=== PATIENT | female | born 1945 | race Caucasian/White ===

== ENCOUNTER → 2018-03-27 08:29 | Outpatient (CLI) | payer MEDICARE, SELFPAY ==
--- NOTE | 2018-03-27 08:36 | MR_ITS ---
MR lumbar spine wo con, MR 3-d myelogram/MRCP HISTORY: PT states Low Back Pain , Bilateral Leg Pain, Numbness, and Tingling. ITS.REASON: LOW BACK PAIN, LUMBAR DISC DISEASE, SPINAL STENOSIS OF LUMBAR ORDERING PHYSICIAN: Phoenix Coulter MD PATIENT AGE: 72 years Comparison: MRI 09/08/10 TECHNIQUE: Standard multiplanar multiecho sequences are performed without contrast. 3-D MIP and myelographic images are also rendered and reviewed FINDINGS: There is normal alignment. The spinal cord ends at the L1-L2 level. T11-T12: Unremarkable. T12-L1: Mild degenerative disc disease with mild bulging disc slightly eccentric towards the left L1-L2: Degenerative disc disease with concentric bulging disc along with facet and ligamentum flavum hypertrophy with severe right foraminal narrowing and moderate to severe left foraminal narrowing. The bulging disc is eccentric toward the right with right lateral and foraminal disc osteophyte complex. L2-L3: Degenerative disc disease with bulging disc along with facet and ligamentum flavum hypertrophy with resultant moderate right and moderate to severe left foraminal narrowing along with bilateral lateral recess narrowing. Previously there was a herniated extruded disc at this level. This is no longer apparent. L3-L4: Degenerative disc disease with bulging disc along with facet and ligamentum flavum hypertrophy with mild bilateral foraminal narrowing and bilateral lateral recess narrowing. There is borderline narrowing of the canal at this level. L4-L5: Degenerative disc disease with narrowed disc space and type II endplate changes with minimal bulging disc. There is transverse narrowing of the canal is 11 mm and bilateral foraminal narrowing. L5-S1: Fusion of L5-S1 interspace some mild posterior ridging as before with mild bilateral foraminal narrowing. IMPRESSION: 1. Abnormal MRI of the lumbar spine with multilevel lumbar spondylosis with degenerative disc disease along with facet and ligamentum hypertrophy and bulging disc with varying levels of bilateral recess and foraminal narrowing along with borderline canal stenosis. Please see above for detailed description at each level. 2. No extruded herniated disc.
== END ==
PROVIDERS: Family Provider Family Medicine; Visit Provider Family Medicine
DX: M54.5 Low back pain (principal); M51.9 Unspecified thoracic, thoracolumbar and lumbosacral intervertebral disc disorder; M48.061 Spinal stenosis, lumbar region without neurogenic claudication
CPT/HCPCS: 72148; 76376

== ENCOUNTER → 2018-07-19 09:00 | Outpatient (CLI) | payer MEDICARE, SELFPAY ==
[2018-07-19 09:27] LABS: Basophils # 0.1 K/mm3 (0-0.2); Basophils % 0.9 % (0.1-2.0); Eosinophils # 0.3 K/mm3 (0.0-0.4); Eosinophils % 5.3 % (0.1-12.0); Lymphocytes # 1.4 K/mm3 (0.7-4.5); Lymphocytes % 22.1 % (10-50); Mean Corpuscular HGB Conc 28.1 g/dL (31.8-35.4); Mean Corpuscular Hemoglobin 18.1 pg (27.0-31.2); Mean Corpuscular Volume 64.3 fl (81-99); Mean Platelet Volume 6.9 fl (7.4-10.4); Monocytes # 0.5 K/mm3 (0.1-1.0); Monocytes % 7.9 % (1.7-9.3); Neutrophils # 3.9 K/mm3 (1.8-7.8); Neutrophils % 63.8 % (37.0-80.0); Platelet Count 390 K/mm3 (142-424); Red Blood Count 3.78 M/mm3 (4.20-5.40); Red Cell Distribution Width 17.2 % (11.5-17.5); White Blood Count 6.1 K/mm3 (4.8-10.8)
[2018-07-19 09:43] LABS: Hematocrit 24.6 % (37.0-47.0)
[2018-07-19 09:45] LABS: Hemoglobin 6.8 g/dL (12.2-16.2)
[2018-07-19 13:37] LABS: Alanine Aminotransferase 31 U/L (12-78); Albumin Level 3.3 gm/dL (3.4-5.0); Albumin/Globulin Ratio 0.9 (1.1-1.8); Alkaline Phosphatase 121 U/L (46-116); Anion Gap 15.6 mEq/L (5-15); Aspartate Amino Transferase 16 U/L (15-37); Bilirubin,Total 0.3 mg/dL (0.2-1.0); Blood Urea Nitrogen 14 mg/dL (7-18); Calcium 8.4 mg/dL (8.5-10.1); Carbon Dioxide 25 mmol/L (21.0-32.0); Chloride 103 mmol/L (98-107); Chol/HDL Ratio 2.3 (1-3.5); Cholesterol 134 mg/dL (140-200); Creatinine,Serum 0.77 mg/dL (0.55-1.02); Estimated Glomerular Filt Rate 73 ml/min (>60); GFR (African American) 89 ML/MIN (>60); Globulin 3.6 gm/dl (1.3-3.2); Glucose 104 mg/dL (74-106); HDL Cholesterol 58 mg/dL (29-89); LDL Cholesterol 62 mg/dL (0-130); Potassium 3.6 mmoL/L (3.5-5.1); Sodium 140 mmol/L (136-145); Total Protein,Serum 6.9 gm/dL (6.4-8.2); Triglycerides 71 mg/dL (30-200); VLDL Cholesterol 14 mg/dL (0-40)
== END ==
PROVIDERS: Visit Provider Family Medicine
DX: I10 Essential (primary) hypertension (principal); E78.00 Pure hypercholesterolemia, unspecified
CPT/HCPCS: 36415; 80053; 80061; 85025

== ENCOUNTER → 2018-07-24 12:26 | Outpatient (CLI) | payer MEDICARE, SELFPAY ==
[2018-07-24 12:54] LABS: Basophils # 0.1 K/mm3 (0-0.2); Eosinophils # 0.3 K/mm3 (0.0-0.4); Hematocrit 24.7 % (37.0-47.0); Lymphocytes # 1.4 K/mm3 (0.7-4.5); Lymphocytes % 26.5 % (10-50); Mean Corpuscular HGB Conc 27.4 g/dL (31.8-35.4); Mean Corpuscular Hemoglobin 17.5 pg (27.0-31.2); Mean Corpuscular Volume 63.7 fl (81-99); Mean Platelet Volume 7.5 fl (7.4-10.4); Monocytes # 0.6 K/mm3 (0.1-1.0); Monocytes % 10.9 % (1.7-9.3); Neutrophils # 2.9 K/mm3 (1.8-7.8); Neutrophils % 56.6 % (37.0-80.0); Platelet Count 414 K/mm3 (142-424); Red Blood Count 3.87 M/mm3 (4.20-5.40); Red Cell Distribution Width 17.3 % (11.5-17.5); White Blood Count 5.1 K/mm3 (4.8-10.8)
[2018-07-24 13:01] LABS: Hemoglobin 6.8 g/dL (12.2-16.2)
[2018-07-24 14:35] LABS: Alanine Aminotransferase 30 U/L (12-78); Albumin Level 3.4 gm/dL (3.4-5.0); Albumin/Globulin Ratio 0.9 (1.1-1.8); Alkaline Phosphatase 127 U/L (46-116); Anion Gap 13.8 mEq/L (5-15); Aspartate Amino Transferase 12 U/L (15-37); Bilirubin,Total 0.4 mg/dL (0.2-1.0); Blood Urea Nitrogen 10 mg/dL (7-18); Calcium 9.4 mg/dL (8.5-10.1); Carbon Dioxide 28 mmol/L (21.0-32.0); Chloride 104 mmol/L (98-107); Creatinine,Serum 0.67 mg/dL (0.55-1.02); Estimated Glomerular Filt Rate 86 ml/min (>60); Ferritin 7 ng/mL (8-388); GFR (African American) 104 ML/MIN (>60); Glucose 112 mg/dL (74-106); Potassium 3.8 mmoL/L (3.5-5.1); Sodium 142 mmol/L (136-145); Total Protein,Serum 7.4 gm/dL (6.4-8.2)
[2018-07-25 08:28] LABS: Iron 11 ug/dL (27-139); UIBC 466 ug/dL (118-369)
[2018-07-25 14:18] LABS: Iron Saturation 2 % (15-55); Vitamin B12 839 pg/mL (232-1245)
== END ==
PROVIDERS: Visit Provider Nurse Practitioner Acute Care
DX: D64.9 Anemia, unspecified (principal)
CPT/HCPCS: 36415; 80053; 82607; 82728; 83540; 83550; 85025

== ENCOUNTER → 2018-07-25 12:43 | Outpatient (CLI) | payer MEDICARE, SELFPAY ==
[2018-07-26 09:06] LABS: Hematocrit 26.3 % (37.0-47.0); Hemoglobin 6.8 g/dL (12.2-16.2)
== END ==
PROVIDERS: Visit Provider Family Medicine
DX: D64.9 Anemia, unspecified (principal)
CPT/HCPCS: 36415; 85014; 85018; 86850

== ENCOUNTER 2018-07-26 09:14 | Outpatient (CLI) | payer MEDICARE, SELFPAY ==
[2018-07-26] VITALS (20 sets, daily range): BP systolic 134–185; BP diastolic 68–97; PULSE 62–72; RESP 16–18; TEMP 36.5–36.8; O2SAT 97–99; BMI 29.2
[2018-07-26 16:16] LABS: Hematocrit 33.8 % (37.0-47.0)
== END 2018-07-26 16:20 | disposition home or self-care (01) ==
LOC: INF 09:14
PROVIDERS: Visit Provider Family Medicine
DX: D64.9 Anemia, unspecified (principal)
CPT/HCPCS: 36415; 36430; 85014; 85018; P9016

== ENCOUNTER → 2018-08-15 12:14 | Outpatient (CLI) | payer MEDICARE, SELFPAY ==
[2018-08-15 13:23] LABS: Basophils # 0.1 K/mm3 (0-0.2); Basophils % 1.1 % (0.1-2.0); Eosinophils # 0.3 K/mm3 (0.0-0.4); Hematocrit 37.7 % (37.0-47.0); Hemoglobin 10.7 g/dL (12.2-16.2); Lymphocytes # 2.2 K/mm3 (0.7-4.5); Lymphocytes % 31.9 % (10-50); Mean Corpuscular HGB Conc 28.4 g/dL (31.8-35.4); Mean Corpuscular Hemoglobin 20.5 pg (27.0-31.2); Mean Corpuscular Volume 72.1 fl (81-99); Mean Platelet Volume 6.9 fl (7.4-10.4); Monocytes # 0.6 K/mm3 (0.1-1.0); Monocytes % 9.4 % (1.7-9.3); Neutrophils # 3.6 K/mm3 (1.8-7.8); Neutrophils % 52.6 % (37.0-80.0); Platelet Count 359 K/mm3 (142-424); Red Blood Count 5.23 M/mm3 (4.20-5.40); Red Cell Distribution Width 25.5 % (11.5-17.5); White Blood Count 6.8 K/mm3 (4.8-10.8)
== END ==
PROVIDERS: Visit Provider Family Medicine
DX: D50.9 Iron deficiency anemia, unspecified (principal)
CPT/HCPCS: 36415; 85025

== ENCOUNTER → 2018-09-24 07:00 | Outpatient (CLI) | payer MEDICARE, SELFPAY | PROVIDERS: Visit Provider Internal Medicine Gastroenterology | DX: D50.0 Iron deficiency anemia secondary to blood loss (chronic) (principal) | CPT/HCPCS: 82272; G0328 ==

== ENCOUNTER → 2018-09-24 08:09 | Outpatient (CLI) | payer MEDICARE, SELFPAY ==
[2018-09-24 08:58] LABS: Hematocrit 44.1 % (37.0-47.0)
[2018-09-25 08:28] LABS: Iron 68 ug/dL (27-139); UIBC 267 ug/dL (118-369)
[2018-09-25 09:57] LABS: Iron Saturation 20 % (15-55)
[2018-09-25 13:15] LABS: Hemoglobin (Hgb) Solubility Negative (Negative)
[2018-09-26 10:21] LABS: Occult Blood,Stool Negative (Negative)
== END ==
PROVIDERS: Visit Provider Internal Medicine Gastroenterology
DX: D64.9 Anemia, unspecified (principal)
CPT/HCPCS: 36415; 82272; 83021; 83540; 83550; 85014; 85660; G0328

== ENCOUNTER → 2018-09-25 07:00 | Outpatient (CLI) | payer MEDICARE, SELFPAY ==
[2018-09-26 10:21] LABS: Occult Blood,Stool Negative (Negative)
== END ==
PROVIDERS: Visit Provider Internal Medicine Gastroenterology
DX: D50.0 Iron deficiency anemia secondary to blood loss (chronic) (principal)
CPT/HCPCS: 82272; G0328

== ENCOUNTER → 2018-09-26 09:54 | Outpatient (CLI) | payer MEDICARE, SELFPAY ==
[2018-09-26 10:21] LABS: Occult Blood,Stool Negative (Negative)
== END ==
PROVIDERS: Visit Provider Internal Medicine Gastroenterology
DX: D50.0 Iron deficiency anemia secondary to blood loss (chronic) (principal)
CPT/HCPCS: 82272; G0328

== ENCOUNTER → 2020-04-20 09:11 | Outpatient (CLI) | payer MEDICARE, SELFPAY ==
--- NOTE | 2020-04-20 09:16 | XR_ITS ---
PROCEDURE: XR DEXA AXIAL SKELETON CLINICAL HISTORY: POST MENOPAUSAL COMPARISON: CR,DX BONE3 BONE DENSITOMETRY(HIP:LT SPINE from 03/27/2017 FINDINGS: The right hip BMD is 0.708 with a T-score of -1.3. The left hip BMD is 0.703 with a T-score of -1.3. The lumbar spine BMD is 1.293 with a T-score of 2.2. IMPRESSION: This patient is considered osteopenic according to the World Health Organization criteria. Bone density is between 10 and 25 percent below young normal. Fracture risk is moderate. Treatment is advised. Based on these results a follow-up exam is recommended in 2 year. Dictated by: Luis Real MD 04/20/2020 20:25 Luis Real MD in [place] 04/21/2020 07:44
== END ==
PROVIDERS: PCP Family Medicine; Visit Provider Family Medicine
DX: M85.89 Other specified disorders of bone density and structure, multiple sites (principal)
CPT/HCPCS: 77080

== ENCOUNTER → 2020-06-13 08:27 | Outpatient (CLI) | payer MEDICARE, SELFPAY ==
[2020-06-13 09:02] LABS: Basophils # 0.1 K/mm3 (0-0.2); Basophils % 1.3 % (0.1-2.0); Eosinophils # 0.3 K/mm3 (0.0-0.4); Hematocrit 44.3 % (37.0-47.0); Hemoglobin 14.7 g/dL (12.2-16.2); Lymphocytes # 1.4 K/mm3 (0.7-4.5); Lymphocytes % 26.1 % (10-50); Mean Corpuscular HGB Conc 33.2 g/dL (31.8-35.4); Mean Corpuscular Hemoglobin 27.6 pg (27.0-31.2); Mean Corpuscular Volume 83.1 fl (81-99); Mean Platelet Volume 8.3 fl (7.4-10.4); Monocytes # 0.6 K/mm3 (0.1-1.0); Monocytes % 10.4 % (1.7-9.3); Neutrophils # 3.1 K/mm3 (1.8-7.8); Neutrophils % 57.3 % (37.0-80.0); Platelet Count 227 K/mm3 (142-424); Red Blood Count 5.33 M/mm3 (4.20-5.40); Red Cell Distribution Width 14.8 % (11.5-17.5); White Blood Count 5.5 K/mm3 (4.8-10.8)
[2020-06-13 09:47] LABS: Chloride 103 mmol/L (98-107); Potassium 3.9 mmoL/L (3.5-5.1); Sodium 140 mmol/L (136-145)
[2020-06-13 09:49] LABS: Blood Urea Nitrogen 15 mg/dl (7-17); Estimated Glomerular Filt Rate 70 ml/min (>60); GFR (African American) 84 ML/MIN (>60)
[2020-06-13 09:50] LABS: Alanine Aminotransferase 25 U/L (12-78); Albumin Level 4.1 g/dl (3.5-5.0); Albumin/Globulin Ratio 1.3 (1.1-1.8); Alkaline Phosphatase 120 U/L (38-126); Anion Gap 9.9 mEq/L (5-15); Aspartate Amino Transferase 28 U/L (14-36); Bilirubin,Total 0.4 mg/dl (0.2-1.3); Calcium 9.8 mg/dl (8.4-10.2); Carbon Dioxide 31 mmol/L (22.0-30.0); Globulin 3.1 g/dL (1.3-3.2); Glucose 99 mg/dl (74-100); Total Protein,Serum 7.2 g/dl (6.3-8.2)
[2020-06-13 10:07] LABS: T4 (Thyroxine) 9.1 ug/dl (5.53-11.0)
[2020-06-13 10:20] LABS: Thyroid Stimulating Hormone 1.77 uIU/mL (0.465-4.68)
== END ==
PROVIDERS: Visit Provider Family Medicine
DX: I10 Essential (primary) hypertension (principal); Z79.899 Other long term (current) drug therapy
CPT/HCPCS: 36415; 80053; 84436; 84443; 85025

== ENCOUNTER 2020-08-05 13:30 | Emergency (ER) | payer MEDICARE, SELFPAY ==
[2020-08-05 13:35] VITALS: BP 131/82; PULSE 76; RESP 19; TEMP 37.1; O2SAT 96; BMI 29.2
--- NOTE | 2020-08-05 13:50 | HMH.EDUTC ---
[facility] [place] Clinical Impression: Sinusitis Qualifiers: Sinusitis location: unspecified location Chronicity: unspecified Qualified Code(s): J32.9 - Chronic sinusitis, unspecified Disposition: Home, Self-Care Condition on Discharge: Good Instructions: Sinusitis, Sinus Headache, Doxycycline, DI for COVID-19 (Suspected or Confirmed ), Coronavirus Disease 2019 Additional Instructions: *Monitor Temp, Over the counter Motrin or Tylenol as directed/as needed Tylenol every 4 hours and Motrin every 6 hours (as long as your family doctor has told you that you can take it) for fever or pain. and straight to ER if unable to lower temp less than 101.0 after medication given *Warm salt water gargles may help to soothe the throat *Throat Lozenges *Warm fluids like tea with honey may help to soothe the throat *Sleep elevated *Humidifier/Vaporizer Follow up IMMEDIATELY for new or worsening symptoms or no Noticeable improvement over the next 48-72 hours. 911 for difficulty breathing or swallowing You were tested for today for COVID19 your test result should be back in the next 24-48 hours, you may call to the [facility] to see if your test results are back in the next 48 hours [phone] [facility] hours are 9am-9pm You was given a handout with instructions for Self Quarantine and Self isolation for while you wait on test results and what to do if they are positive If you are positive the Health Dept will be contacting you also Prescriptions: Doxycycline Hyclate [Doxycycline 100mg Capsule] 100 mg PO BID 7 Days #14 cap Prescription Printed Referrals: Uriel Mcbride MD [Primary Care Provider] - As needed Time of Disposition: 13:55 Medical Decision Making - Maximilian Inquiry Pt receiving controlled substance: No Maximilian was queried for this patient: No Vital Signs: 08/05/20 13:35 08/05/20 14:02 Temperature 98.7 F 98.7 F Temperature Source Oral Pulse Rate 76 Pulse Rate [Right Brachial] 76 Respiratory Rate 19 19 Blood Pressure 131/82 Blood Pressure [Right Arm] 131/82 Blood Pressure Mean [Right Arm] 98 Blood Pressure Source [Right Arm] Automatic Cuff Blood Pressure Position [Right Arm] Sitting 02 Sat by Pulse Oximetry 96 Oxygen Delivery Method Room Air Orders (Tests/Meds): ORDERS Category Date Time Status Covid-19 Nasal PCR Sendout P&C Stat Lab 08/05/20 13:55 Received [facility] [place]PI - General Stated complaint: poss sinus infection Time Seen by Provider: 08/05/20 13:50 Mode of Arrival: Ambulatory Source of Information: Patient Limitations: No Limitations Description of Symptoms (Recalled from Triage Doc. by RN): PATIENT C/O HEADACHE AND SINUS PAIN/PRESSURE X 2 DAYS HEENT Symptoms (Recalled from RN notes): No Resp Symptoms (Recalled from RN notes): No Skin Symptoms (Recalled from RN notes): No MS Symptoms (Recalled from RN notes): No Functional Status (Recalled from RN notes): WNL - History of Present Illness Provider Complaint: Patient state that she has had several sinus infections in the past and feels like she may have a sinus infection again State that she has been having sinus pain and pressure for over a week that has continued to get worse over the last couple of days States that she also wanted to get tested for COVID to be safe - Related Data Home Medications Medication Instructions Recorded Confirmed Aspirin [Aspirin 325mg Tab] 325 mg PO DAILY 07/26/18 07/26/18 Atorvastatin Calcium [Atorvastatin 20 mg PO DAILY 07/26/18 07/26/18 20mg Tab] Chlorthalidone 25 mg PO DAILY 07/26/18 07/26/18 Gabapentin [Gabapentin 300mg Cap] 300 mg PO DAILY 07/26/18 07/26/18 Potassium Chloride [Klor-con 20 20 meq PO DAILY 07/26/18 07/26/18 mEq tablet] Verapamil HCl [Verapamil ER] 240 mg PO DAILY 07/26/18 07/26/18 Previous Rx's Medication Instructions Recorded Doxycycline Hyclate [Doxycycline 100 mg PO BID 7 Days #14 cap 08/05/20 100mg Capsule] Allergies Allergy/AdvReac Type Se
[2020-08-05 14:02] VITALS: BP 131/82; PULSE 76; RESP 19; TEMP 37.1; O2SAT 96
[2020-08-06 10:20] LABS: Covid-19 Nasal PCR Sendout P&C Positive
--- NOTE | 2020-08-06 10:23 | PC.NURSE ---
PATIENT NOTIFIED OF POSITIVE COVID TEST
== END 2020-08-05 14:03 | disposition home or self-care (01) ==
PROVIDERS: Emergency Provider Nurse Practitioner; PCP Family Medicine
DX: U07.1 COVID-19 (principal); J32.9 Chronic sinusitis, unspecified; I10 Essential (primary) hypertension; E78.5 Hyperlipidemia, unspecified; Z88.8 Allergy status to other drugs, medicaments and biological substances; Z79.899 Other long term (current) drug therapy
CPT/HCPCS: G0463; 99201; U0004

== ENCOUNTER → 2021-02-20 07:15 | Outpatient (CLI) | payer MEDICARE, SELFPAY ==
[2021-02-20 09:03] LABS: Alanine Aminotransferase 24 U/L (12-78); Albumin Level 4.2 g/dl (3.5-5.0); Albumin/Globulin Ratio 1.4 (1.1-1.8); Alkaline Phosphatase 110 U/L (38-126); Anion Gap 12.3 mEq/L (5-15); Aspartate Amino Transferase 26 U/L (14-36); Bilirubin,Total 0.7 mg/dl (0.2-1.3); Blood Urea Nitrogen 18 mg/dl (7-17); Calcium 9.8 mg/dl (8.4-10.2); Carbon Dioxide 32 mmol/L (22.0-30.0); Chloride 106 mmol/L (98-107); Chol/HDL Ratio 2.7 (1-3.5); Cholesterol 155 mg/dl (140-200); Estimated Glomerular Filt Rate 70 ml/min (>60); GFR (African American) 84 ML/MIN (>60); Globulin 2.9 g/dL (1.3-3.2); Glucose 98 mg/dl (74-100); HDL Cholesterol 58 mg/dl (40-60); Potassium 5.3 mmoL/L (3.5-5.1); Sodium 145 mmol/L (136-145); Total Protein,Serum 7.1 g/dl (6.3-8.2); Triglycerides 87 mg/dl (30-150); VLDL Cholesterol 17 mg/dL (0-40)
[2021-02-20 09:14] LABS: Direct LDL Cholesterol 69.76 mg/dL (100-129)
== END ==
PROVIDERS: Visit Provider Family Medicine
DX: I10 Essential (primary) hypertension (principal); E78.5 Hyperlipidemia, unspecified
CPT/HCPCS: 36415; 80053; 80061

== ENCOUNTER → 2021-03-09 09:36 | Outpatient (POV) | payer MEDICARE, SELFPAY | PROVIDERS: Visit Provider Dermatology | DX: Z00.00 Encounter for general adult medical examination without abnormal findings (principal) ==

== ENCOUNTER → 2022-08-04 07:12 | Outpatient (CLI) | payer MEDICARE, SELFPAY ==
[2022-08-04 07:55] LABS: Chloride 106 mmol/L (98-107); Potassium 4.7 mmoL/L (3.5-5.1); Sodium 141 mmol/L (136-145)
[2022-08-04 07:58] LABS: Alanine Aminotransferase 34 U/L (12-78); Albumin/Globulin Ratio 1.4 (1.1-1.8); Alkaline Phosphatase 128 U/L (38-126); Anion Gap 9.7 mEq/L (5-15); Aspartate Amino Transferase 32 U/L (14-36); Bilirubin,Total 0.5 mg/dl (0.2-1.3); Blood Urea Nitrogen 15 mg/dl (7-17); Calcium 9.3 mg/dl (8.4-10.2); Carbon Dioxide 30 mmol/L (22.0-30.0); Cholesterol 158 mg/dl (140-200); Estimated Glomerular Filt Rate 69 ml/min (>60); GFR (African American) 84 ML/MIN (>60); Globulin 2.9 g/dL (1.3-3.2); Glucose 100 mg/dl (74-100); Iron 79 ug/dL (37-170); Total Protein,Serum 6.9 g/dl (6.3-8.2); Triglycerides 79 mg/dl (30-150); VLDL Cholesterol 16 mg/dL (0-40)
[2022-08-04 07:59] LABS: Chol/HDL Ratio 2.4 (1-3.5); HDL Cholesterol 65 mg/dl (40-60)
[2022-08-04 08:10] LABS: Direct LDL Cholesterol 63.29 mg/dL (100-129)
[2022-08-04 08:29] LABS: Thyroid Stimulating Hormone 3.67 uIU/mL (0.465-4.68)
[2022-08-04 10:31] LABS: Basophils # 0.1 K/mm3 (0-0.2); Eosinophils # 0.3 K/mm3 (0.0-0.4); Eosinophils % 4.2 % (0.1-12.0); Hematocrit 45.3 % (37.0-47.0); Hemoglobin 14.6 g/dL (12.2-16.2); Lymphocytes # 1.7 K/mm3 (0.7-4.5); Lymphocytes % 25.3 % (10-50); Mean Corpuscular HGB Conc 32.2 g/dL (31.8-35.4); Mean Corpuscular Hemoglobin 29.3 pg (27.0-31.2); Mean Corpuscular Volume 90.9 fl (81-99); Mean Platelet Volume 9.7 fl (7.4-10.4); Monocytes # 0.7 K/mm3 (0.1-1.0); Monocytes % 9.7 % (1.7-9.3); Neutrophils % 59.8 % (37.0-80.0); Platelet Count 227 K/mm3 (142-424); Red Blood Count 4.98 M/mm3 (4.20-5.40); Red Cell Distribution Width 13.8 % (11.5-17.5); White Blood Count 6.7 K/mm3 (4.8-10.8)
== END ==
PROVIDERS: PCP Family Medicine; Visit Provider Physician Assistant
DX: I10 Essential (primary) hypertension (principal); D50.9 Iron deficiency anemia, unspecified; E78.5 Hyperlipidemia, unspecified
CPT/HCPCS: 36415; 80053; 80061; 83540; 84443; 85025

== ENCOUNTER 2023-12-02 07:42 | Outpatient (CLI) | payer MEDICARE, SELFPAY ==
[2023-12-02 08:48] LABS: Basophils # 0.1 K/mm3 (0-0.2); Basophils % 1.2 % (0.1-2.0); Eosinophils # 0.3 K/mm3 (0.0-0.4); Eosinophils % 4.1 % (0.1-12.0); Hematocrit 46.4 % (37.0-47.0); Lymphocytes # 1.4 K/mm3 (0.7-4.5); Lymphocytes % 21.5 % (10-50); Mean Corpuscular HGB Conc 32.4 g/dL (31.8-35.4); Mean Corpuscular Hemoglobin 29.1 pg (27.0-31.2); Mean Corpuscular Volume 89.8 fl (81-99); Mean Platelet Volume 9.2 fl (7.4-10.4); Monocytes # 0.5 K/mm3 (0.1-1.0); Monocytes % 8.6 % (1.7-9.3); Neutrophils % 64.5 % (37.0-80.0); Platelet Count 222 K/mm3 (142-424); Red Blood Count 5.17 M/mm3 (4.20-5.40); Red Cell Distribution Width 14.6 % (11.5-17.5); White Blood Count 6.3 K/mm3 (4.8-10.8)
[2023-12-02 09:46] LABS: Alanine Aminotransferase 25 U/L (12-78); Albumin Level 4.1 g/dl (3.5-5.0); Albumin/Globulin Ratio 1.3 (1.1-1.8); Alkaline Phosphatase 144 U/L (38-126); Anion Gap 11.2 mEq/L (5-15); Aspartate Amino Transferase 29 U/L (14-36); Bilirubin,Total 0.8 mg/dl (0.2-1.3); Blood Urea Nitrogen 20 mg/dl (7-17); Calcium 10.1 mg/dl (8.4-10.2); Carbon Dioxide 29 mmol/L (22.0-30.0); Chloride 108 mmol/L (98-107); Cholesterol 173 mg/dl (140-200); Estimated Glomerular Filt Rate 81 ml/min (>60); GFR (African American) 97 ML/MIN (>60); Globulin 3.1 g/dL (1.3-3.2); Glucose 105 mg/dl (74-100); HDL Cholesterol 88 mg/dl (40-60); Potassium 5.2 mmoL/L (3.5-5.1); Sodium 143 mmol/L (136-145); Total Protein,Serum 7.2 g/dl (6.3-8.2); Triglycerides 71 mg/dl (30-150); VLDL Cholesterol 14 mg/dL (0-40)
[2023-12-02 09:57] LABS: Direct LDL Cholesterol 76.17 mg/dL (100-129)
[2023-12-02 10:03] LABS: Free T4 (Free Thyroxine) 1.03 ng/dl (0.78-2.19)
[2023-12-02 10:04] LABS: 25-OH Vitamin D, Total 56.9 ng/mL (30-100)
[2023-12-02 10:16] LABS: Thyroid Stimulating Hormone 1.64 uIU/mL (0.465-4.68)
[2023-12-02 10:26] LABS: Iron 127 ug/dL (37-170)
[2023-12-03 08:48] LABS: Thyroid Peroxidase Antibodies 10 IU/mL (0-34)
== END 2023-12-02 23:59 | disposition home or self-care (01) ==
LOC: RAD 07:43
PROVIDERS: PCP Family Medicine; Visit Provider Physician Assistant
DX: E78.00 Pure hypercholesterolemia, unspecified (principal); D50.9 Iron deficiency anemia, unspecified; I10 Essential (primary) hypertension; L65.9 Nonscarring hair loss, unspecified; E55.9 Vitamin D deficiency, unspecified
CPT/HCPCS: 36415; 80053; 80061; 82306; 83540; 84439; 84443; 85025; 86376

== ENCOUNTER 2023-12-11 09:51 | Outpatient (CLI) | payer MEDICARE, SELFPAY ==
--- NOTE | 2023-12-11 09:54 | US_ITS ---
FINAL REPORT CLINICAL HISTORY: THYROMEGALY COMPARISON: None FINDINGS: THYROID ULTRASOUND: The right lobe of the thyroid gland measures 4.9 x 1.8 x 2.1 cm in size, slightly enlarged. The left lobe of the thyroid gland measures 4.6 x 1.2 x 2 cm in size, also mildly enlarged. There is a diffuse heterogeneous echotexture of the thyroid gland with a nodular contour, several of those nodules have been chosen for comment. There is a right upper lobe nodule, 9 x 6 x 7 mm in size, solid, hyperechoic, a TI-RADS category 3 nodule. There is another right sided nodule, 13 x 7 x 9 mm in size, solid, isoechoic, also a TI-RADS category 3 nodule. There is a left thyroid mass, 16 x 12 x 10 mm in size, solid, isoechoic, a TI-RADS category 3 nodule. The largest nodule is also on the left, 20 x 16 x 14 mm in size, cystic and solid, isoechoic with a peripheral hypoechoic rim, a TI-RADS category 2 nodule. IMPRESSION: Diffusely inhomogeneous thyroid gland with multiple nodules as described above, TI-RADS category 2 and 3 nodules. Would consider 12-month follow-up ultrasound for further evaluation. Reviewed, Interpreted and Dictated by Theron Lowe III, MD Transcribed by Bernice Jones Authenticated and . [facility]
== END 2023-12-11 23:59 | disposition home or self-care (01) ==
LOC: RAD 09:52
PROVIDERS: PCP Physician Assistant; Visit Provider Physician Assistant
DX: E01.0 Iodine-deficiency related diffuse (endemic) goiter (principal)
CPT/HCPCS: 76536

== ENCOUNTER 2023-12-26 08:32 | Outpatient (CLI) | payer MEDICARE, SELFPAY ==
[2023-12-26 10:23] LABS: Blood Urea Nitrogen 15 mg/dl (7-17); Calcium 9.9 mg/dl (8.4-10.2); Carbon Dioxide 30 mmol/L (22.0-30.0); Chloride 106 mmol/L (98-107); Estimated Glomerular Filt Rate 96 ml/min (>60); GFR (African American) 116 ML/MIN (>60); Glucose 102 mg/dl (74-100); Sodium 147 mmol/L (136-145)
[2023-12-26 10:49] LABS: Anion Gap 15.8 mEq/L (5-15); Potassium 4.8 mmoL/L (3.5-5.1)
[2023-12-26 11:30] LABS: Hemoglobin A1C 5.6 % (4.0-6.0)
== END 2023-12-26 23:59 | disposition home or self-care (01) ==
LOC: LAB 08:34
PROVIDERS: PCP Family Medicine; Visit Provider Physician Assistant
DX: R73.01 Impaired fasting glucose (principal); I10 Essential (primary) hypertension
CPT/HCPCS: 36415; 80048; 83036

== ENCOUNTER 2024-02-06 08:45 | Outpatient (CLI) | payer MEDICARE, SELFPAY ==
--- NOTE | 2024-02-06 08:51 | XR_ITS ---
FINAL REPORT TECHNIQUE: Bone mineral density was calculated of the lumbar spine and hip. CLINICAL HISTORY: OSTEOPOROSIS COMPARISON: None FINDINGS: Using L1-4, the bone mineral density of the spine is 1.264 g/cm2, corresponding to T-score of 2.0. Using the left hip, the bone mineral density of the femoral neck is 0.716 g/cm2, corresponding to a T-score of -1.2. Using the right hip, the bone mineral density of the femoral neck is 0.799 g/cm?, corresponding to a T-score of -1.2. NOTE: T-score: Standard deviation compared with peak bone mass of young adult mean. *Following the recommendations of the International Society of Bone densitometry, classification of hip BMD is based on the lower of two T-scores; total hip or femoral neck. IMPRESSION: Diminished bone mineral density of the bilateral hips consistent with osteopenia. Normal bone mineral density of the lumbar spine, although this may be falsely elevated secondary to bony sclerosis. Reviewed, Interpreted and Dictated by Theron Lowe III, MD Transcribed by Bernice Jones Authenticated and . [facility]
== END 2024-02-06 23:59 | disposition home or self-care (01) ==
LOC: RAD 08:45
PROVIDERS: PCP Physician Assistant; Visit Provider Physician Assistant
DX: Z13.820 Encounter for screening for osteoporosis (principal); M85.88 Other specified disorders of bone density and structure, other site
CPT/HCPCS: 77080

== ENCOUNTER 2024-07-19 06:56 | Outpatient (CLI) | payer MEDICARE, SELFPAY ==
[2024-07-19 07:46] LABS: Chloride 108 mmol/L (98-107)
[2024-07-19 07:47] LABS: Potassium 5.1 mmoL/L (3.5-5.1); Sodium 142 mmol/L (136-145)
[2024-07-19 07:49] LABS: Alanine Aminotransferase 28 U/L (12-78); Anion Gap 7.1 mEq/L (5-15); Aspartate Amino Transferase 30 U/L (14-36); Blood Urea Nitrogen 17 mg/dl (7-17); Carbon Dioxide 32 mmol/L (22.0-30.0); Estimated Glomerular Filt Rate 69 ml/min (>60); GFR (African American) 84 ML/MIN (>60)
[2024-07-19 07:50] LABS: Albumin/Globulin Ratio 1.5 (1.1-1.8); Alkaline Phosphatase 132 U/L (38-126); Bilirubin,Total 0.7 mg/dl (0.2-1.3); Calcium 9.3 mg/dl (8.4-10.2); Chol/HDL Ratio 2.3 (1-3.5); Cholesterol 150 mg/dl (140-200); Globulin 2.7 g/dL (1.3-3.2); Glucose 102 mg/dl (74-100); HDL Cholesterol 66 mg/dl (40-60); Total Protein,Serum 6.7 g/dl (6.3-8.2); Triglycerides 84 mg/dl (30-150); VLDL Cholesterol 17 mg/dL (0-40)
[2024-07-19 07:54] LABS: Creatinine,Urine Random 89 mg/dL (Not Estab.)
[2024-07-19 07:55] LABS: Hemoglobin A1C 5.6 % (4.0-6.0); Microalbumin/Creatinine Ratio 17.6
[2024-07-19 08:01] LABS: Direct LDL Cholesterol 62.79 mg/dL (100-129)
[2024-07-19 09:42] LABS: 25-OH Vitamin D, Total 49.2 ng/mL (30-100)
== END 2024-07-19 23:59 | disposition home or self-care (01) ==
LOC: LAB 06:59
PROVIDERS: PCP Family Medicine; Visit Provider Family Medicine
DX: R73.01 Impaired fasting glucose (principal); E78.00 Pure hypercholesterolemia, unspecified; E55.9 Vitamin D deficiency, unspecified; I10 Essential (primary) hypertension
CPT/HCPCS: 36415; 80053; 80061; 82043; 82306; 82570; 83036

== ENCOUNTER 2025-01-30 06:52 | Outpatient (CLI) | payer MEDICARE, SELFPAY ==
--- OUTSIDE RECORDS SUMMARY | 2024-07-22 07:45 | XMS_ITS ---
[facility] Address [address] [facility] [address] [place] [id number] Care Team Providers Care Irrigator Name Role Phone Phoenix Coulter Primary Care Provider [phone] Allergies No Known Allergies REASON FOR VISIT [...] Nasally Twice a day 12/29/2023 Active Nystatin 768422 UNIT/GM 1 application Ex ternally Three times [...] [address] [place] [id number] 07/22/2024 Phoenix Coulter Essential hypertensi on I10 [...] Up: 6 Months, Reason: Progress Notes * MEKHI IGNACIODOB:1945 (79 yo F)Acc No.[id number]:07/22/2024 Progress Notes Patient: MEKHI HESS Provider: Les Coulter M.D. :1945 A ge:78 Y S ex:Female Date:07/22/2024 Address:[facility] [address], [place], [id number] Subjective: * Chief Complaints: * 1 . Checkup. * HPI: C ardiology: 78 year old female presents with c/o Blood Pressure Elevated?Pt here to f/u on hypertension, states she is doing well and does not have any concerns. c/o Hyperlipidemia P t is not fasting today. Pt had fasting labs drawn on 09/18 at [facility], see labs. * ROS: D ERMATOLOGY: no R isidoro. n o H stephanie. G ASTROENTEROLOGY: no N ausea. n o V omiting. U ROLOGY: no D ifficulty urinating. n o B lood in urine. * Medical History: Nate Lynn [phone] - Neurologist - occlusion of right carotid artery, Dr. Tico Drake - Retina specialist - Macular Degeneration, Dr. Iggy Fenton - Urologist - Kidney Stones, Dr. Reggie Pardo - Spinal Stinosis with Arthritic Disc, Dr. Ad Hinson - Colonoscopy, Ovarian Screening - [facility] [place], [facility] - OB yearly mammogram, Hyperlipidemia, [...] Father - Enlarged Heart; Paternal Uncle - [place]; Mother - Ovarian, Colon cancer. * Social History: C URRENT TOBACCO USE S moking Status: P atient does NOT smoke, F ormer Smoker:?No. * Medications: T aking Nystatin 034809 UNIT/GM Cream 1 application Externally Three times [...] * Vitals: W t:164.2, Temp:97.8, BP:130/80, HR:54, Nurse:aron, Ht: 60.50, BMI:31.54. * Examination: C ardiology: [...] * Images: Billing Information: * Visit Code: 52788 Office Visit, Est Pt., Level 4. * Procedure Codes: G2211 Complex e/m visit add on. * Electronic signature of Radhika Coulter MD on 01/30/2025 at 06:56 AM EDT Sign off status: Pending * Provider: Les Coulter M.D. Date: 09/22/2023 Generated for Hipolito chavarria/Johan/Presley on: 0 01/30/2025 06:56 AM EDT History and Physical Notes * HPI (History of Present Illness) Category Sub-Category Detail Notes Category Not es Cardiology Blood Pressure Elevated Pt here to f/u on hypertension, states she is doing well and does not have any concerns Hyperlipidemia Pt is not fasting to day. Pt had fasting labs drawn on 07/18 at [facility], see labs Examination Category Sub-Category Detail Notes Category Not es Cardiology General Appearance: pleasant, NAD Lab re rudi reviewed with patient, see report
--- OUTSIDE RECORDS SUMMARY | 2025-01-29 10:52 | XMS_ITS ---
[facility] Organization [facility] Address [address] [facility] [address] [facility] [address] [place] [id number] Care Team Providers Care Spice [employer] Name Role Phone Phoenix Coulter Primary Care Provider REASON FOR VISIT Message Encounters Encounter Location Date Provider Diagnosis [facility] [address] [facility] [address] [facility] [address] [place] [phone] 01/29/2025 Phoenix Coulter Essential hypertensi on I10 ; Vitamin D deficiency E55.9 ; Hyperkalemia E87.5 ; Hyperglycemia R73.9 and Alkaline phosphatase elevation R74.8 Assessments Encounter Date Diagnosis (ICD Code) Assessment Notes Treatment Notes Treatment Clinical Notes Section Notes 01/29/2025 Essential hypertension (ICD-10 - I10) 01/29/2025 Vitamin D deficiency (ICD-10 - E55.9) 01/29/2025 Hyperkalemia (ICD-10 - E87.5) 01/29/2025 Hyperglycemia (ICD-10 - R73.9) 01/29/2025 Alkaline phosphatase elevation (ICD-10 - R74.8) Plan Of Treatment Pending Test Test Name Order Date H-VITAMIN D 01/29/2025 H-CMP 01/29/2025 H-Glycohemoglobin A1C 01/29/2025 Progress Notes * MEKHI IGNACIODOB:1945 (79 yo F)Acc No.[id number]:01/29/2025 Patient: Maribel JACINTO NINA :1945 A ge:79 Y S ex:Female Address:[address], [place], [address] Subjective: * Chief Complaints: * M essage * Medical History: * Surgical History: * Hospitalization/Major Diagno stic Procedure: * Medications: Objective: * Vitals: * Physical Examination: Assessment: * Assessment: 1. E ssential hypertension - I10 (Primary) 2 . V itamin D deficiency - E55.9 3 . H yperkalemia - E87.5 4 . H yperglycemia - R73.9 ? 5 . A lkaline phosphatase elevation - R74.8 Plan: * Treatment: 2. V itamin D deficiency L AB: H-VITAMIN D 3. H yperkalemia L AB: H-CMP 4. H yperglycemia L AB: H-CMP L AB: H-Glycohemoglobin A1C 5. A lkaline phosphatase elevation L AB: H-CMP * Procedure Codes: * true * Date: Generated for Hipolito chavarria/Johan/Danielaitting on: 0 01/30/2025 06:56 AM EDT
--- OUTSIDE RECORDS SUMMARY | 2025-01-30 06:56 | XMS_ITS | Encounter Summary ---
Author Organization [facility] Address [address] [place] [id number] Care Team Providers Care Grain Oilseed Or Pasture Grower Name Role Phone Unavailable Primary Care Provider Unavailabl e Encounter Details Date Type Department Care Team (Late st Contact Info) Description 10/25/2018 Transcribed Document [facility] [place] [facility] [place] [address] ProviderKristi MD [facility] [place] [address] Social History Tobacco Use Types Packs/Day Years Used Date Smoking Tobacco: Never Assessed Comments Unknown Sex and Gender Information Value Date Recorded Sex Assigned at Female 02/01/2022 6:48 PM CDT Legal Sex Female 6:48 PM CDT Gender Identity Female 02/01/2022 6:48 PM CDT Sexual Orientation Not on file documented as of this encounter Miscellaneous Notes * Cerner Conversion Note - Kristi ProviderMD - 10/25/2018 12:06 PM CDT [address] [place] [address] Patient Copy Patient Information: Name: MEKHI IGNACIO Current Date: 10/25/2018 12:06:36 : 1945 Patient Address: [address] [place] [address] Patient Attending Physician: JARRET LONG MD-URO Primary Care Provider: MADHURI ROSE MD Primary Care Provider Discharge Diagnosis: Weight on Admission: 152 lb, 13 oz Comment: Follow-up Instructions: With: Address: When: JARRTE LONG [address] [place] [address], [address] [place] [id number] Business (1) 1:00 PM Comments: Monday for symptom check/stent pull. Discharge Instructions: Immunizations Documented During Stay: No Immunizations Found Heart Failure Discharge Instructions (if any): Stroke Related Discharge Instructions (if any): Warfarin Related Discharge Instructions (if any): Final Medication List: Other Medications aspirin 325 Milligram(s) Oral Every Day. atorvastatin (atorvastatin 20 mg oral tablet) 1 Tablet(s) Oral Every Day. calcium-vitamin D (Calcium 600+D) 2 tabs Oral Every Day. chlorthalidone (chlorthalidone 25 mg oral tablet) 0.5 Tablet(s) Oral Every Day. ferrous sulfate (ferrous sulfate 324 mg (65 mg elemental iron) oral delayed release tablet) miSOPROStol 200 Milligram(s) Oral Two Times A Day. multivitamin (Multi Vitamin+) omeprazole 20 Milligram(s) Oral Two Times A Day. potassium chloride (Klor-Con M20) 20 Milliequivalent(s) Oral Every Day. verapamil 120 Milligram(s) Oral Two Times A Day. Patient Allergies: Antihistamine; sulfa drugs; niacin Medication Instructions: Take your medications faithfully. Do NOT skip medication. Do NOT stop taking medications without the direction of a physician. Carry a list of your medications with you at all times, and take this medication list with you to your first follow up visit. Report any side effects. Avoid herbal remedies unless discussed with your physician. As part of your treatment plan, your physician may have prescribed a limited course of a controlled substance. This medication may be given to help people with moderate or severe pain or for other medical conditions, but there are risks involved with treatment. Common side effects may include nausea, constipation, drowsiness, sweating, itching, dry mouth, and rash. More serious side effects may include cognitive and motor impairment, like problems with thinking, concentrating, alertness, and movement (e.g. slowed reflexes), and driving and operating heavy machinery can be dangerous. It is important for you to talk to your physician if you have these side effects or questions. These controlled substances can produce physical dependence and be habit-forming if taken for an extended period of time, which means that the body has gotten used to them and may experience withdrawal symptoms if they are abruptly stopped. Withdrawal symptoms can include runny nose, sweating, goose bumps, diarrhea, abdominal cramping, rapid heartbeat, difficulty sleeping, and nervousness. CIGARETTE SMOKING: The facts are clear, cigarette smoking will shorten your life. Smoking can cause many illnesses along the way. As a healthcare provider, we recommend that you stop smoking. Assistance with quitting is available by contacting 3-725-PDUL-NOW. This is a free resource providing counseling, support, and referral. Or you may contact your personal physician. 4 WAYS TO GET AHEAD OF SEPSIS SEPSIS is a MEDICAL EMERGENCY. Time matters! Infections put you and your family at risk for a life-threatening condition called sepsis. Sepsis is the body???s extreme response to an infection. It is life-threatening, and without timely treatment, sepsis can rapidly lead to tissue damage, organ failure, and . Sepsis happens when an infection you already have???in your skin, lungs, urinary tract or somewhere else???triggers a chain reaction throughout your body. 1 PREVENT INFECTIONS Take good care of chronic conditions. Talk to your doctor about getting the recommended vaccines. 2 PRACTICE GOOD HYGIENE Wash your hands frequently. Keep cuts or open sores clean and covered until they are healed. 3 KNOW THE SYMPTOMS Confusion or disorientation Shortness of breath High heart rate Fever, shivering, or feeling very cold Extreme pain or discomfort Clammy or sweaty skin 4 ACT FAST Get medical care IMMEDIATELY if you suspect sepsis or if you have an infection that???s not getting better or is getting worse. To learn more about sepsis and how to prevent infections, visit www.cdc.gov/sepsis. STROKE is an EMERGENCY Every Minute Counts ACT F.A.S.T! FACE ?? Facial droop ?? Uneven smile ARM ?? Arm numbness ?? Arm weakness SPEECH ?? Slurred speech ?? Difficulty speaking or understanding TIME ?? Call 911 and get to the hospital immediately Have the ambulance go to the nearest stroke center. STROKE Risk Factors High blood pressure High cholesterol Heart Disease Diabetes Smoking Heavy alcohol use Physical inactivity and obesity Atrial Fibrillation (irregular heartbeat) Family history of stroke Reminder: Be sure to sign up for the [employer] patient portal, which gives you 27/02 access to your medical information ??? including these discharge instructions ??? using your computer, smartphone, or tablet. Just go to BTR to get started. Questions? Call . [facility] would like to thank you for allowing us to assist you with your healthcare needs. IERIS MARY CLAYTON, (or community health program representative) have received the above patient education materials/instructions and have verbalized understanding: Patient Signature _ Date/Time Patient Vision Care Associate Signature (if needed) Date/Time Clinician/Hospital Vision Care Associate Signature (if needed) Date/Time Electronically signed by Mariela, [facility] Conversion Core Man Nisreenner at 11/22/2022 9:57 AM CDT documented in this encounter Plan of Treatment Not on file documented as of this encounter Visit Diagnoses Not on filedocumented in this encounter
--- OUTSIDE RECORDS SUMMARY | 2025-01-30 06:56 | XMS_ITS | Encounter Summary ---
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 Name Role Phone Unavailable Primary Care Provider Unavailabl e Encounter Details Date Type Department Care Team (Late st Contact Info) Description 10/25/2018 Transcribed Document [facility] [place] [facility] [place] [address] ProviderKristi MD [address] [place] [address] Social History Tobacco Use Types Packs/Day Years Used Date Smoking Tobacco: Never Assessed Comments Unknown Sex and Gender Information Value Date Recorded Sex Assigned at Female 02/01/2022 6:48 PM CDT Legal Sex Female 6:48 PM CDT Gender Identity Female 02/01/2022 6:48 PM CDT Sexual Orientation Not on file documented as of this encounter Miscellaneous Notes * Cerner Conversion Note - Historical ProviderMD - 10/25/2018 12:12 PM CDT Discharge Instructions Entered On: 10/25/2018 12:15 EDT Performed On: 10/25/2018 12:12 EDT by Shirley Espinoza RN DC Instructions HWD Diet After Discharge : Resume usual diet as tolerated, Drink at least 8-10 glasses a day Activity After Discharge : Rest and relax today, No strenuous activities Driving After Discharge : Other: do not drive for 24 hours and ifg taking pain medication Showering/Bathing : May shower, No showering Wound/Incision Care After Discharge : Keep operative site/wound site clean and dry Wound/Incision Care At Discharge Comment cision Care At Discharge Comment : call office for temperature 101 or greater, increased bleeding in urine, passing large blood clots, unable to urinate, if the pain is not relieved walk 3-5 times per day strain urine at all times, save the stone fragments Special Instructions : Follow DR. Garg verbal instructions follow Urinary stent instructions sheet Shirley Espinoza RN - 10/25/2018 12:12 EDT Electronically signed by Stephanie Sierra Conversion Visitor Services Technician Cerner at 11/22/2022 9:59 AM CDT documented in this encounter Plan of Treatment Not on file documented as of this encounter Visit Diagnoses Not on filedocumented in this encounter
--- OUTSIDE RECORDS SUMMARY | 2025-01-30 06:56 | XMS_ITS | Clinical Summary ---
Author Organization [facility] Address [address] [place] [address] Care Team Providers Care Improvement Intern Name Role Phone Anatoliy Lock MD Unavailable Uriel Mcbride MD Primary Care Provider [phone] Allergies Active Allergy Reactions Criticality Noted Date Comments Antihistamines, Chlorpheniramine-Typ e Unknown - Patient states they do not know rxn details Low 05/12/2017 Antihistamines, Diphenhydramine-Type Other - please document in the comment field Medium 02/24/2020 PER PATIENT WHELPS, HYPER, CAN'T SLEEP PER PATIENT WHELPS, HYPER, CAN'T SLEEP Niacin Itching Medium 10/04/2010 Sulfa Drugs Other - please document in the comment field,Unknown - Patient states they do not know rxn details Low 05/12/2017 ABDOMINAL CRAMPS ABDOMINAL CRAMPS Medications aspirin 325 MG EC tablet Take one tablet daily by mouth 7 Active atorvastatin (Lipitor) 20 MG tablet Take 20 mg by mouth 1 (one) time each day. 1 Active Calcium Carb-Cholecalc iferol 600-800 MG-UNIT tablet Take 1 tablet by mouth 1 (one) time each day. Active calcium carbonate-tanna min D 600-400 MG-UNIT tablet Calcium 600 + D(3) 600 mg-10 mcg (400 unit) tablet Daily Active chlorthalidone (Hygroton) 25 MG tablet chlorthalidone 25 mg tablet Active cyanocobalamin (Vitamin B-12) 1000 MCG tablet Take 1,000 mcg by mouth 1 (one) time each day. Active dorzolamide-ti molol (Cosopt) 22.3-6.8 MG/ML ophthalmic solution dorzolamide 22.3 mg-timolol 6.8 mg/mL eye drops Active Dorzolamide HCl-Timolol Mal PF 22.3-6.8 MG/ML solution Administer 1 drop into affected eye(s) twice a day. Active potassium chloride CR (Klor-Con M20) 20 MEQ ER tablet 1 Active ranibizumab (Lucentis) 0.5 MG/0.05ML injection Lucentis 0.5 mg/0.05 mL intravitreal solution for injection Once monthly Active verapamil SR (Calan-SR) 240 MG ER tablet TAKE 1 TABLET BY MOUTH ONCE DAILY IN THE MORNING 2 Active omeprazole (PriLOSEC) [address] capsule TAKE 1 CAPSULE BY MOUTH TWICE DAILY BEFORE MEAL(S) 1 Active Active Problems Problem Noted Date Diagnosed Date Leukocytosis 02/28/2020 Primary localized osteoarthritis of right knee 0 02/27/2020 Status post total right knee replacement 020 Aneurysm 05/26/2017 Carotid stenosis 05/12/2017 Hyperlipidemia 05/12/2017 Exudative age-related macular degeneration 07/16 Family History Medical History Relation Name Comments Cardiomegaly Father Conversions - Other Mother malignan t neoplasm of ovary Relation Name Status Comments Father Mother Social History Tobacco Use Types Packs/Day Years Used Date Smoking Tobacco: Never Smokeless Tobacco: Never Alcohol Use Standard Drinks/Week Comments No 0 (1 standard drink = 0.6 oz pur e alcohol) Comments Unknown Sex and Gender Information Value Date Recorded Sex Assigned at Not on file Legal Sex Female 6:30 PM EDT Gender Identity Not on file Sexual Orientation Not on file Last Filed Vital Signs Vital Sign Reading Time Taken Comments Blood Pressure 138/80 12/10/2021 1:56 PM EDT Pulse 64 12/10/2021 1:56 PM EDT Temperature - - Respiratory Rate 16 12/07/2018 12:15 PM EDT Oxygen Saturation 97% 12/10/2021 1:56 PM EDT Inhaled Oxygen Concentration - - Weight 70.3 kg (155 lb) 12/10/2021 1:56 PM EDT Height 152.4 cm (5') 12/10/2021 1:56 PM EDT Body Mass Index 30.27 12/10/2021 1:56 PM EDT Plan of Treatment Upcoming Encounters Date Type Department Care Team (Late st Contact Info) Description 04/01/2025 9:30 AM EDT Ovarian Cancer Screening [facility] [address] [place] [address] Health Maintenance Due Date Last Done Comments [facility]-Bone Density Scan 1945 [facility]-Depression Screening 1945 [facility]-Medicare Annual Wellness (AWV) 1945 [facility]-/Child/Adol SDOH Screenings 1945 [facility]- SDOH Screenings 1961 [facility]-Adult SDOH Screenings 1961 [facility]-Zoster Vaccines (1 of 2) 1993 [facility]-RSV Vaccine: 60+ Years or (1 - 1-dose 75+ series) 2018 [facility]-Pneumococcal Vaccine: 50+ Years (2 of 2 - PPSV23) 03/22/2019 03/22/2018 [id number] Vaccine ( - season) 2024 11/24/2021, 04/14/2021, 09/30/2020, Additional history exists [facility]-Influenza Vaccine (Season Ended) 2025 05/12/2021 [facility]-DTaP,Tdap,and Td Vaccines (2 - Td or Tdap) 12/16/2027 12/15/2017, 10/21/1996 HPV Vaccines Aged Out No longer eligi ble based on patient's age to complete this topic [facility]-HIB Vaccines Aged Out No longer e ligible based on patient's age to complete this topic [facility]-Hepatitis A Vaccines Aged Out No longer eligible based on patient's age to complete this topic [facility]-IPV Vaccines Aged Out No longer e ligible based on patient's age to complete this topic [facility]-Rotavirus Vaccines Aged Out No lo nger eligible based on patient's age to complete this topic Insurance MEDICARE [facility] Care Teams Improvement Intern Relationship Specialty Start Date End Date Uriel Mcbride MD [address] [place] [address] PCP - General 03/31/22 Anatoliy Lock MD [address] [facility] [address] [place] [address] Surgeon Neurosurgery 12/10/21
--- OUTSIDE RECORDS SUMMARY | 2025-01-30 06:56 | XMS_ITS | Encounter Summary ---
Author Organization [facility] In iatives Address [address] [place] [address] Care Team Providers Care Key Filer Name Role Phone Unavailable Primary Care Provider Unavailabl e Encounter Details Date Type Department Care Team (Late st Contact Info) Description 10/25/2018 Transcribed Document [facility] [place] Family Medicine [facility] [place] [address] ProviderKristi MD [address] [place] [address] Social History Tobacco Use Types [...] Conversion Note - Historical ProviderMD - 10/25/2018 8:39 AM CDT Patient: MEKHI IGNACIO Age: 73 years Sex: Female : 1945 Associated Diagnoses: None Author: ANEL MARINELLI APRN Chief Complaint R ureteral stone Review of Systems ROS reviewed as documented in chart no change since last seen by surgeon Health Status Allergies: Allergic Reactions (Selected) Severity Not Documented Antihistamine- Increased blood pressure (not hypertension). Niacin- C/o: a rash and c/o: a rash. Sulfa drugs- C/o - low back pain and c/o - low back pain., Allergies (1) Active Reaction Antihistamine Increased blood pressure (not hypertension) Current medications: (Selected) Inpatient Medications Ordered Lactated Ringers Injection intravenous solution 1,000 mL: 20 mL/Hr, IntraVENous lidocaine 1% preservative-free injectable solution: 0.5 mL, IntraDermal, 1-Time Documented Medications Documented Calcium 600+D: 2 tabs, Oral, Daily, 0 Refill(s) Klor-Con M20: 20 mEq, Oral, Daily, 0 Refill(s) Multi Vitamin+: 0 Refill(s) aspirin: 325 mg, Oral, Daily, 0 Refill(s) atorvastatin 20 mg oral tablet: 1 Tab, Oral, Daily, 0 Refill(s) chlorthalidone 25 mg oral tablet: 0.5 Tab, Oral, Daily, 0 Refill(s) ferrous sulfate 324 mg (65 mg elemental iron) oral delayed release tablet: 0 Refill(s) miSOPROStol: 200 mg, Oral, BID, 0 Refill(s) omeprazole: 20 mg, Oral, BID, 0 Refill(s) verapamil: 120 mg, Oral, BID, 0 Refill(s), Home Medications (10) Active aspirin 325 mg, Oral, Daily atorvastatin 20 mg oral tablet 20 mg = 1 Tab, Oral, Daily Calcium 600+D 2 tabs, Oral, Daily chlorthalidone 25 mg oral tablet 12.5 mg = 0.5 Tab, Oral, Daily ferrous sulfate 324 mg (65 mg elemental iron) oral delayed release tablet Klor-Con M20 20 mEq, Oral, Daily miSOPROStol 200 mg, Oral, BID Multi Vitamin+ omeprazole 20 mg, Oral, BID verapamil 120 mg, Oral, BID , Medications (2) Active Scheduled: (1) lidocaine 1% *PF* inj 2 mL 0.5 mL, IntraDermal, 1-Time Continuous: (1) lactated ringers 1,000 mL 1,000 mL, IntraVENous, 20 mL/Hr PRN: (0) Problem list: All Problems Kidney stones / SNOMED CT 281130764 / Confirmed HTN (hypertension) / SNOMED CT 1700933628 / Confirmed Hiatal hernia / SNOMED CT 118053068 / Confirmed GERD (gastroesophageal reflux disease) / SNOMED CT 493109902 / Confirmed Macular degeneration / SNOMED CT 9055425444 / Confirmed Carotid artery stenosis / SNOMED CT 861962743 / Confirmed, Active Problems (6) Carotid artery stenosis GERD (gastroesophageal reflux disease) Hiatal hernia HTN (hypertension) Kidney stones Macular degeneration Histories Past Medical History: No active or resolved past medical history items have been selected or recorded. Family History: No family history items have been selected or recorded. Procedure history: Lithotripsy (879558927). Appendectomy (753367510). Social History Social & Psychosocial Habits Alcohol 10/24/2018 Alcohol Use Frequency Rarely Substance Abuse 10/24/2018 Recreational Drug Use History No Recreational Drug Use Last 12 Months No Tobacco 10/24/2018 Smoking Status Never (less than 100 in l . Physical Examination VS/Measurements Vital Signs/Vital Measures 10/25/2018 8:00 EDT Temperature Source Temporal artery scanning Temperature Mode Fahrenheit Temperature, Fahrenheit 97 Deg F Clinical Temperature, C 36.1 Deg C Heart Rate Monitored 95 bpm Respiratory Rate 20 Breaths/Min Systolic Blood Pressure 134 mmHg Diastolic Blood Pressure 78 mmHg Oxygen Saturation 96 % Oxygen Therapy Mode Room air , Vitals Signs (last 24 hrs) Last Charted Minimum Maximum Temp 97 (OCT 25 08:00) 97 (OCT 25 08:00) 97 (OCT 25 08:00) Mon HR 95 (OCT 25 08:00) 95 (OCT 25 08:00) 95 (OCT 25 08:00) Resp Rate 20 (OCT 25 08:00) 20 (OCT 25 08:00) 20 (OCT 25 08:00) SBP 134 (OCT 25 08:00) 134 (OCT 25 08:00) 134 (OCT 25 08:00) DBP 78 (OCT 25 08:00) 78 (OCT 25 08:00) 78 (OCT 25 08:00) SpO2 96 (OCT 25 08:00) 96 (OCT 25 08:00) 96 (OCT 25 08:00) General: Alert and oriented, No acute distress. Eye: Pupils are equal, round and reactive to light, Extraocular movements are intact, glasses. HENT: Normocephalic, Normal hearing. Neck: Supple, Non-tender. Respiratory: Lungs are clear to auscultation, Respirations are non-labored. Cardiovascular: Normal rate, Regular rhythm, No murmur, No gallop, No edema. Gastrointestinal: Soft, Non-tender. Genitourinary: No costovertebral angle tenderness. Lymphatics: No lymphadenopathy neck, axilla, groin. Musculoskeletal: Normal range of motion, Normal strength. Integumentary: Warm, Dry, [place]. Neurologic: Alert, Oriented. Psychiatric: Cooperative, Appropriate mood & affect. Review / Management Results review: No qualifying data available. Impression and Plan Condition: Stable. Electronically signed by Stephanie Sierra Conversion Underwriting Service Representative Cerner at 11/22/2022 10:01 AM CDT documented in this encounter Plan of Treatment Not on file documented as of this encounter Visit Diagnoses Not on filedocumented in this encounter
--- OUTSIDE RECORDS SUMMARY | 2025-01-30 06:56 | XMS_ITS | Encounter Summary ---
Author Organization [facility] In iatives Address [address] [place] [address] Care Team Providers Care Outboard Motor Assembler Name Role Phone Unavailable Primary Care Provider Unavailabl e Encounter Details Date Type Department Care Team (Late st Contact Info) Description 10/25/2018 Transcribed Document [facility] [place] [facility] [place] [address] ProviderKristi [place] [address] Social History Tobacco Use Types [...] Conversion Note - Historical ProviderMD - 10/25/2018 12:00 PM CDT DATE OF PROCEDURE:10/25/2018 PREOPERATIVE DIAGNOSIS(ES): Right ureteral stone. POSTOPERATIVE DIAGNOSIS(ES): Right ureteral stone. PROCEDURE: 1. Cystourethroscopy. 2. Right ureteroscopy with laser lithotripsy and basket stone extraction. 3. Right ureteral stent placement. SURGEON: Guy Garg MD RESIDENT: Lai Arroyo MD, PGY4 ANESTHESIA: General. COMPLICATIONS: None. SPECIMENS: Right ureteral stone for analysis. DRAINS: 4.8-Montenegrin x 24 cm double-J ureteral stent on the right side with strings. INDICATION FOR PROCEDURE: Ms. Ignacio is a 73-year-old lady, who presented to our office, with right-sided flank pain and had imaging consistent with distal ureteral stone. She comes today for endoscopic management of that. Risks, benefits, and alternatives were discussed with her prior to procedure. OPERATIVE FINDINGS: 1. Large radiopaque phlebolith in the right hemipelvis along with a smaller calcification approximately 6 mm in size and found to be a distal ureteral stone that was fragmented and basketed in three pieces. These three pieces were sent for stone analysis. 2. Adequate proximal and distal curl of ureteral stent with strings remaining. The strings were tucked in the vagina at the conclusion of the case. DESCRIPTION OF PROCEDURE: After being correctly identified in the preop holding area, the patient's informed consent was verified. She was taken to the operating room and she was placed in supine position. Bilateral SCDs were applied. General anesthesia was induced. The patient was then moved to dorsal lithotomy position where genitals and perineum were prepped and draped in the usual sterile fashion. A time-out was performed to confirm the correct patient, procedure, site of procedure as well as administration of preoperative Levaquin. A well-lubricated 22-Montenegrin rigid cystoscope with a 30-degree lens was inserted atraumatically per urethra into the bladder. Mott-cystoscopy was performed that demonstrated no tumor, stones, or foreign bodies in the urinary bladder with ureteral orifices patent in the orthotopic position. A Sensor wire was used to cannulate the right ureteral orifice and advanced under live fluoroscopic guidance at the level of the right renal pelvis. There were two calcifications visualized fluoroscopically, the first of which was a large rounded calcification not within the ureter consistent with phlebolith and approximately 7 mm stone in the distal right ureter, which we believed it was in the distal right ureter that was alongside the path of the Sensor wire. The patient's bladder was emptied and a semi-rigid ureteroscope was then advanced per urethra and into the right ureter without any difficulty to the level of the stone. A 200 micron laser fiber was then used to fragment the stone into three pieces, which were removed with a 1.9-Montenegrin nitinol Zero Tip basket. These three fragments were sent off for a stone analysis. The remainder of the ureter was cleared to the level of the ureteropelvic junction. The semi-rigid ureteroscope was removed and over the Sensor wire, a 4.8-Montenegrin x 24 cm double-J ureteral stent with strings still remaining was placed in standard retrograde fashion. Adequate proximal and distal curl were visualized fluoroscopically and the patient's bladder was emptied for the final time with the cystoscope. The strings were tucked in the patient's vagina. Dr. Garg was present for the entirety of the procedure. DISPOSITION: Ms. Ignacio will be discharged home when she meets PACU criteria. I have provided her with prescriptions for ciprofloxacin for 5 days as well as [place]ine #12 and Flomax for 7 days. She will come back to our office on Monday and discuss stent removal should she elect not to do that at home. Dictated By: Lai Arroyo MD (R) For Nisha Cullen M.D. Dict: 10/25/2018 12:00:26 Trans: 10/25/2018 14:49:38 CC1: Guy Garg M.D. I HAVE SEEN AND EVALUATED THIS PATIENT AND AGREE WITH FINDINGS AND PLANS DOCUMENTED BY THE RESIDENT IN THE ABOVE NOTE. documented in this encounter Plan of Treatment Not on file documented as of this encounter Visit Diagnoses Not on filedocumented in this encounter
--- OUTSIDE RECORDS SUMMARY | 2025-01-30 06:56 | XMS_ITS | Encounter Summary ---
Author Organization [facility] In iatives Address [address] [place] [address] Care Team Providers Care Shear Tender Name Role Phone Unavailable Primary Care Provider Unavailabl e Encounter Details Date Type Department Care Team (Late st Contact Info) Description 10/25/2018 Transcribed Document [facility] [place] Family Medicine [facility] [place] [address] ProviderKristi MD [facility] [place] [address] Social History Tobacco Use Types [...] Conversion Note - Historical ProviderMD - 10/25/2018 11:00 AM CDT [facility] Main OR Preop Summary Primary Physician: JARRET LONG MD-URO Finalized Date/Time: 10/25/18 10:23:10 Pt. Name: MEKHI IGNACIO /Sex: 1945 Female Med Rec #: [id number] Physician: JARRET LONG MD-URO Financial #: [id number] Pt. Type: O Room/Bed: Admit/Disch: 10/25/18 07:16:00 - Institution: [facility] PreOp Case Times Entry 1 In Preop 10/25/18 07:23:00 Ready for Holding n/a Room Patient Ready for 10/25/18 08:43:00 Surgery Patient Out of Preop 10/25/18 10:23:00 Patient Out of n/a Holding Room Last Modified By: AAKASH Eller RN 10/25/18 10:23:07 [facility] PreOp Case Times Audit 10/25/18 10:23:07 Embedded Systems Engineer: CRISTINA Modifier: WILSONDL <+> 1 Patient Out of Preop 10/25/18 08:45:11 Embedded Systems Engineer: CRISTINA Modifier: WILSONDL <+> 1 Patient Ready for Surgery Finalized By: AAKASH Eller, RN Document Signatures Signed By: AAKASH Eller RN 10/25/18 10:23 Electronically signed by Mariela [facility] Conversion Senior Interaction Designer Cerner at 11/22/2022 9:53 AM CDT documented in this encounter Plan of Treatment Not on file documented as of this encounter Visit Diagnoses Not on filedocumented in this encounter
--- OUTSIDE RECORDS SUMMARY | 2025-01-30 06:56 | XMS_ITS | Encounter Summary ---
Author Organization [facility] In iatives Address [address] [place] [address] Care Team Providers Care Senior Solutions Consultant Name Role Phone Unavailable Primary Care Provider Unavailabl e Encounter Details Date Type Department Care Team (Late st Contact Info) Description 10/25/2018 Transcribed Document [facility] [place] [place] [facility] [address] ProviderKristi MD [address] [place] [address] Social History Tobacco Use Types [...] Conversion Note - Kristi ProviderMD - 10/25/2018 10:38 AM CDT [facility] Main OR PACU Summary Primary Physician: JARRET LONG MD-URO Finalized Date/Time: 10/25/18 11:59:19 Pt. Name: MEKHI IGNACIO /Sex: 1945 Female Med Rec #: [id number] Physician: JARRET LONG MD-URO Financial #: [id number] Pt. Type: O Room/Bed: Admit/Disch: 10/25/18 07:16:00 - Institution: [facility] Main OR PACU I Case Times Entry 1 In PACU I 10/25/18 11:04:00 Ready for PACU 10/25/18 11:30:00 Discharge Discharge from PACU 10/25/18 11:55:00 I Last Modified By: MEKHI VILLANUEVA RN 10/25/18 11:58:09 [facility] Main OR PACU I Case Times Audit 10/25/18 11:58:09 Supplier Development Manager: GILLMA Modifier: GILLMA <+> 1 Discharge from PACU I 10/25/18 11:34:22 Supplier Development Manager: GILLMA Modifier: GILLMA <+> 1 Ready for PACU Discharge [facility] Main OR PACU Acuity Entry 1 Start Time 10/25/18 11:30:00 Stop Time 10/25/18 11:55:00 Acuity Level [facility] PACU Acuity I Last Modified By: MEKHI VILLANUEVA RN 10/25/18 11:59:17 Finalized By: MEKHI VILLANUEVA, RN Document Signatures Signed By: MEKHI VILLANUEVA RN 10/25/18 11:59 Electronically signed by Mariela [facility] Conversion Die Casting Machine Maintainer Cerner at 11/22/2022 9:54 AM CDT documented in this encounter Plan of Treatment Not on file documented as of this encounter Visit Diagnoses Not on filedocumented in this encounter
--- OUTSIDE RECORDS SUMMARY | 2025-01-30 06:56 | XMS_ITS | Patient Health Record ---
Author [facility] Address [address] [place] [id number] Care Team Providers Care Core Man Name Role Phone [place] Coulter Primary Care Provider Charu Vogt Unavailable [phone] Allergies No Known Allergies Results Component Value Reference Range Notes H-VITAMIN D Reviewed date:07/19/2024 11:02:34 AM Interpretation:49.2 Performing Lab: Notes/Report: TVITD 49.2 30-100 ng/mL Deficient <20 ng/mL Insufficient 20-30 ng/mL Sufficient 30-100 ng/mL Potential Toxicity >100 ng/mL H-Lipid Panel Reviewed date:07/19/2024 11:02:34 AM Interpretation:dldl 63, hdl 66 Performing Lab: Notes/Report: Patient Fasting? Y TRIG 84 30-150 mg/dl CHOL 150 140-200 mg/dl DLDL 62.79 100-129 mg/dL VLDL 17 0-40 mg/dL HDL 66 40-60 mg/dl CHLHDL 2.3 1-3.5 H-CMP Reviewed date:07/19/2024 11:02:34 AM Interpretation:cl 108, co2- 32, gluc 102, a;l phos 132 Performing Lab: Notes/Report: NA 142 136-145 mmol/L K 5.1 3.5-5.1 mmoL/L CL 108 98-107 mmol/L CO2 32 22.0-30.0 mmol/L GAP 7.1 5-15 mEq/L BUN 17 7-17 mg/dl CREATT 0.80 0.52-1.04 mg/dl GFRAA 84 >60 ML/MIN EGFR 69 >60 ml/min GLU 102 74-100 mg/dl CA 9.3 8.4-10.2 mg/dl BILIT 0.7 0.2-1.3 mg/dl AST 30 14-36 U/L ALT 28 12-78 U/L TP 6.7 6.3-8.2 g/dl ALB 4.0 3.5-5.0 g/dl GLOB 2.7 1.3-3.2 g/dL AGRATIO 1.5 1.1-1.8 ALP 132 38-126 U/L H-Glycohemoglobin A1C Reviewed date:07/19/2024 11:02:34 AM Interpretation:5.6 Performing Lab: Notes/Report: HGBA1C 5.6 4.0-6.0 % < 6% Non-Diabetic Level < 7% Controlled Diabetic Level > 8% Poorly Controlled Diabetic Level H-Microalbumine/Creatinine Reviewed date:07/19/2024 11:02:34 AM Interpretation:Normal Performing Lab: Notes/Report: UCREAT 89 Not Estab. mg/dL Random urine reference range not established. 24 hour urine samples recommended. MICROALB 15.700 0-16.7 mg/L MALBCREAT 17.6 Units: mg/g creat Normal: 0 - 29 Moderately Increased: 30 - 300 Severely Increased: >300 Reason For Referral No Information Medications Medication SIG (Take, Route, Frequency, Duration) Notes Start Date End Date Status Calcium-Vitamin D-Minerals 600-800 MG-UNIT 1-2 tab(s) orally once daily Active Nystatin 859993 UNIT/GM 1 application Externally Three times a day 12/01/2023 Active Losartan Potassium 25 MG 1 tablet Orally Once a day; Duration: 90 days Active Multiple Vitamin - 1 cap(s) orally once a day Active Verapamil HCl ER 240 MG 1 tablet Orally Once a day; Duration: 30 days due for check up Active Aspirin 325 MG 1 tab(s) orally once a day Active B-12 2500 MCG 1 tab(s) sublinguall y once a day; Duration: 30 day(s) Active Atorvastatin Calcium 20 MG take 1/2 (one-half) tablet Orally once daily; Duration: 30 days Active Potassium Chloride Libra ER 20 MEQ 1 tablet with food Orally Once a day; Duration: 90 days Active Azelastine-Fluticasone 137-50 MCG/ACT 1 spray in each nostril Nasally Twice a day 12/29/2023 Active Immunizations Vaccine Route Administration Date Status Comme nts xFluzone High Dose-private (65yr&older) Unknown 06/08/2019 Administered Tetanus Tdap-Adacel (over 7yrs) IM Intramuscular 12/15/2017 Administered Shingrix IM Intramuscular 05/11/2018 Administered Shingrix IM Intramuscular 10/20/2018 Administered Prevnar (PCV13) IM Intramuscular 03/22/2018 Administered Hepatitis A (adult) Unknown 08/08/2019 Administered Hepatitis A (adult) Unknown 02/06/2020 Administered Fluzone Quad (6months&older) Unknown 05/13/2020 Administered Fluzone High Dose (65yr and older) Unknown 06/13/2017 Administered Fluzone High Dose (65yr and older) IM Intramuscular 05/10/2018 Administered Fluzone High Dose (65yr and older) Unknown 05/12/2021 Administered DT, 7 YEARS OR OLDER Unknown 10/21/1996 Administered COVID 19 Moderna Unknown 09/02/2020 Administered COVID 19 Moderna Unknown 09/30/2020 Administered COVID 19 Moderna Unknown 04/14/2021 Administered COVID 19 Moderna Unknown 11/24/2021 Administered Problems Problem Type SNOMED Code ICD Code Onset Dates Problem Status W/U Status Risk Notes Problem Low back pain (990591186) Low back pain (M54.5) Active confirmed Problem Vitamin D deficiency (39517434) Vitamin D deficiency (E55.9) Active confirmed Problem Essential hypertension (44992151) Essential hypertension (I10) Active confirmed Problem Osteopenia (701992797) Osteopenia (M85.80) Active confirmed Problem Disorder of lumbar disc (416101508) Lumbar disc disease (M51.9) Active confirmed Problem Chronic pain (63342036) Other chronic pain (G89.29) Active confirmed Problem Kidney stone (21343380) Kidney stones (N20.0) Active confirmed Problem Iron deficiency anemia (06495718) Iron deficiency anemia, unspecified iron deficiency anemia type (D50.9) Active confirmed Problem Stenosis of right carotid artery (076270903866949) Stenosis of right carotid artery (I65.21) Active confirmed Problem Dyslipidemia (240896863) Dyslipidemia (E78.5) Active confirmed Problem Impaired fasting glycaemia (838235464) IFG (impaired fasting glucose) (R73.01) Active confirmed Problem Pure hypercholesterolemia (884131096) Pure hypercholesterolemia (E78.00) Active confirmed Problem Thyromegaly (3352410) Thyromegaly (E01.0) Active confirmed Problem Seasonal allergic rhinitis (718265571) Acute seasonal allergic rhinitis (J30.2) Active confirmed Problem Microcytic hypochromic anemia (87174846) Microcytic hypochromic anemia (D50.9) Active confirmed Problem Menopausal state (243677147) Menopausal state (N95.1) Active confirmed Problem Primary hypertension (94477126) Primary hypertension (I10) Active confirmed Problem Psoriasis of nail (532564482) 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) Active confirmed Vital Signs Heart Rate 54 /min 07/22/2024 Blood pressure diastolic 80 mm Hg 07/22/2024 Height 60.50 in 07/22/2024 Blood pressure systolic 130 mm Hg 07/22/2024 Weight 164.2 lbs 07/22/2024 BMI 31.54 kg/m2 07/22/2024 Encounters Encounter Location Date Provider Diagnosis [facility] [address] [place], [place] [id number] 07/22/2024 [place] Essential hypertensi on I10 ; Pure hypercholesterolemia E78.00 and Vitamin D deficiency E55.9 [facility] [address] [place], [place] [id number] 02/14/2024 Charu Vogt [facility] [address] [place], [place] [id number] 07/18/2024 [place] Essential hypertensi on I10 ; Pure hypercholesterolemia E78.00 ; Vitamin D deficiency E55.9 and IFG (impaired fasting glucose) R73.01 [facility] [address] [place], [place] [id number] 07/19/2024 [place] [facility] [address] [place], [place] [phone] 01/29/2025 [place] Essential hypertensi on I10 ; Vitamin D deficiency E55.9 ; Hyperkalemia E87.5 ; Hyperglycemia R73.9 and Alkaline phosphatase elevation R74.8 Assessments Encounter Date Diagnosis (ICD Code) Assessment Notes Treatment Notes Treatment Clinical Notes Section Notes 07/18/2024 Essential hypertensi on (ICD-10 - I10) 07/22/2024 Essential hypertensi on (ICD-10 - I10) 07/22/2024 Pure hypercholesterolemia (ICD-10 - E78.00) 07/18/2024 Pure hypercholesterolemia (ICD-10 - E78.00) 01/29/2025 Vitamin D deficiency (ICD-10 - E55.9) 01/29/2025 Essential hypertensi on (ICD-10 - I10) 07/22/2024 Vitamin D deficiency (ICD-10 - E55.9) 01/29/2025 Hyperkalemia (ICD-10 - E87.5) 07/18/2024 Vitamin D deficiency (ICD-10 - E55.9) 07/18/2024 IFG (impaired fastin g glucose) (ICD-10 - R73.01) 01/29/2025 Hyperglycemia (ICD-1 0 - R73.9) 01/29/2025 Alkaline phosphatase elevation (ICD-10 - R74.8) Plan Of Treatment Pending Test Test Name Order Date H-VITAMIN D 01/29/2025 H-CMP 01/29/2025 H-Glycohemoglobin A1C 01/29/2025 Insurance Providers Payer Name Payer Address Payer Phone Subscriber Number Group Number Insured Name Patient Relationship to Insured Coverage Start Date Coverage End Date [employer] [address] [address] [place] [address] [id number] MEKHI IGNACIO Self - patient is the insured [facility] [employer] [address] [id number] MEKHI IGNACIO Self - patient is the insured Medications Administered Medication Instructions Date of Administration Dosage Notes Dexamethasone 07/06/2017 1 mL Medical (General) History Medical History History ICD Code Dr. Anatoliy Lynn [phone] - Neurologist - occlusion of right carotid artery Dr. Tico Drake - Retina specialist - M acular Degeneration Dr. Iggy Fenton - Urologist - Kidney Ston es Dr. Reggie Pardo - Spinal Stinosis with Ar thritic Disc Dr. Ad Hinson - Colonoscopy Ovarian Screening - [facility] - OB yearly ma mmogram hyperlipidemia hypertension Vitamin D deficiency chronic back pain, s/p pain management e valuation Lumbar Disc Disease Lumbar Spinal Stenosis 99% occlusion of right carotid artery iron deficiency anemia Surgical History Surgery Date(Month/Year) Appendectomy 2006 Lithotripsy 2012 Colonoscopy 01/2015 Ovarian Screening Yearly 03/15/2017 Cortisone Injection in Back 06/06/2018 RT Total Knee Replacement - Dr. Rice 02/05 C-Scope and Upper GI 12/27/2023 Hospitalization History Reason Date(Month/Year)
--- OUTSIDE RECORDS SUMMARY | 2025-01-30 06:56 | XMS_ITS | Encounter Summary ---
Author Organization [facility] In iatives Address [address] [place] [address] Care Team Providers Care Grinder [employer] L[employer] Name Role Phone Unavailable Primary Care Provider Unavailabl e Encounter Details Date Type Department Care Team (Late st Contact Info) Description 10/25/2018 Transcribed Document [facility] [address] [place] [address] ProviderKristi MD [address] [place] [address] Social History Tobacco Use Types [...] Conversion Note - Kristi ProviderMD - 10/25/2018 12:15 PM CDT Patient Education Materials Follows: General Anesthesia, Adult, Care After These instructions provide you with information about caring for yourself after your procedure. Your health care provider may also give you more specific instructions. Your treatment has been planned according to current medical practices, but problems sometimes occur. Call your health care provider if you have any problems or questions after your procedure. What can I expect after the procedure? After the procedure, it is common to have: ??? Vomiting. ??? A sore throat. ??? Mental slowness. It is common to feel: ??? Nauseous. ??? Cold or shivery. ??? Sleepy. ??? Tired. ??? Sore or achy, even in parts of your body where you did not have surgery. Follow these instructions at home: For at least 24 hours after the procedure:??? Do not: ? Participate in activities where you could fall or become injured. ? Drive. ? Use heavy machinery. ? Drink alcohol. ? Take sleeping pills or medicines that cause drowsiness. ? Make important decisions or sign legal documents. ? Take care of children on your own. ??? Rest. Eating and drinking ??? If you vomit, drink water, juice, or soup when you can drink without vomiting. ??? Drink enough fluid to keep your urine clear or pale yellow. ??? Make sure you have little or no nausea before eating solid foods. ??? Follow the diet recommended by your health care provider. General instructions ??? Have a responsible adult stay with you until you are awake and alert. ??? Return to your normal activities as told by your health care provider. Ask your health care provider what activities are safe for you. ??? Take pxpi-ulj-zsiamvq and prescription medicines only as told by your health care provider. ??? If you smoke, do not smoke without supervision. ??? Keep all follow-up visits as told by your health care provider. This is important. Contact a health care provider if: ??? You continue to have nausea or vomiting at home, and medicines are not helpful. ??? You cannot drink fluids or start eating again. ??? You cannot urinate after 8?12 hours. ??? You develop a skin rash. ??? You have fever. ??? You have increasing redness at the site of your procedure. Get help right away if: ??? You have difficulty breathing. ??? You have chest pain. ??? You have unexpected bleeding. ??? You feel that you are having a life-threatening or urgent problem. This information is not intended to replace advice given to you by your health care provider. Make sure you discuss any questions you have with your health care provider. Document Released: 10/30/2001 Document Revised: 12/26/2016 Document Reviewed: 07/07/2016 [employer] Interactive Patient Education ? 2017 [employer] Urology Ureteroscopy, Care After This sheet gives you information about how to care for yourself after your procedure. Your health care provider may also give you more specific instructions. If you have problems or questions, contact your health care provider. What can I expect after the procedure? After the procedure, it is common to have: ??? A burning sensation when you urinate. ??? Blood in your urine. ??? Mild discomfort in the bladder area or kidney area when urinating. ??? Needing to urinate more often or urgently. Follow these instructions at home: Medicines ??? Take ivxz-bqx-lcltfyx and prescription medicines only as told by your health care provider. ??? If you were prescribed an antibiotic medicine, take it as told by your health care provider. Do not stop taking the antibiotic even if you start to feel better. General instructions ??? Do?notdrive for 24 hours if you were given a medicine to help you relax (sedative) during your procedure. ??? To relieve burning, try taking a warm bath or holding a warm washcloth over your groin. ??? Drink enough fluid to keep your urine clear or pale yellow. ? Drink two 8-ounce glasses of water every hour for the first 2 hours after you get home. ? Continue to drink water often at home. ??? You can eat what you usually do. ??? Keep all follow-up visits as told by your health care provider. This is important. ? If you had a tube placed to keep urine flowing (ureteral stent), ask your health care provider when you need to return to have it removed. Contact a health care provider if: ??? You have chills or a fever. ??? You have burning pain for longer than 24 hours after the procedure. ??? You have blood in your urine for longer than 24 hours after the procedure. Get help right away if: ??? You have large amounts of blood in your urine. ??? You have blood clots in your urine. ??? You have very bad pain. ??? You have chest pain or trouble breathing. ??? You are unable to urinate and you have the feeling of a full bladder. This information is not intended to replace advice given to you by your health care provider. Make sure you discuss any questions you have with your health care provider. Document Released: 07/29/2014 Document Revised: 05/09/2017 Document Reviewed: 05/05/2017 [employer] Interactive Patient Education ? 2017 [employer] documented in this encounter Plan of Treatment Not on file documented as of this encounter Visit Diagnoses Not on filedocumented in this encounter
--- OUTSIDE RECORDS SUMMARY | 2025-01-30 06:57 | XMS_ITS | Data Portability ---
Author Organization [facility]Y Kwan [place] [facility] Address [address] [facility] [address] [place] [address] Assessment Encounter Date Assessment Date Assessment LastModified by Organization Details LastModified Time 05/28/2018 05/28/2018 72-year-old female presenting for evaluation of lumbar back pain. Patient reports a several month history of episodic hip and anterior thigh weakness upon standing and walking. She also reports continuous axial back pain worse with bending and twisting maneuvers. Patient was previously seen and managed by this clinic under Dr. Ahuja and has undergone several lumbar epidural steroid injections in the past with good improvement in symptoms. She has been seen and evaluated by neurosurgery, Dr. Pardo and referred for interventional options. Lumbar MRIs show degenerative disc disease and facet arthropathy with resultant bilateral foraminal stenosis and lateral recess narrowing from L2-3 through L5-S1. On exam, motor strength is preserved throughout the bilateral upper and lower extremities. Based on her clinical presentation and review of her MRI, pain is likely multifactorial related to both facet arthropathy as well as foraminal stenosis. As her principle pain complaint today is her perceived leg weakness, we discussed lumbar epidural steroid injection to help improve pain complaints. Risks and benefits of the procedure were explained to the patient she wishes to proceed. We will plan to schedule the patient for L2-L3 lumbar epidural steroid injection at the next available appointment. Patient will follow-up in one month for further evaluation. Not available 05/28/2018 10:20:52 07/05/2018 07/05/2018 72-year-old female presenting for follow-up with regards to hip pain. Had her last appointment, patient underwent L2-3 lumbar epidural steroid injection. She returns today noting significant improvement in her overall pain. She continues to note resolution of symptoms. She rates her pain today at a 0/10. She is overall happy with her improvement. Patient will plan to follow up as needed for any additional treatment measures. [email or web address] Not available 07/05/2018 10:01:27 Plan of Treatment Reminders Order Date Submit Date Provider Last Modified By Organization Details Last Modified Time Details Appointments None recorded. Lab urinalysis, dipstick, auto 2018 019 [facility], [address], [address], [place], [address], 9 13:37:18 urinalysis, dipstick, auto 2018 019 [facility], [address], [address], [place], [address], 9 15:30:07 Referral None recorded. Procedures None recorded. Surgeries cystoscopy, with ureteroscop y, with lithotripsy (SURG) 2018 019 JORG[facility]O Not available 9 13:25:44 Imaging None recorded. Medication Orders None recorded. Patient TargetsNo targets recorded. Patient Instructions Encounter Date Encounter Id Patient Instructions Last Modified By Organization Details Last Modified Time 05/28/2018 [id number] lumbar spinal stenosis: care instructions citlali Not available 05/28/2018 12:41:12 WRAP-UP Thank you for visiting [facility] today. At today's visit the following were addressed: - SCHEDULE L2-L3 LESI Thank you for visiting the [facility]. -Because of the high volume of calls we receive and the high demand for our clinical services, please allow for 24 hours for us to respond to patient calls. We are generally unable to discuss patient care advice over the telephone. If you are experiencing a medication side effect or complication, you can call and let us know, but we will typically not make a medication substitution or post exchange manager the telephone. -Acute exacerbations of pain and flare ups are quite common in chronic pain states and need to be dealt with as part of the rn long term care management plan. Please make an appointment with us if you wish to discuss a matter in any detail. Should you still need to call, please do so at . For additional information and services provided by our clinic you may visit our Pain Management Clinic website at: [email or web address] Thank you for choosing [facility]. It was a pleasure to see you in clinic today. Please contact us with any questions or concerns at . Not available 05/28/2018 10:16:26 07/05/2018 [id number] WRAP-UP Thank you for visiting [facility] today. At today's visit the following were addressed: - PRN Thank you for visiting the [facility]. -Because of the high volume of calls we receive and the high demand for our clinical services, please allow for 24 hours for us to respond to patient calls. We are generally unable to discuss patient care advice over the telephone. If you are experiencing a medication side effect or complication, you can call and let us know, but we will typically not make a medication substitution or post exchange manager the telephone. -Acute exacerbations of pain and flare ups are quite common in chronic pain states and need to be dealt with as part of the halfway management plan. Please make an appointment with us if you wish to discuss a matter in any detail. Should you still need to call, please do so at . For additional information and services provided by our clinic you may visit our Pain Management Clinic website at: [email or web address] Thank you for choosing [facility]. It was a pleasure to see you in clinic today. Please contact us with any questions or concerns at . Not available 07/05/2018 08:45:21 10/24/2018 [id number] kidney stone: ca re instructions adley Not available 10/24/2018 15:30:07 learning about diet for kidney stone prevention fhadley Not available 10/24/2018 15:30:07 10/30/2018 [id number] healthy together fhadley Not availabl e 10/30/2018 13:37:18 kidney stone: ca re instructions [email or web address] Not available 10/30/2018 13:37:18 Reason for Referral None Reported. Results Created Date Observation Date Name Description Value Unit Range Abnormal Flag Note LastModifiedBy Organization Detail LastModifiedTime 10/31/19 19 10/30/2018 urina lysis , dipst ick, auto Unknown Analyte Yellow Not Available [facility] [address], [place], [address], 10/30/2018 13:29:59 10/31/19 19 10/30/2018 urina lysis , dipst ick, auto Unknown Analyte Clear Not Available [facility] [address] [place] [address] [address], [place], [address], 10/30/2018 13:29:59 10/31/19 19 10/30/2018 urina lysis , dipst ick, auto Unknown Analyte 1.015 Not Available [facility] [address] [place] [address] [address], [place], [address], 10/30/2018 13:29:59 10/31/19 19 10/30/2018 urina lysis , dipst ick, auto Unknown Analyte 1.003 - 1.035 Not Available [facility] [address], [place], [address], 10/30/2018 13:29:59 10/31/19 19 10/30/2018 urina lysis , dipst ick, auto Unknown Analyte 5.0 Not Available [facility] [address] [place] [address] [address], [place], [address], 10/30/2018 13:29:59 10/31/19 19 10/30/2018 urina lysis , dipst ick, auto Unknown Analyte 5.0 - 8.0 Not Available [facility] [address], [place], [address], 10/30/2018 13:29:59 10/31/19 19 10/30/2018 urina lysis , dipst ick, auto Unknown Analyte Negati ve Not Available [facility] [address] [facility] [address], [place], [address], 10/30/2018 13:29:59 10/31/19 19 10/30/2018 urina lysis , dipst ick, auto Unknown Analyte Negati ve Not Available [facility] [address], [place], [address], 10/30/2018 13:29:59 10/31/19 19 10/30/2018 urina lysis , dipst ick, auto Unknown Analyte Negati ve Not Available [facility] [address] [facility] [address], [place], [address], 10/30/2018 13:29:59 10/31/19 19 10/30/2018 urina lysis , dipst ick, auto Unknown Analyte Negati ve Not Available [facility] [address] [facility] [address], [place], [address], 10/30/2018 13:29:59 10/31/19 19 10/30/2018 urina lysis , dipst ick, auto Unknown Analyte Negtiv e Not Available [facility] [address], [place], [address], 10/30/2018 13:29:59 10/31/19 19 10/30/2018 urina lysis , dipst ick, auto Unknown Analyte Negati ve - Trace Not Available [facility] [address], [place], [address], 10/30/2018 13:29:59 10/31/19 19 10/30/2018 urina lysis , dipst ick, auto Unknown Analyte Normal Not Available [facility] [address], [place], [address], 10/30/2018 13:29:59 10/31/19 19 10/30/2018 urina lysis , dipst ick, auto Unknown Analyte Normal Not Available [facility] [address], [place], [address], 10/30/2018 13:29:59 10/31/19 19 10/30/2018 urina lysis , dipst ick, auto Unknown Analyte Negati ve Not Available [facility] [address], [place], [address], 10/30/2018 13:29:59 10/31/19 19 10/30/2018 urina lysis , dipst ick, auto Unknown Analyte Negati ve Not Available [facility] [address], [place], [address], 10/30/2018 13:29:59 10/31/19 19 10/30/2018 urina lysis , dipst ick, auto Unknown Analyte Normal Not Available [facility] [address], [place], [address], 10/30/2018 13:29:59 10/31/19 19 10/30/2018 urina lysis , dipst ick, auto Unknown Analyte Normal - 1mg/dl Not Available [facility] [address] [facility] [address], [place], [address], 10/30/2018 13:29:59 10/31/19 19 10/30/2018 urina lysis , dipst ick, auto Unknown Analyte Negati ve Not Available [facility] [address] [facility] [address], [place], [address], 10/30/2018 13:29:59 10/31/19 19 10/30/2018 urina lysis , dipst ick, auto Unknown Analyte Negati ve Not Available [facility] [address] [facility] [address], [place], [address], 10/30/2018 13:29:59 10/31/19 19 10/30/2018 urina lysis , dipst ick, auto Unknown Analyte 50 Julio/ul Not Available [facility] [address] [facility] [address], [place], [address], 10/30/2018 13:29:59 10/31/19 19 10/30/2018 urina lysis , dipst ick, auto Unknown Analyte Negati ve Not Available [facility] [address] [facility] [address], [place], [address], 10/30/2018 13:29:59 10/31/19 19 10/30/2018 urina lysis , dipst ick, auto Unknown Analyte Clean Catch Not Available [facility] [address] [facility] [address], [place], [address], 10/30/2018 13:29:59 10/31/19 19 10/30/2018 urina lysis , dipst ick, auto Unknown Analyte Automa jesus Not Available [facility] [address] [facility] [address], [place], [address], 10/30/2018 13:29:59 10/25/19 19 10/24/2018 urina lysis , dipst ick, auto Unknown Analyte Straw Not Available [facility] [address] [place] [address] [address], [place], [address], 10/24/2018 10:24:56 10/25/1910/24/2018 urina lysis , dipst ick, auto Unknown Analyte Cloudy Not Available [facility] [address] [place] [address] [address], [place], [address], 10/24/2018 10:24:56 10/25/19 19 10/24/2018 urina lysis , dipst ick, auto Unknown Analyte 1.010 Not Available [facility] [address] [place] [address] [address], [address], 10/24/2018 10:24:56 10/25/19 19 10/24/2018 urina lysis , dipst ick, auto Unknown Analyte 1.003 - 1.035 Not Available [facility] [address] [place] [address] [address], [place], [address], 10/24/2018 10:24:56 10/25/19 19 10/24/2018 urina lysis , dipst ick, auto Unknown Analyte 8.0 Not Available [facility] [address] [place] [address] [address], [place], [address], 10/24/2018 10:24:56 10/25/19 19 10/24/2018 urina lysis , dipst ick, auto Unknown Analyte 5.0 - 8.0 Not Available [facility] [address] [facility] [address], [place], [address], 10/24/2018 10:24:56 10/25/19 19 10/24/2018 urina lysis , dipst ick, auto Unknown Analyte Negati ve Not Available [facility] [address] [facility] [address], [place], [address], 10/24/2018 10:24:56 10/25/1910/24/2018 urina lysis , dipst ick, auto Unknown Analyte Negati ve Not Available [facility] [address] [facility] [address], [place], [address], 10/24/2018 10:24:56 10/25/19 19 10/24/2018 urina lysis , dipst ick, auto Unknown Analyte Negati ve Not Available [facility] [address] [facility] [address], [place], [address], 10/24/2018 10:24:56 10/25/19 19 10/24/2018 urina lysis , dipst ick, auto Unknown Analyte Negati ve Not Available [facility] [address] [facility] [address], [place], [address], 10/24/2018 10:24:56 10/25/1910/24/2018 urina lysis , dipst ick, auto Unknown Analyte Negtiv e Not Available [facility] [address] [facility] [address], [place], [address], 10/24/2018 10:24:56 10/25/19 10/24/2018 urina lysis , dipst ick, auto Unknown Analyte Negati ve - Trace Not Available [facility] [address], [place], [address], 10/24/2018 10:24:56 10/25/19 19 10/24/2018 urina lysis , dipst ick, auto Unknown Analyte Normal Not Available [facility] [address], [place], [address], 10/24/2018 10:24:56 10/25/1910/24/2018 urina lysis , dipst ick, auto Unknown Analyte Normal Not Available [facility] [address], [place], [address], 10/24/2018 10:24:56 10/25/19 19 10/24/2018 urina lysis , dipst ick, auto Unknown Analyte Negati ve Not Available [facility] [address], [place], [address], 10/24/2018 10:24:56 10/25/19 19 10/24/2018 urina lysis , dipst ick, auto Unknown Analyte Negati ve Not Available [facility] [address], [place], [address], 10/24/2018 10:24:56 10/25/1910/24/2018 urina lysis , dipst ick, auto Unknown Analyte Normal Not Available [facility] [address], [place], [address], 10/24/2018 10:24:56 10/25/1910/2410/24/2018 urina lysis , dipst ick, auto Unknown Analyte Normal - 1mg/dl Not Available [facility] [address], [place], [address], 10/24/2018 10:24:56 10/25/19 19 10/24/2018 urina lysis , dipst ick, auto Unknown Analyte Negati ve Not Available [facility] [address] [facility] [address], [place], [address], 10/24/2018 10:24:56 10/25/19 19 10/24/2018 urina lysis , dipst ick, auto Unknown Analyte Negati ve Not Available [facility] [address] [facility] [address], [place], [address], 10/24/2018 10:24:56 10/25/19 19 10/24/2018 urina lysis , dipst ick, auto Unknown Analyte 250 Julio/ul Not Available [facility] [address] [facility] [address], [place], [address], 10/24/2018 10:24:56 10/25/19 19 10/24/2018 urina lysis , dipst ick, auto Unknown Analyte Negati ve Not Available [facility] [address] [facility] [address], [place], [address], 10/24/2018 10:24:56 10/25/19 19 10/24/2018 urina lysis , dipst ick, auto Unknown Analyte Clean Catch Not Available [facility] [address] [facility] [address], [place], [address], 10/24/2018 10:24:56 10/25/19 19 10/24/2018 urina lysis , dipst ick, auto Unknown Analyte Automa jesus Not Available [facility] [address], [place], [address], 10/24/2018 10:24:56 10/25/19 19 10/24/2018 XR, abdom en, 1 view No observ ation record ed. [facility] [address], [place], [address], 10/24/2018 15:54:16 11/07/19 19 10/11/2018 CT, abdom en + pelvi s, w/ contr ast No observ ation record ed. [facility] [address] [place], [address], 11/06/2018 11:08:18 Result Notes None recorded. Problems No Known Problems Procedures Surgical History Date Name Laterality Status Provider Name and Address Organization Details Recorded Time 10/26/19 19 CYSTOSCOPY, WITH URETEROSCOPY, WITH LITHOTRIPSY (SURG) completed Jenny Varela [facility] 11/02/2018 11:11:28 06/06/20 18 Injection, Interlaminar Epidural Steroid completed STACY GARCIA MD [address] [place] [address], [address], [facility] 06/06/2018 09:37:07 Appendectomy completed Berta Akins [facility] 05/10/2018 14:36:33 Imaging Results None recorded. Procedure Notes None recorded. Medical Equipment None Reported. Allergies Allergen ID Allergen Name Allergen Category Reaction Reaction Severity Criticality Documentation Date Start Date Code Code System Note Provider Name and Address Organization Details Recorded Time 983827 niacin medicatio n Not available Not available Not available 07/01/20162010 7393 RxNorm Comme nt: suppl ement cause d hives ;Crea jesus By: Tolu RecinosCrea jesus Date: 2010 10:30 :08 AM; Not Available [facility] 6 04:45:05 225969 Substance with sulfonami de structure and antibacte rial mechanism of action (substanc e) medicatio n Not available Not available Not available 07/01/20162010 34918 8003 SNOMED Comme nt: Creat ed By: Tolu lee Date: 2010 10:30 :26 AM; Not Available [facility] 6 10:25:53 Medications Name Sig Start Date Stop Date Status Note LastModified by Organization Details LastModified Time atorvastat in 20 mg tablet active Not Available Not Available Not Available hydrocodon e 5 mg-acetami nophen 325 mg tablet active Not Available Not Available No t Available clopidogre l 75 mg tablet active Not Available Not Available Not Available chlorthali done 25 mg tablet Daily active Not Available Not Available Not Available ciprofloxa arley 500 mg tablet active Not Available Not Available Not Available amoxicilli n 875 mg tablet active Not Available Not Available Not Available tamsulosin 0.4 mg capsule active Not Available Not Available Not Available Tylenol 500 mg tablet One to two times a day active Frequency: qd-bid;Med ication Descriptio n: acetaminop hen; Dosage:2; Route:oral ; refills:0 Not Available Not Available Not Available cephalexin 500 mg capsule active Not Available Not Available Not Available verapamil ER (PM) 200 mg capsule 24[address] pellet CT,ext.rel ease Daily active Frequency: daily;Medi cation Descriptio n: verapamil; Dosage:1/2 ; Route:oral ; refills:0 Not Available Not Available Not Available misoprosto l 200 mcg tablet active Not Available Not Available Not Available gabapentin 300 mg capsule Take 1 capsule 3 times a day by oral route as directed . active Not Available Not Available No t Available omeprazole 20 mg capsule,de layed release active Not Available Not Available Not Available verapamil ER (SR) 240 mg tablet,ext ended release active Not Available Not Available Not Available dorzolamid e 22.3 mg-timolol 6.8 mg/mL eye drops active Not Available Not Available No t Available Lipitor 10 mg tablet Daily active Frequency: daily;Medi cation Descriptio n: atorvastat in; Dosage:1/2 ; Route:oral ; refills:0 Not Available Not Available Not Available Ibuprofen- Pmr 200 mg tablet As needed active Frequency: prn;Medica tion Descriptio n: ibuprofen; Dosage:2; Route:oral ; refills:0 Not Available Not Available Not Available Klor-Con M20 mEq tablet,ext ended release active Not Available Not Available Not Available Lucentis 0.5 mg/0.05 mL intravitre al solution for injection Once monthly active Instructio ns: shots both eyes monthly;Fr equency: 1x /month;Med ication Descriptio n: ranibizuma b ophthalmic ; Route:intr aocular; refills:0 Not Available Not Available Not Available Calcium 600 + D(3) 600 mg-10 mcg (400 unit) tablet Daily active Frequency: daily;Medi cation Descriptio n: calcium-vi tamin D; Dosage:2; Route:oral ; refills:0 Not Available Not Available Not Available Suprep Bowel Prep Kit 17.5 gram-3.13 gram-1.6 gram oral solution active Not Available Not Available Not Available Centrum 9 mg iron/15 mL oral liquid Daily active Frequency: daily;Medi cation Descriptio n: multivitam in with minerals; Dosage:1; Route:oral ; refills:0 Not Available Not Available Not Available Shingrix (PF) 50 mcg/0.5 mL intramuscu lar suspension , kit active Not Available Not Available Not Available Vitals Date Recorded Body height Body mass index (BMI) Body weight Heart rate Systolic blood pressure Diastolic blood pressure Provider Name and Address Organization Details Last Updated DateTime 9 152.4 cm 29.3 kg/m2 87340.8 6 g 60 /min 176 mm[Hg] 99 mm[Hg] Katheryn Kareem [facility] 9 10:34:33 Date Recorded Body height Body mass index (BMI) Body weight Heart rate Systolic blood pressure Diastolic blood pressure Provider Name and Address Organization Details Last Updated DateTime 9 152.4 cm 28.9 kg/m2 08649.6 7 g 57 /min 136 mm[Hg] 81 mm[Hg] Rayna Barkley [facility] 9 13:29:36 Date Recorded Body height Body mass index (BMI) Body weight Systolic blood pressure Diastolic blood pressure Provider Name and Address Organization Details Last Updated DateTime 05/28/2018 152.4 cm 30.7 kg/m2 16112 g 150 mm[Hg] 75 mm[Hg] Charity Lovett [facility] 8 09:55:28 Date Recorded Body height Body mass index (BMI) Body weight Systolic blood pressure Diastolic blood pressure Provider Name and Address Organization Details Last Updated DateTime 07/05/2018 152.4 cm 30.7 kg/m2 34298 g 122 mm[Hg] 83 mm[Hg] Santiago Palafox [facility] 8 08:23:57 Social History Question Answer Notes LastModified by Organizat [employer] Details LastModified Time Tobacco Smoking Status Never [facility] 05/10/2018 14:36:25 How Much Tobacco Do You Chew? None [email or web address] Information not available 10/30/2018 Education 12 Information no t available 05/28/2018 Marital Status Informatio n not available 05/28/2018 What Was The Date Of Your Most Recent Tobacco Screening? 10/30/2018 [id number] Information not available 09/24/2019 Sex: Unknown Functional Status Question Answer Note LastModified by Organizat [employer] Details LastModified Time What is your level of alcohol consumption? Occasional Information not available 10/24/2018 What is your occupation? retired Information not available 10/24/2018 Mental Status None recorded. Family History Relationship Description Onset Age of this Age Resolved Age Notes LastModified by Organization Details LastModified Time Unspecified Relation Malignant neoplastic disease [email or web address] Not available 05/10 14:36:08 Unspecified Relation Myocardial infarction [email or web address] Not available 11/2017 14:36:20 Medical History Condition Response Allergies/Hayfever Y Hypertension Y High Cholesterol Y Gynecological HistoryNo gynecological history recorded. 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 [place] [address] 06/06/2018 09:28:25 06/07/2018 15:31:45 Lumbar radiculopathy 728316009 M54.16 [id number] STACY GARCIA MD PAIN MEDICINE CLOSED [address] [place] [address] 07/05/2018 07:59:12 07/05/2018 08:46:40 Lumbar radiculopathy 599386725 M54.16 [id number] JARRET LONG MD [facility] [address] [place] [id number] 10/24/2018 10:02:52 10/24/2018 11:46:10 Kidney stone 32894380 N20.0 [id number] JARRET LONG MD [facility] [address] [place] [id number] 10/30/2018 12:27:19 10/30/2018 13:33:45 Ureteric stone 19284136 N20.1 Health Concerns Section Related Observation LastModified by Organization Detai ls LastModified Time None Recorded Concern Status LastModified by Organization Details LastModified Time None Recorded Advance Directives Directive None Recorded Payers Insurance Date Sequence Insurance Name Policy Number Policy Cifuentes Covered Member ID Cifuentes Member ID Guarantor Name 07/01/2020 1 [facility]IC[facility] (MEDICARE) Lisseth Ignacio [id number] Lisseth Ignacio 07/01/2020 1 [place] Lisseth Ignacio [id number] Lisseth Ignacio 07/01/2020 2 [employer] (MEDICARE SUPPLEMENT) Lisseth Ignacio [id number] Lisseth Ignacio 07/01/2020 3 [place] Lisseth Ignacio [id number] Lisseth Ignacio Notes Date Note Type Note Provider Name and Address Organization Details Recorded Time 05/28/2018 text/html Pain Management InitialReported bypatient.Quality:ach ing; dull Timing:chronic Alleviating Factors:lying down; rest Aggravating Factors:standing; walking Associated Symptoms:no numbness; no tingling Prior Imaging:MRI Previous Injections:none Previous PT:helped a little 72-year-old female presenting for evaluation of lumbar back pain. Patient reports a two month history of episodic weakness in the bilateral hips and anterior thighs. She denies any history of falls. Patient had previously been seen and managed by this clinic, Dr Ahuja, and has undergone LESI in the past with good improvement in symptoms. Patient has been seen and evaluated by neurosurgery, Dr. Pardo, and referred for interventional management. Lumbar MRIs show degenerative disc disease and facet arthropathy with resultant bilateral foraminal stenosis and lateral recess narrowing from L2-3 through L5-S1. STACY GARCIA MD [address] [place] [address], [phone], [facility] 05/28/2018 12:41:16 07/05/2018 text/html 72-year-old fema claudio presenting with regards to hip pain. At her last appointment, patient underwent L2-3 lumbar epidural steroid injection. Patient reports significant improvement in hip and leg pain following the injection. She continues to report good improvement in pain. STACY GARCIA MD [address] [place] [address], [phone], [facility] 07/05/2018 10:01:42 10/24/2018 text/html 73-year-old fema claudio who is having kidney stone problems. She has had a history of stones previously. Recently she's been having some right flank pain with radiation the right side of the abdomen. Pain is intermittent in nature but at times severe. There is no gross hematuria or dysuria. There is no nausea vomiting or fever. CT scan shows bilateral stones with the largest pain 3 mm. She has a 7 x 4 mm stone in the distal right ureter. KUB shows a stone in the same position JARRET LONG MD [address] [place], [address], [facility] 10/24/2018 15:29:53 10/30/2018 text/html she is back foll owing ureteroscopic stone extraction. She removed her stent over the weekend. She is voiding clear urine without any pain is no back or abdominal discomfort. She will concentrate on hydration for stone prevention JARRET LONG MD [address] [place], [address], [facility] 10/30/2018 13:37:33 OBGyn Episode No OBEpisode recorded.
--- OUTSIDE RECORDS SUMMARY | 2025-01-30 06:57 | XMS_ITS | Encounter Summary ---
Author Organization [facility] In iatives Address [address] [place] [address] Care Team Providers Care Production Manager Name Role Phone Unavailable Primary Care Provider Unavailabl e Encounter Details Date Type Department Care Team (Late st Contact Info) Description 10/25/2018 Transcribed Document [facility] Family Medicine [facility] [place] [address] ProviderKristi MD [facility] [place] [place] [address] Social History Tobacco Use Types [...] Kristi ProviderMD - 10/25/2018 10:38 AM CDT [facility] Main OR PostOp Summary Primary Physician: JARRET LONG MD-URO Finalized Date/Time: 10/25/18 12:42:34 Pt. Name: MEKHI IGNACIO /Sex: 1945 Female Med Rec #: [id number] Physician: JARRET LONG MD-URO Financial #: [id number] Pt. Type: O Room/Bed: Admit/Disch: 10/25/18 07:16:00 - Institution: [facility] Main OR PostOp Case Times Entry 1 In PACU II 10/25/18 12:00:00 Ready for PACU II 10/25/18 12:38:00 Discharge Discharge from PACU 10/25/18 12:38:00 II Last Modified By: Shirley Espinoza RN 10/25/18 12:42:33 Finalized By: Shirley Espinoza, RN Document Signatures Signed By: Shirley Espinoza RN 10/25/18 12:42 Electronically signed by [facility] Conversion Federal Aid Coordinator Cerner at 11/22/2022 9:46 AM CDT documented in this encounter Plan of Treatment Not on file documented as of this encounter Visit Diagnoses Not on filedocumented in this encounter
--- OUTSIDE RECORDS SUMMARY | 2025-01-30 06:57 | XMS_ITS | Encounter Summary ---
Author Organization [facility] Init iatives Address [address] [place] [address] Care Team Providers Care Bag Valver Name Role Phone Unavailable Primary Care Provider Unavailabl e Encounter Details Date Type Department Care Team (Late st Contact Info) Description 10/24/2018 Transcribed Document [facility] [place] [facility] [place] [address] ProviderKristi MD [address] [place] [address] Social History Tobacco Use Types [...] Cerner Conversion Note - Historical ProviderMD - 10/24/2018 4:24 PM CDT PAT Adult Entered On: 10/24/2018 16:27 EDT Performed On: 10/24/2018 16:24 EDT by NAHOMI RUSSO RN Height and Weight, Clinical Dosing Height Source : Measured Height Entry Format : Trimble Height, Feet : 5 ft(Converted to: 152 cm, 60 Inch) Height, Inches : 0 Inch(Converted to: 0 ft 0 Inch, 0.00 cm) Clinical Height : 152.4 cm Weight Source : Standing scale Weight Entry Format : Trimble Clinical Dosing Weight : 69.45 kg Weight, Pounds : 152.8 lb Body Surface Area (BSA) : 1.67 m2 Body Mass Index : 29.9 kg/m2 (HI) [place] Body Weight : 45 kg AAKASH Eller RN - 10/25/2018 8:39 EDT Health Histories Implant/Device Type, Graduate Teaching Assistant and Model : N/A AAKASH Eller RN - 10/25/2018 8:39 EDT Smoking Status : Never (less than 100 in lifetime; none in last 30 days) Smokeless Tobacco Status : Never NAHOMI RUSSO RN - 10/24/2018 16:24 EDT Social History (As Of: 10/25/2018 08:40:53 EDT) Tobacco: Never (less than 100 in lifetime) Smoking Status. (Last Updated: 10/24/2018 16:25:40 EDT by NAHOMI RUSSO RN) Alcohol: Alcohol Use Frequency Rarely. (Last Updated: 10/24/2018 16:25:51 EDT by NAHOMI RUSSO RN) Substance Abuse: Drug Use Hx: No. Use in Last 12 Months: No. (Last Updated: 10/24/2018 16:25:44 EDT by NAHOMI RUSSO RN) Infectious Disease History Infectious Disease History : None Fever/Chills Last 48 Hours : No AAKASH Eller RN - 10/25/2018 8:39 EDT Travel To Regions with Travel Advisories : No Travel Outside [place] Within Last 30 Days : No Contact With Traveler to Advisory Region : No Tuberculosis Symptoms : None NAHOMI RUSSO RN - 10/24/2018 16:24 EDT Anesthesia/Transfusion History Family History of Anesthesia Reaction : Prior transfusion without reaction Transfusion History : Prior anesthesia without reaction Family History of Anesthesia Reaction : None NAHOMI RUSSO RN - 10/24/2018 16:24 EDT Advance Directive Advance Directive Type : Living will Patient has Advance Directive *Q : Yes, Advance Directive on file AAKASH Eller RN - 10/25/2018 8:39 EDT Psychosocial History Currently in Unsafe Situation : No Tried to Harm Yourself in the Past? : No Thoughts of Harming/Killing Yourself : No NAHOMI RUSSO RN - 10/24/2018 16:24 EDT General Info Preferred Name : Lisseth Arrived From : Home Mode of Arrival on Unit : Ambulatory Legal Guardian : Spouse Primary Language : [place] Communication Barrier : None AAKASH Eller RN - 10/25/2018 8:39 EDT Support Person/Pt Rep Name : Tico/ Support Person/Pt Rep Contact Information : [phone] Want Family/Rep/Phys Notified of Admit : No Emergency Contact #1 : ` Emergency Contact #1 Phone Number : ` Emergency Contact #1 Relationship : ` Emergency Contact #2 : ` Emergency Contact #2 Phone Number : ` Emergency Contact #2 Relationship : ` NAHOMI RUSSO RN - 10/24/2018 16:24 EDT Edgar Scale Edgar Sensory Perception : No impairment Edgar Moisture : Rarely moist Edgar Activity : Walks occasionally Edgar Mobility : Slightly limited Edgar Nutrition : Adequate Edgar Friction and Shear : No apparent problem Edgar Score : 20 NAHOMI RUSSO RN - 10/24/2018 16:24 EDT Sleep Apnea Risk Assmt BMI Greater Than 35 kg/m2 : No Neck Circumference Greater Than 40 cm : No STOP-BANG Sleep Apnea Risk Level Score : 2 AAKASH Eller RN - 10/25/2018 8:39 EDT Hx of Obstructive Sleep Apnea Diagnosis : No Snore Loudly : No Tired, Fatigued, or Sleepy During Day : No Observed Stopping Breathing During Sleep : No Have/Are Being Treated for Hypertension : Yes Age over 50 Years Old : Yes Gender Male : No NAHOMI RUSSO RN - 10/24/2018 16:24 EDT documented in this encounter Plan of Treatment Not on file documented as of this encounter Visit Diagnoses Not on filedocumented in this encounter
--- OUTSIDE RECORDS SUMMARY | 2025-01-30 06:57 | XMS_ITS | Encounter Summary ---
Author Organization [facility] In iatives Address [address] [place] [id number] Care Team Providers Care Customer Retention Representative Name Role Phone Unavailable Primary Care Provider Unavailabl e Encounter Details Date Type Department Care Team (Late st Contact Info) Description 10/25/2018 Transcribed Document [facility] [place] Medicine [place] [address] ProviderKristi MD [place] [address] Social History Tobacco Use Types [...] Kristi ProviderMD - 10/25/2018 12:15 PM CDT [address] [place] [address] Patient Copy Patient Information: Name: MEKHI IGNACIO Current Date: 10/25/2018 12:15:29 : 1945 Patient Address: [address] [place] [address] Patient Attending Physician: JARRET LONG MD-URO Primary Care Provider: MADHURI ROSE MD Primary Care Provider Discharge Diagnosis: Weight on Admission: 152 lb, 13 oz Comment: Follow-up Instructions: With: Address: When: JARRET LONG [address] [place] [address], [address] [place] [id number] [facility] (1) 1:00 PM Comments: Monday for symptom check/stent pull. Discharge Instructions: Diet after Discharge: Resume usual diet as tolerated, Drink at least 8-10 glasses a day Activity after Discharge: Rest and relax today, No strenuous activities Driving after Discharge: Other: do not drive for 24 hours and ifg taking pain medication Showering/Bathing:May shower, No showering Wound/Incision Care after Discharge: Keep operative site/wound site clean and dry Wound/Incision Care after Discharge Comment: call office for temperature 101 or greater, increased bleeding in urine, passing large blood clots, unable to urinate, if the pain is not relieved walk 3-5 times per day strain urine at all times, save the stone fragments Immunizations Documented During Stay: No Immunizations Found Special Instructions: Follow DR. Long verbal instructions follow Urinary stent instructions sheet Heart Failure Discharge Instructions (if any): Stroke [...] cramping, rapid heartbeat, difficulty sleeping, and nervousness. Patient education materials: Ureteroscopy, Care After This sheet gives you [...] these instructions at home: Medicines ??? Take fpns-rft-ysyxmhh and prescription medicines only as told by [...] 07/29/2014 Document Revised: 05/09/2017 Document Reviewed: 05/05/2017 [employer] Interactive Patient Education ? 2017 [employer] General Anesthesia, Adult, Care After These instructions [...] activities are safe for you. ??? Take ieae-afh-axylxku and prescription medicines only as told by [...] 10/30/2001 Document Revised: 12/26/2016 Document Reviewed: 07/07/2016 [employer] Interactive Patient Education ? 2017 [employer]. Medication Leaflets: ciprofloxacin (oral) (SIP grant FLOX a sin) Cipro, Cipro XR, Proquin XR What is the most important information I should know about ciprofloxacin? Ciprofloxacin can cause serious side effects, including tendon problems, nerve damage, serious mood or behavior changes, or low blood sugar. Stop using this medicine and call your doctor at once if you have symptoms such as: headache, hunger, irritability, numbness, tingling, burning pain, confusion, agitation, paranoia, problems with memory or concentration, thoughts of suicide, or sudden pain or movement problems in any of your joints. In rare cases, ciprofloxacin may cause damage to your aorta, which could lead to dangerous bleeding or . Get emergency medical help if you have severe and constant pain in your chest, stomach, or back. What is ciprofloxacin? Ciprofloxacin is a fluoroquinolone (iirf-s-TQHZ-o-lone) antibiotic that fights bacteria in the body. Ciprofloxacin is used to treat different types of bacterial infections. Ciprofloxacin is also used to treat people who have been exposed to anthrax or certain types of plague. Fluoroquinolone antibiotics can cause serious or disabling side effects that may not be reversible. Ciprofloxacin should be used only for infections that cannot be treated with a safer antibiotic. Ciprofloxacin may also be used for purposes not listed in this medication guide. What should I discuss with my healthcare provider before taking ciprofloxacin? You should not use ciprofloxacin if you are allergic to it, or if: ? you also take tizanidine; or ?? you are allergic to other fluoroquinolones (gemifloxacin, levofloxacin, moxifloxacin, norfloxacin, ofloxacin, and others). Ciprofloxacin may cause swelling or tearing of a tendon (the fiber that connects bones to muscles in the body), especially in the Achilles' tendon of the heel. This can happen during treatment or up to several months after you stop taking ciprofloxacin. Tendon problems may be more likely in certain people (children and older adults, or people who use steroid medicine or have had an organ transplant). Tell your doctor if you have ever had: ? tendon problems, bone problems, arthritis, or other joint problems (especially in children); ?? blood circulation problems, aneurysm, narrowing or hardening of the arteries; ?? heart problems, high blood pressure; ?? a genetic disease such as Marfan syndrome or Ehler's-Danlos syndrome; ?? diabetes; ?? a muscle or nerve disorder, such as myasthenia gravis; ?? kidney disease; ?? seizures or epilepsy; ?? a head injury or brain tumor; ?? long QT syndrome (in you or a family member); or ?? low levels of potassium in your blood (hypokalemia). Do not give this medicine to a child without medical advice. It is not known whether this medicine will harm an unborn baby. Tell your doctor if you are . You should not breast-feed while using this medicine. How should I take ciprofloxacin? Follow all directions on your prescription label and read all medication guides or instruction sheets. Use the medicine exactly as directed. You may take ciprofloxacin with or without food, at the same time each day. Shake the oral suspension (liquid) for 15 seconds before you measure a dose. Use the dosing syringe provided, or use a medicine dose-measuring device (not a kitchen spoon). Do not give ciprofloxacin oral suspension through a feeding tube. Swallow the extended-release tablet whole and do not crush, chew, or break it. Use this medicine for the full prescribed length of time, even if your symptoms quickly improve. Skipping doses can increase your risk of infection that is resistant to medication. Ciprofloxacin will not treat a viral infection such as the flu or a common cold. Do not share ciprofloxacin with another person. Store at room temperature away from moisture and heat. Do not allow the liquid medicine to freeze. Throw away any unused liquid after 14 days. What happens if I miss a dose? Take the medicine as soon as you can, but skip the missed dose if it is almost time for your next dose. Do not take two doses at one time. What happens if I overdose? Seek emergency medical attention or call the Poison Help line at . What should I avoid while taking ciprofloxacin? Do not take ciprofloxacin with dairy products such as milk or yogurt, or with calcium- fortified juice. You may eat or drink these products with your meals, but do not use them alone when taking ciprofloxacin. They could make the medication less effective. Using caffeine while taking ciprofloxacin can increase the effects of the caffeine. Antibiotic medicines can cause diarrhea, which may be a sign of a new infection. If you have diarrhea that is watery or bloody, call your doctor before using anti-diarrhea medicine. Ciprofloxacin could make you sunburn more easily. Avoid sunlight or tanning beds. Wear protective clothing and use sunscreen (SPF 30 or higher) when you are outdoors. Tell your doctor if you have severe burning, redness, itching, rash, or swelling after being in the sun. Avoid driving or hazardous activity until you know how this medicine will affect you. Your reactions could be impaired. What are the possible side effects of ciprofloxacin? Get emergency medical help if you have signs of an allergic reaction (hives, difficult breathing, swelling in your face or throat) or a severe skin reaction (fever, sore throat, burning in your eyes, skin pain, red or purple skin rash that spreads and causes blistering and peeling). Ciprofloxacin can cause serious side effects, including tendon problems, side effects on your nerves (which may cause permanent nerve damage), serious mood or behavior changes (after just one dose), or low blood sugar (which can lead to coma). Stop taking this medicine and call your doctor at once if you have: ? low blood sugar--headache, hunger, sweating, irritability, dizziness, nausea, fast heart rate, or feeling anxious or shaky; ?? nerve symptoms in your hands, arms, legs, or feet--numbness, weakness, tingling, burning pain; ?? serious mood or behavior changes--nervousness, confusion, agitation, paranoia, hallucinations, memory problems, trouble concentrating, thoughts of suicide; or ?? signs of tendon rupture--sudden pain, swelling, bruising, tenderness, stiffness, movement problems, or a snapping or popping sound in any of your joints (rest the joint until you receive medical care or instructions). In rare cases, ciprofloxacin may cause damage to your aorta, the main blood artery of the body. This could lead to dangerous bleeding or . Get emergency medical help if you have severe and constant pain in your chest, stomach, or back. Also, stop using ciprofloxacin and call your doctor at once if you have: ? severe stomach pain, diarrhea that is watery or bloody; ?? fast or pounding heartbeats, fluttering in your chest, shortness of breath, and sudden dizziness (like you might pass out); ?? the first sign of any skin rash, no matter how mild; ?? muscle weakness, breathing problems; ?? little or no urination; ?? jaundice (yellowing of the skin or eyes); or ?? increased pressure inside the skull--severe headaches, ringing in your ears, dizziness, nausea, vision problems, pain behind your eyes. Common side effects may include: ? nausea, vomiting, diarrhea, stomach pain; ?? vaginal itching or discharge; ?? headache; or ?? abnormal liver function tests. This is not a complete list of side effects and others may occur. Call your doctor for medical advice about side effects. You may report side effects to FDA at 8-376-FRF-0094. What other drugs will affect ciprofloxacin? Some medicines can make ciprofloxacin much less effective when taken at the same time. If you take any of the following medicines, take your ciprofloxacin dose 2 hours before or 6 hours after you take the other medicine. ? the ulcer medicine sucralfate, or antacids that contain calcium, magnesium, or aluminum (such as Maalox, Milk of Magnesia, Mylanta, Pepcid Complete, Rolaids, Tums, and others); ?? didanosine (Videx) powder or chewable tablets; ?? lanthanum carbonate or sevelamer; or ?? vitamin or mineral supplements that contain calcium, iron, magnesium, or zinc. Tell your doctor about all your other medicines, especially: ? cyclosporine, methotrexate, metoclopramide, phenytoin, probenecid, ropinirole, sildenafil, or theophylline; ?? a blood thinner (warfarin, Coumadin, Jantoven); ?? a diuretic or 'water pill'; ?? heart rhythm medication; ?? insulin or oral diabetes medicine (check your blood sugar regularly); ?? medicine to treat depression or mental illness; ?? steroid medicine (such as prednisone); or ?? NSAIDs (nonsteroidal anti-inflammatory drugs)--ibuprofen (Advil, Motrin), naproxen (Aleve), celecoxib, diclofenac, indomethacin, meloxicam, and others. This list is not complete. Other drugs may affect ciprofloxacin, including prescription and bfxg-lud-msqtrfm medicines, vitamins, and herbal products. Not all possible drug interactions are listed here. Where can I get more information? Your pharmacist can provide more information about ciprofloxacin. Remember, keep this and all other medicines out of the reach of children, never share your medicines with others, and use this medication only for the indication prescribed. Every effort has been made to ensure that the information provided by [employer] is accurate, up-to-date, and complete, but no guarantee is made to that effect. Drug information contained herein may be time sensitive. [employer] information has been compiled for use by healthcare practitioners and consumers in the [place] and therefore [employer] does not warrant that uses outside of the [place] are appropriate, unless specifically indicated otherwise. [employer]'s drug information does not endorse drugs, diagnose patients or recommend therapy. [employer]s drug information is an informational resource designed to assist licensed healthcare practitioners in caring for their patients and/or to serve consumers viewing this service as a supplement to, and not a substitute for, the expertise, skill, knowledge and judgment of healthcare practitioners. The absence of a warning for a given drug or drug combination in no way should be construed to indicate that the drug or drug combination is safe, effective or appropriate for any given patient. [facility] does not assume any responsibility for any aspect of healthcare administered with the aid of information [facility] provides. The information contained herein is not intended to cover all possible uses, directions, precautions, warnings, drug interactions, allergic reactions, or adverse effects. If you have questions about the drugs you are taking, check with your doctor, nurse or pharmacist. Copyright 2279-[address]4 [email or web address]. Version: 22.. Revision Date: 08/13/2018. tamsulosin (alston kenyatta LIYAH sin) Flomax What is the most important information I should know about tamsulosin? Follow all directions on your medicine label and package. Tell each of your healthcare providers about all your medical conditions, allergies, and all medicines you use. What is tamsulosin? Tamsulosin is an alpha-bettie that is used to improve urination in men with benign prostatic hyperplasia (enlarged prostate). Tamsulosin is not approved for use in women or children. Tamsulosin may also be used for purposes not listed in this medication guide. What should I discuss with my healthcare provider before taking tamsulosin? You should not use tamsulosin if you are allergic to it. Tell your doctor if you have ever had: ? liver or kidney disease; ?? prostate cancer; ?? low blood pressure; or ?? an allergy to sulfa drugs. Tamsulosin can affect your pupils. If you have cataract surgery, tell your surgeon ahead of time that you use this medicine. Tamsulosin is not for use in women, and the effects of this medicine during or in women are unknown. How should I take tamsulosin? Your doctor may test your prostate specific antigen (PSA) to check for prostate cancer before you take tamsulosin. Follow all directions on your prescription label and read all medication guides or instruction sheets. Your doctor may occasionally change your dose. Use the medicine exactly as directed. Tamsulosin is usually taken once a day, approximately 30 minutes after the same meal each day. Swallow the capsule whole and do not crush, chew, break, or open it. Your blood pressure will need to be checked often. Some things can cause your blood pressure to get too low. This includes vomiting, diarrhea, or heavy sweating. Call your doctor if you are sick with vomiting or diarrhea. Store at room temperature away from moisture and heat. If you stop taking tamsulosin for any reason, call your doctor before you start taking it again. You may need a dose adjustment. What happens if I miss a dose? Take the medicine as soon as you can, but skip the missed dose if it is almost time for your next dose. Do not take two doses at one time. If you miss your doses for several days in a row, talk with your doctor before restarting the medication. What happens if I overdose? Seek emergency medical attention or call the Poison Help line at . What should I avoid while taking tamsulosin? Avoid driving or hazardous activity until you know how this medicine will affect you. Your reactions could be impaired. Avoid getting up too fast from a sitting or lying position, or you may feel dizzy. What are the possible side effects of tamsulosin? Get emergency medical help if you have signs of an allergic reaction (hives, difficult breathing, swelling in your face or throat) or a severe skin reaction (fever, sore throat, burning eyes, skin pain, red or purple skin rash with blistering and peeling). Stop using tamsulosin and call your doctor at once if you have: ? a light-headed feeling, like you might pass out; or ?? penis erection that is painful or lasts 4 hours or longer. Tamsulosin lowers blood pressure and may cause dizziness or fainting, especially when you first start taking it. You may feel very dizzy when you first wake up. Avoid getting up too fast from a sitting or lying position, or you may feel dizzy. Common side effects may include: ? abnormal ejaculation, decreased amount of semen; ?? dizziness, drowsiness, weakness; ?? runny nose, cough; ?? back pain, chest pain; ?? nausea, diarrhea; ?? tooth problems; ?? blurred vision; ?? sleep problems (insomnia); or ?? decreased interest in sex. This is not a complete list of side effects and others may occur. Tell your doctor about any unusual or bothersome side effect. You may report side effects to FDA at 9-004-LNF-4808. What other drugs will affect tamsulosin? Tell your doctor about all your current medicines. Many drugs can increase your risk of very low blood pressure while taking tamsulosin, especially: ? medicines similar to tamsulosin (alfuzosin, doxazosin, prazosin, silodosin, or terazosin); ?? heart or blood pressure medication; or ?? sildenafil (Viagra) and other erectile dysfunction medicines. This list is not complete and many other drugs may affect tamsulosin. This includes prescription and ppcq-hwj-evfbyev medicines, vitamins, and herbal products. Not all possible drug interactions are listed here. Where can I get more information? Your pharmacist can provide more information about tamsulosin. Remember, keep this and all other medicines out of the reach of children, never share your medicines with others, and use this medication only for the indication prescribed. Every effort has been made to ensure that the information provided by [employer] is accurate, up-to-date, and complete, but no guarantee is made to that effect. Drug information contained herein may be time sensitive. [employer] information has been compiled for use by healthcare practitioners and consumers in the [place] and therefore [employer] does not warrant that uses outside of the [place] are appropriate, unless specifically indicated otherwise. [employer]s drug information does not endorse drugs, diagnose patients or recommend therapy. [employer]s drug information is an informational resource designed to assist licensed healthcare practitioners in caring for their patients and/or to serve consumers viewing this service as a supplement to, and not a substitute for, the expertise, skill, knowledge and judgment of healthcare practitioners. The absence of a warning for a given drug or drug combination in no way should be construed to indicate that the drug or drug combination is safe, effective or appropriate for any given patient. [employer] does not assume any responsibility for any aspect of healthcare administered with the aid of information [employer] provides. The information contained herein is not intended to cover all possible uses, directions, precautions, warnings, drug interactions, allergic reactions, or adverse effects. If you have questions about the drugs you are taking, check with your doctor, nurse or pharmacist. Copyright 6371-6762 [employer] Version: 9.01. Revision Date: 07/02/2018. acetaminophen and hydrocodone (a SEET a MIN oh fen and pradeep droe KOE done) Hycet, Lorcet, [place], Verdrocet, Vicodin, Xodol, Zamicet What is the most important information I should know about acetaminophen and hydrocodone? MISUSE OF OPIOID MEDICINE CAN CAUSE ADDICTION, OVERDOSE, OR . Keep the medication in a place where others cannot get to it. An overdose of acetaminophen can damage your liver or cause . Call your doctor at once if you have pain in your upper stomach, loss of appetite, dark urine, or jaundice (yellowing of your skin or eyes). Taking opioid medicine during may cause life-threatening withdrawal symptoms in the . Fatal side effects can occur if you use opioid medicine with alcohol, or with other drugs that cause drowsiness or slow your breathing. Stop taking this medicine and call your doctor right away if you have skin redness or a rash that spreads and causes blistering and peeling. What is acetaminophen and hydrocodone? Hydrocodone is an opioid pain medication, sometimes called a narcotic. Acetaminophen is a less potent pain reliever that increases the effects of hydrocodone. Acetaminophen and hydrocodone is a combination medicine used to relieve moderate to severe pain. Acetaminophen and hydrocodone may also be used for purposes not listed in this medication guide. What should I discuss with my healthcare provider before taking acetaminophen and hydrocodone? You should not use this medicine if you are allergic to acetaminophen or hydrocodone, or if you have: ? severe asthma or breathing problems; or ?? a blockage in your stomach or intestines. Tell your doctor if you have ever had: ? liver disease; ?? a drug or alcohol addiction; ?? kidney disease; ?? a head injury or seizures; ?? urination problems; or ?? problems with your thyroid, pancreas, or gallbladder. If you use opioid medicine while you are , your baby could become dependent on the drug. This can cause life-threatening withdrawal symptoms in the baby after it is born. Babies born dependent on opioids may need medical treatment for several weeks. Do not breast-feed. This medicine can pass into breast milk and cause drowsiness, breathing problems, or in a nursing baby. How should I take acetaminophen and hydrocodone? Follow all directions on your prescription label. Never take this medicine in larger amounts, or for longer than prescribed. An overdose can damage your liver or cause . Tell your doctor if the medicine seems to stop working as well in relieving your pain. Always check your bottle to make sure you have received the correct pills (same brand and type) of medicine prescribed by your doctor. Never share this medicine with another person, especially someone with a history of drug abuse or addiction. MISUSE CAN CAUSE ADDICTION, OVERDOSE, OR . Keep the medicine in a place where others cannot get to it. Selling or giving away acetaminophen and hydrocodone is against the law. Measure liquid medicine carefully. Use the dosing syringe provided, or use a medicine dose-measuring device (not a kitchen spoon). If you need surgery or medical tests, tell the doctor ahead of time that you are using this medicine. You should not stop using this medicine suddenly. Follow your doctor's instructions about tapering your dose. Store at room temperature away from moisture and heat. Keep track of your medicine. You should be aware if anyone is using it improperly or without a prescription. Do not keep leftover opioid medication. Just one dose can cause in someone using this medicine accidentally or improperly. Ask your pharmacist where to locate a drug take-back disposal program. If there is no take-back program, flush the unused medicine down the toilet. What happens if I miss a dose? Since this medicine is used for pain, you are not likely to miss a dose. Skip any missed dose if it is almost time for your next dose. Do not use two doses at one time. What happens if I overdose? Seek emergency medical attention or call the Poison Help line at . An overdose of acetaminophen and hydrocodone can be fatal. The first signs of an acetaminophen overdose include loss of appetite, nausea, vomiting, stomach pain, sweating, and confusion or weakness. Later symptoms may include pain in your upper stomach, dark urine, and yellowing of your skin or the whites of your eyes. Overdose can also cause severe muscle weakness, pinpoint pupils, very slow breathing, extreme drowsiness, or coma. What should I avoid while taking acetaminophen and hydrocodone? Avoid driving or operating machinery until you know how this medicine will affect you. Dizziness or drowsiness can cause falls, accidents, or severe injuries. Do not drink alcohol. Dangerous side effects or could occur. Ask a doctor or pharmacist before using any other medicine that may contain acetaminophen (sometimes abbreviated as APAP). Taking certain medications together can lead to a fatal overdose. What are the possible side effects of acetaminophen and hydrocodone? Get emergency medical help if you have signs of an allergic reaction: hives; difficulty breathing; swelling of your face, lips, tongue, or throat. Opioid medicine can slow or stop your breathing, and may occur. A person caring for you should seek emergency medical attention if you have slow breathing with long pauses, blue colored lips, or if you are hard to wake up. In rare cases, acetaminophen may cause a severe skin reaction that can be fatal. This could occur even if you have taken acetaminophen in the past and had no reaction. Stop taking this medicine and call your doctor right away if you have skin redness or a rash that spreads and causes blistering and peeling. Call your doctor at once if you have: ? noisy breathing, sighing, shallow breathing; ?? a light-headed feeling, like you might pass out; ?? liver problems--nausea, upper stomach pain, tiredness, loss of appetite, dark urine, afsaneh-colored stools, jaundice (yellowing of the skin or eyes); or ?? low cortisol levels-- nausea, vomiting, loss of appetite, dizziness, worsening tiredness or weakness. Seek medical attention right away if you have symptoms of serotonin syndrome, such as: agitation, hallucinations, fever, sweating, shivering, fast heart rate, muscle stiffness, twitching, loss of coordination, nausea, vomiting, or diarrhea. Serious side effects may be more likely in older adults and those who are overweight, malnourished, or debilitated. Long-term use of opioid medication may affect fertility (ability to have children) in men or women. It is not known whether opioid effects on fertility are permanent. Common side effects include: ? dizziness, drowsiness, feeling tired; ?? nausea, vomiting, stomach pain; ?? constipation; or ?? headache. This is not a complete list of side effects and others may occur. Call your doctor for medical advice about side effects. You may report side effects to FDA at 7-105-ZGS-6237. What other drugs will affect acetaminophen and hydrocodone? You may have breathing problems or withdrawal symptoms if you start or stop taking certain other medicines. Tell your doctor if you also use an antibiotic, antifungal medication, heart or blood pressure medication, seizure medication, or medicine to treat HIV or hepatitis C. Opioid medication can interact with many other drugs and cause dangerous side effects or . Be sure your doctor knows if you also use: ? cold or allergy medicines, bronchodilator asthma/COPD medication, or a diuretic ('water pill'); ?? medicines for motion sickness, irritable bowel syndrome, or overactive bladder; ?? other narcotic medications--opioid pain medicine or prescription cough medicine; ?? a sedative like Valium--diazepam, alprazolam, lorazepam, Xanax, Klonopin, Versed, and others; ?? drugs that make you sleepy or slow your breathing--a sleeping pill, muscle relaxer, medicine to treat mood disorders or mental illness; ?? drugs that affect serotonin levels in your body--a stimulant, or medicine for depression, Parkinson's disease, migraine headaches, serious infections, or nausea and vomiting. This list is not complete. Other drugs may affect acetaminophen and hydrocodone, including prescription and wild-kqn-qipbuns medicines, vitamins, and herbal products. Not all possible interactions are listed here. Where can I get more information? Your doctor or pharmacist can provide more information about acetaminophen and hydrocodone. Remember, keep this and all other medicines out of the reach of children, never share your medicines with others, and use this medication only for the indication prescribed. Every effort has been made to ensure that the information provided by [employer] is accurate, up-to-date, and complete, but no guarantee is made to that effect. Drug information contained herein may be time sensitive. [employer] information has been compiled for use by healthcare practitioners and consumers in the [place] and therefore [employer] does not warrant that uses outside of the [place] are appropriate, unless specifically indicated otherwise. [employer]s drug information does not endorse drugs, diagnose patients or recommend therapy. [employer] drug information is an informational resource designed to assist licensed healthcare practitioners in caring for their patients and/or to serve consumers viewing this service as a supplement to, and not a substitute for, the expertise, skill, knowledge and judgment of healthcare practitioners. The absence of a warning for a given drug or drug combination in no way should be construed to indicate that the drug or drug combination is safe, effective or appropriate for any given patient. [facility] does not assume any responsibility for any aspect of healthcare administered with the aid of information [facility] provides. The information contained herein is not intended to cover all possible uses, directions, precautions, warnings, drug interactions, allergic reactions, or adverse effects. If you have questions about the drugs you are taking, check with your doctor, nurse or pharmacist. Copyright 8755-[address] [facility], [facility]. Version: 15.02. Revision Date: 06/11/2018. CIGARETTE SMOKING: The facts are clear, cigarette smoking will shorten your life. Smoking can cause many illnesses along the way. As a healthcare provider, we recommend that you stop smoking. Assistance with quitting is available by contacting 5-365-REFHScanbuyNOW. This is a free resource providing counseling, [...] Be sure to sign up for the [employer] patient portal, which gives you 27/02 access to your medical information ??? including these discharge instructions ??? using your computer, smartphone, or tablet. Just go to [email or web address] to get started. Questions? Call . [facility] would like to thank you for allowing us to assist you with your healthcare needs. ERIS Dash MARY CLAYTON, (or sales representative meats) have received the above patient education materials/instructions and have verbalized understanding: Patient Signature _ Date/Time Patient Prepress Manager Signature (if needed) Date/Time Clinician/Hospital Prepress Manager Signature (if needed) Date/Time documented in this encounter Plan of Treatment Not on file documented as of this encounter Visit Diagnoses Not on filedocumented in this encounter
--- OUTSIDE RECORDS SUMMARY | 2025-01-30 06:57 | XMS_ITS | Referral Summary ---
Author Organization [facility] Address [address] [place] [address] Care Team Providers Care Gang Punch Operator Name Role Phone Unavailable Primary Care Provider Unavailabl e Social History Tobacco Use Types Packs/Day Years Used Date Smoking Tobacco: Never Assessed Comments Unknown Sex and Gender Information Value Date Recorded Sex Assigned at Female 02/01/2022 6:48 PM CDT Legal Sex Female 6:48 PM CDT Gender Identity Female 02/01/2022 6:48 PM CDT Sexual Orientation Not on file Plan of Treatment Not on file Insurance [facility]IC[facility] PART A [facility]
--- OUTSIDE RECORDS SUMMARY | 2025-01-30 06:57 | XMS_ITS | Encounter Summary ---
Author Organization [facility] Address [address] [place] [id number] Care Team Providers Care Clinical Nutritionist Name Role Phone Unavailable Primary Care Provider Unavailabl e Encounter Details Date Type Department Care Team (Late st Contact Info) Description 10/25/2018 Transcribed Document [facility] Family Medicine [facility] [place] [address] ProviderKristi MD [facility] [place] [address] Social History Tobacco Use Types [...] Kristi ProviderMD - 10/25/2018 10:38 AM CDT [facility] Main OR IntraOp Summary Primary Physician: JARRET LONG MD-URO Finalized Date/Time: 10/26/18 11:16:16 Pt. Name: MEKHI IGNACIO /Sex: 1945 Female Med Rec #: [id number] Physician: JARRET LONG MD-URO Financial #: [id number] Pt. Type: O Room/Bed: Admit/Disch: 10/25/18 07:16:00 - 10/25/18 12:38:00 Institution: [facility] IntraOp Case Attendance Entry 1 Entry 2 Entry 3 Case Attendee JARRET LONG MD-URO TOYA MONTOYA CRNA GHANSAH, NANA DADZIE, MD Role Performed Surgeon/Proceduralist, [employer]/Nurse Irrigation Flume Layer Anesthesiologist of First Record Time In 10/25/18 10:26:00 10/25/18 10:26:00 10/25/18 10:26:00 Time Out 10/25/18 11:03:00 10/25/18 11:03:00 10/25/18 11:03:00 Procedure Ureteral Stone Ureteral Stone Ureteral Stone Manipulation Manipulation Manipulation Laser(Right), Ureteral Laser(Right), Ureteral Laser(Right), Ureteral Stent Insertion(Right) Stent Insertion(Right) Stent Insertion(Right) Other Attendee Superficial Wound Closed By: Last Modified By: Cris Hardy KYOne Grimes, Jennifer, KYOne Grimes, Jennifer, KYOne Pref Card Builder Pref Card Builder Pref Card Builder 10/25/18 11:03:17 10/25/18 11:03:17 10/25/18 11:03:17 Entry 4 Entry 5 Entry 6 Case Attendee Cris Hardy KYOne TODD, JUDY SHANES, ROBERT, RN Pref Card Builder Role Performed Drug Abuse Counselor, First Scrub, First Drug Abuse Counselor, Second Time In 10/25/18 10:26:00 10/25/18 10:26:00 10/25/18 10:26:00 Time Out 10/25/18 11:03:00 10/25/18 11:03:00 10/25/18 11:03:00 Procedure Ureteral Stone Ureteral Stone Ureteral Stone Manipulation Manipulation Manipulation Laser(Right), Ureteral Laser(Right), Ureteral Laser(Right), Ureteral Stent Insertion(Right) Stent Insertion(Right) Stent Insertion(Right) Other Attendee Superficial Wound Closed By: Last Modified By: Cris Hardy KYOne Grimes, Jennifer, KYOne Grimes, Jennifer, KYOne Pref Card Builder Pref Card Builder Pref Card Builder 10/25/18 11:03:17 10/25/18 11:03:17 10/25/18 11:03:17 Entry 7 Case Attendee FESTUS GARAY MD Role Performed Resident Time In 10/25/18 10:26:00 Time Out 10/25/18 11:03:00 Procedure Ureteral Stone Manipulation Laser(Right), Ureteral Stent Insertion(Right) Other Attendee Superficial Wound Closed By: Last Modified By: Cris Hardy KYOne Pref Card Builder 10/25/18 11:03:17 [facility] IntraOp Case Attendance Audit 10/25/18 11:03:17 Wax Engraver: [email or web address] Modifier: GRIMESJE 1 <+> Time Out 1 <*> Procedure Ureteral Stone Manipulation Laser(Right), Ureteral Stent Insertion(Right) 2 <+> Time Out 2 <*> Procedure Ureteral Stone Manipulation Laser(Right), Ureteral Stent Insertion(Right) 3 <+> Time Out 3 <*> Procedure Ureteral Stone Manipulation Laser(Right), Ureteral Stent Insertion(Right) 4 <+> Time Out 4 <*> Procedure Ureteral Stone Manipulation Laser(Right), Ureteral Stent Insertion(Right) 5 <+> Time Out 5 <*> Procedure Ureteral Stone Manipulation Laser(Right), Ureteral Stent Insertion(Right) 6 <+> Time Out 6 <*> Procedure Ureteral Stone Manipulation Laser(Right), Ureteral Stent Insertion(Right) 7 <+> Time Out 7 <*> Procedure Ureteral Stone Manipulation Laser(Right), Ureteral Stent Insertion(Right) 10/25/18 10:57:45 Wax Engraver: [email or web address] Modifier: GRIMESJE 1 <*> Procedure Ureteral Stone Manipulation Laser(Right) 2 <*> Procedure Ureteral Stone Manipulation Laser(Right) 3 <*> Procedure Ureteral Stone Manipulation Laser(Right) 4 <*> Procedure Ureteral Stone Manipulation Laser(Right) 5 <*> Procedure Ureteral Stone Manipulation Laser(Right) 6 <*> Procedure Ureteral Stone Manipulation Laser(Right) 7 <*> Procedure Ureteral Stone Manipulation Laser(Right) 10/25/18 10:41:56 Wax Engraver: [email or web address] Modifier: GRIMESJE 1 <*> Procedure Ureteral Stone Manipulation Laser(Right) 2 <+> Time In 2 <*> Procedure Ureteral Stone Manipulation Laser(Right) 3 <+> Time In 3 <*> Procedure Ureteral Stone Manipulation Laser(Right) 4 <+> Time In 4 <*> Procedure Ureteral Stone Manipulation Laser(Right) 5 <+> Time In 5 <*> Procedure Ureteral Stone Manipulation Laser(Right) 6 <+> Time In 6 <*> Procedure Ureteral Stone Manipulation Laser(Right) 7 <+> Time In 7 <*> Procedure Ureteral Stone Manipulation Laser(Right) [facility] IntraOp Case Times Entry 1 Patient In Room Time 10/25/18 10:26:00 Out Room Time 10/25/18 11:03:00 Anesthesia Start Time 10/25/18 10:26:00 Stop Time 10/25/18 11:03:00 Surgery / Procedure Times Start Time 10/25/18 10:38:00 Stop Time 10/25/18 10:56:00 Last Modified By: Cris Hardy KYOne Pref Card Builder 10/25/18 11:03:14 [facility] IntraOp Case Times Audit 10/25/18 11:03:14 Wax Engraver: [email or web address] Modifier: GRIMESJE <+> 1 Out Room Time <+> 1 Stop Time 10/25/18 10:57:09 Wax Engraver: [email or web address] Modifier: GRIMESJE <+> 1 Stop Time 10/25/18 10:38:42 Wax Engraver: GRIMESJE Modifier: GRIMESJE <+> 1 Start Time [facility] IntraOp Communication Entry 1 Entry 2 Communication To Family/Significant other Family/Significant other Comment START CLOSING Communication By Cris Hardy KYOne Grimes, Jennifer, KYOne Pref Card Builder Pref Card Builder Date and Time 10/25/18 10:38:00 10/25/18 10:57:00 Last Modified By: Cris Hardy KYOne Grimes, Jennifer, KYOne Pref Card Builder Pref Card Builder 10/25/18 10:38:38 10/25/18 10:57:16 [facility] IntraOp Communication Audit 10/25/18 10:57:16 Wax Engraver: [email or web address] Modifier: GRIMESJE <+> 2 Communication By <+> 2 Date and Time 10/25/18 10:38:38 Wax Engraver: [email or web address] Modifier: GRIMESJE <+> 1 Communication By <+> 1 Date and Time [facility] IntraOp Cultures and Spec Summary Entry 1 Cultrures and Specimens Specimen Ordered: Yes Specimens Types Pathology Specimen(s) Labeled Pathology and Sent to Last Modified By: Cris Hardy KYOne Pref Card Builder 10/25/18 10:54:13 [facility] IntraOp Departure from OR Entry 1 Integumentary Assessment Integumentary WDL Assessment WDL Transfer/Handoff Transfer to PACU Phase I Handoff Method Phone call Post-op Transport Stretcher/Gurney Via Patient Transport TOYA MONTOYA CRNA, Accompanied by FESTUS GARAY MD Last Modified By: Cris Hardy KYOne Pref Card Builder 10/25/18 10:36:10 [facility] IntraOp Departure from OR Audit 10/25/18 10:36:10 Wax Engraver: GUCCI Modifier: GUCCI <+> 1 Patient Transport Accompanied by [facility] IntraOp Fire Risk Assessment Entry 1 Fire Info Surgical Site or 0- No Incision Above the Xyphoid Open O2 Source 0- No (Mask or Cannula) Available Ignition 1- Yes (ESU, Laser, Light Source) Fire Risk 1 Assessment Score Fire Score Fire Risk Yes Assessment Complete Fire Risk Cris Hardy KYOne Assessment Verified Pref Card Builder By Fire Risk 10/25/18 10:35:00 Assessment Verified Date/Time Fire Risk Standard Fire Yes Safety Precautions Followed Last Modified By: Cris Hardy KYOne Pref Card Builder 10/25/18 10:35:59 [facility] IntraOp General Case Collar Starcher 1 Case Information OR Cysto 01 [facility] Case Level 1 Room Verified Yes Wound Class II - Clean-Contaminated Specialty SN Urology Anesthesia Type Regional ASA Class 2 Diagnosis Preop Diagnosis KIDNEY STONES Postop Same As Preop Yes Postop Diagnosis KIDNEY STONES Last Modified By: Cris Hardy KYOne Pref Card Builder 10/25/18 10:38:25 [facility] IntraOp Implant Log Entry 1 Type Implant (Synthetic) Implant Log Implant Type Other Implant STENT URET BRAID + Identification [id number] Description Implant Quantity 1 Implant Site RT URETER Implant [id number] Identification Lot Number Implant [place] Identification Sci:Urology/Gynecology Turning Sander Tender Name: Implant [id number] Identification Catalog Number Implant Has an Yes Expiration Date Implant Expiration 08/21/21 Date Tissue Implant Last Modified By: Cris Hardy KYOne Pref Card Builder 10/25/18 10:54:54 [facility] IntraOp Intraoperative Assessment Entry 1 Handoff Method Online nursing summary Valid History / Yes Physical in Chart Preoperative Yes Checklist Reviewed/Evaluated Allergies Reviewed Yes Patient is Latex No Sensitive Isolation Not applicable Precautions Noted Level of WDL Consciousness (WDL = Alert, Oriented to Person, Place, and Time) Skin Assessment Yes Verified Present Upon IVs Arrival to OR Last Modified By: Cris Hardy KYOne Pref Card Builder 10/25/18 10:38:30 [facility] IntraOp Intraoperative Equipment Entry 1 Type Monitoring Equipment Intraop Monitoring Electrocardiogram Three lead placement (ECG) Electrode Placement Blood Pressure Non-Invasive BP Device Source Blood Pressure Arm, right upper Location Pulse Oximeter Hand, left Probe Site Antiembolic Devices Antiembolic Devices Sequential compression device, knee high Antiembolic Device Bilateral Location Antiembolic Device 40 mmHg Setting Scopes Photo/Video Documentation Photo No Video No Intraop Equipment Sequential compression Comment devices on and in operation prior to induction. Last Modified By: Cris Hardy KYOne Rubikloud Card Builder 10/25/18 10:38:55 [facility] IntraOp Patient Positioning Entry 1 Procedure Ureteral Stone Manipulation Laser(Right), Ureteral Stent Insertion(Right) Body Position Lithotomy Left Arm Position Resting at side Right Arm Position Resting at side Left Leg Position Secured in Leg Cifuentes Right Leg Position Secured in Leg Cifuentes Feet Uncrossed Yes Pressure Points Yes Checked Positioning Devices Head Rest, Table, Cysto, Pad, Elbow, Pad, Elbow, Stirrups/Leg Cifuentes, Cysto Positioned By JARRET LONG MD-URO, Cris Hardy KYOne Pref Card Buildhaile, TOYA MONTOYA CRNA Position Verified Positioning Yes Verified by Anesthesia Positioning Yes Verified by Surgeon Last Modified By: Cris Hardy KYOne Pref Card Builder 10/25/18 10:57:47 [facility] IntraOp Patient Positioning Audit 10/25/18 10:57:47 Wax Engraver: GUCCI Modifier: GUCCI 1 <*> Procedure Ureteral Stone Manipulation Laser(Right) [facility] IntraOp Sign In Entry 1 Patient, Site, Yes Procedure Identified Surgical Consent Yes Confirmed Relevant Surgical Yes Documents Available Surgical Site Yes Marked by person performing procedure Anesthesia Machine Yes Check Completed Medication Checks Yes Completed Allergies Yes Airway Difficult Yes Airway/Aspiration Risk Difficult Yes Airway/Aspiration Intervention Equipment Available Blood Loss Risk Yes Blood Loss Yes Intervention Equipment Prepared and Ready Blood Identifiers Not applicable Verified Per Policy Hypothermia Risk Yes Warming Measures Yes Taken Last Modified By: Cris Hardy KYOne Pref Card Builder 10/25/18 10:39:06 [facility] IntraOp Sign Out Entry 1 RN Confirmation Surgical Yes Procedure(s) Identified Instrument, Sponge N/A and Sharps Counts Correct/Documented Equipment Problems N/A Documented Specimen Labeled N/A Correctly Urinary Catheter N/A Documented in IView Donaldson Patient Yes Recovery Concerns Reviewed with Anesthesia Provider, Surgeon and RN Donaldson Patient Yes Management Concerns Reviewed with Anesthesia Provider, Surgeon and RN Safety Checklist Yes Elements Complete? RN Sign Out Cris Hardy KYOne Signature Pref Card Builder RN Sign Out 10/25/18 11:03:00 Signature Date/Time Plan of Care Outcome - Fire Risk OUTCOME STATEMENT: Goal met Patient is free from injury related to surgical fire Plan of Care Outcome - Pt Positioning OUTCOME STATEMENT: Goal met Absence of signs and symptoms of positioning injury. Plan of Care Outcome - Skin Prep OUTCOME STATEMENT: Goal met Intraoperative care is consistent with measures to prevent infection Plan of Care Outcome - Xray/Images OUTCOME STATEMENT: Goal met Absence of observable signs or symptoms of radiation injury Plan of Care Outcome - Counts OUTCOME STATEMENT: Goal met Absence of signs and symptoms of injury related to extraneous objects Last Modified By: Cris Hardy KYOne Pref Card Builder 10/25/18 11:03:24 [facility] IntraOp Sign Out Audit 10/25/18 11:03:24 Wax Engraver: GUCCI Modifier: GUCCI <+> 1 RN Sign Out Signature Date/Time [facility] IntraOp Skin Prep Entry 1 Procedure Ureteral Stone Manipulation Laser(Right), Ureteral Stent Insertion(Right) Prescribed Yes Pre-Surgical Prep Completed Prep Area Genitalia Intraop Prep Integumentary WDL Assessment WDL Prep Agents Betadine solution Prep by Cris Hardy KYOne Pref Card Buildhaile Hair Removal Methods No hair removal performed Last Modified By: Cris Hardy KYOne Pref Card Builder 10/25/18 10:57:47 [facility] IntraOp Skin Prep Audit 10/25/18 10:57:47 Wax Engraver: GUCCI Modifier: GUCCI 1 <*> Procedure Ureteral Stone Manipulation Laser(Right) [facility] IntraOp Surgical Procedures Entry 1 Entry 2 Procedure Ureteral Stone Ureteral Stent Insertion Manipulation Laser Modifiers Right Right Additional RT URETEROSCOPIC STONE RT URETEROSCOPIC STONE Procedure EXTRACTION WITH LASER, EXTRACTION WITH LASER Description RT URETER STENT INSERTION Primary Procedure Yes No Primary Surgeon JARRET LONG MD-URO JARRET LONG MD-URO Start 10/25/18 10:38:00 10/25/18 10:38:00 Stop 10/25/18 10:56:00 10/25/18 10:56:00 Physician States Cecum Reached Anesthesia Type General General Specialty SN Urology SN Urology Wound Class II - Clean-Contaminated II - Clean-Contaminated Last Modified By: Cris Hardy KYOne Grimes, Jennifer, KYOne Pref Card Builder Pref Card Builder 10/25/18 10:57:42 10/25/18 10:57:42 [facility] IntraOp Surgical Procedures Audit 10/25/18 10:57:42 Wax Engraver: GUCCI Modifier: GUCCI 1 <*> Procedure Ureteral Stone Manipulation Laser 1 <+> Stop 1 <*> Additional Procedure Description RT URETEROSCOPIC STONE EXTRACTION WITH LASER <+> 2 Procedure <+> 2 Primary Procedure <+> 2 Modifiers <+> 2 Primary Surgeon <+> 2 Specialty <+> 2 Start <+> 2 Stop <+> 2 Wound Class <+> 2 Anesthesia Type <+> 2 Additional Procedure Description 10/25/18 10:46:08 Wax Engraver: GUCCI Modifier: GUCCI 1 <*> Procedure Ureteral Stone Manipulation Laser [facility] IntraOp Temp Regulation Devices Entry 1 Temp Regulation Temperature Warm blankets, Room Regulation Device temperature Temperature Upper body Regulation Site Last Modified By: Cris Hardy KYOne Pref Card Builder 10/25/18 10:39:52 [facility] IntraOP Time Out Entry 1 Procedure to be Ureteral Stone Performed Manipulation Laser(Right), Ureteral Stent Insertion(Right) Time Out Time Out Pause Time 10/25/18 10:36:00 All activity Yes suspended (unless life threatening emergency) Team Verbally Correct patient Confirms Information identity, Correct side and site are marked, Consent form is present and accurate, Agreement on the procedure to be done, Correct patient position, Relevant images/results properly labeled/appropriately displayed, Confirm antibiotics have been administered, Confirm the skin prep has dried, Confirm prosthesis/implant/devic e is present, Performed in location of procedure after prepped/draped Antibiotic Yes Prophylaxis Administered Or In Progress Within the Last 60 Minutes Beta Nat N/A Administered Venous Yes Thromboembolism Prophylaxis Required Anticipated Critical Events Surgeon None expected Anesthesia Provider Patient specific concerns Nursing Assures Sterility of instruments Essential Imaging Yes Labeled and Displayed Last Modified By: Cris Hardy KYOne Pref Card Builder 10/25/18 10:57:47 [facility] IntraOP Time Out Audit 10/25/18 10:57:47 Wax Engraver: GUCCI Modifier: GUCCI [place]zon <*> Procedure to be Performed Ureteral Stone Manipulation Laser(Right) Case Comments <None> Finalized By: YANELY CRAFT Document Signatures Signed By: Cris Hardy KYOne Pref Card Builder 10/25/18 11:03 YANELY CRAFT 10/26/18 11:16 Unfinalized History Date/Time Username Reason for Unfinalizing Freetext Reason for Unfinalizing 10/26/18 11:15 [email or web address] Correct Billing Electronically signed by Stephanie Sierra Conversion Aviation Electrical Technician Cerner at 11/22/2022 9:42 AM CDT documented in this encounter Plan of Treatment Not on file documented as of this encounter Visit Diagnoses Not on filedocumented in this encounter
--- OUTSIDE RECORDS SUMMARY | 2025-01-30 06:57 | XMS_ITS | Clinical Summary ---
Author Organization [facility] Address [address] [place] [address] Care Team Providers Care River Tester Name Role Phone Unavailable Primary Care Provider [...] on file Insurance MEDICARE PART A B [facility] SUPP [facility] MIRIAM BRADYA
--- OUTSIDE RECORDS SUMMARY | 2025-01-30 06:57 | XMS_ITS | Data Portability ---
Author Organization [place] - [facility], [facility] [employer] [facility], [facility] Address [address] [place] [address] Care Team Providers Care Rn Otolaryngology Name Role Phone GABRIELLAMAY BUSTOS Referring Provider Assessment No assessment recorded. Plan of Treatment Reminders Order Date Submit Date Provider Last Modified By Organization Details Last Modified Time Details Appointments None recorded. Lab rapid influenza virus A + B and SARS CoV + SARS CoV 2 Ag panel, [place], upper respiratory specimen 2024 025 [place] In-Office Order, Internal Use Only DO Not Attach Compendium DO Not Attach Compendium, Do Not Delete/merge, [id number] 5 09:08:34 Referral None recorded. Procedures None recorded. Surgeries None recorded. Imaging None recorded. Medication Orders fluticasone propionate 50 mcg/actuati on nasal spray,suspe nsion [address] [facility] [place], [address], 5 09:04:19 cefdinir 300 mg capsule [address] [facility] [place], [address], 5 09:04:18 Medrol (Fly) 4 mg tablets in a dose pack [address] [facility] [place], [address], 09:04:19 Patient TargetsNo targets recorded. Patient Instructions Encounter Date Encounter Id Patient Instructions Last Modified By Organization Details Last Modified Time 09/28/2024 [id number] Acute Sinusitis: Care Instructions msoll Not available 09/28/2024 09:04:12 Patient is encouraged to follow-up with PCP for all primary care, and chronic disease management. Patient is also encouraged to contact primary care for initial directive for acute illness management, and utilize the walk-in clinic, when the PCP is not available. Not available 09/28/2024 08:52:37 Patient understands instructions and will seek medical attention if symptoms worsen as directed. Not available 09/28/2024 08:52:45 Reason for Referral None Reported. Results Created Date Observation Date Name Description Value Unit Range Abnormal Flag Note LastModifiedBy Organization Detail LastModifiedTime 09/28/1909/28/2024 rapid influ pavithra virus A + B and SARS CoV + SARS CoV 2 Ag panel , IA, upper respi rator y speci men INFLUENZA TYPE A NEGATI VE Not Available In-Office Order Internal Use Only DO Not Attach Compendium DO Not Attach Compendium, Do Not Delete/merge, 09/28/2024 08:39:48 09/28/1909/28/2024 rapid influ pavithra virus A + B and SARS CoV + SARS CoV 2 Ag panel , IA, upper respi rator y speci men INFLUENZA TYPE B NEGATI VE Not Available In-Office Order Internal Use Only DO Not Attach Compendium DO Not Attach Compendium, Do Not Delete/merge, 09/28/2024 08:39:48 09/28/1909/28/2024 rapid influ pavithra virus A + B and SARS CoV + SARS CoV 2 Ag panel , IA, upper respi rator y speci men Rapid SARS COV, ANTIGEN NEGATI VE Not Available In-Office Order Internal Use Only DO Not Attach Compendium DO Not Attach Compendium, Do Not Delete/merge, 09/28/2024 08:39:48 09/28/1909/28/2024 rapid influ pavithra virus A + B and SARS CoV + SARS CoV 2 Ag panel , [place], upper respi rator y speci men INTERNAL CONTROL VALID Not Available In-Off ice Order Internal Use Only DO Not Attach Compendium DO Not Attach Compendium, Do Not Delete/merge, [id number] 09/28/2024 08:39:48 Result Notes None recorded. Problems Name Problem SNOMED Code Status Onset Date Resolution Date Notes Provider Name and Address Organization Details Recorded Time Cough 66837423 Active 025 Dyana CYBERHAWK [facility], [employer]ING ST[employer] [address], [place], [address] , [facility] 5 08:52:52 Acute sinusitis 86042445 Active 025 Dyana CYBERHAWK [employer], [employer] STORE[employer] [address], [place], [address] , [facility] 5 09:03:32 Problem Notes None recorded. Medical Equipment None Reported. Allergies Allergen ID Allergen Name Allergen Category Reaction Reaction Severity Criticality Documentation Date Start Date Code Code System Note Provider Name and Address Organization Details Recorded Time 9624229 antazolin e medicatio n Not available Not available Not available 09/28/2024 865 RxNorm HTN per PT Pipe Guerrero [facility] 5 08:30:07 7093699 niacin medicatio n Not available Not available Not available 09/28/2024 7393 RxNorm Welt s Pipe Guerrero [facility] 5 08:30:24 Medications Name Sig Start Date Stop Date Status Note LastModified by Organization Details LastModified Time Medrol (Fly) 4 mg tablets in a dose pack Take 1 dose pk by oral route. 2024 active Not Available Not Available Not Avai lable verapamil ER (SR) 240 mg tablet,exte nded release Take 0.5 tablets twice a day by oral route. active Not Available Not Available No t Available cefdinir 300 mg capsule Take 1 capsule every 12 hours by oral route for 10 days. 2024 active Not Available Not Available Not Avai lable Lipitor 10 mg tablet Take 0.5 tablets every day by oral route. active Not Available Not Available No t Available fluticasone propionate 50 mcg/actuati on nasal spray,suspe nsion [place] 1 spray every day by intranasal route. 2024 active Not Available Not Available Not Eric Duncan-Mike half a tab active does not recall dose Not Available Not Available Not Available Vitals Date Recorded Body weight Heart rate Oxygen saturation Oxygen saturation in Arterial blood by Pulse oximetry Body mass index (BMI) Body height Body temperature Systolic blood pressure Diastolic blood pressure Systolic blood pressure Diastolic blood pressure Provider Name and Address Organization Details Last Updated DateTime 5 28468.6 5 g 68 /min 98 % 98 % 31.4 kg/m2 152.4 cm 99.4 [degF] 170 mm[Hg] 94 mm[Hg] 168 mm[Hg] 92 mm[Hg] Pipe Guerrero [place] - [employer] Physician [facility], [facility] 08:39:42 Social History Question Answer Notes LastModified by Organizat ion Details LastModified Time What Is Your Relationship Status? [email or web address] Information not available 09/28/2024 Sex: Female Functional Status None recorded. Mental Status None recorded. Family History Nothing Reported. Medical History No medical history recorded. Gynecological HistoryNo gynecological history recorded. Obstetrics History GPAL:G 0 P 0 0 0 0 Past Encounters Encounter ID Performer Location Encounter Start Date Encounter Closed Date Diagnosis/Indication Diagnosis SNOMED-CT Code Diagnosis ICD10 Code Diagnosis Note [id number] Dyana Mccray, [employer]FA[employer]ING STORE[employer]ERSON [facility] [address] [place] [address] 09/28/2024 08:04:57 09/28/2024 18:39:34 Cough 59139146 R05.9 Covid negFlu neg Acute sinusitis 42096857 J01.90 acute, progressin g, initial visitNewly undiagnose d problem with uncertain prognosis- requires further diagnostic workupFlu and covid testing neg- expected course of illnessInc rease fluidsCont OTC medsRest - see patient instructio ns - reviewed medication s and side effects in detail - Follow up with pcp in 3 days, To ED if worse or new symptoms Health Concerns Section Related Observation LastModified by Organization Detai ls LastModified Time None Recorded Concern Status LastModified by Organization Details LastModified Time None Recorded Advance Directives Directive None Recorded Payers Insurance Date Sequence Insurance Name Policy Number Policy Cifuentes Covered Member ID Cifuentes Member ID Guarantor Name 12/09/2024 1 MIRIAM A - MEDICARE-[address] JAIL BOARD (MEDICARE) Lisseth Ignacio [id number] Lisseth Ignacio 12/09/2024 2 [employer] (MEDICARE SUPPLEMENT) Lisseth Ignacio [id number] Lisseth Ignacio Notes Date Note Type Note Provider Name and Address Organization Details Recorded Time 09/28/2024 text/html Patient presents for new onset congestion, ear pressure, post nasal drip, cough, and sinus pressure. Symptoms began several days ago, and are unchanged since that time. Patient denies other significant complaints. Patient denies other symptoms. Patient reports no severe or chronic illnesses Patient is not a smoker. Patient has not tried any treatments. States that she had cold symptoms for a week and then sinus pain started Dyana , [address], [place], [address], [facility], [facility] 09/28/2024 09:24:12 OBGyn Episode No OBEpisode recorded.
--- OUTSIDE RECORDS SUMMARY | 2025-01-30 06:57 | XMS_ITS | Encounter Summary ---
Author Organization [facility] Address [address] [place] [address] Care Team Providers Care Increment Manager Name Role Phone Unavailable Primary Care Provider Unavailabl e Encounter Details Date Type Department Care Team (Late st Contact Info) Description 10/25/2018 Transcribed Document [facility] Family Medicine [facility] [place] [address] [place]Kristi [place] [address] Social History Tobacco Use Types [...] Historical ProviderMD - 10/25/2018 12:12 PM CDT Nursing Discharge Summary Entered On: 10/25/2018 12:12 EDT Performed On: 10/25/2018 12:12 EDT by Shirley Espinoza RN Discharge Documentation Patient Disposition, General : Discharge Discharge To : Home with ambulatory/outpatient follow-up Mode Of Departure, General Discharge : Private vehicle, Wheelchair Accompanied By, Discharge : Care provider IV Discontinued : Yes Medications Given to Patient : Yes Personal Belongings With Patient : Yes Prescriptions Given to Patient : Yes Discharge Instructions Reviewed With, Opportunity For Questions Given : Patient, Care provider Teaching Method : Printed materials, Teach back method Teaching Evaluation : Returns demonstration, Verbalizes understanding Shirley Espinoza RN - 10/25/2018 12:12 EDT Electronically signed by Mariela [facility] [employer] Ladies Suit Operator Cerner at 11/22/2022 9:43 AM CDT documented in this encounter Plan of Treatment Not on file documented as of this encounter Visit Diagnoses Not on filedocumented in this encounter
[2025-01-30 08:33] LABS: Hemoglobin A1C 6.7 % (4.0-6.0)
[2025-01-30 08:59] LABS: Albumin Level 4.1 g/dl (3.5-5.0); Chloride 100 mmol/L (98-107); Sodium 141 mmol/L (136-145)
[2025-01-30 09:01] LABS: Blood Urea Nitrogen 13 mg/dl (7-17); Estimated Glomerular Filt Rate 96 ml/min (>60); GFR (African American) 116 ML/MIN (>60)
[2025-01-30 09:02] LABS: Alanine Aminotransferase 21 U/L (12-78); Albumin/Globulin Ratio 1.5 (1.1-1.8); Alkaline Phosphatase 136 U/L (38-126); Aspartate Amino Transferase 22 U/L (14-36); Bilirubin,Total 0.5 mg/dl (0.2-1.3); Calcium 9.6 mg/dl (8.4-10.2); Carbon Dioxide 31 mmol/L (22.0-30.0); Globulin 2.7 g/dL (1.3-3.2); Glucose 96 mg/dl (74-100); Total Protein,Serum 6.8 g/dl (6.3-8.2)
[2025-01-30 09:04] LABS: 25-OH Vitamin D, Total 63.1 ng/mL (30-100)
== END 2025-01-30 23:59 | disposition home or self-care (01) ==
LOC: LAB 06:54
PROVIDERS: PCP Family Medicine; Visit Provider Family Medicine
DX: E78.5 Hyperlipidemia, unspecified (principal); I10 Essential (primary) hypertension; E55.9 Vitamin D deficiency, unspecified; R73.9 Hyperglycemia, unspecified; R74.8 Abnormal levels of other serum enzymes
CPT/HCPCS: 36415; 80053; 82306; 83036

== ENCOUNTER 2025-03-16 08:09 | Observation (INO) | payer MEDICARE, SELFPAY ==
--- OUTSIDE RECORDS SUMMARY | 2025-01-29 10:52 | XMS_ITS ---
Author Organization [facility] Address [address] [place] [id number] Care Team Providers Care Program Coordinator For Residence Life Name Role Phone CreolaLauren stanleyian Primary Care Provider Results Component Value Reference Range Notes H-VITAMIN D Reviewed date:01/30/2025 05:31:02 PM Interpretation:Normal Performing Lab: Notes/Report: TVITD 63.1 30-100 ng/mL Deficient <20 ng/mL Insufficient 20-30 ng/mL Sufficient 30-100 ng/mL Potential Toxicity >100 ng/mL H-CMP Reviewed date:01/30/2025 05:31:02 PM Interpretation:Co2- 31, alk phos 136 Performing Lab: Notes/Report: NA 141 136-145 mmol/L K 5.0 3.5-5.1 mmoL/L CL 100 98-107 mmol/L CO2 31 22.0-30.0 mmol/L GAP 15.0 5-15 mEq/L BUN 13 7-17 mg/dl CREATT 0.60 0.52-1.04 mg/dl GFRAA 116 >60 ML/MIN EGFR 96 >60 ml/min GLU 96 74-100 mg/dl CA 9.6 8.4-10.2 mg/dl BILIT 0.5 0.2-1.3 mg/dl AST 22 14-36 U/L ALT 21 12-78 U/L TP 6.8 6.3-8.2 g/dl ALB 4.1 3.5-5.0 g/dl GLOB 2.7 1.3-3.2 g/dL AGRATIO 1.5 1.1-1.8 ALP 136 38-126 U/L H-Glycohemoglobin A1C Reviewed date:01/30/2025 05:31:02 PM Interpretation:6.7 Performing Lab: Notes/Report: HGBA1C 6.7 4.0-6.0 % < 6% Non-Diabetic Level < 7% Controlled Diabetic Level > 8% Poorly Controlled Diabetic Level REASON FOR VISIT Message Encounters Encounter Location Date Provider Diagnosis [facility] [address] [place] [address] [place] [id number] 01/29/2025 [place] [facility] Essential hypertensi on I10 ; Vitamin D [...] elevation (ICD-10 - R74.8) Plan Of Treatment No Information Progress Notes * MEKHI IGNACIO BENTONDOB:1945 (79 yo F)Acc No.[id number]:01/29/2025 Patient: MEKHI HESS :1945 A ge:79 Y S ex:Female Address:[address] [place] [address] , [facility] [id number] Subjective: * Chief Complaints: * M essage [...] phosphatase elevation - R74.8 Plan: * Treatment: Value Reference Range N A 141 136-145 - mmol/L * K 5.0 3.5-5.1 - mmoL/L * C L 100 98-107 - mmol/L * C O2 31 H 22.0-30.0 - mmol/L * G AP 15.0 5-15 - mEq/L * B UN 13 7-17 - mg/dl * C REATT 0.60 0.52-1.04 - mg/dl * G FRAA 116 >60 - ML/MIN * E GFR 96 >60 - ml/min * G NERY 96 74-100 - mg/dl * C A 9.6 8.4-10.2 - mg/dl * B ILIT 0.5 0.2-1.3 - mg/dl * A ST 22 14-36 - U/L * A LT 21 12-78 - U/L * T P 6.8 6.3-8.2 - g/dl * A LB 4.1 3.5-5.0 - g/dl * G LOB 2.7 1.3-3.2 - g/dL * A GRATIO 1.5 1.1-1.8 - * A LP 136 H 38-126 - U/L * Jerilyn Claros 01/30/2025 05:3 0:54 PM EDT > See phone encounterThis lab was reviewed by Jerilyn Claros on 01/30/2025 at 17:31 PM EDT 2.?Vitamin D deficiency?LAB: H-VITAMIN D* Value Reference Range T VITD 63.1 30-100 - ng/mL * Jerilyn Claros 01/30/2025 05:3 0:54 PM EDT > See phone encounterThis lab was reviewed by Jerilyn Claros on 01/30/2025 at 17:31 PM EDT 3.?Hyperkalemia?LAB: H-CMP* Value Reference Range N A 141 136-145 - mmol/L * K 5.0 3.5-5.1 - mmoL/L * C L 100 98-107 - mmol/L * C O2 31 H 22.0-30.0 - mmol/L * G AP 15.0 5-15 - mEq/L * B UN 13 7-17 - mg/dl * C REATT 0.60 0.52-1.04 - mg/dl * G FRAA 116 >60 - ML/MIN * E GFR 96 >60 - ml/min * G NERY 96 74-100 - mg/dl * C A 9.6 8.4-10.2 - mg/dl * B ILIT 0.5 0.2-1.3 - mg/dl * A ST 22 14-36 - U/L * A LT 21 12-78 - U/L * T P 6.8 6.3-8.2 - g/dl * A LB 4.1 3.5-5.0 - g/dl * G LOB 2.7 1.3-3.2 - g/dL * A GRATIO 1.5 1.1-1.8 - * A LP 136 H 38-126 - U/L * Jerilyn Claros 01/30/2025 05:3 0:54 PM EDT > See phone encounterThis lab was reviewed by Jerilyn Claros on 01/30/2025 at 17:31 PM EDT 4.?Hyperglycemia?LAB: H-CMP* Value Reference Range N A 141 136-145 - mmol/L * K 5.0 3.5-5.1 - mmoL/L * C L 100 98-107 - mmol/L * C O2 31 H 22.0-30.0 - mmol/L * G AP 15.0 5-15 - mEq/L * B UN 13 7-17 - mg/dl * C REATT 0.60 0.52-1.04 - mg/dl * G FRAA 116 >60 - ML/MIN * E GFR 96 >60 - ml/min * G NERY 96 74-100 - mg/dl * C A 9.6 8.4-10.2 - mg/dl * B ILIT 0.5 0.2-1.3 - mg/dl * A ST 22 14-36 - U/L * A LT 21 12-78 - U/L * T P 6.8 6.3-8.2 - g/dl * A LB 4.1 3.5-5.0 - g/dl * G LOB 2.7 1.3-3.2 - g/dL * A GRATIO 1.5 1.1-1.8 - * A LP 136 H 38-126 - U/L * Jerilyn Claros 01/30/2025 05:3 0:54 PM EDT > See phone encounterThis lab was reviewed by Jerilyn Claros on 01/30/2025 at 17:31 PM EDT ?LAB: H-Glycohemoglobin A1C* Value Reference Range H GBA1C 6.7 H 4.0-6.0 - % * Jerilyn Claros 01/30/2025 05:3 0:54 PM EDT > See phone encounterThis lab was reviewed by Jerilyn Claros on 01/30/2025 at 17:31 PM EDT 5.?Alkaline phosphatase elevation?LAB: H-CMP* Value Reference Range N A 141 136-145 - mmol/L * K 5.0 3.5-5.1 - mmoL/L * C L 100 98-107 - mmol/L * C O2 31 H 22.0-30.0 - mmol/L * G AP 15.0 5-15 - mEq/L * B UN 13 7-17 - mg/dl * C REATT 0.60 0.52-1.04 - mg/dl * G FRAA 116 >60 - ML/MIN * E GFR 96 >60 - ml/min * G NERY 96 74-100 - mg/dl * C A 9.6 8.4-10.2 - mg/dl * B ILIT 0.5 0.2-1.3 - mg/dl * A ST 22 14-36 - U/L * A LT 21 12-78 - U/L * T P 6.8 6.3-8.2 - g/dl * A LB 4.1 3.5-5.0 - g/dl * G LOB 2.7 1.3-3.2 - g/dL * A GRATIO 1.5 1.1-1.8 - * A LP 136 H 38-126 - U/L * Jerilyn Claros 01/30/2025 05:3 0:54 PM EDT > See phone encounterThis lab was reviewed by Jerilyn Claros on 01/30/2025 at 17:31 PM EDT * Procedure Codes: * true * Date: Generated for Laurencei ng/Facarmineg/eTransmitting on: 0 03/16/2025 08:22 AM EDT
--- OUTSIDE RECORDS SUMMARY | 2025-02-03 13:15 | XMS_ITS ---
[facility] Address [address] [facility] [address] [place] [id number] Care Team Providers Care Forestry Technical Officer Name Role Phone Phoenix Coulter Primary Care [...] Status W/U Status Risk Notes Problem Type 2 diabetes mellitus without complication, without long-term current use of insulin (E11.9) Active confirmed Problem Body mass index 30+ - obesity (938160686) BMI 30.0-30.9,adul t (Z68.30) Active confirmed Vital Signs Weight 159 lbs 02/03/2025 Blood pressure systolic 160 mm Hg 02/04/20 25 Blood pressure diastolic 100 mm Hg 025 Heart Rate 68 /min 02/03/2025 Height 60.50 in 02/03/2025 BMI 30.54 kg/m2 02/03/2025 Encounters Encounter Location Date Provider Diagnosis [facility] [address] [facility] [address] [place] [id number] 02/03/2025 Phoenix Coulter Type 2 diabetes kyra [...] Details Follow Up: via phone to bijan tatum progress,6 Months, Reason: Progress Notes * MEKHI IGNACIODOB:1945 (79 yo F)Acc No.[id number]:02/03/2025 Progress Notes Patient: MEKHI HESS Provider: Les Coulter M.D. :1945 A ge:79 Y S ex:Female Date:02/03/2025 Address:[facility] [address], [place], [phone] Subjective: * Chief Complaints: * 1 . [...] in urine. * Medical History: Nate Lynn [phone] - Neurologist - occlusion of right carotid artery, Dr. Tico Drake - Retina specialist - Macular Degeneration, Dr. Iggy Fenton - Urologist - Kidney Stones, Dr. Reggie Pardo - Spinal Stinosis with Arthritic Disc, Dr. Ad Hinson - Colonoscopy, Ovarian Screening - [facility] [place], [facility] - OB yearly [...] Father - Enlarged Heart; Paternal Uncle - [place]; Mother - Ovarian, Colon cancer. * Social [...] tablet Orally once daily , Discontinued Nystatin 251533 UNIT/GM Cream 1 application Externally Three times [...] ure hypercholesterolemia - E78.00 6 . B [place] 30.0-30.9,adult - Z68.30 Plan: * Treatment: 2. [...] * Images: Billing Information: * Visit Code: 86732 Office Visit, Est Pt., Level 4. * Procedure Codes: G2211 Complex e/[place] on. 1036F TOBACCO NON-USER. G8950 PREHTN/HTN BP DOC INDCD F/U DOC. G8753 MOST RECENT SYSTOLIC BP >= 140MM HG. G8755 MOST RECENT DIASTOLIC BP >= 90MM HG. * Electronic signature of Radhika Coulter MD on 03/16/2025 at 08:22 AM EDT Sign off status: Pending * Provider: Les Coulter M.D. Date: 0 02/03/2025 Generated for Hipolito chavarria/Johan/Danielaitting on: 0 03/16/2025 08:22 AM EDT History and Physical Notes * [...]
--- OUTSIDE RECORDS SUMMARY | 2025-03-03 10:15 | XMS_ITS ---
[facility] Address [address] [facility] [address] [place] [id number] Care Team Providers Care Health Aid Name Role Phone Phoenix Coulter Primary Care Provider Theresa Amezcua Unavailable [phone] Allergies No Known Allergies REASON FOR VISIT [...] Provider Diagnosis [place] [address] [facility] [address] [place] [phone] 03/03/2025 Theresa Amezcua Essential hypertensi on I10 [...] Notes Essential hypertension pt has med at [facility] ; discussed low salt diet; she will continue with home BP monitoring Next Appt Details Follow Up: prn, Reason: Progress Notes * MEKHI INGACIODOB:1945 (79 yo F)Acc No.[id number]:03/03/2025 Progress Notes Patient: MEKHI HESS Provider: SHADY Osuna :1945 A ge:79 Y S ex:Female Date:03/03/2025 Address:[facility] [address] [place], [id number] Pcp:Phoenix Coulter Subjective: * Chief Complaints: * [...] in urine. * Medical History: Nate Medranozer [phone] - Neurologist - occlusion of right carotid artery, Dr. Tico Drake - Retina specialist - Macular Degeneration, Dr. Iggy Fenton - Urologist - Kidney Stones, Dr. Reggie Pardo - Spinal Stinosis with Arthritic Disc, Dr. Ad Hinson - Colonoscopy, Ovarian Screening - [facility] [place], [facility] - OB yearly mammogram, Hyperlipidemia, [...] Father - Enlarged Heart; Paternal Uncle - [place]; Mother - Ovarian, Colon cancer. * Social [...] * Images: Billing Information: * Visit Code: 56948 Office Visit, Est Pt., Level 3. * Procedure Codes: G2211 Complex e/m visit add on. 1036F TOBACCO NON-USER. 3044F HG A1C LEVEL LT 7.0%. * Electronic signature of Magdalene Amezcua APRN on 03/16/2025 at 08:21 AM EDT Sign off status: Pending * Provider: SHADY Osuna Date: 0 03/03/2025 Generated for Hipolito chavarria/Johan/Presley on: 0 03/16/2025 08:21 AM EDT History and Physical Notes * [...]
--- OUTSIDE RECORDS SUMMARY | 2025-03-06 09:28 | XMS_ITS | Encounter Summary ---
Author Organization [facility] Address [address] [place] [address] Care Team Providers Care Central Office Operator Supervisor Name Role Phone Uriel Mcbride MD Primary Care Provider Reason for Referral * Diagnostic Imaging (Routine) - Closed Specialty Diagnoses / Procedures Referred By Alisa mcdonnell Referred To Contact Radiology Diagnoses Visit for screening mammogram Procedures Mammo Screening Digital Tomosynthesis Bilateral With CAD Phoenix Coulter MD [address] [place] [address] [address] [place] [address] Phone: tel: fax: Referral ID Status Reason Start Date Expiration Date Visits Re quested Visits Authorized [id number] Closed 09/20/2024 09/20/2025 1 1 Reason for Visit * Diagnostic Imaging (Routine) - Closed Specialty Diagnoses / Procedures Referred By Alisa mcdonnell Referred To Contact Radiology Diagnoses Visit for screening mammogram Procedures Mammo Screening Digital Tomosynthesis Bilateral With CAD Phoenix Coulter MD [address] [place] [address] [address] [place] [address] Phone: tel: fax: Referral ID Status Reason Start Date Expiration Date Visits Re quested Visits Authorized [id number] Closed 09/20/2024 09/20/2025 1 1 Encounter Details Date Type Department Care Team (Latest Contact Info) Description 03/06/2025 9:28 AM EDT - 03/06/2025 11:59 PM EDT Hospital [facility] [address] [place] [address] Phoenix Coulter MD [address] [place] [address] Visit for screening mammogram Discharge Disposition: Home or Self Care Social History Tobacco Use Types Packs/Day Years Used Date Smoking Tobacco: Never Smokeless Tobacco: Never Alcohol Use Standard Drinks/Week Comments Never 0 (1 standard drink = 0.6 oz pur e alcohol) AUDIT-C Answer Date Recorded Q1: How often do you have a drink containing alc ohol? Never 02/24/2020 Average Number of Drinks Not on file 020 Frequency of Binge Drinking Not on file 02/05 Comments No Sex and Gender Information Value Date Recorded Sex Assigned at Not on file Legal Sex Female 12:38 PM EDT Gender Identity Not on file Sexual Orientation Not on file documented as of this encounter Medications at Time of Discharge aspirin 325 MG tablet Take 1 tablet by mouth Daily. For 1 month 30 tablet 02/28/2020 11:44 AM EDT 02/28/2020 atorvastatin (LIPITOR) 20 MG tablet Take 20 mg by mouth Every Night. calcium carb-cholecalcif anabell (Calcium+D3) 600-800 MG-UNIT tablet Take 1 tablet by mouth Daily. docusate sodium (COLACE) 100 MG capsule Take 1 capsule by mouth 2 (Two) Times a Day As Needed for Constipation. 60 capsule 02/28/2020 11:44 AM EDT 02/28/2020 Dorzolamide HCl-Timolol Mal PF 2-0.5 % solution Apply 1 drop to eye(s) as directed by provider 2 (Two) Times a Day. INSTILL 1 DROP INTO RIGHT/EYE TWICE DAILY Multiple Vitamin (ONE-DAILY MULTI-VITAMIN PO) Take 1 tablet by mouth Daily. potassium chloride ER (K-TAB) 20 MEQ tablet controlled-relea se ER tablet Take 20 mEq by mouth Daily. Ropivacine HCl-NaCl (NAROPIN)Indicat ions:Acute Pain 20 mg/hr by Peripheral Nerve route Continuous. Indications: Acute Pain 02/28/2020 verapamil ER (VERELAN) 240 MG 24 hr capsule Take 240 mg by mouth Daily. vitamin B-12 (CYANOCOBALAMIN) 1000 MCG tablet Take 1,000 mcg by mouth Daily. documented as of this encounter Plan of Treatment Not on file documented as of this encounter Procedures Procedure Name Priority Date/Time Associated Diagnosis Comments MAMMO SCREENING DIGITAL TOMOSYNTHESIS BILATERAL W CAD Routine 03/06/2025 10:15 AM EDT Visit for screening mammogram documented in this encounter Results * Mammo Screening Digital Tomosynthesis Bilateral With CAD (03/06/2025 10:15 AM EDT) Anatomical Region Laterality Modality Breast N/A Mammography 03/09/2025 3:26 PM EDT Impressions 03/09/2025 3:26 PM EDT Negative bilateral mammogram. RECOMMENDATION: Continue annual screening mammography. BI-RADS CATEGORY 1, NEGATIVE. CAD was utilized. The standard false-negative rate of mammography is between 10% and 25%. Complex patterns or increased breast density will markedly elevate the false-negative rate of mammography. A letter, in lay terminology, with the results of this exam will be mailed to the patient. 03/09/2025 3:[address] Jaimee Mcnamara MD on Narrative 03/09/2025 3:26 PM EDT DIGITAL SCREENING MAMMOGRAM WITH TOMOSYNTHESIS HISTORY: Screening Mammography. Low dose full field digital breast tomosynthesis imaging was performed with 2D and 3D acquisitions consisting of bilateral CC and MLO views. Examination is compared to prior examination dating back to 02/09/2016. Examination is read in conjunction with computer aided detection. FINDINGS: There are scattered areas of fibroglandular density. No suspicious masses, microcalcifications or areas of architectural distortion are present. us Phoenix Coulter MD IMG MAMMOGRAPHY ORDERABLES F inal Result documented in this encounter Visit Diagnoses Diagnosis Visit for screening mammogram documented in this encounter Care Teams Central Office Operator Supervisor Relationship Specialty Start Date End Date Uriel Mcbride MD [address] [place] [address] PCP - General Family Medicine 7/17/19 documented as of this encounter
[2025-03-16] VITALS (11 sets, daily range): BP systolic 143–223; BP diastolic 92–128; PULSE 60–80; RESP 10–24; TEMP 36.4–36.7; O2SAT 94–98; BMI 29.7
--- NOTE | 2025-03-16 08:18 | ECG_ITS ---
APPROVED REPORT Exam: Resting ECG HR:69 bpm ECG Measurements Heart Rate 69 AXES [place] 162 P 72 QRSd 100 QRS -67 QT 400 T 69 QTc 419 Conclusion SINUS RHYTHM LOW QRS VOLTAGE IN PRECORDIAL LEADS [QRS DEFLECTION < 1.0 mV IN CHEST LEADS] INCOMPLETE RIGHT BUNDLE BRANCH BLOCK [90+ ms QRS DURATION, TERMINAL R IN V1/V2, 40+ ms S IN I/aVL/V4/V5/V6] LEFT ANTERIOR FASCICULAR BLOCK [QRS AXIS <= -45, QR IN I, RS IN II] POSSIBLE ANTERIOR MYOCARDIAL INFARCTION , PROBABLY OLD [30 ms Q WAVE IN V3/V4, OR R < 0.2 mV IN V4] ABNORMAL ECG UNCONFIRMED REPORT Normal sinus rhythm. Isolated nonspecific T wave inversions in V2. No ST elevation or depression Electronically signed by : LISA MURO, 03/17/2025 07:06:36
--- OUTSIDE RECORDS SUMMARY | 2025-03-16 08:20 | XMS_ITS | Clinical Summary ---
Author Organization [facility] Address [address] [place] [address] Care Team Providers Care Equipment Tester Name Role Phone Anatoliy Lock MD Unavailable [phone] Uriel Mcbride MD Primary Care Provider [phone] Allergies Active Allergy Reactions Criticality Noted Date [...] Hyperlipidemia 05/12/2017 Exudative age-related macular degeneration 07/16 Encounters Date Type Department Care Team Description 03/03/2025 Orders Only [facility] [address] [place] [address] Kim Craft PA Aneurysm (CMS/HCC) (Primary Dx) 03/03/2025 Telephone [facility] [address] [place] [address] Anatoliy Lock MD [facility] - Patient Message (Call back ) from Last 3 Months Family History Medical History Relation Name Comments [...] Care Team (Late st Contact Info) Description 03/24/2025 12:15 PM EDT Appointment [facility] [address] [place] [address] 03/24/2025 1:30 PM EDT Office Visit [facility] [address] [place] [address] Kim Craft PA [address] [place] [address] 04/01/2025 9:30 AM EDT Ovarian Cancer Screening [facility] [address] [place] [phone] Health Maintenance Due Date Last Done Comments [facility]-Bone Density Scan 1945 [facility]-Depression Screening 1945 [facility]-Medicare Annual Wellness (AWV) 1945 [facility]-/Child/Adol SDOH Screenings 1945 [facility]- SDOH Screenings 1961 [facility]-Adult SDOH Screenings 1961 [facility]-Zoster Vaccines (1 of 2) 1993 [facility]-RSV Vaccine: 60+ Years or (1 - 1-dose 75+ series) 2018 [facility]-Pneumococcal Vaccine: 50+ Years (2 of 2 - PPSV23) 03/22/2019 03/22/2018 [id number] Vaccine ( season) 2024 11/24/2021, 04/14/2021, 09/30/2020, Additional history exists [facility]-Influenza Vaccine (#1) 04/07/202507/24, 05/12/2021, 06/08/2019, Additional history exists [facility]-DTaP,Tdap,and Td Vaccines (2 - Td or [...] patient's age to complete this topic Insurance [place] [address] MEDICARE [facility] Care Teams Equipment Tester Relationship Specialty Start Date End Date Uriel Mcbride MD [address] [place] [address] PCP - General 03/31/22 Anatoliy Lock MD [address] [place] [address] Surgeon Neurosurgery 12/10/21
--- OUTSIDE RECORDS SUMMARY | 2025-03-16 08:20 | XMS_ITS ---
Author Organization Unknown Problems Date Problem Result OnSetDate Icd10 SnomedCode Severity 02/03/2025 00:00:00 Type 2 diabetes mellitus without complication, without long-term current use of insulin E11.9 [id number]
--- OUTSIDE RECORDS SUMMARY | 2025-03-16 08:21 | XMS_ITS | Patient Health Record ---
[facility] Address [address] [place] [id number] Care Team Providers Care Elementary Science Teacher Name Role Phone Phoenix Coulter Primary Care Provider [phone] AmezcuaVincenzo brarine Unavailable [phone] Allergies No Known Allergies Results Component Value [...] Level > 8% Poorly Controlled Diabetic Level H-VITAMIN D Reviewed date:07/19/2024 11:02:34 AM Interpretation:49.2 Performing Lab: Notes/Report: TVITD 49.2 30-100 ng/mL Deficient <20 ng/mL Insufficient 20-30 ng/mL Sufficient 30-100 ng/mL Potential Toxicity >100 ng/mL H-Microalbumine/Creatinine Reviewed date:07/19/2024 11:02:34 AM Interpretation:Normal Performing Lab: Notes/Report: UCREAT 89 Not Estab. mg/dL Random urine reference range not established. 24 hour urine samples recommended. MICROALB 15.700 0-16.7 mg/L MALBCREAT 17.6 Units: mg/g creat Normal: 0 - 29 Moderately Increased: 30 - 300 Severely Increased: >300 H-Lipid Panel Reviewed date:07/19/2024 11:02:34 AM Interpretation:dldl [...] Level > 8% Poorly Controlled Diabetic Level Reason For Referral No Information Medications Medication SIG (Take, Route, Frequency, Duration) Notes Start Date End Date Status Verapamil HCl ER 240 MG 1 tablet Orally Once a day; Duration: 90 days Active B-12 2500 MCG 1 tab(s) sublinguall y once a day; Duration: 30 day(s) Activ e Aspirin 325 MG 1 tab(s) orally once a day Active Omeprazole 20 MG 1 capsule Orally twi ce a day; Duration: 90 days Active Losartan Potassium 50 MG 1 tablet Orally Once a day Active Azelastine-Fluticasone 137-50 MCG/ACT 1 spray in each nostril Nasally Twice a day 12/29/2023 Active Multiple Vitamin - 1 cap(s) orally once a day Active Atorvastatin Calcium 20 MG take 1/2 (one -half) tablet Orally once daily; Duration: 30 days Active Calcium-Vitamin D-Minerals 600-800 MG-UNIT 1-2 tab(s) orally once daily Active Immunizations Vaccine Route Administration Date Status [...] Status Risk Notes Problem Low back pain (742281879) Low back pain (M54.5) Active confirmed Problem Vitamin D deficiency (92565939) Vitamin D deficiency (E55.9) Active confirmed Problem Essential hypertension (32744915) Essential hypertension (I10) Active confirmed Problem Osteopenia (360408357) Osteopenia (M85.80) Active confirmed Problem Disorder of lumbar disc (428031394) Lumbar disc disease (M51.9) Active confirmed Problem Body mass index 30+ - obesity (396150057) BMI 30.0-30.9,adult (Z68.30) Active confirmed Problem Chronic pain (84440925) Other chronic pain (G89.29) Active confirmed Problem Kidney stone (09065502) Kidney stones (N20.0) Active confirmed Problem Iron deficiency anemia (15848531) Iron deficiency anemia, unspecified iron deficiency anemia type (D50.9) Active confirmed Problem Stenosis of right carotid artery (164468072053411) Stenosis of right carotid artery (I65.21) Active confirmed Problem Dyslipidemia (749951738) Dyslipidemia (E78.5) Active confirmed Problem Type II diabetes mellitus without complication (680416879) Type 2 diabetes mellitus without complication, without long-term current use of insulin (E11.9) Active confirmed Problem Impaired fasting glycaemia (394677903) IFG (impaired fasting glucose) (R73.01) Active confirmed Problem Pure hypercholesterolemia (662014221) Pure hypercholesterolemia (E78.00) Active confirmed Problem Thyromegaly (1840901) Thyromegaly (E01.0) Active confirmed Problem Seasonal allergic rhinitis (574392509) Acute seasonal allergic rhinitis (J30.2) Active confirmed Problem Microcytic hypochromic anemia (03500620) Microcytic hypochromic anemia (D50.9) Active confirmed Problem Menopausal state (850893232) Menopausal state (N95.1) Active confirmed Problem Primary hypertension (78420870) Primary hypertension (I10) Active confirmed Problem Psoriasis of nail (247496772) 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 [address] [id number] 07/22/2024 Phoenix Shelby Essential hypertensi on I10 ; Pure hypercholesterolemia E78.00 and Vitamin D deficiency E55.9 [facility] 121 [facility] [address] [id number] 02/03/2025 Phoenix Shelby Type 2 diabetes kyra itus without complication, without long-term current use of insulin E11.9 ; Hiatal hernia K44.9 ; Hypokalemia E87.6 ; Essential hypertension I10 ; Pure hypercholesterolemia E78.00 and BMI 30.0-30.9,adult Z68.30 [facility] 36 [address], [place] [id number] 03/03/2025 Theresaale Amezcua Essential hypertension I10 [facility] 1210 [facility] [address] [place], [place] [id number] 07/18/2024 Phoenix Shelby Essential hypertensi on I10 ; Pure hypercholesterolemia E78.00 ; Vitamin D deficiency E55.9 and IFG (impaired fasting glucose) R73.01 [facility] 1210 [facility] [address] [place], [place] [id number] 07/19/[address] [facility] [facility] [address] [place], [place] [id number] 01/29/2025 Phoenix Shelby Essential hypertensi on I10 ; Vitamin D deficiency E55.9 ; Hyperkalemia E87.5 ; Hyperglycemia R73.9 and Alkaline phosphatase elevation R74.8 [facility] [address] [place], [place] [id number] 01/30/2025 Phoenix Shelby [facility] [address] [place], [place] [id number] 02/24/2025 Phoenix Shelby Essential hypertensi on I10 [facility] [address] [place], [place] [id number] 03/11/2025 Phoenix Shelby Assessments Encounter Date Diagnosis (ICD Code) Assessment Notes Treatment Notes Treatment Clinical Notes Section Notes 07/18/2024 Essential hypertensi on (ICD-10 - I10) 07/22/2024 Essential hypertensi on (ICD-10 - I10) 07/22/2024 Pure hypercholesterolemia (ICD-10 - E78.00) 07/18/2024 Pure hypercholesterolemia (ICD-10 - E78.00) 01/29/2025 Vitamin D deficiency (ICD-10 - E55.9) 01/29/2025 Essential hypertensi on (ICD-10 - I10) 02/03/2025 Hiatal hernia (ICD-1 0 - K44.9) 02/03/2025 Type 2 diabetes kyra itus without complication, without long-term current use of insulin (ICD-10 - E11.9) diet & exercise reviewed with patient 02/24/2025 Essential hypertensi on (ICD-10 - I10) 03/03/2025 Essential hypertensi on (ICD-10 - I10) pt has med at home ; discussed low salt diet; she will continue with home BP monitoring 02/03/2025 Hypokalemia (ICD-10 - E87.6) 07/22/2024 Vitamin D deficiency (ICD-10 - E55.9) 01/29/2025 Hyperkalemia (ICD-10 - E87.5) 07/18/2024 Vitamin D deficiency (ICD-10 - E55.9) 07/18/2024 IFG (impaired fastin g glucose) (ICD-10 - R73.01) 01/29/2025 Hyperglycemia (ICD-1 0 - R73.9) 02/03/2025 Essential hypertensi on (ICD-10 - I10) Blood pressure journal 02/03/2025 Pure hypercholesterolemia (ICD-10 - E78.00) 01/29/2025 Alkaline phosphatase elevation (ICD-10 - R74.8) 02/03/2025 BMI 30.0-30.9,adult (ICD-10 - Z68.30) Plan Of Treatment No Information Insurance Providers Payer Name Payer Address Payer Phone Subscriber Number Group Number Insured Name Patient Relationship to Insured Coverage Start Date Coverage End Date [employer] [address] [address] [place] [address] [id number] MEKHI IGNACIO Self - patient is the insured [facility] OPTIONS [address] [place] [id number] MEKHI IGNACIO Self - patient is the [...] Ad [facility] - Colonoscopy Ovarian Screening - [facility] - OB yearly ma mmogram hyperlipidemia hypertension Vitamin D deficiency chronic back pain, s/p pain management e valuation Lumbar Disc Disease Lumbar Spinal Stenosis 99% occlusion of right carotid artery iron deficiency anemia Surgical History Surgery Date(Month/Year) Appendectomy 2007 Lithotripsy 2012 Colonoscopy 01/2015 Ovarian Screening Yearly 03/15/2017 Cortisone Injection in Back 06/06/2018 RT Total Knee Replacement - Dr. Rice 02/05 C-Scope and Upper GI 12/27/2023 Hospitalization History Reason Date(Month/Year)
--- OUTSIDE RECORDS SUMMARY | 2025-03-16 08:22 | XMS_ITS | Encounter Summary ---
Author Organization [facility] Address [address] [place] [address] Care Team Providers Care Ultrasonic Solderer Name Role Phone Uriel Mcbride MD Primary Care Provider Encounter Details Date Type Department Care Team (Latest Contact Info) Description 03/06/2025 Travel Social History Tobacco Use Types Packs/Day Years [...] on file documented as of this encounter Plan of Treatment Not on file documented as of this encounter Visit Diagnoses Not on filedocumented in this encounter Care Teams Ultrasonic Solderer Relationship Specialty Start Date End Date Uriel Mcbride MD [address] [place] [facility] [address] [place] [address] PCP - General Family Medicine 02/20/19 documented as of this encounter
--- OUTSIDE RECORDS SUMMARY | 2025-03-16 08:22 | XMS_ITS | Encounter Summary ---
Author Organization [facility] Address [address] [place] [address] Care Team Providers Care Clean Out Driller Name Role Phone Anatoliy Lock MD Unavailable [phone] Uriel Mcbride MD Primary Care Provider [phone] Reason for Referral * Imaging (Routine) - Authorized Specialty Diagnoses / Procedures Referred By Contac t Referred To Contact Radiology Diagnoses Aneurysm (CMS/HCC) Procedures MR Angio Head wo IV Contrast Kim Craft PA [id number] [place] [address] Phone: tel: fax: Referral ID Status Reason Start Date Expiration Date V isits Requested Visits Authorized [id number] Authorized 03/03/2025 09/02/2026 1 1 Encounter Details Date Type Department Care Team (Late st Contact Info) Description 03/03/2025 Orders Only [place] [facility] [address] [place] [address] [facility] [address] [facility] [address] [place] [address] Aneurysm (CMS/HCC) (Primary Dx) Social History Tobacco Use Types Packs/Day Years [...] as of this encounter Miscellaneous Notes * Progress Notes - Kim Craft PA - 03/03/2025 2:11 PM EDT Pt with uncontrolled BP, systolics 200s today, seeing PCP, but would like sooner than planned 5 year fu to check aneurysm and ensure no growth, denies headaches. documented in this encounter Plan of Treatment Upcoming Encounters Date Type Department Care Team (Late st Contact Info) Description 03/24/2025 12:15 PM EDT Appointment [facility] [address] [place] [phone] 03/24/2025 1:30 PM EDT Office Visit [place] [facility] [address] [place] [address] Kim Craft PA [address] [facility] [address] [place] [address] 04/01/2025 9:30 AM EDT Ovarian Cancer Screening [facility] Gynecology [address] [place] [phone] Scheduled Orders Name Type Priority Associated Diagnoses Orde r Schedule MR Angio Head wo IV Contrast Imaging Routine Aneurysm (CMS/HCC) Expected: 03/03/2025 (Approximate), Expires: 09/03/2026 documented as of this encounter Visit Diagnoses Diagnosis Aneurysm (CMS/HCC)- Primary Other aneurysm of unspecified site documented in this encounter Care Teams Clean Out Driller Relationship Specialty Start Date End Date Uriel Mcbride MD [address] [place] [address] PCP - General 03/31/22 Anatoliy Lock MD [address] [place] [address] Surgeon Neurosurgery 12/10/21 documented as of this encounter
--- OUTSIDE RECORDS SUMMARY | 2025-03-16 08:22 | XMS_ITS | Encounter Summary ---
Author Organization [facility] Address [address] [place] [address] Care Team Providers Care Scrub Technician Name Role Phone Anatoliy Lock MD Unavailable [phone] Uriel Mcbride MD Primary Care Provider [phone] Reason for Visit * Reason Onset Date Comments HCN - Patient Message 03/03/2025 Call back Encounter Details Date Type Department Care Team (Late st Contact Info) Description 03/03/2025 Telephone [place] [facility] [address] [place] [address] Anatoliy Lock MD [address] [place] [address] HCN - Patient Message (Call back ) Social History Tobacco Use Types Packs/Day Years [...] as of this encounter Miscellaneous Notes * Telephone Encounter - Kim Craft PA - 03/03/2025 2:15 PM EDT Spoke to her, BP up would like sooner fu for aneurysm. Can we get her in to see Ashvin with a new MRA head please? Order is in! Husbands number is [phone] * Telephone Encounter - Geno Roman - 03/03/2025 1:40 PM EDT Patient Phone Message Reason for Call: Patient is requesting a call back to discuss blood pressure being up. Best contact number and optimal time of day to reach caller: [phone] anytime Note: Please do not reply to this message. Follow-up communication and further actions as a result of this message need to be communicated with the patient directly, if the patient is not active onMyChart. If the patient is active on MyChart, they will receive notification of the communication/outcome via [employer]. documented in this encounter Plan of Treatment Upcoming Encounters Date Type Department Care Team (Late st Contact Info) Description 03/24/2025 12:15 PM EDT Appointment [facility] Radiology [address] [place] [address] 03/24/2025 1:30 PM EDT Office Visit [facility] [address] [place] [address] Kim Craft PA [address] [place] [address] 04/01/2025 9:30 AM EDT Ovarian Cancer Screening [facility] [address] [place] [address] documented as of this encounter Visit Diagnoses Not on filedocumented in this encounter Care Teams Scrub Technician Relationship Specialty Start Date End Date Uriel Mcbride MD [address] [place] [address] PCP - General 03/31/22 Anatoliy Lock MD [address] [place] [address] Surgeon Neurosurgery 12/10/21 documented as of this encounter
--- OUTSIDE RECORDS SUMMARY | 2025-03-16 08:23 | XMS_ITS | Clinical Summary ---
Author Organization [facility] Address [address] [place] [id number] Care Team Providers Care Special Effects Artist Name Role Phone Uriel Mcbride MD Primary Care Provider Allergies Active Allergy Reactions Criticality Noted Date Comments Antihistamines, Diphenhydramine-Type Other (See Comments) Medium 02/24/2020 PER PATIENT WHELPS, HYPER, CAN'T SLEEP Niacin Itching Low 02/24/2020 Sulfa Antibiotics Other (See Comments) Low 02/24/20 20 ABDOMINAL CRAMPS Medications calcium carb-cholecalci ferol (Calcium+D3) 600-800 MG-UNIT tablet Take 1 tablet by mouth Daily. Active Multiple Vitamin (ONE-DAILY MULTI-VITAMIN PO) Take 1 tablet by mouth Daily. Active vitamin B-12 (CYANOCOBALAMIN ) 1000 MCG tablet Take 1,000 mcg by mouth Daily. Active Dorzolamide HCl-Timolol Mal PF 2-0.5 % solution Apply 1 drop to eye(s) as directed by provider 2 (Two) Times a Day. INSTILL 1 DROP INTO RIGHT/EYE TWICE DAILY Active atorvastatin (LIPITOR) 20 MG tablet Take 20 mg by mouth Every Night. Active potassium chloride ER (K-TAB) 20 MEQ tablet controlled-rele ase ER tablet Take 20 mEq by mouth Daily. Active verapamil ER (VERELAN) 240 MG 24 hr capsule Take 240 mg by mouth Daily. Active aspirin 325 MG tablet Take 1 tablet by mouth Daily. For 1 month 30 tablet 02/28/2020 11:44 AM EDT 0 Active docusate sodium (COLACE) 100 MG capsule Take 1 capsule by mouth 2 (Two) Times a Day As Needed for Constipation. 60 capsule 02/28/2020 11:44 AM EDT 0 Active Ropivacine HCl-NaCl (NAROPIN)Indica tions:Acute Pain 20 mg/hr by Peripheral Nerve route Continuous. Indications: Acute Pain 0 Active Active Problems Problem Noted Date Diagnosed Date Acute postoperative pain 02/28/2020 Leukocytosis, mild, likely reactive 02/28/2020 Primary localized osteoarthritis of right knee 0 02/27/2020 Status post total right knee replacement 020 Hyperlipidemia 02/27/2020 Hypertension 02/27/2020 Encounters Date Type Department Care Team Description 03/06/2025 9:28 AM EDT - 03/06/2025 11:59 PM EDT Hospital Encounter [facility] [address] [place] [address] Phoenix Coulter MD Visit for screening mammogram Discharge Disposition: Home or Self Care 03/06/2025 Travel from Last 3 Months Family History Medical History Relation Name Comments Breast cancer Maternal Aunt Ovarian cancer Mother approximate Relation Name Status Comments Maternal Aunt Mother Social History Tobacco Use Types Packs/Day [...] Sign Reading Time Taken Comments Blood Pressure 159/81 02/28/2020 9:53 AM EDT Pulse 75 02/28/2020 9:53 AM EDT Temperature 36.5 C (97.7 F) 02/28/2020 7:17 AM EDT Respiratory Rate 16 02/28/2020 9:53 AM EDT Oxygen Saturation 98% 02/28/2020 7:17 AM EDT Inhaled Oxygen Concentration - - Weight 72.1 kg (159 lb) 02/27/2020 10:16 AM EDT Height 152.4 cm (5') 02/27/2020 10:16 AM EDT Body Mass Index 31.05 02/27/2020 10:16 AM EDT Plan of Treatment Health Maintenance Due Date Last Done Comments DXA SCAN 1945 LIPID PANEL 1945 ZOSTER VACCINE (1 of 2) 1993 RSV Vaccine - Adults (1 - 1- dose 75+ series) 2018 Pneumococcal Vaccine 50+ (2 of 2 - PPSV23) 03/22/2019 03/22/2018 ANNUAL WELLNESS VISIT 02/20/2020 COVID-19 Vaccine (5 - 2023-2 5 season) 2024 11/24/2021, 04/14/2021, 09/30/2020, Additional history exists INFLUENZA VACCINE 05/07/2025 05/12/2021, , 05/10/2018, Additional history exists TDAP/TD VACCINES (3 - Td or Tdap) 12/16/2027 018, 10/21/1996 Medical Devices Implanted Type Area Health And Safety Technician Device Identifier Shelf Expiration Date Model / Serial / Lot Cmt Bone [place] R Hi/Visc 1x40 - [id number] Implanted:Qty : 2 on 02/27/2020 by Kan Rice MD at [facility] Implant Right: Knee [employer] 10/04/2022 [id number] / / [id number] Sut Contrl Tiss Stratafix Spiral Pgpcl 2/0fs [id number] - [id number] Implanted:Qty : 1 on 02/27/2020 by Kan Rice MD at [facility] Implant Right: Knee [employer] DIV OF Igor AND Igor [id number] / / Sut Contrl Tiss Stratafix Symm Pds Plus Jonny Ct-1 45cm - [id number] Implanted:Qty : 1 on 02/27/2020 by Kan Rice MD at [facility] Implant Right: Knee [employer] DIV OF J AND J [id number] / / Base Tib/Kn Gen2 Nonpor Ti Sz2 Rt - [id number] Implanted:Qty : 1 on 02/27/2020 by Kan Rice MD at [facility] Implant Right: Knee [employer] 10/11/2029 [id number] / / [id number] Fem Legion Oxin Ps Nrw Sz4n Rt - [id number] Implanted:Qty : 1 on 02/27/2020 by Kan Rice MD at [facility] Implant Right: Knee [employer]W 12/06/2029 [id number] / / [id number] Pat Resrf Gen2 7.5x29mm - [id number] Implanted:Qty : 1 on 02/27/2020 by Kan Rice MD at [facility] Implant Right: Knee [employer] 10/20/2029 [id number] / / [id number] Insrt Art Legion Ps Hf Xlpe Sz1to2 9mm - [id number] Implanted:Qty : 1 on 02/27/2020 by Kan Rice MD at [facility] Implant Right: Knee [employer]W 09/15/2029 [id number] / / [id number] Totl Kn Renaldo Mazariegos Nephew - [id number] Implanted:Qty : 1 on 02/27/2020 by Kan Rice MD at [facility] Implant Right: Knee [employer]W CAPKNEETOTAL SN2 / / Implant Description:CATARACT LENS -B ILATERAL Procedures Procedure Name Priority Date/Time Associated Diagnosis Comments MAMMO SCREENING DIGITAL TOMOSYNTHESIS BILATERAL W CAD Routine 03/06/2025 10:15 AM EDT Visit for screening mammogram from Last 3 Months Results * Mammo Screening Digital Tomosynthesis Bilateral [...] the patient. 03/09/2025 3:[address] Jamiee Mcnamara MD on Narrative 03/09/2025 3:26 PM [...] MD IMG MAMMOGRAPHY ORDERABLES F inal Result from Last [address] [place] [address] [place] [employer] [facility] HE[facility] CARE OPTIONS Advance Directives Documents on File Type Date Recorded Patient Patient Registrar Expl anation LIVING WILL - SCAN 02/24/2020 12:20 PM ARELIS ING WILL, ANAEX, 12/15/2005 * CPR (Attempt to Resuscitate) (Latest Code Status on File) Date Activated Date Inactivated Comments 02/27/2020 1:20 PM 02/28/2020 3:02 PM Question Answer Comments Code Status (Patient has no pulse and is not breathing): CPR (Attempt to Resuscitate) Medical Interventions (Patie nt has pulse or is breathing): Full Level Of Support Discussed With: Patient Care Teams Special Effects Artist Relationship Specialty Start Date End Date Uriel Mcbride MD [facility] [address] [facility] [address] [place] [address] PCP - General Family Medicine 02/20/19
--- NOTE | 2025-03-16 08:45 | CT_ITS ---
PROCEDURE INFORMATION: Exam: CTA Chest With Contrast Exam date and time: 03/16/2025 9:17 AM Age: 79 years old Clinical indication: Pain; Other: HTN; Other: Back/right arm; Additional info: HTN, back pain, right arm pain TECHNIQUE: Imaging protocol: Computed tomographic angiography of the chest with contrast. Exam focused on the arteries. 3D rendering (Not supervised by radiologist): MIP and/or 3D reconstructed images were created by the technologist. Radiation optimization: All CT scans at this facility use at least one of these dose optimization techniques: automated exposure control; mA and/or kV adjustment per patient size (includes targeted exams where dose is matched to clinical indication); or iterative reconstruction. Contrast material: ISOVUE; Contrast volume: 80 ml; Contrast route: INTRAVENOUS (IV); COMPARISON: US THYROID 12/11/2023 10:05 AM FINDINGS: Pulmonary arteries: No evidence of pulmonary embolus to the segmental level. Aorta: Unruptured aneurysm of the ascending aorta 4 cm.. No dissection of the aorta. Thyroid: 16 mm nodule left lobe of the thyroid. Recommend thyroid ultrasound. Lungs: Mild consolidation in the left lower lobe may represent atelectasis or pneumonia. Pleural spaces: Unremarkable. No pneumothorax. No pleural effusion. Heart: Unremarkable. No cardiomegaly. No pericardial effusion. Coronary arteries: Coronary artery calcifications may indicate coronary artery disease. Lymph nodes: Unremarkable. No enlarged lymph nodes. Diaphragm: Large hiatal hernia. 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 Bones/joints: Unremarkable. No acute fracture. Soft tissues: Unremarkable. IMPRESSION: 1. No evidence of pulmonary embolus to the segmental level. 2. Unruptured aneurysm of the ascending aorta 4 cm.. 3. No dissection of the aorta. 4. 16 mm nodule left lobe of the thyroid. Recommend thyroid ultrasound. 5. Large hiatal hernia. 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 6. Mild consolidation in the left lower lobe may represent atelectasis or pneumonia. COMMENTS: Consistent with the [employer] [employer]'s Incidental Findings Committee white paper (J Am Avery Radiol 2015): In patients aged 35 years and older with an incidental thyroid nodule equal to or greater than 1.[address], MRI or extrathyroidal US, further evaluation with dedicated thyroid US is recommended for patients with normal life expectancy and without comorbidities. For smaller nodules without suspicious features, no further evaluation or follow up is recommended.
[2025-03-16 08:52] LABS: Hematocrit 45.5 % (37.0-47.0); Hemoglobin 15.4 g/dL (12.2-16.2); Immature Granulocytes % 0.2 %; Mean Corpuscular HGB Conc 33.8 g/dL (31.8-35.4); Mean Corpuscular Hemoglobin 29.2 pg (27.0-31.2); Mean Corpuscular Volume 86.3 fl (81-99); Nucleated Red Blood Cells % 0 %; Platelet Count 235 K/mm3 (142-424); Red Blood Count 5.27 M/mm3 (4.20-5.40); Red Cell Distribution Width-SD 41.4 fL; White Blood Count 6.6 K/mm3 (4.8-10.8)
[2025-03-16 08:55] LABS: Albumin Level 4.6 g/dl (3.5-5.0); Chloride 104 mmol/L (98-107); Potassium 3.8 mmoL/L (3.5-5.1); Sodium 140 mmol/L (136-145)
--- NOTE | 2025-03-16 08:56 | ED_ITS ---
Discharge Plan Disposition Patient Disposition: Admitted Clinical Impressions Clinical Impression: Aneurysm of ascending aorta, Left thyroid nodule, Left lower lobe pneumonia, Hypertension Discharge ED Provider: Joe Alanis General Adult HPI General Chief complaint: Back Pain/Injury Stated complaint: rt arm pain ,back pain Time Seen by Provider: 03/16/25 08:32 Mode of Arrival: Ambulatory Source of Information: Patient Description of Symptoms (Recalled from ER Triage Doc. by RN): pt is here for right shoulder/upper back pain that runs down into hand, pt has been having high bp for the last two weeks and cant get it under control History of Present Illness HPI narrative: Lisseth Ignacio is an 79 female with a history of hypertension on losartan, GERD, hiatal hernia who presents to the emergency department for complaints of intermittent emanating from her mid back down her right arm to the end of her right pinky. Patient states that for some time now, she has had pain in this distribution that occurs often while she is knitting. She states that usually the pain resolves over a short period of time, however last night, it did not resolve and she had difficulty getting comfortable and sleeping. She does note that over the last month to month and a half, she has had elevated blood pressures with documented blood pressures in the 180s and 190s systolic at home. She is followed by Dr. Coulter's office and was told that she may need to be put on a beta-bettie. She is hypertensive on arrival. She denies any chest pain or shortness of breath. She spoke with family member who is a nurse and advised her to come to the emergency department due to concern for possible heart attack. She denies any personal history of heart attacks but states that her father at a young age of an enlarged heart. She denies any swelling, abdominal pain, nausea, vomiting. Related Data Home Medications ?Medication ?Instructions ?Recorded ?Confirmed aspirin 325 mg tablet 325 mg PO DAILY prevention 1 09/26/17 12/16/24 atorvastatin 20 mg tablet 20 mg PO DAILY Cholesterol 1 09/26/17 12/16/24 chlorthalidone 25 mg tablet 25 mg PO DAILY Fluid 07/2612/16/24 gabapentin 300 mg capsule 300 mg PO DAILY Pain 8 12/16/24 potassium chloride 20 mEq 20 meq PO DAILY Supplement 1 09/26/17 12/16/24 tablet,extended release(part/cryst) verapamil 240 mg 24 hr 240 mg PO DAILY blood pressu re 07/26/18 12/16/24 capsule,extended release vitamins A,C,D-inoc-hurdnm 4,296 1 cap PO BID 12/16/24 12/16/24 mcg-226 mg-90 mg capsule (PreserVision AREDS) Previous Rx's ?Medication ?Instructions ?Recorded doxycycline hyclate 100 mg capsule 100 mg PO BID 7 day s #14 caps 08/05/20 amoxicillin 500 mg capsule 1,000 mg (2 x 500 mg) PO TI D 7 03/16/25 days #42 caps Allergies Allergy/AdvReac Type Severity Reaction Status Date / Time Antihistamines - Alkylamine Allergy Intermediate Unknown Verified 03/16/25 08:55 allergy reaction niacin Allergy Unknown Unknown Verified 03/16/25 08:55 allergy reaction sulconazole Allergy Unknown Unknown Verified 03/16/25 08:55 allergy reaction PFSH PFS Disclaimer: The information contained in this section may have been updated after the patient was seen, as this information can be updated by other users. Medical History Vitamin D deficiency Thyroid disease Lumbar spinal stenosis Lumbar disc disease Kidney stones Internal hemorrhoids High blood pressure Hiatal hernia Gastric ulcer with hemorrhage GERD with esophagitis Colon polyps [place] esophagus Back pain Anemia Surgical History History of appendectomy History of lithotripsy History of esophagogastroduodenoscopy (EGD) History of colonoscopy Family History Mother Breast cancer Colon cancer Social History Smoking Status: Never smoker alcohol intake: never current occupational status: other Travel in the last 8 weeks?: None Have you lived/traveled outside [place] in past 30 days?: No Contact w/someone who lives/traveled outside US past 30 days?: No Exposure to someone with infectious disease in past 14 days?: No Do you have a fever (greater than 100.4 F or 38 C)?: No Have you tested positive for COVID-19?: No Exposed to someone with COVID-19 in past 14 days?: No Do you have a sore throat?: No Do you have a cough?: No Do you have any weakness?: No Do you have any diarrhea?: No Are you experiencing any unusual bleeding?: No Do you have any muscle aches/pain?: No Do you have any abdominal pain?: No Are you experiencing loss of taste or smell?: No Other Medical History Have you received the Pneumonia Vaccine: Yes ROS Obtained: Yes Systems reviewed as appropriate & no additional complaints except as documented Physical Exam General General appearance: alert and in no apparent distress Head Head exam: atraumatic Eye Eye exam: Present normal appearance ENT ENT exam: Present normal external ear exam Neck Neck exam: Present full ROM Chest Chest inspection: Present symmetric chest wall rise Respiratory Respiratory exam: Present normal lung sounds bilaterally; Absent respiratory distress, wheezes or stridor Cardiovascular Cardiovascular exam: Present regular rate, normal rhythm and other (2+ radial pulses bilaterally. 2+ ulnar pulses bilaterally.) Abdominal Exam Abdominal exam: Present soft; Absent tenderness or guarding Extremities Exam Extremities exam: Present normal inspection Back Exam Back exam: Present normal inspection Neurological Exam Neurological exam: Present alert and oriented X3 Psychiatric Psychiatric exam: Present normal affect Skin Skin exam: Present warm and dry Medical Decision Making Medical Records Screening: Per USPSTF and CDC recommendations, given the prevalence of disease in our region, it is our hospital?s policy to screen for HIV and viral Hepatitis for all patients aged 18 and over and those with ongoing risk factors. Maximilian Inquiry Pt receiving controlled substance: No Vital Signs: 03/16/25 08:28 03/16/25 09:00 03/16/25 09:30 Temperature 98.1 F Temperature Source Oral Pulse Rate 62 61 Pulse Rate [Left Radial] 78 Respiratory Rate 20 13 10 L Blood Pressure 194/101 H 202/95 H Blood Pressure [Right Arm] 221/128 H Blood Pressure Mean [Right Arm] 159 02 Sat by Pulse Oximetry 97 96 95 Oxygen Delivery Method Room Air Room Air Room Air 03/16/25 10:00 03/16/25 10:30 03/16/25 11:00 Temperature Temperature Source Pulse Rate 66 60 67 Pulse Rate [Left Radial] Respiratory Rate 14 14 15 Blood Pressure 183/96 H 200/97 H 218/105 H Blood Pressure [Right Arm] Blood Pressure Mean [Right Arm] 02 Sat by Pulse Oximetry 96 94 L 97 Oxygen Delivery Method Room Air Lab Data Lab Results 03/16/25 08:21: WBC 6.6, RBC 5.27, Hgb 15.4, Hct 45.5, MCV 86.3, MCH 29.2, MCHC 33.8, RDW 13.2, Plt Count 235, MPV 11.5 H, Neut % (Auto) 56.6, Lymph % (Auto) 25.4, [place] % (Auto) 10.3 H, Eos % (Auto) 6.4, Baso % (Auto) 1.1, Neut # (Auto) 3.8, Lymph # (Auto) 1.7, [place] # (Auto) 0.7, Eos # (Auto) 0.4, Baso # (Auto) 0.1, PT 11.6, INR 1.05, APTT 26.6, Sodium 140, Potassium 3.8, Chloride 104, Carbon Dioxide 26, Anion Gap 13.8, BUN 15, Creatinine 0.60, Estimated Creat Clear 48, Estimated GFR 96, Est GFR ( Amer) 116, Glucose 114 H, Calcium 9.9, Magnesium 2.0, Total Bilirubin 0.9, AST 26, ALT 26, Alkaline Phosphatase 156 H, Troponin I < 0.01, NT-Pro-B Natriuret Pep 123, Total Protein 8.0, Albumin 4.6, G lobulin 3.4 H, Albumin/Globulin Ratio 1.4, TSH 1.83, Free T4 1.49 03/16/25 08:58: VBG pH 7.40, VBG pCO2 43.5, VBG pO2 40.1 H, VBG HCO3 26.3, VBG Total CO2 27.7 H, VBG O2 Saturation 75.3 H, VBG Base Excess 1.5, VBG Lactic Acid 1.4 03/16/25 09:35: Urine Color Yellow, Urine Appearance Clear, Urine pH 7.0, Ur Specific [place] 1.010, Urine Protein Negative, Urine Glucose (UA) Negative, Urine Ketones Negative, Urine Blood Negative, Urine Nitrate Negative, Urine Bilirubin Negative, Urine Urobilinogen 0.2, Ur Leukocyte Esterase Negative, Urine RBC None, Urine WBC Occasional, Ur Squamous Epith Cells Occasional, Amorphous Sediment Trace, Urine Bacteria Trace 03/16/25 11:00: Troponin I < 0.01 03/16/25 08:21 03/16/25 08:21 Orders (Tests/Meds): ED MEDICATIONS Generic Name Dose Route Start Last Admin Trade Name Tadeo PRN Reason Stop Dose Admin Acetaminophen 1,000 mg 03/16/25 11:40 Acetaminophen 500mg Tab PO 03/16/25 11:41 ONCE ONE Amoxicillin 1,000 mg 03/16/25 11:36 Amoxicillin 500mg Capsule PO 03/16/25 11:37 ONCE ONE Hydralazine HCl 25 mg 03/16/25 17:00 Hydralazine Hcl 25mg Tablet PO 04/15/25 16:59 TID EUFEMIA Ibuprofen 600 mg 03/16/25 11:40 Ibuprofen 600 Mg Tablet PO 03/16/25 11:41 ONCE ONE Ibuprofen 600 mg 03/16/25 11:40 Ibuprofen 600 Mg Tablet PO 03/16/25 11:41 ONCE ONE Irbesartan 37.5 mg 03/16/25 21:00 Irbesartan 75mg Tablet PO 04/15/25 20:59 BID EUFEMIA Irbesartan 37.5 mg 03/17/25 00:00 Irbesartan 75mg Tablet PO 04/16/25 00:00 Q12H [facility] Lidocaine 1 each 03/16/25 11:45 Lidocaine 5% Transdermal Patch TD 04/15/25 11:44 Q24H [facility] Methocarbamol 1,000 mg 03/16/25 11:41 Methocarbamol 500mg Tablet PO 03/16/25 11:42 BID ONE Discontinued Medications Generic Name Dose Route Start Last Admin Trade Name Tadeo PRN Reason Stop Dose Admin Hydralazine HCl 10 mg 03/16/25 10:47 03/16/25 10:53 Hydralazine 10mg Tablet PO 03/16/25 10:48 10 mg ONCE ONE Administration Iopamidol 80 ml 03/16/25 09:22 03/16/25 09:22 Iopamidol-370 (76%);100ml Bottle IV 03/16/25 09:23 80 ml ONCE ONE Administration Irbesartan 37.5 mg 03/16/25 09:00 Irbesartan 75mg Tablet PO 03/16/25 09:01 ONCE ONE Nitroglycerin 0.4 mg 03/16/25 08:47 03/16/25 08:58 Nitroglycerin 0.4mg Sl Tablet SL 03/16/25 08:48 0.4 mg ONCE ONE Administration Sodium Chloride 10 ml 03/16/25 09:22 03/16/25 09:22 Sodium Chloride 0.9% 10ml Syr (Rad Only) IV 03/16/25 09:23 10 ml ONCE ONE Administration Sodium Chloride 50 ml 03/16/25 09:22 03/16/25 09:22 0.9 % Sodium Chloride 50 Ml Vial IV 03/16/25 09:23 50 ml ONCE ONE Administration ORDERS Category Date Time Status CT angio chest - dissection Stat Cat Scan 03/16/25 08:45 Completed BNP [NT Pro Brain Natriuretic Pep.] Stat Lab 03/16/25 08:21 Completed CBC w/Auto Diff [Complete Blood Count Auto Diff] Stat Lab 03/16/25 08:21 Completed CMP [Comprehensive Metabolic Panel] Stat Lab 03/16/25 08:21 Completed Free T4 (Free Thyroxine) Stat Lab 03/16/25 08:21 Completed Magnesium Stat Lab 03/16/25 08:21 Completed PT INR [Prothrombin Time INR] Stat Lab 03/16/25 08:21 Completed PTT [Activated Partial Thrombo Time] Stat Lab 03/16/25 08:21 Completed TSH [Thyroid Stimulating Hormone] Stat Lab 03/16/25 08:21 Completed Troponin I Q3H Lab 03/16/25 12:00 Ordered Troponin I Q3H Lab 03/16/25 15:00 Ordered Troponin I Stat Lab 03/16/25 08:21 Completed UA [Urinalysis and Microscopic] Stat Lab 03/16/25 09:35 Completed VBG [Venous Blood Gas] Stat RT 03/16/25 08:58 Completed ECG Data Tracing #1: I reviewed this ECG and interpreted as documented below: Normal sinus rhythm. No ST elevations or depressions. QTc normal at 419. isolated nonspecific T wave inversions in V2. Medical Decision Narrative: Lisseth Ignacio is an 79 female with a history of hypertension on losartan, GERD, hiatal hernia, intracranial aneurysm that is not active , right carotid artery aneurysm, who presents to the emergency department for complaints of intermittent emanating from her mid back down her right arm to the end of her right pinky. Patient states that for some time now, she has had pain in this distribution that occurs often while she is knitting. She states that usually the pain resolves over a short period of time, however last night, it did not resolve and she had difficulty getting comfortable and sleeping. She does note that over the last month to month and a half, she has had elevated blood pressures with documented blood pressures in the 180s and 190s systolic at home. She is followed by Dr. Coulter's office and was told that she may need to be put on a beta-bettie. She is hypertensive on arrival. She denies any chest pain or shortness of breath. She spoke with family member who is a nurse and advised her to come to the emergency department due to concern for possible heart attack. She denies any personal history of heart attacks but states that her father at a young age of an enlarged heart. She denies any swelling, abdominal pain, nausea, vomiting. On arrival, patient was initially significantly hypertensive with blood pressure 221/128, however it has improved to 194/101 without intervention. Heart rate within normal limits, afebrile, oxygen saturation 97% SpO2. Physical exam, as stated above, revealed an overall well-appearing female in no distress. She is resting comfortably on stretcher. Abdomen is soft, nontender nondistended. Cardiopulmonary exam without murmurs, wheezing, rales or rhonchi. No tenderness in the midline thoracic or cervical spine. Full range of motion of the neck without pain. Sensation and strength intact to the right upper extremity. Pulses equal and intact throughout the upper extremities. Differential diagnosis includes, but is not limited to: Aortic dissection/aneurysm, cervical radiculopathy, ACS, muscle strain, hypertensive emergency, hyperthyroidism, among others. The most morbid conditions were considered and workup was based on these. Workup in the emergency department included: CTA of the chest dissection protocol, CBC, PT/INR, PTT, VBG with lactate, CMP, magnesium level, troponin, BNP, TSH/free T4, urinalysis Laboratory studies show no leukocytosis, no anemia, platelets within normal limits, coagulation studies normal, VBG unremarkable with normal lactate. No electrolyte derangement, no HELEN, magnesium normal at 2.0. Initial troponin less than 0.01. BNP normal at 123. Liver enzymes and bilirubin within normal limits. TSH and free T4 within normal limits. Urinalysis without blood or evidence of infection. Repeat troponin CTA of the chest showed a 4 cm ascending aortic aneurysm without evidence of dissection. No pulmonary embolism. She does have a 16 mm nodule the left lobe of the thyroid. She does have consolidation in the left lower lobe that could represent atelectasis versus pneumonia. I discussed patient's case with Dr. Elmore with [facility] who recommended close follow-up and for the patient to contact the office for follow-up. He did also recommend tight blood pressure control as she is at high risk of dissection with these elevated blood pressures. The number for the clinic is [phone] and clinic is located at [facility] [place]. Given her continued elevated blood pressures now at 216/120, I discussed patient's case with Dr. Segundo who recommended admission to observation status for better blood pressure control. He recommended 50 mg losartan x 1 followed by losartan 50 mg twice daily as well as 25 mg 3 times daily hydralazine. I spoke with pharmacy, the only dosage of losartan available is 75 mg. There is no 25 or 50 mg dosage. Given this, we will do a 37.5 mg losartan instead of the 50 mg. I discussed this with the patient and she was amenable to admission at this time for tighter blood pressure control. Will also give Tylenol, ibuprofen, Robaxin and a lidocaine patch for her back pain. Will also start patient on 1 g amoxicillin for possible pneumonia as reported on chest CT. Patient was subsequently admitted to the hospital service for further management. Critical Care Critical Care Time Critical Care Time: No
[2025-03-16 08:57] LABS: Blood Urea Nitrogen 15 mg/dl (7-17); Creatinine Clearance Estimated 48 mL/min (50-200); Creatinine,Serum 0.60 mg/dl (0.52-1.04); Estimated Glomerular Filt Rate 96 ml/min (>60); GFR (African American) 116 ML/MIN (>60)
[2025-03-16 08:58] LABS: Alanine Aminotransferase 26 U/L (12-78); Albumin/Globulin Ratio 1.4 (1.1-1.8); Alkaline Phosphatase 156 U/L (38-126); Anion Gap 13.8 mEq/L (5-15); Aspartate Amino Transferase 26 U/L (14-36); Bilirubin,Total 0.9 mg/dl (0.2-1.3); Calcium 9.9 mg/dl (8.4-10.2); Carbon Dioxide 26 mmol/L (22.0-30.0); Globulin 3.4 g/dL (1.3-3.2); Glucose 114 mg/dl (74-100); Magnesium 2.0 mg/dl (1.6-2.3); Total Protein,Serum 8.0 g/dl (6.3-8.2)
[2025-03-16] MEDS: NITROGLYCERIN 0.4MG SL TABLET 0.4 MG SL (08:58)
[2025-03-16 08:59] LABS: Activated Partial Thrombo Time 26.6 seconds (22.8-30.6); INR 1.05 (0.9-1.1); Prothrombin Time 11.6 seconds (10.1-12.5)
--- NOTE | 2025-03-16 08:59 | PC.NURSE ---
VBG drawn and given to RT at this time
[2025-03-16 09:03] LABS: Lactate Venous 1.4 mmol/L (0.4-2.0); VBG HCO3 26.3 mmol/L (23-30); VBG PCO2 43.5 mmol/L (35-51); VBG PH 7.40 mmol/L (7.31-7.41); VBG PO2 40.1 mmol/L (28-40)
[2025-03-16 09:08] LABS: NT Pro Brain Natriuretic Pep. 123 pg/mL (0-450)
--- NOTE | 2025-03-16 09:08 | PC.NURSE ---
pt going for CT scan at this time via wheelchair via [employer]
[2025-03-16 09:11] LABS: Troponin I < 0.01 ng/ml (0.00-0.034)
[2025-03-16 09:18] LABS: Free T4 (Free Thyroxine) 1.49 ng/dl (0.78-2.19)
--- NOTE | 2025-03-16 09:19 | PC.NURSE ---
pt back from CT at this time
[2025-03-16] MEDS: 0.9 % SODIUM CHLORIDE 50 ML VIAL IV (09:22)
[2025-03-16] MEDS: IOPAMIDOL-370 (76%);100ML BOTTLE 80 ML IV (09:22)
[2025-03-16] MEDS: SODIUM CHLORIDE 0.9% 10ML SYR (RAD ONLY) 10 ML IV (09:22)
[2025-03-16 09:29] LABS: Thyroid Stimulating Hormone 1.83 uIU/mL (0.465-4.68)
[2025-03-16 09:41] LABS: Microscopic, Urine URINE MICROSCOPIC (MICROSCOPIC)
[2025-03-16 09:42] LABS: Bilirubin,Urine Negative (Negative); Color,Urine YELLOW (Yellow); Glucose,Urine (UA) Negative (Negative); Ketones,Urine Negative (Negative); Leukocyte Esterase,Urine Negative (Negative); PH,Urine 7.0 (5.0-8.5); Protein,Urine Negative (Negative); Specific Gravity, Urine 1.010 (1.005-1.030); Urobilinogen,Urine 0.2 EU/dl (0.2)
[2025-03-16 09:48] LABS: Amorphous Sediment,Urine Trace /lpf; Bacteria,Urine Trace /lpf; Squamous Epithelial Cell,Urine Occasional #/hpf (0-5); WBC,Urine Occasional #/hpf (0-3)
--- NOTE | 2025-03-16 10:30 | PC.NURSE ---
called [facility] per DR Alanis for a pt consult with Cardio thoracic for a followup due to newly found thoracic aneurysm. [facility] advised they would call back.
--- NOTE | 2025-03-16 10:33 | PC.NURSE ---
DR Alanis is currently on phone with DR Morfin with
[2025-03-16] MEDS: HYDRALAZINE 10MG TABLET 10 MG PO (10:53)
--- NOTE | 2025-03-16 11:03 | PC.NURSE ---
Paged at this time
--- NOTE | 2025-03-16 11:06 | PC.NURSE ---
[facility] was called for a cardiothoracic consult. They will page the oncall and call back.
--- NOTE | 2025-03-16 11:20 | PC.NURSE ---
on phone with at this time
--- NOTE | 2025-03-16 11:21 | PC.NURSE ---
Dr Alanis was on phone with from [facility] at 11:13
--- NOTE | 2025-03-16 11:26 | PC.NURSE ---
notified house of admission dx of Hypertension admitted per . at bedside at this time.
[2025-03-16 11:36] LABS: Troponin I < 0.01 ng/ml (0.00-0.034)
[2025-03-16] MEDS: IRBESARTAN 75MG TABLET 37.5 MG PO ×2 (11:44→20:46)
--- NOTE | 2025-03-16 12:07 | HMH.PHAINT1 ---
Pharmacy Intervention Comments: MEDICATION RECONCILIATION COMPLETED ON PATIENT USING EXTERNAL FILL HISTORY FROM PHARMACY. -TIANA BONILLA, GABIRELD
[2025-03-16] MEDS: AMOXICILLIN 500MG CAPSULE 1000 MG PO (13:01)
[2025-03-16] MEDS: LIDOCAINE 5% TRANSDERMAL PATCH 1 EACH TD (13:01)
[2025-03-16] MEDS: IBUPROFEN 600 MG TABLET PO (13:02)
[2025-03-16] MEDS: ACETAMINOPHEN 500MG TAB 1000 MG PO (13:02)
[2025-03-16] MEDS: METHOCARBAMOL 500MG TABLET 1000 MG PO ×2 (13:04→20:45)
[2025-03-16 15:54] LABS: Troponin I < 0.01 ng/ml (0.00-0.034)
[2025-03-16] MEDS: HYDRALAZINE HCL 25MG TABLET 25 MG PO ×2 (17:53→20:45)
--- NOTE | 2025-03-16 18:17 | PC.NURSE ---
pt is A&Ox4. she is on room air. she is independent and ambulates on her own. her blood pressure was 223/99 upon arrival to the floor at noon. she has been given meds to help bring it down. BP rechecked at 1600 and was 143/103. pt has no other needs at this time. call light is within reach.
--- NOTE | 2025-03-16 19:26 | PC.NURSE ---
pt had questions on her nightly aspirin for tonight so i had mulberry paged. Dr brown called back and okayed us to give her the aspirin. fax was sent to pharmacy.
[2025-03-16] MEDS: ASPIRIN 325MG TABLET 325 MG PO (20:46)
[2025-03-17] VITALS (7 sets, daily range): BP systolic 129–184; BP diastolic 71–104; PULSE 52–96; RESP 16–18; TEMP 36.6–36.8; O2SAT 95–96; BMI 30.4
--- NOTE | 2025-03-17 05:23 | PC.NURSE ---
Pt was admitted for HTN. A&Ox4, Removed Lidocaine Patch at 1 am. b/p is stabilizing. PRANEETH BOOKER RN
--- NOTE | 2025-03-17 08:18 | EXP.HP ---
History of Present Illness *Admission Date: 03/16/25 *Reason for visit:: Neck pain and high blood pressure. *History of present illness: Ms. Ignacio is an 79-year-old female with a history of carotid artery disease, macular degeneration, kidney stones, spinal disc stenosis with arthritic disc, hyperlipidemia, hypertension, chronic back pain, lumbar disc disease, and iron deficiency anemia who presented to [facility] emergency room for evaluation after experiencing neck pain and ongoing hypertension. She describes the neck pain in the lower cervical area with some paresthesias in the right arm. She said it was very severe the night before last and she was unable to sleep. She has been using [id number] pain creams. She states that she does knit and cecilia a lot which she feels contributed to her neck pain. Also her blood pressure has been quite elevated.She was seen in the office of [facility] on 03/03/2025 and her losartan was increased at that time. She has a record of her blood pressures and they have fluctuated and consistently been elevated.. She denies having any chest pain, palpitations or shortness of breath. Emergency room documented blood pressures ranged from 221/128 to 183/96 to 118/105. Troponin I was normal x 3. . Chest x-ray showed a possible pneumonia. She was given p.o. amoxicillin, acetaminophen 1000 mg, hydroxyzine 25 mg, ibuprofen 600 mg, irbesartan 37.5 mg x 2 and a lidocaine patch was placed on her nape of her neck. She was also given methocarbamol 1000 mg p.o.. They also tried nitroglycerin sublingually. CTA of the chest showed a 4 Millameter ascending aortic aneurysm without evidence of dissection. Also noted was a 16 mm nodule in the left lobe of the thyroid And consolidation in the left lower lobe possibly representing atelectasis versus pneumonia. Also revealed was a large hiatal hernia. Physician at [facility] was consulted and said to schedule follow-up visit. She was subsequently admitted to the hospital for further evaluation and treatment. Also to note patient states she has a appointment 03/24 with neurology following an MRI of her head. This morning blood pressure is 184/104 and low during the night has been 143/103 and 150/92.'s been 223/99. Patient states she slept a couple hours between nursing checks. She continually denies any chest pain or shortness of breath. [facility] Disclaimer: The information contained in this section may have been updated after the patient was seen, as this information can be updated by other users. Medical History Vitamin D deficiency Thyroid disease Lumbar spinal stenosis Lumbar disc disease Kidney stones Internal hemorrhoids High blood pressure Hiatal hernia Gastric ulcer with hemorrhage GERD with esophagitis Colon polyps [place] esophagus Back pain Anemia Surgical History History of appendectomy History of lithotripsy History of esophagogastroduodenoscopy (EGD) History of colonoscopy Family History Mother Breast cancer Colon cancer Social History (Updated 03/16/25 @ 12:33 by Ashwini Carver RN) Smoking Status: Never smoker alcohol intake: never current occupational status: other Travel in the last 8 weeks?: None Have you lived/traveled outside [place] in past 30 days?: No Contact w/someone who lives/traveled outside US past 30 days?: No Exposure to someone with infectious disease in past 14 days?: No Do you have a fever (greater than 100.4 F or 38 C)?: No Have you tested positive for COVID-19?: No Exposed to someone with COVID-19 in past 14 days?: No Do you have a sore throat?: No Do you have a cough?: No Do you have any weakness?: No Are you experiencing any nausea/vomitting?: No Do you have any diarrhea?: No Are you experiencing any unusual bleeding?: No Do you have any muscle aches/pain?: No Do you have any abdominal pain?: No Are you experiencing loss of taste or smell?: No Other Medical History Have you received the Flu Vaccine for this season: No Have you received the Pneumonia Vaccine: Yes Review of Systems Constitutional Constitutional: Denies body ache(s), Denies frequent falls and Denies headache(s) Eyes Eyes: Denies change in vision ENT Ears, Nose, Mouth, and Throat: Denies dizziness, Denies otalgia, Denies headache(s), Reports neck pain, Denies sore throat and Denies vertigo *Cardiovascular Cardiovascular: Denies chest pain, Denies dyspnea and Denies irregular heart rhythm *Respiratory Respiratory: Reports cough (And frequent dry cough) and Denies dyspnea *Gastrointestinal Gastrointestinal: Denies abdominal pain, Denies change in stool character, Denies diarrhea, Denies dyspepsia, Denies nausea and Denies vomiting *Genitourinary Genitourinary: Denies difficulty voiding *Musculoskeletal Musculoskeletal: Denies abnormal gait, Reports arthralgias (neck) and Reports neck pain *Neurologic Neurologic: Denies abnormal gait, Denies confusion, Denies convulsions, Denies dizziness, Denies frequent falls, Denies headache(s) and Denies vertigo Psychiatric Psychiatric: Denies confusion Meds Home Medications and Allergies Home Medications ?Medication ?Instructions ?Recorded ?Confirmed ?Type aspirin 325 mg tablet 325 mg PO DAILY 07/26/18 03/16/25 History atorvastatin 20 mg tablet 10 mg PO DAILY 07/26/18 03/16/25 History verapamil 240 mg 24 hr 240 mg PO DAILY 07/26/18 03/16/25 History capsule,extended release vitamins A,C,L-ptzc-tvvnnc 4,296 1 cap PO BID 12/16/24 03/16/25 History mcg-226 mg-90 mg capsule (PreserVision AREDS) cholecalciferol (vitamin D3) 125 5,000 unit PO DAILY 03/16/25 03/16/25 History mcg (5,000 unit) tablet (Vitamin D3) losartan 25 mg tablet 25 mg PO DAILY 03/16/25 03/16/25 History omeprazole 20 mg capsule,delayed 20 mg PO BID 03/16/25 03/16/25 History release New Prescriptions to Start Prescriptions: Allergies Allergy/AdvReac Type Severity Reaction Status Date / Time Antihistamines - Alkylamine Allergy Intermediate Unknown Verified 03/16/25 08:55 allergy reaction niacin Allergy Unknown Unknown Verified 03/16/25 08:55 allergy reaction sulconazole Allergy Unknown Unknown Verified 03/16/25 08:55 allergy reaction Exam Data for Last 24 hours Vital signs and Labs for Last 24 Hours: Temp Pulse Resp BP Pulse Ox O2 Del Method O2 Flow Rate 98.1 F 71 18 184/104 H 96 Room Air 97 03/17/25 07:38 03/17/25 07:38 03/17/25 07:38 03/17/25 07:38 03/17/25 07:38 03/17/25 07:38 03/16/25 21:00 Laboratory Results - last 24 hr 03/16/25 08:21: WBC 6.6, RBC 5.27, Hgb 15.4, Hct 45.5, MCV 86.3, MCH 29.2, MCHC 33.8, RDW 13.2, Plt Count 235, MPV 11.5 H, Neut % (Auto) 56.6, Lymph % (Auto) 25.4, [place] % (Auto) 10.3 H, Eos % (Auto) 6.4, Baso % (Auto) 1.1, Neut # (Auto) 3.8, Lymph # (Auto) 1.7, [place] # (Auto) 0.7, Eos # (Auto) 0.4, Baso # (Auto) 0.1, PT 11.6, INR 1.05, APTT 26.6, Sodium 140, Potassium 3.8, Chloride 104, Carbon Dioxide 26, Anion Gap 13.8, BUN 15, Creatinine 0.60, Estimated Creat Clear 48, Estimated GFR 96, Est GFR ( Amer) 116, Glucose 114 H, Calcium 9.9, Magnesium 2.0, Total Bilirubin 0.9, AST 26, ALT 26, Alkaline Phosphatase 156 H, Troponin I < 0.01, NT-Pro-B Natriuret Pep 123, Total Protein 8.0, Albumin 4.6, Globulin 3.4 H, Albumin/Globulin Ratio 1.4, TSH 1.83, Free T4 1.49 03/16/25 08:58: VBG pH 7.40, VBG pCO2 43.5, VBG pO2 40.1 H, VBG HCO3 26.3, VBG Total CO2 27.7 H, VBG O2 Saturation 75.3 H, VBG Base Excess 1.5, VBG Lactic Acid 1.4 03/16/25 09:35: Urine Color Yellow, Urine Appearance Clear, Urine pH 7.0, Ur Specific [place] 1.010, Urine Protein Negative, Urine Glucose (UA) Negative, Urine Ketones Negative, Urine Blood Negative, Urine Nitrate Negative, Urine Bilirubin Negative, Urine Urobilinogen 0.2, Ur Leukocyte Esterase Negative, Urine RBC None, Urine WBC Occasional, Ur Squamous Epith Cells Occasional, Amorphous Sediment Trace, Urine Bacteria Trace 03/16/25 11:00: Troponin I < 0.01 03/16/25 15:00: Troponin I < 0.01 I & O for Last 24 hours: Intake & Output 03/14/25 03/15/25 03/16/25 03/17/25 11:59 11:59 11:59 11:59 Intake Total 1100 / 1100 Output Total 1000 / 1000 Balance 100 / 100 Weight 152 lb 155 lb Constitutional Constitutional: no acute distress and cooperative Comments: Sitting up in the bed visiting with family members, 2 daughters and her . *Routine HEENT Exam Head: Present normocephalic and atraumatic Eye: Present EOMI and PERRL; Absent conjunctival icterus, scleral injection or conjunctivae pink ENT: Present mucous membranes moist and oropharynx clear *Routine Neck Exam Neck: Present supple and full ROM; Absent carotid bruit, lymphadenopathy, thyromegaly or tenderness *Routine Respiratory Exam Respiratory: Present CTA bilaterally (Anteriorly and posteriorly) *Routine Cardiovascular Exam Cardiovascular: Present RRR *Routine Abdominal Exam Abdominal: Present soft and normoactive bowel sounds; Absent tenderness or distended *Routine Rectal Exam Rectal:: deferred *Routine Genitalia Exam Genitalia:: deferred *Routine Extremities Exam Extremities: Present full ROM and pulses intact; Absent edema or calf tenderness *Routine Neurological Exam Neurological: Present alert, oriented X3 and CN II-XII intact Assessment and Plan *Assessment and plan (1) Hypertension: Status: Acute Category: Medical Code(s): I10 - Essential (primary) hypertension (2) Left lower lobe pneumonia: Status: Acute Category: Medical Code(s): J18.9 - Pneumonia, unspecified organism (3) Left thyroid nodule: Status: Acute Category: Medical Code(s): E04.1 - Nontoxic single thyroid nodule (4) Aneurysm of ascending aorta: Status: Acute Category: Medical Code(s): I71.21 - Aneurysm of the ascending aorta, without rupture (5) Lumbar spinal stenosis: Status: Acute Category: Medical Code(s): M48.061 - Spinal stenosis, lumbar region without neurogenic claudication (6) Lumbar disc disease: Status: Acute Category: Medical Code(s): M51.9 - Unspecified thoracic, thoracolumbar and lumbosacral intervertebral disc disorder (7) Neck pain: Status: Acute Category: Medical Code(s): M54.2 - Cervicalgia Plan will restart Verapamil, and increase irbesartan to 300 mg daily, and continue hydralazine [address] Coulter entry - Saw patient, agree with above ntoe, had a long discussion with patient and her family about the treatment plan. BP control is paramount today.
[2025-03-17] MEDS: IRBESARTAN 75MG TABLET 37.5 MG PO (08:51)
[2025-03-17] MEDS: METHOCARBAMOL 500MG TABLET 1000 MG PO ×2 (08:51→20:47)
[2025-03-17] MEDS: HYDRALAZINE HCL 25MG TABLET 25 MG PO ×3 (08:51→20:44)
[2025-03-17] MEDS: IRBESARTAN 150MG TAB 225 MG PO (10:05)
[2025-03-17] MEDS: PANTOPRAZOLE 40MG TABLET 40 MG PO (10:05)
[2025-03-17] MEDS: METOPROLOL TARTRATE 50MG TABLET 50 MG PO ×2 (10:05→20:44)
[2025-03-17] MEDS: LIDOCAINE 5% TRANSDERMAL PATCH 1 EACH TD (11:56)
[2025-03-17] MEDS: SODIUM CHLORIDE 3% 15ML NEB 3 ML IH (13:01)
--- NOTE | 2025-03-17 15:07 | PC.NURSE ---
Pt's BP has improved after medication changes per MD. Pt has remained asymptomatic when BP was elevated. Has c/o some discomfort to her upper back. Lidocaine patch placed. Pt has had a bath. No other concerns at this time. Call light within reach.
[2025-03-17] MEDS: OMEPRAZOLE 20 MG 1 EACH PO (20:45)
[2025-03-17] MEDS: ASPIRIN 325 MG PO (20:45)
[2025-03-18] VITALS: BP 177/84; PULSE 65; RESP 16; TEMP 36.6; O2SAT 96
--- NOTE | 2025-03-18 00:20 | PC.NURSE ---
around 193 patient BP was 129/71, patient was ordered to take hydralazine 25 mg one time dose and scheduled hydralazine and metoprolol tartrate, at that time one time dose was not given due to contolled BP. at 0 BP was 177/84, MD Corbin ( composition floor setter for MD Coulter) was paged and made aware of BP and that the medication was held earlier in the shift, stated not to give medication and to just watch patient for now .
[2025-03-18 04:00] VITALS: BP 184/97; PULSE 66; RESP 16; TEMP 36.4; O2SAT 97; BMI 31.0
--- NOTE | 2025-03-18 06:00 | XR_ITS ---
PROCEDURE INFORMATION: Exam: XR Chest Exam date and time: 03/18/2025 6:14 AM Age: 79 years old Clinical indication: Abnormal findings; Abnormal radiologic exam of lung or chest; Additional info: Abnormal CT scan, possible cap TECHNIQUE: Imaging protocol: Radiologic exam of the chest. Views: 2 views. Total images: 2 COMPARISON: CT ANGIO CHEST 03/16/2025 9:17 AM FINDINGS: Lungs: Airspace opacity consistent with pneumonia present within the left lung base. Atelectatic changes right lung base. Pleural spaces: No pleural effusion. No pneumothorax. Heart/Mediastinum: Heart demonstrates mild diffuse enlargement. Vasculature: Tortuosity of the thoracic aorta. Mild atherosclerotic disease. Bones/joints: The thoracic spine demonstrates mild degenerative changes at multiple levels. IMPRESSION: 1. Mild cardiomegaly. 2. Airspace opacity consistent with pneumonia present within the left lung base. 3. Atelectatic changes right lung base.
[2025-03-18 06:26] LABS: Hematocrit 44.3 % (37.0-47.0); Hemoglobin 14.6 g/dL (12.2-16.2); Immature Granulocytes % 0.3 %; Mean Corpuscular HGB Conc 33.0 g/dL (31.8-35.4); Mean Corpuscular Hemoglobin 28.7 pg (27.0-31.2); Mean Corpuscular Volume 87.2 fl (81-99); Nucleated Red Blood Cells % 0 %; Platelet Count 248 K/mm3 (142-424); Red Blood Count 5.08 M/mm3 (4.20-5.40); Red Cell Distribution Width-SD 42.5 fL; White Blood Count 6.5 K/mm3 (4.8-10.8)
[2025-03-18 06:35] LABS: Chloride 102 mmol/L (98-107); Sodium 138 mmol/L (136-145)
[2025-03-18 06:36] LABS: Potassium 3.9 mmoL/L (3.5-5.1)
[2025-03-18 06:39] LABS: Anion Gap 10.9 mEq/L (5-15); Blood Urea Nitrogen 14 mg/dl (7-17); Calcium 9.2 mg/dl (8.4-10.2); Carbon Dioxide 29 mmol/L (22.0-30.0); Creatinine Clearance Estimated 50 mL/min (50-200); Creatinine,Serum 0.70 mg/dl (0.52-1.04); Estimated Glomerular Filt Rate 80 ml/min (>60); GFR (African American) 97 ML/MIN (>60); Glucose 110 mg/dl (74-100)
[2025-03-18 07:44] VITALS: BP 174/105; PULSE 64; RESP 18; TEMP 36.8; O2SAT 96
--- NOTE | 2025-03-18 07:52 | P.PN_ITS ---
Subjective *Date: 03/18/25 *Time: 09:07 Interval history: Patient reports a good day yesterday. Low blood pressure 129/71 but then increased and is 174/105 this a.m. Apparently p.m. dose was held according to nursing notes. She did have some neck discomfort and a lidocaine patch was sara lied with relief of the discomfort. She has had no further problems. This a.m. patient states she has had no chest pain and no shortness of breath. She is ambulated in the room without difficulty. She is voiding QS and bowels have moved. She is eating as usual. Laboratory data this morning shows normal electrolytes and kidney function. Patient did have a chest x-ray this morning with pending results. Exam Data for Last 24 hours Vital signs and Labs for Last 24 Hours: Temp Pulse Resp BP Pulse Ox O2 Del Method O2 Flow Rate 98.3 F 64 18 174/105 H 96 Room Air 97 03/18/25 07:44 03/18/25 07:44 03/18/25 07:44 03/18/25 07:44 03/18/25 07:44 03/18/25 07:44 03/16/25 21:00 Laboratory Results - last 24 hr 03/18/25 06:09: WBC 6.5, RBC 5.08, Hgb 14.6, Hct 44.3, MCV 87.2, MCH 28.7, MCHC 33.0, RDW 13.3, Plt Count 248, MPV 11.3 H, Neut % (Auto) 68.9, Lymph % (Auto) 16.0, [place] % (Auto) 10.0 H, Eos % (Auto) 4.0, Baso % (Auto) 0.8, Neut # (Auto) 4.5, Lymph # (Auto) 1.0, [place] # (Auto) 0.7, Eos # (Auto) 0.3, Baso # (Auto) 0.1, Sodium 138, Potassium 3.9, Chloride 102, Carbon Dioxide 29, Anion Gap 10.9, BUN 14, Creatinine 0.70, Estimated Creat Clear 50, Estimated GFR 80, Est GFR ( Amer) 97, Glucose 110 H, Calcium 9.2 I & O for Last 24 hours: Intake & Output 03/15/25 03/16/25 03/17/25 03/18/25 11:59 11:59 11:59 11:59 Intake Total 1380 / 1380 820 / 820 Output Total 2700 / 2700 2100 / 2100 Balance -1320 / -1320 -1280 / -1280 Weight 152 lb 155 lb 158 lb 3.2 oz Microbiology Reports for the Last 24 Hours: Microbiology 03/17/25 13:20 Sputum - Expectorated Sputum Gram Stain - Final 03/17/25 13:20 Sputum - Expectorated Sputum Sputum Culture - Preliminary Constitutional Constitutional: no acute distress Comments: Sitting on the side of the bed eating breakfast. *Routine Respiratory Exam Respiratory: Present CTA bilaterally (Anteriorly and posteriorly with good bilateral air movement) *Routine Cardiovascular Exam Cardiovascular: Present RRR (80/min) *Routine Abdominal Exam Abdominal: Present soft and normoactive bowel sounds; Absent tenderness *Routine Extremities Exam Extremities: Absent edema *Routine Neurological Exam Neurological: Present alert and oriented X3 Assessment and Plan *Assessment and plan (1) Hypertension: Status: Acute Category: Medical Code(s): I10 - Essential (primary) hypertension (2) Left lower lobe pneumonia: Status: Acute Category: Medical Code(s): J18.9 - Pneumonia, unspecified organism (3) Left thyroid nodule: Status: Acute Category: Medical Code(s): E04.1 - Nontoxic single thyroid nodule (4) Aneurysm of ascending aorta: Status: Acute Category: Medical Code(s): I71.21 - Aneurysm of the ascending aorta, without rupture (5) Lumbar spinal stenosis: Status: Acute Category: Medical Code(s): M48.061 - Spinal stenosis, lumbar region without neurogenic claudication (6) Lumbar disc disease: Status: Acute Category: Medical Code(s): M51.9 - Unspecified thoracic, thoracolumbar and lumbosacral intervertebral disc disorder (7) Neck pain: Status: Acute Category: Medical Code(s): M54.2 - Cervicalgia Plan Blood pressure medicines have been adjusted. Probably home today. Needs follow-up with cardiovascular surgeon and will keep neuro appointment. Dr. Coulter entry - Saw patient. OK to discharge home today, plan outpatient f/u with CT surgery at [facility] in [place]. Plan to resume home dose of Verapamil, other BP meds will be Avapro 300 daily, Toprol XL 100 mg daily and Hydralazine 50 mg every 8 hours. F/U in [facility] office in 1 week.
[2025-03-18 08:15] VITALS: O2SAT 96
[2025-03-18] MEDS: OMEPRAZOLE 20 MG 1 EACH PO (08:36)
[2025-03-18] MEDS: METHOCARBAMOL 500MG TABLET 1000 MG PO (08:37)
[2025-03-18] MEDS: HYDRALAZINE HCL 25MG TABLET 25 MG PO (08:37)
[2025-03-18] MEDS: METOPROLOL TARTRATE 50MG TABLET 50 MG PO (08:38)
[2025-03-18] MEDS: IRBESARTAN 300MG TABLET 300 MG PO (08:38)
--- NOTE | 2025-03-18 12:02 | P.DS_ITS ---
General Admission date:: 03/16/25 Discharge date: 03/18/25 HPI HPI HPI: Ms. Ignacio is an 79-year-old female with a history of carotid artery disease, macular degeneration, kidney stones, spinal disc stenosis with arthritic disc, hyperlipidemia, hypertension, chronic back pain, lumbar disc disease, and iron deficiency anemia who presented to [facility] emergency room for evaluation after experiencing neck pain and ongoing hypertension. She describes the neck pain in the lower cervical area with some paresthesias in the right arm. She said it was very severe the night before last and she was unable to sleep. She has been using [id number] pain creams. She states that she does knit and cecilia a lot which she feels contributed to her neck pain. Also her blood pressure has been quite elevated.She was seen in the office of [facility] on 03/03/2025 and her losartan was increased at that time. She has a record of her blood pressures and they have fluctuated and consisten tly been elevated.. She denies having any chest pain, palpitations or shortness of breath. Emergency room documented blood pressures ranged from 221/128 to 183/96 to 118/105. Troponin I was normal x 3. . Chest x-ray showed a possible pneumonia. She was given p.o. amoxicillin, acetaminophen 1000 mg, hydroxyzine 25 mg, ibuprofen 600 mg, irbesartan 37.5 mg x 2 and a lidocaine patch was placed on her nape of her neck. She was also given methocarbamol 1000 mg p.o.. They also tried nitroglycerin sublingually. CTA of the chest showed a 4 Millameter ascending aortic aneurysm without evidence of dissection. Also noted was a 16 mm nodule in the left lobe of the thyroid And consolidation in the left lower lobe possibly representing atelectasis versus pneumonia. Also revealed was a large hiatal hernia. Physician at [facility] was consulted and said to schedule follow-up visit. She was subsequently admitted to the hospital for further evaluation and treatment. Also to note patient states she has a appointment 03/24 with neurology following an MRI of her head. This morning blood pressure is 184/104 and low during the night has been 143/103 and 150/92.'s been 223/99. Patient states she slept a couple hours between nursing checks. She continually denies any chest pain or shortness of breath. Hospital Course Hospital Course Hospital Course: Pt did well after admission; BP meds were added as listed; BP low was 129/71; one BP med was held; 1200 AM BP 177/84 and then this AM 174/105. Patient was asymptomatic. Neck pain had resolved. Lidocaine patch really helped. She ambulated without problems and was eating/drinking without issues. She was discharged on Hydralazine 50 mg tid, Irbesartan 300mg qd, metoprolol succinate 100 qd, and verapamil 240mg qd. She will have a cardiovascular FU for the aortic aneurysm and also FU visit at [facility] in a week. repeat CXR done this AM with pending results at time of discharge. Exam Data for Last 24 hours Vital signs and Labs for Last 24 Hours: Temp Pulse Resp BP Pulse Ox O2 Del Method O2 Flow Rate 98.3 F 64 18 174/105 H 96 Room Air 97 03/18/25 07:44 03/18/25 07:44 03/18/25 07:44 03/18/25 07:44 03/18/25 08:15 03/18/25 09:05 03/16/25 21:00 Laboratory Results - last 24 hr 03/18/25 06:09: WBC 6.5, RBC 5.08, Hgb 14.6, Hct 44.3, MCV 87.2, MCH 28.7, MCHC 33.0, RDW 13.3, Plt Count 248, MPV 11.3 H, Neut % (Auto) 68.9, Lymph % (Auto) 16.0, [place] % (Auto) 10.0 H, Eos % (Auto) 4.0, Baso % (Auto) 0.8, Neut # (Auto) 4.5, Lymph # (Auto) 1.0, [place] # (Auto) 0.7, Eos # (Auto) 0.3, Baso # (Auto) 0.1, Sodium 138, Potassium 3.9, Chloride 102, Carbon Dioxide 29, Anion Gap 10.9, BUN 14, Creatinine 0.70, Estimated Creat Clear 50, Estimated GFR 80, Est GFR ( Amer) 97, Glucose 110 H, Calcium 9.2 I & O for Last 24 hours: Intake & Output 03/16/25 03/17/25 03/18/25 03/19/25 11:59 11:59 11:59 11:59 Intake Total 1380 / 1380 820 / 820 Output Total 2700 / 2700 2100 / 2100 Balance -1320 / -1320 -1280 / -1280 Weight 152 lb 155 lb 158 lb 3.2 oz Microbiology Reports for the Last 24 Hours: Microbiology 03/17/25 13:20 Sputum - Expectorated Sputum Gram Stain - Final 03/17/25 13:20 Sputum - Expectorated Sputum Sputum Culture - Preliminary Narrative: PE at [facility] 03/18/2025 Constitutional Constitutional: no acute distress Comments: Sitting on the side of the bed eating breakfast. *Routine Respiratory Exam Respiratory: Present CTA bilaterally (Anteriorly and posteriorly with good bilateral air movement) *Routine Cardiovascular Exam Cardiovascular: Present RRR (80/min) *Routine Abdominal Exam Abdominal: Present soft and normoactive bowel sounds; Absent tenderness *Routine Extremities Exam Extremities: Absent edema *Routine Neurological Exam Neurological: Present alert and oriented X3 Results Data Completed and Pending Completed studies during hospitalization [Text1]: chest CTA 03/16/2025 MPRESSION: 1. No evidence of pulmonary embolus to the segmental level. 2. Unruptured aneurysm of the ascending aorta 4 cm.. 3. No dissection of the aorta. 4. 16 mm nodule left lobe of the thyroid. Recommend thyroid ultrasound. 5. Large hiatal hernia. 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 6. Mild consolidation in the left lower lobe may represent atelectasis or pneumonia. Labs on day of discharge: Labs from last 24 hours 03/18/25 06:09 WBC 6.5 RBC 5.08 Hgb 14.6 Hct 44.3 MCV 87.2 MCH 28.7 MCHC 33.0 RDW 13.3 Plt Count 248 MPV 11.3 H Neut % (Auto) 68.9 Lymph % (Auto) 16.0 [place] % (Auto) 10.0 H Eos % (Auto) 4.0 Baso % (Auto) 0.8 Neut # (Auto) 4.5 Lymph # (Auto) 1.0 [place] # (Auto) 0.7 Eos # (Auto) 0.3 Baso # (Auto) 0.1 Sodium 138 Potassium 3.9 Chloride 102 Carbon Dioxide 29 Anion Gap 10.9 BUN 14 Creatinine 0.70 Estimated Creat Clear 50 Estimated GFR 80 Est GFR ( Amer) 97 Glucose 110 H Calcium 9.2 Preliminary micro results at discharge 03/17/25 13:20 Sputum Culture - Preliminary Sputum - Expectorated Sputum DS: Diagnosis Discharge Diagnosis (1) Hypertension: Status: Acute Code(s): I10 - Essential (primary) hypertension (2) Left lower lobe pneumonia: Status: Acute Code(s): J18.9 - Pneumonia, unspecified organism (3) Left thyroid nodule: Status: Acute Code(s): E04.1 - Nontoxic single thyroid nodule (4) Aneurysm of ascending aorta: Status: Acute Code(s): I71.21 - Aneurysm of the ascending aorta, without rupture (5) Lumbar spinal stenosis: Status: Acute Code(s): M48.061 - Spinal stenosis, lumbar region without neurogenic claudication (6) Lumbar disc disease: Status: Acute Code(s): M51.9 - Unspecified thoracic, thoracolumbar and lumbosacral intervertebral disc disorder (7) Neck pain: Status: Acute Code(s): M54.2 - Cervicalgia Meds Home Medications and Allergies Home Medications ?Medication ?Instructions ?Recorded ?Confirmed ?Type aspirin 325 mg tablet 325 mg PO DAILY 07/26/1805/31 History atorvastatin 20 mg tablet 10 mg PO DAILY 07/26/1803/07 History verapamil 240 mg 24 hr 240 mg PO DAILY 07/26/1805/31 History capsule,extended release vitamins A,C,L-lbco-delkoz 4,296 1 cap PO BID 12/16/24 03/16/25 History mcg-226 mg-90 mg capsule (PreserVision AREDS) cholecalciferol (vitamin D3) 125 5,000 unit PO DAILY 0 03/16/25 03/16/25 History mcg (5,000 unit) tablet (Vitamin D3) omeprazole 20 mg capsule,delayed 20 mg PO BID 03/16/25 03/16/25 History release hydralazine 50 mg tablet 50 mg PO TID #90 tabs Rx irbesartan 300 mg tablet 300 mg PO DAILY #30 tabs 07/31 Rx metoprolol succinate 100 mg 100 mg PO DAILY #30 tabs 0 03/18/25 Rx tablet,extended release 24 hr New Prescriptions to Start Prescriptions: hydralazine [place] irbesartan [place] metoprolol succinate [place] Allergies Allergy/AdvReac Type Severity Reaction Status Date / Time Antihistamines - Alkylamine Allergy Intermediate Unknown Verified 03/16/25 08:55 allergy reaction niacin Allergy Unknown Unknown Verified 03/16/25 08:55 allergy reaction sulconazole Allergy Unknown Unknown Verified 03/16/25 08:55 allergy reaction Discharge Plan Disposition Patient Disposition: Home, Self-Care Condition: Fair Follow up Plan Follow up with: [facility] [Other] - 04/15/25 9:00 am Phoenix Coulter MD [Primary Care Provider, Medical] - 03/25/25 10:00 am Prescriptions/Medication Reconciliation: New irbesartan 300 mg Tablet 300 mg PO DAILY Qty: 30 0RF metoprolol succinate 100 mg tablet extended release 24 hr 100 mg PO DAILY Qty: 30 0RF hydralazine 50 mg tablet 50 mg PO TID Qty: 90 0RF Continued PreserVision AREDS 4,296 mcg-226 mg-90 mg capsule 1 cap PO BID atorvastatin 20 MG tablet 10 mg PO DAILY aspirin 325 MG tablet 325 mg PO DAILY verapamil 240 MG capsule,ext rel. pellets 24 hr 240 mg PO DAILY omeprazole 20 mg capsule,delayed release(DR/EC) 20 mg PO BID Patient Comments: TAKE 1 CAPSULE BY MOUTH TWICE DAILY cholecalciferol (vitamin D3) [Vitamin D3] 125 mcg (5,000 unit) Tablet 5,000 unit PO DAILY Discontinued losartan 25 mg tablet 25 mg PO DAILY Patient Comments: TAKE 1 TABLET BY MOUTH ONCE DAILY Problem Reconciliation Problems Reviewed?: Yes Patient Discharge Instructions ACTIVITY: Continue current activity DIET: continue same diet Print Language: Welsh Providers Primary Care Provider: Phoenix Coulter Admit Provider: Phoenix Coulter Attending Provider: Phoenix Coulter
--- NOTE | 2025-03-19 10:17 | SW/DCPLANNER ---
Spoke with patient on the phone. Patient stated that she is doing very well. Patient stated that she is aware of her upcoming appointments. Patient stated that she was able to get her new medicine picked up from [facility]. Patient stated that she has no concerns or questions at this time. Josh Amraal
== END 2025-03-18 10:25 | disposition home or self-care (01) ==
LOC: ER 08:18 → 2ND 11:34
PROVIDERS: Admitting Provider Family Medicine; Emergency Provider Student in an Organized Health Care Education/Training Program; PCP Family Medicine; Visit Provider Family Medicine
DX: I10 Essential (primary) hypertension (principal); J18.9 Pneumonia, unspecified organism; E04.1 Nontoxic single thyroid nodule; I71.21 Aneurysm of the ascending aorta, without rupture; M48.061 Spinal stenosis, lumbar region without neurogenic claudication; E78.5 Hyperlipidemia, unspecified; K44.9 Diaphragmatic hernia without obstruction or gangrene; I45.10 Unspecified right bundle-branch block; I44.4 Left anterior fascicular block; M51.9 Unspecified thoracic, thoracolumbar and lumbosacral intervertebral disc disorder; M54.2 Cervicalgia; Z88.2 Allergy status to sulfonamides; Z88.8 Allergy status to other drugs, medicaments and biological substances; Z79.82 Long term (current) use of aspirin; Z79.899 Other long term (current) drug therapy; K21.9 Gastro-esophageal reflux disease without esophagitis
CPT/HCPCS: 36415; 71046; 71275; 80048; 80053; 81001; 82803; 83735; 83880; 84439; 84443; 84484; 85025; 85610; 85730; 87070; 87205; 89220; 93005; 99285; G0378; Q9967

== ENCOUNTER 2025-07-21 02:50 | Emergency (ER) | payer MEDICARE, SELFPAY ==
--- OUTSIDE RECORDS SUMMARY | 2024-07-22 06:45 | XMS_ITS ---
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 Radial Name Role Phone Phoenix Coulter Primary Care Provider [phone] Allergies No Known Allergies REASON FOR VISIT checkup Medications Medication SIG (Take, Route, Frequency, Duration) Notes Start Date End Date Status Calcium-Vitamin D-Minerals 600-800 MG-UNIT 1-2 tab(s) orally once daily Active Losartan Potassium 25 MG 1 tablet Orally Once a day; Duration: 90 days Active Multiple Vitamin - 1 cap(s) orally once a day Active B-12 2500 MCG 1 tab(s) sublinguall y once a day; Duration: 30 day(s) Activ e Azelastine-Fluticasone 137-50 MCG/ACT 1 spray in each nostril Nasally Twice a day 12/29/2023 Active Nystatin 386872 UNIT/GM 1 application Ex ternally Three times a day 12/01/2023 Active Verapamil HCl ER 240 MG 1 tab(s) orally once a day (in the morning); Duration: 90 days Active Atorvastatin Calcium 20 MG take 1/2 (one -half) tablet Orally once daily; Duration: 90 days Active Aspirin 325 MG 1 tab(s) orally once a day Active Potassium Chloride Libra ER 20 MEQ 1 tablet with food Orally Once a day; Duration: 90 days Active Vital Signs Weight 164.2 lbs 07/22/2024 Blood pressure systolic 130 mm Hg 07/22/20 24 Blood pressure diastolic 80 mm Hg 024 Heart Rate 54 /min 07/22/2024 Height 60.50 in 07/22/2024 BMI 31.54 kg/m2 07/22/2024 Encounters Encounter Location Date Provider Diagnosis [facility] [address] [place] [id number] 07/22/2024 Phoenix Coulter Essential hypertensi on I10 ; Pure hypercholesterolemia E78.00 and Vitamin D deficiency E55.9 Assessments Encounter Date Diagnosis (ICD Code) Assessment Notes Treatment Notes Treatment Clinical Notes Section Notes 07/22/2024 Essential hypertensi on (ICD-10 - I10) 07/22/2024 Pure hypercholesterolemia (ICD-10 - E78.00) 07/22/2024 Vitamin D deficiency (ICD-10 - E55.9) Plan Of Treatment Medication Medication Name Sig Start Date Stop Date Notes Calcium-Vitamin D-Minerals 600-800 MG-UNIT 1-2 tab(s) orally once daily Losartan Potassium 25 MG 1 tablet Orally Once a day; Duration: 90 days Verapamil HCl ER 240 MG 1 tab(s) orally once a day (in the morning); Duration: 90 days Atorvastatin Calcium 20 MG take 1/2 (one -half) tablet Orally once daily; Duration: 90 days Potassium Chloride Libra ER 2 0 MEQ 1 tablet with food Orally Once a day; Duration: 90 days Next Appt Details Follow Up: 6 Months, Reason: Progress Notes * Lisseth IGNACIODOB:1945 (79 yo F)Acc No.[id number]:07/22/2024 Progress Notes Patient: Lisseth HESS Provider: Les Coulter M.D. :1945 A ge:78 Y S ex:Female Date:07/22/2024 Address:[facility] [address], [place], [id number] Subjective: * Chief Complaints: * 1 . Checkup. * HPI: C ardiology: 78 year old female presents with c/o Blood Pressure Elevated?Pt here to f/u on hypertension, states she is doing well and does not have any concerns. c/o Hyperlipidemia P t is not fasting today. Pt had fasting labs drawn on 09/18 at [facility], see labs. * ROS: D ERMATOLOGY: no R isidoro. n o H stephanie. G ASTROENTEROLOGY: no N ausea. n o V omiting. U ROLOGY: no D ifficulty urinating. n o B lood in urine. * Medical History: Nate Lynn [phone] - Neurologist - occlusion of right carotid artery, Dr. Tico Drake - Retina specialist - Macular Degeneration, Dr. Iggy Fenton - Urologist - Kidney Stones, Dr. Reggie Pardo - Spinal Stinosis with Arthritic Disc, Dr. 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 * Surgical History: A ppendectomy 2006, Lithotripsy 2012, Colonoscopy 01/2015, Ovarian Screening Yearly 03/15/2017, Cortisone Injection in Back 06/06/2018, RT Total Knee Replacement - Dr. Rice 02/27/2020, C-Scope and Upper GI 12/27/2023. * Hospitalization/Major Diagno stic Procedure: D enies Past Hospitalization. * Family History: F ather: 44 yrs, diagnosed with Hypertension, Heart Disease. M other: 81 yrs, diagnosed with Cancer. S iblings: alive 78 yrs. C dinorah: alive. 1 sister(s) - healthy. 2 daughter(s) - healthy. . Father - Enlarged Heart; Paternal Uncle - [place]; Mother - Ovarian, Colon cancer. * Social History: C URRENT TOBACCO USE S moking Status: P atient does NOT smoke, F ormer Smoker:?No. * Medications: T aking Nystatin 398003 UNIT/GM Cream 1 application Externally Three times a day , Taking Aspirin 325 MG Tablet 1 tab(s) orally once a day , Taking B-12 2500 MCG Tablet 1 tab(s) sublingually once a day , Taking Multiple Vitamin - Capsule 1 cap(s) orally once a day , Taking Calcium-Vitamin D-Minerals 600-800 MG-UNIT Tablet Chewable 1-2 tab(s) orally once daily , Taking Azelastine-Fluticasone 137-50 MCG/ACT Suspension 1 spray in each nostril Nasally Twice a day , Taking Losartan Potassium 25 MG Tablet Take 1 tablet by mouth once daily for 30 days , Taking Verapamil HCl ER 240 MG Tablet Extended Release 1 tab(s) orally once a day (in the morning) , Taking Atorvastatin Calcium 20 MG Tablet Take 1/2 (one-half) tablet by mouth once daily , Taking Potassium Chloride Libra ER 20 MEQ Tablet Extended Release Take 1 tablet by mouth once daily for 30 days , Medication List reviewed and reconciled with the patient * Allergies: N .K.D.A. Objective: * Vitals: W t:164.2, Temp:97.8, BP:130/80, HR:54, Nurse:raon, Ht: 60.50, BMI:31.54. * Examination: C ardiology: General Appearance: audrey chung, NAD. López ab results reviewed with patient, see report. Assessment: * Assessment: 1. E ssential hypertension - I10 (Primary) 2 . P ure hypercholesterolemia - E78.00 3 . V itamin D deficiency - E55.9 Plan: * Treatment: 2. P ure hypercholesterolemia Refill Atorvastatin Calcium Tablet, 20 MG, take 1/2 (one-half) tablet, Orally, once daily, 90 days, 45, Refills 1. 3. V itamin D deficiency Continue Calcium-Vitamin D-Minerals Tablet Chewable, 600-800 MG-UNIT, 1-2 tab(s), orally, once daily. 4. O thers Refill Potassium Chloride Libra ER Tablet Extended Release, 20 MEQ, 1 tablet with food, Orally, Once a day, 90 days, 90 Tablet, Refills 1. * Procedure Codes: G 2211 Complex e/m visit add on * Follow Up: 6 Months * Images: Billing Information: * Visit Code: 16722 Office Visit, Est Pt., Level 4. * Procedure Codes: G2211 Complex e/m visit add on. * Electronic signature of Radhika Coulter MD on 07/21/2025 at 04:07 AM EST Sign off status: Pending * Provider: Les Coulter M.D. Date: 09/22/2023 Generated for Hipolito chavarria/Johan/Presley on: 09/21/2024 04:07 AM EST History and Physical Notes * HPI (History of Present Illness) Category Sub-Category Detail Notes Category Not es Cardiology Blood Pressure Elevated Pt here to f/u on hypertension, states she is doing well and does not have any concerns Hyperlipidemia Pt is not fasting to day. Pt had fasting labs drawn on 07/18 at [facility], see labs Examination Category Sub-Category Detail Notes Category Not es Cardiology General Appearance: pleasant, NAD Lab re rudi reviewed with patient, see report
--- OUTSIDE RECORDS SUMMARY | 2025-02-03 12:15 | XMS_ITS ---
[facility] Address [address] [facility] [address] [place] [id number] Care Team Providers Care Healthcare Marketer Name Role Phone Phoenix Coulter Primary Care Provider Allergies No Known Allergies REASON FOR VISIT Discuss blood work results Medications Medication SIG (Take, Route, Frequency, Duration) Notes Start Date End Date Status Atorvastatin Calcium 20 MG take 1/2 (one -half) tablet Orally once daily; Duration: 30 days Active Verapamil HCl ER 240 MG 1 tablet Orally Once a day Active Calcium-Vitamin D-Minerals 600-800 MG-UNIT 1-2 tab(s) orally once daily Active Losartan Potassium 25 MG 1 tablet Orally Once a day Active Aspirin 325 MG 1 tab(s) orally once a day Active Omeprazole 20 MG 1 capsule Orally twi ce a day; Duration: 90 days Active Azelastine-Fluticasone 137-50 MCG/ACT 1 spray in each nostril Nasally Twice a day 12/29/2023 Active B-12 2500 MCG 1 tab(s) sublinguall y once a day; Duration: 30 day(s) Activ e Multiple Vitamin - 1 cap(s) orally once a day Active Problems Problem Type SNOMED Code ICD Code Onset Dates Problem Status W/U Status Risk Notes Problem Type II diabetes mellitus without complication (942564329) Type 2 diabetes mellitus without complication, without long-term current use of insulin (E11.9) Active confirmed Problem Body mass index 30+ - obesity (006308180) BMI 30.0-30.9,candelario lt (Z68.30) Active confirmed Vital Signs Weight 159 lbs 02/03/2025 Blood pressure systolic 160 mm Hg 02/04/20 25 Blood pressure diastolic 100 mm Hg 025 Heart Rate 68 /min 02/03/2025 Height 60.50 in 02/03/2025 BMI 30.54 kg/m2 02/03/2025 Encounters Encounter Location Date Provider Diagnosis [facility] [address] [place], [place] [id number] 02/03/2025 Phoenix Coulter Type 2 diabetes kyra itus without complication, without long-term current use of insulin E11.9 ; Hiatal hernia K44.9 ; Hypokalemia E87.6 ; Essential hypertension I10 ; Pure hypercholesterolemia E78.00 and BMI 30.0-30.9,adult Z68.30 Assessments Encounter Date Diagnosis (ICD Code) Assessment Notes Treatment Notes Treatment Clinical Notes Section Notes 02/03/2025 Type 2 diabetes kyra itus without complication, without long-term current use of insulin (ICD-10 - E11.9) diet & exercise reviewed with patient 02/03/2025 Hiatal hernia (ICD-1 0 - K44.9) 02/03/2025 Hypokalemia (ICD-10 - E87.6) 02/03/2025 Essential hypertensi on (ICD-10 - I10) Blood pressure journal 02/03/2025 Pure hypercholesterolemia (ICD-10 - E78.00) 02/03/2025 BMI 30.0-30.9,adult (ICD-10 - Z68.30) Plan Of Treatment Medication Medication Name Sig Start Date Stop Date Notes Verapamil HCl ER 240 MG 1 tablet Orally Once a day Losartan Potassium 25 MG 1 tablet Orally Once a day Omeprazole 20 MG 1 capsule Orally twi ce a day; Duration: 90 days Potassium Chloride Libra ER 2 0 MEQ 1/2 tablet with food Orally Once a day Treatment Notes Assessment Notes Type 2 diabetes mellitus wit hout complication, without long-term current use of insulin diet & exercise reviewed with patient Next Appt Details Follow Up: via phone to bijan rt progress,6 Months, Reason: Progress Notes * ERIS Lisseth MerrillDOB:1945 (79 yo F)Acc No.[id number]:02/03/2025 Progress Notes Patient: Lisseth HESS Ann Provider: Les Coulter M.D. :1945 A ge:79 Y S ex:Female Date:02/03/2025 Address:[address] [place] [address] , [place], [id number] Subjective: * Chief Complaints: * 1 . Discuss blood work results. * HPI: H PI: 79 year old female presents with c/o Patient is here today for?Pt here today to discuss 01/30/2024 lab results, see pt docs. * ROS: D ERMATOLOGY: no R isidoro. n o H stephanie. G ASTROENTEROLOGY: no N ausea. n o V omiting. U ROLOGY: no D ifficulty urinating. n o B lood in urine. * Medical History: Nate Lynn [phone] - Neurologist - occlusion of right carotid artery, Dr. Tico Drake - Retina specialist - Macular Degeneration, Dr. Iggy Fenton - Urologist - Kidney Stones, Dr. Reggie Pardo - Spinal Stinosis with Arthritic Disc, Dr. Ad Hinson - Colonoscopy, Ovarian Screening - [facility] [place], [facility] - OB yearly mammogram, Hyperlipidemia, Hypertension, Vitamin [...] yrs, diagnosed with Cancer. S iblings: alive 79 yrs. C hildren: alive. 1 sister(s) - healthy. 2 daughter(s) - healthy. . Father - Enlarged Heart; Paternal Uncle - [place]; Mother - Ovarian, Colon cancer. * Social History: C URRENT TOBACCO USE S moking Status: P atient does NOT smoke, F ormer Smoker:?No. * Medications: T aking Omeprazole 20 MG Capsule Delayed Release 1 capsule Orally twice a day , Taking Aspirin 325 MG Tablet 1 tab(s) orally once a day , Taking B-12 2500 MCG Tablet 1 tab(s) sublingually once a day , Taking Multiple Vitamin - Capsule 1 cap(s) orally once a day , Taking Azelastine-Fluticasone 137-50 MCG/ACT Suspension 1 spray in each nostril Nasally Twice a day , Taking Losartan Potassium 25 MG Tablet 1 tablet Orally Once a day , Taking Potassium Chloride Libra ER 20 MEQ Tablet Extended Release 1/2 tablet with food Orally Once a day , Taking Calcium-Vitamin D-Minerals 600-800 MG-UNIT Tablet Chewable 1-2 tab(s) orally once daily , Taking Verapamil HCl ER 240 MG Tablet Extended Release 1 tablet Orally Once a day , Taking Atorvastatin Calcium 20 MG Tablet take 1/2 (one-half) tablet Orally once daily , Discontinued Nystatin 405771 UNIT/GM Cream 1 application Externally Three times a day , Medication List reviewed and reconciled with the patient * Allergies: N .K.D.A. Objective: * Vitals: W t: 159, Temp: 97.8, BP: 160/100, HR: 68, Nurse: aron, Ht: 60.50, BMI:30.54. * Examination: C ardiology: General Appearance: p leasant, NAD. H eart sounds: R RR, normal S1, S2. L ungs: c lear, no rales or wheezes. L ab results reviewed with patient, see report, A1c is elevated. Assessment: * Assessment: 1. T ype 2 diabetes mellitus without complication, without long-term current use of insulin - E11.9 (Primary) 2 . H iatal hernia - K44.9 3 . H ypokalemia - E87.6 4 . E ssential hypertension - I10 5 . P ure hypercholesterolemia - E78.00 6 . B AL 30.0-30.9,adult - Z68.30 Plan: * Treatment: 2. H iatal hernia Refill Omeprazole Capsule Delayed Release, 20 MG, 1 capsule, Orally, twice a day, 90 days, 180 Capsule, Refills 1. 3. H ypokalemia Stop Potassium Chloride Libra ER Tablet Extended Release, 20 MEQ, 1/2 tablet with food, Orally, Once a day. 4. E ssential hypertension Continue Losartan Potassium Tablet, 25 MG, 1 tablet, Orally, Once a day; C ontinue Verapamil HCl ER Tablet Extended Release, 240 MG, 1 tablet, Orally, Once a day. Clinical Notes: Blood pressure journal * Procedure Codes: G 2211 Complex e/m visit add on, 1036F TOBACCO NON-USER, G8950 PREHTN/HTN BP DOC INDCD F/U DOC, G8753 MOST RECENT SYSTOLIC BP >= 140MM HG, G8755 MOST RECENT DIASTOLIC BP >= 90MM HG * Follow Up: v ia phone to report progress,6 Months * Images: Billing Information: * Visit Code: 39423 Office Visit, Est Pt., Level 4. * Procedure Codes: G2211 Complex e/m visit add on. 1036F TOBACCO NON-USER. G8950 PREHTN/HTN BP DOC INDCD F/U DOC. G8753 MOST RECENT SYSTOLIC BP >= 140MM HG. G8755 MOST RECENT DIASTOLIC BP >= 90MM HG. * Electronic signature of Radhika Coulter MD on 07/21/2025 at 04:08 AM EST Sign off status: Pending * Provider: Les Coulter M.D. Date: 0 02/03/2025 Generated for Hipolito chavarria/Johan/Danielaitting on: 1 09/21/2024 04:08 AM EST History and Physical Notes * HPI (History of Present Illness) Category Sub-Category Detail Notes Category Not es HPI Patient is here today for Pt her e today to discuss 01/30/2024 lab results, see pt docs Examination Category Sub-Category Detail Notes Category Not es Cardiology Lungs: clear, no rales or wheezes Lab results reviewed with patient, see report, A1c is elevated Heart sounds: RRR, normal S1, S2 General Appearance: pleasant, NAD
--- OUTSIDE RECORDS SUMMARY | 2025-03-03 09:15 | XMS_ITS ---
[facility] Address [address] [facility] [address] [place] [id number] Care Team Providers Care Health Program Manager Name Role Phone Phoenix Coulter Primary Care Provider Theresa Amezcua Unavailable [phone] Allergies No Known Allergies REASON FOR VISIT high bp Medications Medication SIG (Take, Route, Frequency, Duration) Notes Start Date End Date Status B-12 2500 MCG 1 tab(s) sublinguall y once a day; Duration: 30 day(s) Activ e Azelastine-Fluticasone 137-50 MCG/ACT 1 spray in each nostril Nasally Twice a day 12/29/2023 Active Multiple Vitamin - 1 cap(s) orally once a day Active Atorvastatin Calcium 20 MG take 1/2 (one -half) tablet Orally once daily; Duration: 30 days Active Calcium-Vitamin D-Minerals 600-800 MG-UNIT 1-2 tab(s) orally once daily Active Aspirin 325 MG 1 tab(s) orally once a day Active Omeprazole 20 MG 1 capsule Orally twi ce a day; Duration: 90 days Active Losartan Potassium 50 MG 1 tablet Orally Once a day Active Verapamil HCl ER 240 MG 1 tablet Orally Once a day Active Vital Signs Weight 158.6 lbs 03/03/2025 Blood pressure systolic 180 mm Hg 03/03/20 25 Blood pressure diastolic 100 mm Hg 025 Heart Rate 63 /min 03/03/2025 Height 60.50 in 03/03/2025 BMI 30.46 kg/m2 03/03/2025 Encounters Encounter Location Date Provider Diagnosis [place] [address] [facility] [address] [place] [id number] 03/03/2025 Theresa Amezcua Essential hypertensi on I10 Assessments Encounter Date Diagnosis (ICD Code) Assessment Notes Treatment Notes Treatment Clinical Notes Section Notes 03/03/2025 Essential hypertension (ICD-10 - I10) pt has med at home ; discussed low salt diet; she will continue with home BP monitoring Plan Of Treatment Medication Medication Name Sig Start Date Stop Date Notes Losartan Potassium 50 MG 1 tablet Orally Once a day Verapamil HCl ER 240 MG 1 tablet Orally Once a day Treatment Notes Assessment Notes Essential hypertension pt has med at [facility] ; discussed low salt diet; she will continue with home BP monitoring Next Appt Details Follow Up: prn, Reason: Progress Notes * Lisseth IGNACIODOB:1945 (79 yo F)Acc No.[id number]:03/03/2025 Progress Notes Patient: Lisseth HESS Provider: SHADY Osuna :1945 A ge:79 Y S ex:Female Date:03/03/2025 Address:[facility] [address], [place], [id number] Pcp:Phoenix Coulter Subjective: * Chief Complaints: * 1 . High bp. * HPI: C ardiology: latest labs reviewed. 79 year old female presents with c/o Headaches a dyana eye intermittent. Denies : Chest Pain. D enies : Short of Breath. D enies : Dizziness. D enies : Palpitations. D enies : Leg Edema. D enies : Fatigue. D enies : Nausea. Blood Pressure Elevated P t states that she been taking her BP at home and its been high. Pt states it was high this morning (190/100) then at 2pm it was 118/114. O pthalmology: sees retina specialists regularly; has neuro visit scheduled and a planned MRI. c/o blurring of vision. * ROS: D ERMATOLOGY: no R isidoro. n o H stephanie. G ASTROENTEROLOGY: no N ausea. n o V omiting. n o D iarrhea.? U ROLOGY: no D ifficulty urinating. n o B lood in urine. * Medical History: Nate Medranozer [phone] - Neurologist - occlusion of right carotid artery, Dr. Tico Drake - Retina specialist - Macular Degeneration, Dr. Iggy Fenton - Urologist - Kidney Stones, Dr. Reggie Pardo - Spinal Stinosis with Arthritic Disc, Dr. Ad Hinson - Colonoscopy, Ovarian Screening - [facility] [place], [facility] - OB yearly mammogram, Hyperlipidemia, [...] 02/27/2020, C-Scope and Upper GI 12/27/2023. * Family History: F ather: 44 yrs, diagnosed with Hypertension, Heart Disease. M other: 81 yrs, diagnosed with Cancer. S iblings: alive 79 yrs. C dinorah: alive. 1 sister(s) - healthy. 2 daughter(s) - healthy. . Father - Enlarged Heart; Paternal Uncle - [place]; Mother - Ovarian, Colon cancer. * Social [...] nostril Nasally Twice a day , Taking Calcium-Vitamin D-Minerals 600-800 MG-UNIT Tablet Chewable 1-2 tab(s) orally once daily , Taking Atorvastatin Calcium 20 MG Tablet take 1/2 (one-half) tablet Orally once daily , Taking Verapamil HCl ER 240 MG Tablet Extended Release 1 tablet Orally Once a day , Taking Losartan Potassium 25 MG Tablet 1 tablet Orally Once a day , Medication List reviewed and reconciled with the patient * Allergies: N .K.D.A. Objective: * Vitals: W t: 158.6, Temp: 97.7, BP: 180/100, HR: 63, Nurse: pe, Ht: 60.50, Repeat BP: 192/84, BMI:30.46. * P ast Orders: L ab:H-CMP (Order Date - 01/29/2025) (Collection Date & Time - 01/30/2025 06:58 AM) Result: Co2- 31, alk phos 136 Value Reference Range NA 141 136-145 - mmol/L K 5.0 3.5-5.1 - mmoL/L CL 100 98-107 - mmol/L CO2 31 H 22.0-30.0 - mmol/L GAP 15.0 5-15 - mEq/L BUN 13 7-17 - mg/dl CREATT 0.60 0.52-1.04 - mg/dl GFRAA 116 >60 - ML/MIN EGFR 96 >60 - ml/min GLU 96 74-100 - mg/dl CA 9.6 8.4-10.2 - mg/dl BILIT 0.5 0.2-1.3 - mg/dl AST 22 14-36 - U/L ALT 21 12-78 - U/L TP 6.8 6.3-8.2 - g/dl ALB 4.1 3.5-5.0 - g/dl GLOB 2.7 1.3-3.2 - g/dL AGRATIO 1.5 1.1-1.8 - ALP 136 H 38-126 - U/L L ab:H-Glycohemoglobin A1C (Order Date - 01/29/2025) (Collection Date & Time - 01/30/2025 06:58 AM) Result: 6.7 Value Reference Range HGBA1C 6.7 H 4.0-6.0 - % * Examination: G eneral Examination: General Appearance: N AD, appears healthy, alert. N zena: n o sound over right carotid. C hest: n o tenderness of chest wall, normal shape and expansion. H eart: R RR. L ungs: n ormal, clear to auscultation. N eurologic Exam: a lert and oriented, cranial nerves intact, speech normal, normal cranial nerves II-XII sensory & motor WNL, DTR 2 plus. S kin: n ormal, no rash. P eripheral pulses: n ormal (2+) bilaterally. E xtremities: n ormal, no leg edema. Assessment: * Assessment: 1. E ssential hypertension - I10 (Primary) Plan: * Treatment: * Procedure Codes: G 2211 Complex e/m visit add on, 1036F TOBACCO NON-USER, 3044F HG A1C LEVEL LT 7.0% * Follow Up: p rn * Images: Billing Information: * Visit Code: 91861 Office Visit, Est Pt., Level 3. * Procedure Codes: G2211 Complex e/m visit add on. 1036F TOBACCO NON-USER. 3044F HG A1C LEVEL LT 7.0%. * Electronic signature of Magdalene Amezcua APRN on 07/21/2025 at 04:07 AM EST Sign off status: Pending * Provider: SHADY Osuna Date: 0 03/03/2025 Generated for Hipolito chavarria/Johan/Danielaitting on: 1 09/21/2024 04:07 AM EST History and Physical Notes * HPI (History of Present Illness) Category Sub-Category Detail Notes Category Not es Cardiology Short of Breath Chest Pain Palpitations Dizziness Leg Edema Fatigue Blood Pressure Elevated Pt states that s he been taking her BP at home and its been high. Pt states it was high this morning (190/100) then at 2pm it was 118/114 Headaches above eye intermitte nt Nausea Opthalmology blurring of vision Examination Category Sub-Category Detail Notes Category Not es General Examination Heart: RRR Lungs: normal, clear to aus cultation Extremities: normal, no leg edema General Appearance: NAD, appears healthy , alert Skin: normal, no rash Neurologic Exam: alert and oriented, cranial nerves intact, speech normal, normal cranial nerves II-XII sensory & motor WNL, DTR 2 plus Neck: no sound over right carotid Peripheral pulses: normal (2+) bilatera lly Chest: no tenderness of jamar st wall, normal shape and expansion
--- OUTSIDE RECORDS SUMMARY | 2025-03-25 05:00 | XMS_ITS ---
[facility] Address [address] [facility] [address] [place] [id number] Care Team Providers Care Hr Consultant Name Role Phone Phoenix Coulter Primary Care Provider [phone] Allergies No Known Allergies REASON FOR VISIT [facility] discharge F/U hypertension Medications Medication SIG (Take, Route, Frequency, Duration) Notes Start Date End Date Status Azelastine-Fluticasone 137-50 MCG/ACT 1 spray in each nostril Nasally Twice a day 12/29/2023 Not-Taking Atorvastatin Calcium 20 MG take 1/2 (one-half) tablet Orally once daily; Duration: 30 days Active Calcium-Vitamin D-Minerals 600-800 MG-UNIT 1-2 tab(s) orally once daily Not-Taking Multiple Vitamin - 1 cap(s) orally once a day Active B-12 2500 MCG 1 tab(s) sublinguall y once a day; Duration: 30 day(s) Active hydrALAZINE HCl 50 MG 1 tablet with food Orally Twice a day Active Aspirin 325 MG 1 tab(s) orally once a day Active Omeprazole 20 MG 1 capsule Orally twi ce a day; Duration: 90 days Active Potassium Chloride 20 MEQ 1 packet with food Orally Once a day Active Metoprolol Succinate ER 100 MG 1 tablet Orally Once a day Active Irbesartan 300 MG 1 tablet Orally Once a day Active Vital Signs Weight 155.6 lbs 03/25/2025 Blood pressure systolic 168 mm Hg 03/25/20 25 Blood pressure diastolic 90 mm Hg 025 Heart Rate 76 /min 03/25/2025 Height 60.50 in 03/25/2025 BMI 29.89 kg/m2 03/25/2025 Encounters Encounter Location Date Provider Diagnosis [facility] [address] [place] [phone] 03/25/2025 Phoenix Coulter Essential hypertensi on I10 ; Aneurysm of ascending aorta without rupture I71.21 and BMI 29.0-29.9,adult Z68.29 Assessments Encounter Date Diagnosis (ICD Code) Assessment Notes Treatment Notes Treatment Clinical Notes Section Notes 03/25/2025 Essential hypertension (ICD-10 - I10) 03/25/2025 Aneurysm of ascending aorta without rupture (ICD-10 - I71.21) Patient has an appointment with [facility] CT surgery 03/25/2025 BMI 29.0-29.9,adult (ICD-10 - Z68.29) 03/25/2025 Other Discharge summary with available lab/diagnostic imaging results obtained and reviewed. Discharge medication list reconciled. Appropriate counseling provided. Moderate Complexity Plan Of Treatment Medication Medication Name Sig Start Date Stop Date Notes hydrALAZINE HCl 50 MG 1 tablet with food Orally Twice a day Verapamil HCl ER 240 MG 1 tablet Orally Once a day Metoprolol Succinate ER 100 MG 1 tablet Orally Once a day Irbesartan 300 MG 1 tablet Orally Once a day Treatment Notes Assessment Notes Aneurysm of ascending aorta without rupture Patient has an appointment with [facility] CT surgery Other Discharge summary wi th available lab/diagnostic imaging results obtained and reviewed. Discharge medication list reconciled. Appropriate counseling provided. Moderate Complexity Next Appt Details Follow Up: 4 Weeks, Reason: Progress Notes * Lisseth IGNACIO DesiraeDOB:1945 (79 yo F)Acc No.[id number]:03/25/2025 Progress Notes Patient: Lisseth HESS Provider: Les Coulter M.D. :1945 A ge:79 Y S ex:Female Date:03/25/2025 Address:[address], [place], [id number] Subjective: * Chief Complaints: * 1 . [facility] discharge F/U hypertension. * HPI: H PI: Patient is here today for a Transition of Care Visit. Discharge from the following Facility: [facility] admission for Hypertension and left lower lobe Pneumonia , Discharge date: 03/18/2025 ,Date of phone contact following discharge: 03/19/2025. C ardiology: c/o Blood Pressure Elevated P t here to f/u on hypertension. Pt states she has been checking bp at home and it has remained elevated . * ROS: D ERMATOLOGY: no R isidoro. n o H stephanie. G ASTROENTEROLOGY: no N ausea. n o V omiting. U ROLOGY: no D ifficulty urinating. n o B lood in urine. * Medical History: Nate Lynn [phone] - Neurologist - occlusion of right carotid artery, Dr. Tico Drake - Retina specialist - Macular Degeneration, Dr. Iggy Fenton - Urologist - Kidney Stones, Dr. Reggie Pardo - Spinal Stinosis with Arthritic Disc, Dr. Ad Hinson - Colonoscopy, Ovarian Screening - [facility], [facility] - OB yearly mammogram, Hyperlipidemia, [...] Cancer. S iblings: alive 79 yrs. C martinen: alive. 1 sister(s) - healthy. 2 daughter(s) - healthy. . Father - Enlarged Heart; Paternal Uncle - [place]; Mother - Ovarian, Colon cancer. * Social History: C URRENT TOBACCO USE: No S moking Status: P atient does NOT smoke, F ormer Smoker:?No. * Medications: T aking Metoprolol Succinate ER 100 MG Tablet Extended Release 24 Hour 1 tablet Orally Once a day , Taking Irbesartan 300 MG Tablet 1 tablet Orally Once a day , Taking hydrALAZINE HCl 50 MG Tablet 1 tablet with food Orally Twice a day , Taking Potassium Chloride 20 MEQ Packet 1 packet with food Orally Once a day , Taking Omeprazole 20 MG Capsule Delayed Release 1 capsule Orally twice a day , Taking Aspirin 325 MG Tablet 1 tab(s) orally once a day , Taking B-12 2500 MCG Tablet 1 tab(s) sublingually once a day , Taking Multiple Vitamin - Capsule 1 cap(s) orally once a day , Taking Atorvastatin Calcium 20 MG Tablet take 1/2 (one-half) tablet Orally once daily , Not-Taking Azelastine-Fluticasone 137-50 MCG/ACT Suspension 1 spray in each nostril Nasally Twice a day , Not-Taking Calcium-Vitamin D-Minerals 600-800 MG-UNIT Tablet Chewable 1-2 tab(s) orally once daily , Not-Taking Verapamil HCl ER 240 MG Tablet Extended Release 1 tablet Orally Once a day , Discontinued Losartan Potassium 50 MG Tablet 1 tablet Orally Once a day , Medication List reviewed and reconciled with the patient * Allergies: N .K.D.A. Objective: * Vitals: W t: 155.6, Temp: 97.9, BP: 168/90, HR: 76, Nurse: aron, Ht: 60.50, Repeat BP: 138/82, BMI:29.89. * Examination: G eneral Examination: General Appearance: N AD. H eart: R SR. L ungs:?clear to auscultation. Assessment: * Assessment: 1. E ssential hypertension - I10 (Primary) 2 . A neurysm of ascending aorta without rupture - I71.21 3 . B CA 29.0-29.9,adult - Z68.29 Plan: * Treatment: 2. A neurysm of ascending aorta without rupture Notes: Patient has an appointment with [facility] CT surgery 3. O thers Notes: Discharge summary with available lab/diagnostic imaging results obtained and reviewed. Discharge medication list reconciled. Appropriate counseling provided. Moderate Complexity * Procedure Codes: G 2211 Complex e/[place], [address] TRANS CARE MGMT 14 DAY DISCH, 1111F DSCHR MED/CURENT MED MERGE, 1036F TOBACCO NON-USER, G8420 BMI<30 AND >=22 CALC & DOCU, G8950 PREHTN/HTN BP DOC INDCD F/U DOC, G8752 MOST RECENT SYSTOLIC BP < 140MM HG, G8754 MOST RECENT DIASTOLIC BP < 90MM HG * Follow Up: 4 Weeks * Images: Billing Information: * Visit Code: 73876 Office Visit, Est Pt., Level 3. * Procedure Codes: G2211 Complex e/[place]. [address] TRANS CARE MGMT 14 DAY DISCH. 1111F DSCHR MED/CURENT MED MERGE. 1036F TOBACCO NON-USER. G8420 BMI<30 AND >=22 CALC & DOCU. G8950 PREHTN/HTN BP DOC INDCD F/U DOC. G8752 MOST RECENT SYSTOLIC BP < 140MM HG. G8754 MOST RECENT DIASTOLIC BP < 90MM HG. * Electronic signature of Radhika Coulter MD on 07/21/2025 at 04:06 AM EST Sign off status: Pending * Provider: Les Coulter M.D. Date: 0 03/25/2025 Generated for Hipolito chavarria/Johan/eTransmitting on: 1 09/21/2024 04:06 AM EST History and Physical Notes * HPI (History of Present Illness) Category Sub-Category Detail Notes Category Not es Cardiology Blood Pressure Elevated Pt here to f/u on hypertension. Pt states she has been checking bp at home and it has remained elevated HPI Patient is here today for a Anand sition of Care Visit. Discharge from the following Facility: [facility] admission for Hypertension and left lower lobe Pneumonia ,Discharge date: 03/18/2025 ,Date of phone contact following discharge: 03/19/2025 Examination Category Sub-Category Detail Notes Category Not es General Examination Heart: RSR Lungs: clear to auscultatio n General Appearance: NAD
--- OUTSIDE RECORDS SUMMARY | 2025-04-17 05:15 | XMS_ITS ---
Author Organization [facility] Address [address] [facility] [address] [place] [id number] Care Team Providers Care Solar Hot Water Installer Name Role Phone Phoenix Coulter Primary Care Provider [phone] Allergies No Known Allergies REASON FOR VISIT f/u on thyroid and discuss results of referral Medications Medication SIG (Take, Route, Frequency, Duration) Notes Start Date End Date Status Azelastine-Fluticasone 137-50 MCG/ACT 1 spray in each nostril Nasally Twice a day 12/29/2023 Not-Taking hydrALAZINE HCl 50 MG 1 tablet with food Orally 3 times a day Active Irbesartan 300 MG 1 tablet Orally Once a day Active Metoprolol Succinate ER 100 MG 1 tablet Orally Once a day Active Calcium-Vitamin D-Minerals 600-800 MG-UNIT 1-2 tab(s) orally once daily Not-Taking Atorvastatin Calcium 20 MG Take 1/2 (one-half) tablet by mouth once daily; Duration: 60 Active Multiple Vitamin - 1 cap(s) orally once a day Active B-12 2500 MCG 1 tab(s) sublinguall y once a day; Duration: 30 day(s) Active Aspirin 325 MG 1 tab(s) orally once a day Active Omeprazole 20 MG 1 capsule Orally twi ce a day; Duration: 90 days Active Potassium Chloride 20 MEQ 1 packet with food Orally Once a day Active Vital Signs Weight 156.6 lbs 04/17/2025 Blood pressure systolic 112 mm Hg 04/17/20 25 Blood pressure diastolic 78 mm Hg 025 Heart Rate 56 /min 04/17/2025 Height 60.50 in 04/17/2025 BMI 30.08 kg/m2 04/17/2025 Encounters Encounter Location Date Provider Diagnosis [facility] [address] [place] [phone] 04/17/2025 Phoenix Coulter Essential hypertensi on I10 and Left thyroid nodule E04.1 Assessments Encounter Date Diagnosis (ICD Code) Assessment Notes Treatment Notes Treatment Clinical Notes Section Notes 04/17/2025 Essential hypertension (ICD-10 - I10) 04/17/2025 Left thyroid nodule (ICD-10 - E04.1) Thyroid nodule is unchanged from scan done last year, it is still 16 mm in diameter Plan Of Treatment Medication Medication Name Sig Start Date Stop Date Notes hydrALAZINE HCl 50 MG 1 tablet with food Orally 3 times a day Irbesartan 300 MG 1 tablet Orally Once a day Metoprolol Succinate ER 100 MG 1 tablet Orally Once a day Treatment Notes Assessment Notes Left thyroid nodule Thyroid nodule is un changed from scan done last year, it is still 16 mm in diameter Next Appt Details Follow Up: via phone to repo rt progress, Reason: Progress Notes * Lisseth IGNACIO DesiraeDOB:1945 (79 yo F)Acc No.[id number]:04/17/2025 Progress Notes Patient: Lisseth HESS Provider: Les Coulter M.D. :1945 A ge:79 Y S ex:Female Date:04/17/2025 Address:[address] [place] [address] , [place], [id number] Subjective: * Chief Complaints: * 1 . F/u on thyroid and discuss results of referral. * HPI: H PI: 79 year old female presents with c/o Here for follow up on:?04/15/2025 [facility] Cardiothoracic visit. Pt states she is doing good and has no concerns at this time. * ROS: D ERMATOLOGY: no R isidoro. n o H stephanie. G ASTROENTEROLOGY: no N ausea. n o V omiting. U ROLOGY: no D ifficulty urinating. n o B lood in urine. * Medical History: Nate Lynn [phone] - Neurologist - occlusion of right carotid artery, Dr. Tico Drake - Retina specialist - Macular Degeneration, Dr. Iggy Fenton - Urologist - Kidney Stones, Dr. Reggie Pardo - Spinal Stinosis with Arthritic Disc, Dr. Ad Hinson - Colonoscopy, Ovarian Screening - [facility], [facility] - OB yearly mammogram, [...] Father - Enlarged Heart; Paternal Uncle - [place]; Mother - Ovarian, Colon cancer. * Social History: C URRENT TOBACCO USE: No S moking Status: P atient does NOT smoke, F ormer Smoker:?No. * Medications: T aking Potassium Chloride 20 MEQ Packet 1 packet [...] tablet by mouth once daily , Taking Metoprolol Succinate ER 100 MG Tablet Extended Release 24 Hour 1 tablet Orally Once a day , Taking Irbesartan 300 MG Tablet 1 tablet Orally Once a day , Taking hydrALAZINE HCl 50 MG Tablet 1 tablet with food Orally 3 times a day , Not-Taking Azelastine-Fluticasone 137-50 MCG/ACT Suspension 1 spray in each nostril Nasally Twice a day , Not-Taking Calcium-Vitamin D-Minerals 600-800 MG- UNIT Tablet Chewable 1-2 tab(s) orally once daily , Medication List reviewed and reconciled with the patient * Allergies: N .K.D.A. Objective: * Vitals: W t: 156.6, Temp: 97.9, BP: 112/78, HR: 56, Nurse: SF, Ht: 60.50, BMI:30.08. * Examination: G eneral Examination: General Appearance: N AD. H eart: R SR. L ungs:?clear to auscultation. Assessment: * Assessment: 1. E ssential hypertension - I10 (Primary) 2 . L eft thyroid nodule - E04.1? Plan: * Treatment: 2. L eft thyroid nodule Notes: Thyroid nodule is unchanged from scan done last year, it is still 16 mm in diameter ? * Procedure Codes: G 2211 Complex e/m visit add on, 1036F TOBACCO NON-USER, 3074F SYST BP LT 130 MM HG, 3078F DIAST BP < 80 MM HG, G8752 MOST RECENT SYSTOLIC BP < 140MM HG, G8754 MOST RECENT DIASTOLIC BP < 90MM HG * Follow Up: v ia phone to report progress * Images: Billing Information: * Visit Code: 12388 Office Visit, Est Pt., Level 3. * Procedure Codes: G2211 Complex e/m visit add on. 1036F TOBACCO NON-USER. 3074F SYST BP LT 130 MM HG. 3078F DIAST BP < 80 MM HG. G8752 MOST RECENT SYSTOLIC BP < 140MM HG. G8754 MOST RECENT DIASTOLIC BP < 90MM HG. * Electronic signature of Radhika Coulter MD on 07/21/2025 at 04:07 AM EST Sign off status: Pending * Provider: Les Coulter M.D. Date: 0 04/17/2025 Generated for Hipolito chavarria/Johan/Danielaitting on: 1 09/21/2024 04:07 AM EST History and Physical Notes * HPI (History of Present Illness) Category Sub-Category Detail Notes Category Not es HPI Here for follow up on: 04/15/2025 [facility] Cardiothoracic visit. Pt states she is doing good and has no concerns at this time Examination Category Sub-Category Detail Notes Category Not es General Examination Heart: RSR Lungs: clear to auscultatio n General Appearance: NAD
--- OUTSIDE RECORDS SUMMARY | 2025-04-30 09:00 | XMS_ITS ---
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 Name Role Phone Phoenix Coulter Primary Care Provider [phone] Allergies No Known Allergies Results Component Value Reference Range Notes Influenza Screen (in house) Reviewed date:05/01/2025 08:15:59 AM Interpretation: Performing Lab: Notes/Report: results Neg CBC Fingerstick (in house) Reviewed date:05/01/2025 08:16:12 AM Interpretation: Performing Lab: Notes/Report: wbc 5.1 3.5 - 10 lym 21.9% 15 - 50 mid 5.7% 2 - 15 gran 72.4% 35 - 80 rbc 4.85 3.5 - 5.5 hgb 14.1 11.5 - 16.5 hct 42.4 35 - 55 mcv 87.3 75 - 100 mch 29.0 25 - 35 mchc 33.2 31 - 38 plat 193 100 - 400 Covid test (in house) Reviewed date:05/01/2025 08:16:05 AM Interpretation: Performing Lab: Notes/Report: Result: Neg REASON FOR VISIT cough Medications Medication SIG (Take, Route, Frequency, Duration) Notes Start Date End Date Status hydrALAZINE HCl 50 MG 1 tablet with food Orally 3 times a day Active Irbesartan 300 MG 1 tablet Orally Once a day Active Zithromax Z-Fly 250 MG as directed Orall y daily; Duration: 5 days 04/30/2025 Active Atorvastatin Calcium 20 MG Take 1/2 (one -half) tablet by mouth once daily; Duration: 60 Active Multiple Vitamin - 1 cap(s) orally once a day Active Metoprolol Succinate ER 100 MG 1 tablet Orally Once a day A ctive B-12 2500 MCG 1 tab(s) sublinguall y once a day; Duration: 30 day(s) Activ e Aspirin 325 MG 1 tab(s) orally once a day Active Omeprazole 20 MG 1 capsule Orally twi ce a day; Duration: 90 days Active Potassium Chloride 20 MEQ 1 packet with food Orally Once a day Active Vital Signs Weight 153 lbs 04/30/2025 Blood pressure systolic 152 mm Hg 04/30/20 25 Blood pressure diastolic 90 mm Hg 025 Heart Rate 67 /min 04/30/2025 Height 60.50 in 04/30/2025 BMI 29.39 kg/m2 04/30/2025 Encounters Encounter Location Date Provider Diagnosis [facility] [address] [facility] [address] [place] [phone] 04/30/2025 Phoenix Coulter Acute URI J06.9 Assessments Encounter Date Diagnosis (ICD Code) Assessment Notes Treatment Notes Treatment Clinical Notes Section Notes 04/30/2025 Acute URI (ICD-10 - J06.9) Plan Of Treatment Medication Medication Name Sig Start Date Stop Date Notes Zithromax Z-Fly 250 MG as directed Orall y daily; Duration: 5 days 04/30/2025 Next Appt Details Follow Up: via phone to repo rt progress, Reason: Progress Notes * Lisseth IGNACIODOB:1945 (79 yo F)Acc No.[id number]:04/30/2025 Progress Notes Patient: Lisseth HESS Provider: Les Coulter M.D. :1945 A ge:79 Y S ex:Female Date:04/30/2025 Address:[facility] [address], [place], [id number] Subjective: * Chief Complaints: * 1 . Cough. * HPI: E NT/respiratory: 79 year old female presents with c/o cough P t complains of small amount of white sputum cough that started yesterday. Associated with nasal congestion. Pt states she feels like she may be getting a sinus infection. * Medical History: Nate Lynn [phone] - Neurologist - occlusion of right carotid artery, Dr. Tico Drake - Retina specialist - Macular Degeneration, Dr. Iggy Fenton - Urologist - Kidney Stones, Dr. Reggie Pardo - Spinal Stinosis with Arthritic Disc, Dr. Ad Hinson - Colonoscopy, Ovarian Screening - [facility], [facility] - OB yearly mammogram, Hyperlipidemia, Hypertension, [...] History: F ather: 44 yrs, diagnosed with Heart Disease, Hypertension. M other: 81 yrs, diagnosed with Cancer. S iblings: alive 79 yrs. C martinen: alive. 1 sister(s) - healthy. 2 daughter(s) - healthy. . Father - Enlarged Heart; Paternal Uncle - [place]; Mother - Ovarian, Colon cancer. * Social [...] food Orally 3 times a day , Discontinued Azelastine-Fluticasone 137-50 MCG/ACT Suspension 1 spray in each nostril Nasally Twice a day , Discontinued Calcium-Vitamin D-Minerals 600-800 MG-UNIT Tablet Chewable 1-2 tab(s) orally once daily , Medication List reviewed and reconciled with the patient * Allergies: N .K.D.A. Objective: * Vitals: W t: 153, Temp: 98.2, BP: 152/90, HR: 67, O2 Sat: 97% on RA, Nurse: aron, Ht: 60.50, BMI:29.39. * Examination: E NT/Respiratory: General Appearance: N AD. E yes: P ERRLA, sclera clear. O ral cavity : e rythema without exudate on pharynx. N zena : n o cervical lymphadenopathy. H eart : R RR, normal S1 S2. L ungs: c lear to auscultation bilaterally.? Assessment: * Assessment: 1. Rebecca almeida URI - J06.9 (Primary) Plan: * Treatment: Value Reference Range r esults Neg * Rand Estrella 04/30/2025 02:19: 36 PM EDT > Provider reviewed results while patient in office. ?LAB: CBC Fingerstick (in house) (Collection Date & Time - 04/30/2025)* Value Reference Range w bc 5.1 3.5 - 10 * l ym 21.9% 15 - 50 * m id 5.7% 2 - 15 * g ran 72.4% 35 - 80 * r bc 4.85 3.5 - 5.5 * h gb 14.1 11.5 - 16.5 * h ct 42.4 35 - 55 * m cv 87.3 75 - 100 * m ch 29.0 25 - 35 * m chc 33.2 31 - 38 * p lat 193 100 - 400 * Rand Estrella 04/30/2025 01:55: 56 PM EDT > Provider reviewed results while patient in office. ?LAB: Covid test (in house) (Collection Date & Time - 04/30/2025)* Value Reference Range R esult: Neg * Rand Estrella 04/30/2025 02:19: 55 PM EDT > Provider reviewed results while patient in office. * Procedure Codes: G 2211 Complex e/[place], [address] CAPILLARY BLOOD DRAW, 03686 CBC WITH AUTO DIFF, 98068 Flu Test- Nasal Swab, Modifiers: QW , 67545 COVID TEST IN HOUSE, Modifiers: QW * Follow Up: v ia phone to report progress * Images: Billing Information: * Visit Code: 48096 Office Visit, Est Pt., Level 3. * Procedure Codes: G2211 Complex e/[place]. [address] CAPILLARY BLOOD DRAW. 40989 CBC WITH AUTO DIFF. 29969 Flu Test- Nasal Swab. Modifiers: QW 16701 COVID TEST IN HOUSE. Modifiers: QW * Electronic signature of Radhika Coulter MD on 07/21/2025 at 04:07 AM EST Sign off status: Pending * Provider: Les Coulter M.D. Date: 0 04/30/2025 Generated for Hipolito chavarria/Johan/Danielaitting on: 09/21/2024 04:07 AM EST History and Physical Notes * HPI (History of Present Illness) Category Sub-Category Detail Notes Category Not es ENT/respiratory cough Pt complains of small amount of white sputum cough that started yesterday. Associated with nasal congestion. Pt states she feels like she may be getting a sinus infection Examination Category Sub-Category Detail Notes Category Not es ENT/Respiratory Oral cavity : erythema without exudate on pharynx Neck : no cervical lymphade nopathy Heart : RRR, normal S1 S2 Lungs: clear to auscultatio n bilaterally General Appearance: NAD Eyes: PERRLA, sclera clear
--- OUTSIDE RECORDS SUMMARY | 2025-07-02 03:50 | XMS_ITS ---
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 Name Role Phone Phoenix Coulter Primary Care Provider [phone] REASON FOR VISIT Flu Shot Medications Medication SIG (Take, Route, Frequency, Duration) Notes Start Date End Date Status Atorvastatin Calcium 20 MG Take 1/2 (one -half) tablet by mouth once daily; Duration: 60 Active Metoprolol Succinate ER 100 MG 1 tablet Orally Once a day A ctive B-12 2500 MCG 1 tab(s) sublinguall y once a day; Duration: 30 day(s) Activ e Multiple Vitamin - 1 cap(s) orally once a day Active Aspirin 325 MG 1 tab(s) orally once a day Active Irbesartan 300 MG 1 tablet Orally Once a day Active Zithromax Z-Fly 250 MG as directed Orall y daily; Duration: 5 days 04/30/2025 Active Omeprazole 20 MG 1 capsule Orally twi ce a day; Duration: 90 days Active Potassium Chloride 20 MEQ 1 packet with food Orally Once a day Active hydrALAZINE HCl 50 MG 1 tablet with food Orally 4 times a day; Duration: 30 days Active Immunizations Vaccine Route Administration Date Status Comme nts Fluzone High Dose (65yr and older) IM Intramuscular 07/02/2025 Administered Encounters Encounter Location Date Provider Diagnosis [place] [address] [facility] [address] [place] [phone] 07/02/2025 Phoenix Coulter Encounter for immunization Z23 Assessments Encounter Date Diagnosis (ICD Code) Assessment Notes Treatment Notes Treatment Clinical Notes Section Notes 07/02/2025 Encounter for immunization (ICD-10 - Z23) Plan Of Treatment No Information Progress Notes * Lisseth IGNACIODOB:1945 (79 yo F)Acc No.[id number]:07/02/2025 Patient: Lisseth HESS Provider: Les Coulter M.D. :1945 A ge:79 Y S ex:Female Date:07/02/2025 Address:[address] [place], [place] [address] , [place], [id number] Subjective: * Chief Complaints: * 1 . Flu Shot. * Medical History: * Medications: T aking Potassium Chloride 20 [...] tablet Orally Once a day , Taking Zithromax Z-Fly 250 MG Tablet as directed Orally daily , Taking hydrALAZINE HCl 50 MG Tablet 1 tablet with food Orally 4 times a day , Medication List reviewed and reconciled with the patient Objective: * Vitals: Assessment: * Assessment: 1. E ncounter for immunization - Z23 (Primary) Plan: * Treatment: * Immunizations: Fluzone High Dose (65yr and older) : 0.5 mL (Route: Intramuscular) given by Kenisha Patel on Left Deltoid (Encounter for immunization) * Images: Billing Information: * Visit Code: * Procedure Codes: * Electronic signature of Radhika Coulter MD on 07/21/2025 at 04:07 AM EST Sign off status: Pending * Provider: Les Coulter M.D. Date: 09/01/2024 Generated for Hipolito chavarria/Johan/Presley on: 09/21/2024 04:07 AM EST
[2025-07-21] VITALS (21 sets, daily range): BP systolic 104–234; BP diastolic 49–110; PULSE 63–75; RESP 14–16; TEMP 36.7–37; O2SAT 90–97; BMI 29.2
[2025-07-21 03:10] LABS: Microscopic, Urine URINE MICROSCOPIC (MICROSCOPIC)
[2025-07-21 03:11] LABS: Bilirubin,Urine Negative (Negative); Color,Urine YELLOW (Yellow); Glucose,Urine (UA) Negative (Negative); Ketones,Urine Negative (Negative); Leukocyte Esterase,Urine Negative (Negative); PH,Urine 7.0 (5.0-8.5); Protein,Urine TRACE (Negative); Specific Gravity, Urine 1.020 (1.005-1.030); Urobilinogen,Urine 0.2 EU/dl (0.2)
--- NOTE | 2025-07-21 03:13 | HMH.EDGENADL ---
Discharge Plan Disposition Patient Disposition: Home, Self-Care Prescriptions Prescriptions: No Action prednisone 10 mg tablet 10 mg PO BID 3 Days Qty: 6 0RF benzonatate 100 mg capsule 100 mg PO BID PRN (Reason: cough) 5 Days Qty: 10 0RF fluticasone propionate [Flonase Allergy Relief] 50 mcg/actuation spray,suspension 1 spray intranasal QDAY Qty: 16 0RF Rx Instructions: administer into each nostril PreserVision AREDS 4,296 mcg-226 mg-90 mg capsule 1 cap PO BID atorvastatin 20 MG tablet 10 mg PO DAILY aspirin 325 MG tablet 325 mg PO DAILY omeprazole 20 mg capsule,delayed release(DR/EC) 20 mg PO BID Patient Comments: TAKE 1 CAPSULE BY MOUTH TWICE DAILY cholecalciferol (vitamin D3) [Vitamin D3] 125 mcg (5,000 unit) Tablet 5,000 unit PO DAILY irbesartan 300 mg Tablet 300 mg PO DAILY Qty: 30 0RF metoprolol succinate 100 mg tablet extended release 24 hr 100 mg PO DAILY Qty: 30 0RF hydralazine 50 mg tablet 50 mg PO TID Qty: 90 0RF Referrals Follow up/Referrals: Phoenix Coulter MD [Primary Care Provider, Medical] - See instructions Activity Restrictions/Add. Instructions Additional Instructions/Restrictions: Please follow-up with your primary care provider. Please return to the emergency department if you develop any new or worsening symptoms or become concerned for your health. Clinical Impressions Clinical Impression: Hypertension, Headache, Back pain, Multiple thyroid nodules, Carotid artery occlusion Print Language Print Language: Prydeinig Discharge ED Provider: Richie Cui Adult HPI General Chief complaint: Headache Stated complaint: high blood pressure, headache Time Seen by Provider: 07/21/25 02:55 Mode of Arrival: Ambulatory Source of Information: Patient Description of Symptoms (Recalled from ER Triage Doc. by RN): Patient presents to the ED with complaints of elevated blood pressure over the past few days with an accompanying headache. She states she thought it was caused from sinus. She denies any chest pain or shortness of breath. States a history of an AA and a small anuerysm in ther brain. History of Present Illness HPI narrative: 79-year-old female with history of hypertension, chronic carotid artery occlusion, ascending aortic aneurysm and reported brain aneurysm presents for hypertension and mild headache. She reports her blood pressure has been higher the last few days, but today has been over 200 on multiple checks. She reports that she has symptoms of a sinus infection and has taken some Mucinex. She denies any vision changes, numbness weakness or other symptoms on arrival. After she got a dose of blood pressure medication in the ER, she then began complaining of waxing waning vision darkening as well as low back pain that she did not have before she came. She denies any chest pain abdominal pain shortness of breath Related Data Home Medications ?Medication ?Instructions ?Recorded ?Confirmed aspirin 325 mg tablet 325 mg PO DAILY 07/26/18 07/12/25 atorvastatin 20 mg tablet 10 mg PO DAILY 07/26/18 07/12/25 vitamins A,C,T-dynq-kvabpk 4,296 1 cap PO BID 12/16/24 07/12/25 mcg-226 mg-90 mg capsule (PreserVision AREDS) cholecalciferol (vitamin D3) 125 5,000 unit PO DAILY 03/16/25 07/12/25 mcg (5,000 unit) tablet (Vitamin D3) omeprazole 20 mg capsule,delayed 20 mg PO BID 03/16/25 07/12/25 release Previous Rx's ?Medication ?Instructions ?Recorded hydralazine 50 mg tablet 50 mg PO TID #90 tabs 03/18/25 irbesartan 300 mg tablet 300 mg PO DAILY #30 tabs 03/18/25 metoprolol succinate 100 mg 100 mg PO DAILY #30 tabs 03/18/25 tablet,extended release 24 hr benzonatate 100 mg capsule 100 mg PO BID PRN cough 5 days #10 07/12/25 caps fluticasone propionate 50 1 spray intranasal QDAY #16 grams 07/12/25 mcg/actuation nasal spray,suspension (Flonase Allergy Relief) prednisone 10 mg tablet 10 mg PO BID 3 days #6 tabs 07/12/25 Allergies Allergy/AdvReac Type Severity Reaction Status Date / Time Antihistamines - Alkylamine Allergy Intermediate Unknown Verified 07/12/25 09:07 allergy reaction niacin Allergy Unknown Unknown Verified 07/12/25 09:07 allergy reaction sulconazole Allergy Unknown Unknown Verified 07/12/25 09:07 allergy reaction Sulfa (Sulfonamide Allergy Unknown Verified 07/12/25 09:07 Antibiotics) allergy reaction [facility] Disclaimer: The information contained in this section may have been updated after the patient was seen, as this information can be updated by other users. Medical History Sinusitis Vitamin D deficiency Thyroid disease Lumbar spinal stenosis Lumbar disc disease Kidney stones Internal hemorrhoids High blood pressure Hiatal hernia Gastric ulcer with hemorrhage GERD with esophagitis Colon polyps [place] esophagus Back pain Anemia Surgical History History of appendectomy History of lithotripsy History of esophagogastroduodenoscopy (EGD) History of colonoscopy Family History Mother Breast cancer Colon cancer Social History Smoking Status: Never smoker alcohol intake: never current occupational status: other Travel in the last 8 weeks?: None Have you lived/traveled outside US in past 30 days?: No Contact w/someone who lives/traveled outside US past 30 days?: No Exposure to someone with infectious disease in past 14 days?: No Do you have a fever (greater than 100.4 F or 38 C)?: No Have you tested positive for COVID-19?: No Exposed to someone with COVID-19 in past 14 days?: No Do you have a sore throat?: No Do you have a cough?: No Do you have any weakness?: No Do you have any diarrhea?: No Are you experiencing any unusual bleeding?: No Do you have any muscle aches/pain?: No Do you have any abdominal pain?: No Are you experiencing loss of taste or smell?: No Other Medical History Have you received the Flu Vaccine for this season: No Have you received the Pneumonia Vaccine: No ROS Obtained: Yes All systems reviewed & no additional complaints except as documented Physical Exam General General appearance: alert and in no apparent distress Head Head exam: atraumatic and normocephalic Eye Eye exam: Present normal appearance, PERRL and EOMI ENT ENT exam: Present normal oropharynx and normal external ear exam Neck Neck exam: Present normal inspection and full ROM Chest Chest inspection: Present normal inspection and symmetric chest wall rise; Absent tenderness Respiratory Respiratory exam: Present normal lung sounds bilaterally; Absent respiratory distress Cardiovascular Cardiovascular exam: Present regular rate and normal rhythm Abdominal Exam Abdominal exam: Present soft; Absent distention, tenderness or guarding Extremities Exam Extremities exam: Present normal inspection; Absent edema or joint swelling Back Exam Back exam: Present normal inspection; Absent tenderness Neurological Exam Neurological exam: Present alert and oriented X3; Absent motor sensory deficit Psychiatric Psychiatric exam: Present normal affect and normal mood Skin Skin exam: Present warm, dry and normal color Lymphatic Lymphatic Findings: no adenopathy Medical Decision Making Medical Records Medical records reviewed: Yes I reviewed the patient's medical records. Screening: Per USPSTF and CDC recommendations, given the prevalence of disease in our region, it is our hospital?s policy to screen for HIV and viral Hepatitis for all patients aged 18 and over and those with ongoing risk factors. Maxiimlian Inquiry Pt receiving controlled substance: No Maximilian was queried for this patient: No Vital Signs: 07/21/25 02:51 07/21/25 03:08 07/21/25 03:31 Temperature 98.0 F Temperature Source Oral Pulse Rate Pulse Rate [Right] 67 Respiratory Rate 16 Blood Pressure 217/94 H 193/91 H Blood Pressure [Right Arm] 234/110 H Blood Pressure Mean 135 125 Blood Pressure Mean [Right Arm] 151 Blood Pressure Source [Right Arm] Automatic Cuff Blood Pressure Position [Right Arm] Sitting 02 Sat by Pulse Oximetry 96 Oxygen Delivery Method Room Air 07/21/25 03:54 07/21/25 04:01 07/21/25 04:13 Temperature Temperature Source Pulse Rate Pulse Rate [Right] Respiratory Rate Blood Pressure 195/90 H 181/94 H 185/83 H Blood Pressure [Right Arm] Blood Pressure Mean 117 108 117 Blood Pressure Mean [Right Arm] Blood Pressure Source [Right Arm] Blood Pressure Position [Right Arm] 02 Sat by Pulse Oximetry Oxygen Delivery Method 07/21/25 04:13 07/21/25 04:18 07/21/25 04:30 Temperature Temperature Source Pulse Rate 65 Pulse Rate [Right] Respiratory Rate Blood Pressure 167/84 H 153/74 H Blood Pressure [Right Arm] Blood Pressure Mean 112 100 Blood Pressure Mean [Right Arm] Blood Pressure Source [Right Arm] Blood Pressure Position [Right Arm] 02 Sat by Pulse Oximetry 97 Oxygen Delivery Method 07/21/25 04:45 07/21/25 05:00 07/21/25 05:30 Temperature Temperature Source Pulse Rate 63 Pulse Rate [Right] Respiratory Rate Blood Pressure 147/71 H 153/70 H Blood Pressure [Right Arm] Blood Pressure Mean 96 97 Blood Pressure Mean [Right Arm] Blood Pressure Source [Right Arm] Blood Pressure Position [Right Arm] 02 Sat by Pulse Oximetry 95 97 Oxygen Delivery Method Room Air 07/21/25 05:37 07/21/25 05:46 Temperature Temperature Source Pulse Rate 75 Pulse Rate [Right] Respiratory Rate Blood Pressure 192/91 H Blood Pressure [Right Arm] Blood Pressure Mean 124 Blood Pressure Mean [Right Arm] Blood Pressure Source [Right Arm] Blood Pressure Position [Right Arm] 02 Sat by Pulse Oximetry 96 Oxygen Delivery Method Lab Data Lab results reviewed: Yes I reviewed the patient's lab results. Lab Results 07/21/25 03:02: Urine Color Yellow, Urine Appearance Clear, Urine pH 7.0, Ur Specific Loyal 1.020, Urine Protein Trace, Urine Glucose (UA) Negative, Urine Ketones Negative, Urine Blood Negative, Urine Nitrate Negative, Urine Bilirubin Negative, Urine Urobilinogen 0.2, Ur Leukocyte Esterase Negative 07/21/25 03:22: WBC 7.8, RBC 4.90, Hgb 14.3, Hct 42.8, MCV 87.3, MCH 29.2, MCHC 33.4, RDW 13.5, Plt Count 259, MPV 11.1 H, Neut % (Auto) 71.1, Lymph % (Auto) 14.5, Ness % (Auto) 9.7 H, Eos % (Auto) 3.6, Baso % (Auto) 0.8, Neut # (Auto) 5.5, Lymph # (Auto) 1.1, Ness # (Auto) 0.8, Eos # (Auto) 0.3, Baso # (Auto) 0.1, Sodium 138, Potassium 3.9, Chloride 106, Carbon Dioxide 30, Anion Gap 5.9, BUN 20 H, Creatinine 0.60, Estimated Creat Clear 47, Estimated GFR 96, Est GFR ( Amer) 116, Glucose 116 H, Calcium 9.1, Total Bilirubin 0.5, AST 25, ALT 23, Alkaline Phosphatase 116, Troponin I < 0.01, NT-Pro-B Natriuret Pep 227, Total Protein 7.4, Albumin 4.1, Globulin 3.3 H, Albumin/Globulin Ratio 1.2, HCV Ab PAUL w/Rflx PCR Qn Negative, HIV Ag/Ab Combo Qual Negative 07/21/25 03:22 07/21/25 03:22 Orders (Tests/Meds): ED MEDICATIONS Generic Name Dose Route Start Last Admin Trade Name Freq PRN Reason Stop Dose Admin Magnesium Sulfate 2 gm in 50 mls @ 50 mls/hr 07/21/25 06:01 07/21/25 06:13 Magnesium Sulfate 2gm/50ml Premix IV 07/21/25 07:00 50 mls/hr ONCE ONE Administration Sodium Chloride 10 ml 07/21/25 05:23 07/21/25 05:24 Sodium Chloride 0.9% 10ml Syr (Rad Only) IV 08/20/25 05:22 10 ml NEEDED PRN Administration Maintain IV Site Discontinued Medications Generic Name Dose Route Start Last Admin Trade Name Freq PRN Reason Stop Dose Admin Acetaminophen 1,000 mg 07/21/25 05:56 07/21/25 06:05 Acetaminophen 500mg Tab PO 07/21/25 05:57 1,000 mg ONCE ONE Administration Hydralazine HCl 20 mg 07/21/25 03:13 07/21/25 03:34 Hydralazine 20mg/Ml Vial IV 07/21/25 03:14 20 mg ONCE ONE Administration Iopamidol 160 ml 07/21/25 05:23 07/21/25 05:23 Iopamidol-370 (76%);100ml Bottle IV 07/21/25 05:24 160 ml ONCE ONE Administration Ketorolac Tromethamine 15 mg 07/21/25 05:56 07/21/25 06:06 Ketorolac 15mg/Ml Vial IV 07/21/25 05:57 15 mg ONCE ONE Administration Ondansetron HCl 4 mg 07/21/25 04:19 07/21/25 04:23 Ondansetron 4mg/2ml Vial IV 07/21/25 04:20 4 mg ONCE ONE Administration Prochlorperazine Edisylate 5 mg 07/21/25 05:56 07/21/25 06:06 Prochlorperazine 10mg/2ml Vial IV 07/21/25 05:57 5 mg ONCE ONE Administration Sodium Chloride 80 ml 07/21/25 05:23 07/21/25 05:23 0.9 % Sodium Chloride 50 Ml Vial IV 07/21/25 05:24 80 ml ONCE ONE Administration ORDERS Category Date Time Status CT angio abdomen pelvis Stat Cat Scan 07/21/25 04:[address] angio head Stat Cat Scan 07/21/25 04:[address] angio neck Stat Cat Scan 07/21/25 04:[address] head/brain wo con Stat Cat Scan 07/21/25 04:37 Completed CTA Chest [CT angio chest - dissection] Stat Cat Scan 07/21/25 04:47 Completed BNP [NT Pro Brain Natriuretic Pep.] Stat Lab 07/21/25 03:22 Completed CBC w/Auto Diff [Complete Blood Count Auto Diff] Stat Lab 07/21/25 03:22 Completed CMP [Comprehensive Metabolic Panel] Stat Lab 07/21/25 03:22 Completed HIV Combo Stat Lab 07/21/25 03:22 Completed Hepatitis C Ab Qual. W/ RFX Stat Lab 07/21/25 03:22 Completed Troponin I Q3H Lab 07/21/25 03:22 Completed UA [Urinalysis and Microscopic] Stat Lab 07/21/25 03:02 Completed Medical Decision Narrative: 79-year-old female with history of hypertension, chronic carotid artery occlusion, ascending aortic aneurysm and reported brain aneurysm presents for hypertension and mild headache.. History was obtained via interactive discussion with patient. On arrival, patient is hypertensive with blood pressures in the 230s systolic, alert and oriented x 4, moving all extremities spontaneously. Full physical exam performed and significant for clear lungs bilaterally, no extremity edema. Differential includes but is not limited to hypertensive urgency, hypertensive emergency, sinus infection. Patient was given 20 of IV hydralazine for hypertension for symptomatic management and correction of underlying abnormalities. Workup initiated including EKG CBC CMP troponin D-dimer. On re-evaluation, patient began complaining of worsening headache, waxing and waning vision darkening in both eyes, as well as low back pain rating to the legs bilaterally. Her blood pressure went from 230-190-170. Given her new symptoms as well as her vascular history, we will assess with CT head, CTA head and neck, CTA CAP Laboratory workup independently interpreted by me and significant for negative troponin, no proteinuria, normal creatinine Imaging independently interpreted by me and significant for no evidence of intracranial bleeding, right carotid artery occlusion (chronic per patient), no aortic dissection.. See radiology read for full review of final results. EKG independently interpreted by me and significant for sinus bradycardia, ventricular rate of 52, incomplete bundle branch block, no significant ST elevation.. On further reassessment, patient reports that her headache feels worse and she feels a bit nauseous. Reports that her vision changes are better and her back pain is better. She was given Tylenol Toradol Compazine and magnesium for her headache with resolution of headache. Her blood pressure further decreased to the 130s systolic. She reports that she is now essentially asymptomatic. Given patient history, exam and workup, patient's presentation most likely represents hypertensive urgency. Interactive discussion was had with patient regarding her presentation. She was informed of her abnormal thyroid nodules and encouraged to follow-up. She is discharged in stable condition. Recommend she follow-up PCP. Procedures Risk/Benefits of Procedure(s) Were Explained: Yes Critical Care Critical Care Time Critical Care Time: Yes Attestation: On 07/21/25, the high probability of a clinically significant, sudden or life threatening deterioration of the following system(s) required my full and direct attention, intervention and personal management. The time I documented below is in addition to time spent performing reported procedures but includes the following listed in this critical care notation. Total Time Total Critical Care Time: 45
--- NOTE | 2025-07-21 03:16 | ECG_ITS ---
APPROVED REPORT Exam: Resting ECG HR:52 bpm ECG Measurements Heart Rate 52 AXES WV 171 P 67 QRSd 98 QRS -28 QT 458 T 48 QTc 438 Conclusion SINUS BRADYCARDIA INCOMPLETE RIGHT BUNDLE BRANCH BLOCK [90+ ms QRS DURATION, TERMINAL R IN V1/V2, 40+ ms S IN I/aVL/V4/V5/V6] POSSIBLE LATERAL MYOCARDIAL INFARCTION , PROBABLY OLD [30 ms Q WAVE IN I/aVL/V5/V6] BORDERLINE ECG UNCONFIRMED REPORT Electronically signed by : LULU BARRAZA, 07/25/2025 06:58:56
[2025-07-21 03:30] LABS: Hematocrit 42.8 % (37.0-47.0); Hemoglobin 14.3 g/dL (12.2-16.2); Immature Granulocytes % 0.3 %; Mean Corpuscular HGB Conc 33.4 g/dL (31.8-35.4); Mean Corpuscular Hemoglobin 29.2 pg (27.0-31.2); Mean Corpuscular Volume 87.3 fl (81-99); Nucleated Red Blood Cells % 0 %; Platelet Count 259 K/mm3 (142-424); Red Blood Count 4.90 M/mm3 (4.20-5.40); Red Cell Distribution Width-SD 42.9 fL; White Blood Count 7.8 K/mm3 (4.8-10.8)
[2025-07-21] MEDS: HYDRALAZINE 20MG/ML VIAL 20 MG IV (03:34)
[2025-07-21 03:48] LABS: Chloride 106 mmol/L (98-107)
[2025-07-21 03:49] LABS: Albumin Level 4.1 g/dl (3.5-5.0); Potassium 3.9 mmoL/L (3.5-5.1); Sodium 138 mmol/L (136-145)
[2025-07-21 03:51] LABS: Blood Urea Nitrogen 20 mg/dl (7-17); Creatinine Clearance Estimated 47 mL/min (50-200); Creatinine,Serum 0.60 mg/dl (0.52-1.04); Estimated Glomerular Filt Rate 96 ml/min (>60); GFR (African American) 116 ML/MIN (>60)
[2025-07-21 03:52] LABS: Alanine Aminotransferase 23 U/L (12-78); Albumin/Globulin Ratio 1.2 (1.1-1.8); Alkaline Phosphatase 116 U/L (38-126); Anion Gap 5.9 mEq/L (5-15); Aspartate Amino Transferase 25 U/L (14-36); Bilirubin,Total 0.5 mg/dl (0.2-1.3); Calcium 9.1 mg/dl (8.4-10.2); Carbon Dioxide 30 mmol/L (22.0-30.0); Globulin 3.3 g/dL (1.3-3.2); Glucose 116 mg/dl (74-100); Total Protein,Serum 7.4 g/dl (6.3-8.2)
[2025-07-21 04:01] LABS: NT Pro Brain Natriuretic Pep. 227 pg/mL (0-450)
--- NOTE | 2025-07-21 04:05 | PC.NURSE ---
FSBS 107
--- OUTSIDE RECORDS SUMMARY | 2025-07-21 04:06 | XMS_ITS | Encounter Summary ---
Author Organization [employer] ([place], [place], [place], [place], [place]) Address [address] [place] [address] Care Team Providers Care Cardiac Surgeon Name Role Phone Unavailable Primary Care Provider Unavailabl e Encounter Details Date Type Department Care Team (Late st Contact Info) Description 10/25/2018 Transcribed Document [facility] [place] [facility] [place] [address] ProviderKristi MD [facility] [place] [address] Social History Tobacco Use Types [...] 10/25/2018 12:12 EDT Electronically signed by Mariela [facility] Conversion District Medical Examiner Cerner at 11/22/2022 9:59 AM CDT documented in this encounter Plan of Treatment Not on file documented as of this encounter Visit Diagnoses Not on filedocumented in this encounter
--- OUTSIDE RECORDS SUMMARY | 2025-07-21 04:06 | XMS_ITS | Encounter Summary ---
Author Organization [employer] ([place], [place], [place], [place], [place]) Address [address] [place] [address] Care Team Providers Care Marketing Administrative Assistant Name Role Phone Unavailable Primary Care Provider Unavailabl e Encounter Details Date Type Department Care Team (Late st Contact Info) Description 10/25/2018 Transcribed Document [facility] [place] [facility] [place] [address] ProviderKristi MD [facility] [place] [address] Social History Tobacco Use Types Packs/Day Years Used Date Smoking Tobacco: Never Assessed Comments Unknown Sex and Gender Information Value Date Recorded Sex Assigned at Female 02/01/2022 6:48 PM CDT Legal Sex Female 6:48 PM CDT Gender Identity Female 02/01/2022 6:48 PM CDT Sexual Orientation Not on file documented as of this encounter Miscellaneous Notes * [employer] Conversion Note - Kristi Medley MD - 10/25/2018 10:38 AM CDT [facility] OR PACU Summary Primary Physician: JARRET LONG MD-URO Finalized Date/Time: 10/25/18 11:59:19 Pt. Name: MEKHI IGNACIO /Sex: 1945 Female Med Rec #: [id number] Physician: JARRET LONG MD-URO Financial #: [id number] Pt. Type: O Room/Bed: Admit/Disch: 10/25/18 07:16:00 - Institution: [facility] Main OR PACU I Case Times Entry 1 In PACU I 10/25/18 11:04:00 Ready for PACU 10/25/18 11:30:00 Discharge Discharge from PACU 10/25/18 11:55:00 I Last Modified By: MEKHI VILLANUEVA RN 10/25/18 11:58:[address] [facility] Main OR PACU I Case Times Audit 10/25/18 11:58:09 Rental Boats Caretaker: MAHAMED Modifier: GILLMA <+> 1 Discharge from PACU I 10/25/18 11:34:22 Rental Boats Caretaker: KAYMA Modifier: GILLMA <+> 1 Ready for PACU Discharge [facility] Main OR PACU Acuity Entry 1 Start Time 10/25/18 11:30:00 Stop Time 10/25/18 11:55:00 Acuity Level [facility] PACU Acuity I Last Modified By: MEKHI VILLANUEVA RN 10/25/18 11:59:17 Finalized By: MEKHI VILLANUEVA RN Document Signatures Signed By: MEKHI VILLANUEVA RN 10/25/18 11:59 Electronically signed by Mariela [facility] Conversion Embedded Software Manager Cerner at 11/22/2022 9:54 AM CDT documented in this encounter Plan of Treatment Not on file documented as of this encounter Visit Diagnoses Not on filedocumented in this encounter
--- OUTSIDE RECORDS SUMMARY | 2025-07-21 04:06 | XMS_ITS | Encounter Summary ---
Author Organization [employer] ([place], [place], [place], [place], [place]) Address [address] [place] [address] Care Team Providers Care Block Bolter Mule Operator Name Role Phone Unavailable Primary Care Provider Unavailabl e Encounter Details Date Type Department Care Team (Late st Contact Info) Description 10/25/2018 Transcribed Document [facility] [place] [facility] [place] [address] ProviderKristi MD [address] [place] [id number] Social History Tobacco Use Types Packs/Day [...] Conversion Note - Kristi ProviderMD - 10/25/2018 12:00 PM CDT DATE OF PROCEDURE:10/25/2018 PREOPERATIVE DIAGNOSIS(ES): Right ureteral stone. POSTOPERATIVE DIAGNOSIS(ES): Right ureteral stone. PROCEDURE: 1. Cystourethroscopy. 2. Right ureteroscopy with laser lithotripsy and basket stone extraction. 3. Right ureteral stent placement. SURGEON: Guy Garg MD RESIDENT: Lai Arroyo MD, PGY4 ANESTHESIA: General. COMPLICATIONS: None. SPECIMENS: Right ureteral stone for analysis. DRAINS: 4.8-Brazilian x 24 cm double-J ureteral stent on [...] as administration of preoperative Levaquin. A well-lubricated 22-Brazilian rigid cystoscope with a 30-degree lens was [...] three pieces, which were removed with a 1.9-Brazilian nitinol Zero Tip basket. These three fragments were sent off for a stone analysis. The remainder of the ureter was cleared to the level of the ureteropelvic junction. The semi-rigid ureteroscope was removed and over the Sensor wire, a 4.8-Brazilian x 24 cm double-J ureteral stent with [...] ciprofloxacin for 5 days as well as Irving #12 and Flomax for 7 days. She [...] BY THE RESIDENT IN THE ABOVE NOTE. Electronically signed by Stephanie Sierra Conversion Black[employer] Paver Operator Nisreenner at 11/22/2022 10:01 AM CDT documented in this encounter Plan of Treatment Not on file documented as of this encounter Visit Diagnoses Not on filedocumented in this encounter
--- OUTSIDE RECORDS SUMMARY | 2025-07-21 04:06 | XMS_ITS | Encounter Summary ---
Author Organization [employer] ([place], [place], [place], [place], [place]) Address [address] [place] [address] Care Team Providers Care Ophthalmic Tech Name Role Phone Unavailable Primary Care Provider Unavailabl e Encounter Details Date Type Department Care Team (Late st Contact Info) Description 10/25/2018 Transcribed Document [facility] [place] [facility] [place] [address] ProviderKristi MD [facility] [place] [address] Social History Tobacco Use Types [...] Note - Kristi Medley MD - 10/25/2018 12:06 PM CDT [address] , [place] [address] Patient Copy Patient Information: Name: MEKHI IGNAICO Current Date: 10/25/2018 12:06:36 : 1945 Patient Address: [address] [place] [id number] Patient Attending Physician: JARRET LONG MD-URO Primary Care Provider: MADHURI ROSE MD Primary Care Provider Discharge Diagnosis: Weight on Admission: 152 lb, 13 oz Comment: Follow-up Instructions: With: Address: When: JARRET LONG [address] [facility], [address] [place] [id number] Business (1) 1:00 PM Comments: Monday for [...] Assistance with quitting is available by contacting 2-002-ZFSC-NOW. This is a free resource providing counseling, [...] Be sure to sign up for the [employer] patient portal, which gives you 27/02 access to your medical information ??? including these discharge instructions ??? using your computer, smartphone, or tablet. Just go to [employer]Mail to get started. Questions? Call . [facility] would like to thank you for allowing us to assist you with your healthcare needs. ERIS Dash MARY CLAYTON, (or commercial representative) have received the above patient education materials/instructions and have verbalized understanding: Patient Signature _ Date/Time Patient Credit And Collection Manager Signature (if needed) Date/Time Clinician/Hospital Credit And Collection Manager Signature (if needed) Date/Time Electronically signed by Stephanie Sierra Conversion Finisher Map And Chart Nisreenner at 11/22/2022 9:57 AM CDT documented in this encounter Plan of Treatment Not on file documented as of this encounter Visit Diagnoses Not on filedocumented in this encounter
--- OUTSIDE RECORDS SUMMARY | 2025-07-21 04:06 | XMS_ITS | Encounter Summary ---
Author Organization [employer] ([place], [place], [place], [place], [place]) Address [address] [place] [address] Care Team Providers Care Industrial Cook Name Role Phone Unavailable Primary Care Provider Unavailabl e Encounter Details Date Type Department Care Team (Late st Contact Info) Description 10/25/2018 Transcribed Document [facility] [place] [facility] [place] [address] ProviderKristi MD [facility] [place] [address] Social History Tobacco Use Types [...] Conversion Note - Kristi ProviderMD - 10/25/2018 11:00 AM CDT [facility] Main OR Preop Summary Primary Physician: JARRET LONG MD-URO Finalized Date/Time: 10/25/18 10:23:10 Pt. Name: MEKHI IGNACIO /Sex: 1945 Female Med Rec #: [id number] Physician: JARRET LONG MD-URO Financial #: [id number] Pt. Type: O Room/Bed: Admit/Disch: 10/25/18 07:16:00 - Institution: [facility] PreOp Case Times Entry 1 In Preop 10/25/18 07:23:00 Ready for Holding n/a Room Patient Ready for 10/25/18 08:43:00 Surgery Patient Out of Preop 10/25/18 10:23:00 Patient Out of n/a Holding Room Last Modified By: AAKASH Eller RN 10/25/18 10:23:07 [facility] PreOp Case Times Audit 10/25/18 10:23:07 Yard Foreman: CRISTINA Modifier: WILSONDL <+> 1 Patient Out of Preop 10/25/18 08:45:11 Yard Foreman: CRISTINA Modifier: WILSONDL <+> 1 Patient Ready for Surgery Finalized By: AAKASH Eller, RN Document Signatures Signed By: AAKASH Eller RN 10/25/18 10:23 documented in this encounter Plan of Treatment Not on file documented as of this encounter Visit Diagnoses Not on filedocumented in this encounter
--- OUTSIDE RECORDS SUMMARY | 2025-07-21 04:06 | XMS_ITS | Encounter Summary ---
Author Organization [employer] ([place], [place], [place], [place], [place]) Address [address] [place] [address] Care Team Providers Care Physics And Astronomy Professor Name Role Phone Unavailable Primary Care Provider Unavailabl e Encounter Details Date Type Department Care Team (Late st Contact Info) Description 10/25/2018 Transcribed Document [facility] [place] Family Medicine [facility] [place] [address] ProviderKristi MD [facility] [place] [address] Social History Tobacco Use Types [...] Conversion Note - Kristi ProviderMD - 10/25/2018 8:39 AM CDT Patient: [...] All Problems Kidney stones / SNOMED CT 713914725 / Confirmed HTN (hypertension) / SNOMED CT 1775094264 / Confirmed Hiatal hernia / SNOMED CT 895839633 / Confirmed GERD (gastroesophageal reflux disease) / SNOMED CT 912063244 / Confirmed Macular degeneration / SNOMED CT 4304579701 / Confirmed Carotid artery stenosis / SNOMED CT 746227727 / Confirmed, Active Problems (6) Carotid artery stenosis GERD (gastroesophageal reflux disease) Hiatal hernia HTN (hypertension) Kidney stones Macular degeneration Histories Past Medical History: No active or resolved past medical history items have been selected or recorded. Family History: No family history items have been selected or recorded. Procedure history: Lithotripsy (162709822). Appendectomy (211609576). Social History Social & Psychosocial Habits Alcohol [...] of motion, Normal strength. Integumentary: Warm, Dry, [place]. Neurologic: Alert, Oriented. Psychiatric: Cooperative, Appropriate mood & affect. Review / Management Results review: No qualifying data available. Impression and Plan Condition: Stable. documented in this encounter Plan of Treatment Not on file documented as of this encounter Visit Diagnoses Not on filedocumented in this encounter
--- OUTSIDE RECORDS SUMMARY | 2025-07-21 04:06 | XMS_ITS | Encounter Summary ---
Author Organization [employer] ([place], [place], [place], [place], [place]) Address [address] [place] [address] Care Team Providers Care Associate Director Of Development Name Role Phone Unavailable Primary Care Provider Unavailabl e Encounter Details Date Type Department Care Team (Late st Contact Info) Description 10/25/2018 Transcribed Document [facility] [place] [facility] [address] ProviderKristi MD [address] [place] [address] Social History Tobacco Use Types [...] Note - Kristi Medley MD - 10/25/2018 12:15 PM CDT Patient Education [...] activities are safe for you. ??? Take wfnt-uit-xluzitu and prescription medicines only as told by [...] 10/30/2001 Document Revised: 12/26/2016 Document Reviewed: 07/07/2016 Else[employer]oVario Interactive Patient Education ? 2017 [employer] Urology Ureteroscopy, Care After This sheet [...] these instructions at home: Medicines ??? Take hpmp-zex-tkzawld and prescription medicines only as told by [...] 07/29/2014 Document Revised: 05/09/2017 Document Reviewed: 05/05/2017 [employer]ario Interactive Patient Education ? 2017 [employer] documented in this encounter Plan of Treatment Not on file documented as of this encounter Visit Diagnoses Not on filedocumented in this encounter
--- OUTSIDE RECORDS SUMMARY | 2025-07-21 04:07 | XMS_ITS | Encounter Summary ---
Author Organization [employer] ([place], [place], [place], [place], [place]) Address [address] [place] [address] Care Team Providers Care Pellet Machine Operator Name Role Phone Unavailable Primary Care Provider Unavailabl e Encounter Details Date Type Department Care Team (Late st Contact Info) Description 10/25/2018 Transcribed Document [facility] [place] [facility] [place] [address] ProviderKristi MD [facility] [place] [address] Social History Tobacco Use Types Packs/Day Years Used Date Smoking Tobacco: Never Assessed Comments Unknown Sex and Gender Information Value Date Recorded Sex Assigned at Female 02/01/2022 6:48 PM CDT Legal Sex Female 6:48 PM CDT Gender Identity Female 02/01/2022 6:48 PM CDT Sexual Orientation Not on file documented as of this encounter Miscellaneous Notes * Cerner Conversion Note - Historical MD Jasmyne - 10/25/2018 12:12 PM CDT Nursing Discharge [...] Shirley Espinoza RN - 10/25/2018 12:12 EDT documented in this encounter Plan of Treatment Not on file documented as of this encounter Visit Diagnoses Not on filedocumented in this encounter
--- OUTSIDE RECORDS SUMMARY | 2025-07-21 04:07 | XMS_ITS | Encounter Summary ---
Author Organization [employer] ([place], [place], [place], [place], [place]) Address [address] [place] [address] Care Team Providers Care Hoop Punch And Coiler Operator Name Role Phone Unavailable Primary Care Provider Unavailabl e Encounter Details Date Type Department Care Team (Late st Contact Info) Description 10/24/2018 Transcribed Document [facility] [place] [facility] [place] [address] ProviderKristi MD [address] [place] [address] Social History Tobacco Use Types [...] Source : Measured Height Entry Format : [place] Height, Feet : 5 ft(Converted to: 152 cm, 60 Inch) Height, Inches : 0 Inch(Converted to: 0 ft 0 Inch, 0.00 cm) Clinical Height : 152.4 cm Weight Source : Standing scale Weight Entry Format : [place] Clinical Dosing Weight : 69.45 kg Weight, Pounds : 152.8 lb Body Surface Area (BSA) : 1.67 m2 Body Mass Index : 29.9 kg/m2 (HI) Atlantic Body Weight : 45 kg AAKASH Eller RN - 10/25/2018 8:39 EDT Health Histories Implant/Device Type, Wagon Driver Salesperson and Model : N/A AAKASH Eller RN [...] Legal Guardian : Spouse Primary Language : Emir[place] Communication Barrier : None AAKASH Eller RN - 10/25/2018 8:39 EDT Support Person/Pt Rep Name : Tico/ Support Person/Pt Rep Contact Information : [phone] Want Family/Rep/Phys Notified of Admit : No Emergency Contact #1 : ` Emergency Contact #1 Phone Number : ` Emergency Contact #1 Relationship : ` Emergency Contact #2 : ` Emergency Contact #2 Phone Number : ` Emergency Contact #2 Relationship : ` NAHOMI RUSSO, RN - 10/24/2018 16:24 EDT Edgar Scale [...] : Yes Gender Male : No NAHOMI RUSSO, LEANN - 10/24/2018 16:24 EDT documented in this encounter Plan of Treatment Not on file documented as of this encounter Visit Diagnoses Not on filedocumented in this encounter
--- OUTSIDE RECORDS SUMMARY | 2025-07-21 04:07 | XMS_ITS | Encounter Summary ---
Author Organization [employer] ([place], [place], [place], [place], [place]) Address [address] [place] [address] Care Team Providers Care Gis Geographer Name Role Phone Unavailable Primary Care Provider Unavailabl e Encounter Details Date Type Department Care Team (Late st Contact Info) Description 10/25/2018 Transcribed Document [facility] [place] [facility] [place] [address] ProviderKristi MD [facility] [place] [address] Social History Tobacco Use Types [...] Medley MD - 10/25/2018 12:15 PM CDT [address] , [place] [address] Patient Copy Patient Information: Name: LISSETH IGNACIO Current Date: 10/25/2018 12:15:29 : 1945 Patient Address: [address] [place] [address] Patient Attending Physician: JARRET LONG MD-URO Primary Care Provider: MADHURI ROSE MD Primary Care Provider Discharge Diagnosis: Weight on Admission: 152 lb, 13 oz Comment: Follow-up Instructions: With: Address: When: JARRET LONG [address] [facility], [address] [place] [id number] Business (1) 1:00 PM Comments: Monday for [...] these instructions at home: Medicines ??? Take pagw-jlz-ksvfshd and prescription medicines only as told by [...] 07/29/2014 Document Revised: 05/09/2017 Document Reviewed: 05/05/2017 interspireSubmit Interactive Patient Education ? 2017 [employer]. General Anesthesia, Adult, Care After These instructions [...] activities are safe for you. ??? Take chhq-evw-alhxgrj and prescription medicines only as told by [...] 10/30/2001 Document Revised: 12/26/2016 Document Reviewed: 07/07/2016 [employer]spireSubmit Interactive Patient Education ? 2017 [employer]. Medication Leaflets: ciprofloxacin (oral) (SIP grant FLOX [...] What is ciprofloxacin? Ciprofloxacin is a fluoroquinolone (ivrg-w-ZARN-o-lone) antibiotic that fights bacteria in the body. [...] may report side effects to FDA at 0-997-VHF-4856. What other drugs will affect ciprofloxacin? Some [...] drugs may affect ciprofloxacin, including prescription and jwax-zqa-zdoqwio medicines, vitamins, and herbal products. Not all [...] to ensure that the information provided by [employer]. ('[employer]') is accurate, up-to-date, and complete, but no guarantee is made to that effect. Drug information contained herein may be time sensitive. Smish information has been compiled for use by healthcare practitioners and consumers in the [place] and therefore Smish does not warrant that uses outside of the [place] are appropriate, unless specifically indicated otherwise. Smish's drug information does not endorse drugs, diagnose patients or recommend therapy. Exercise.coms drug information is an informational resource designed [...] effective or appropriate for any given patient. [facility] does not assume any responsibility for any aspect of healthcare administered with the aid of information [facility] provides. The information contained herein is not intended to cover all possible uses, directions, precautions, warnings, drug interactions, allergic reactions, or adverse effects. If you have questions about the drugs you are taking, check with your doctor, nurse or pharmacist. Copyright 7566-8291 [facility] Version: 22.. Revision Date: 08/13/2018. tamsulosin (alston [...] may report side effects to FDA at 5-300-UWS-8825. What other drugs will affect tamsulosin? Tell [...] may affect tamsulosin. This includes prescription and ltqp-aki-zynobxn medicines, vitamins, and herbal products. Not all [...] to ensure that the information provided by [employer]. ('Smish') is accurate, up-to-date, and complete, but no guarantee is made to that effect. Drug information contained herein may be time sensitive. Smish information has been compiled for use by healthcare practitioners and consumers in the [place] and therefore Smish does not warrant that uses outside of the [place] are appropriate, unless specifically indicated otherwise. Smish's drug information does not endorse drugs, diagnose patients or recommend therapy. [employer]s drug information is an informational resource designed [...] effective or appropriate for any given patient. [employer] does not assume any responsibility for any aspect of healthcare administered with the aid of information Smish provides. The information contained herein is not intended to cover all possible uses, directions, precautions, warnings, drug interactions, allergic reactions, or adverse effects. If you have questions about the drugs you are taking, check with your doctor, nurse or pharmacist. Copyright 0292-4810 [employer]. Version: 9.01. Revision Date: 07/02/2018. acetaminophen and hydrocodone (a SEET a MIN oh fen and pradeeproderick MCADAMS done) Hycet, Lorcet, Meridian, Verdrocet, Vicodin, Xodol, Zamicet What is the [...] may report side effects to FDA at 7-550-BVR-8672. What other drugs will affect acetaminophen and [...] affect acetaminophen and hydrocodone, including prescription and tscj-xkt-xffqztc medicines, vitamins, and herbal products. Not all [...] to ensure that the information provided by [employer]. ('[employer]') is accurate, up-to-date, and complete, but no guarantee is made to that effect. Drug information contained herein may be time sensitive. Smish information has been compiled for use by healthcare practitioners and consumers in the [place] and therefore Smish does not warrant that uses outside of the [place] are appropriate, unless specifically indicated otherwise. [employer]s drug information does not endorse drugs, diagnose patients or recommend therapy. [employer]s drug information is an informational resource designed [...] effective or appropriate for any given patient. [facility] does not assume any responsibility for any aspect of healthcare administered with the aid of information [facility] provides. The information contained herein is not intended to cover all possible uses, directions, precautions, warnings, drug interactions, allergic reactions, or adverse effects. If you have questions about the drugs you are taking, check with your doctor, nurse or pharmacist. Copyright 1542-7281 [facility] Version: 15.02. Revision Date: 06/11/2018. CIGARETTE SMOKING: The facts are clear, cigarette smoking will shorten your life. Smoking can cause many illnesses along the way. As a healthcare provider, we recommend that you stop smoking. Assistance with quitting is available by contacting 1-773-LHQZ-NOW. This is a free resource providing counseling, [...] sure to sign up for the [facility] patient portal, which gives you 27/02 access to your medical information ??? including these discharge instructions ??? using your computer, smartphone, or tablet. Just go to Nebo[employer] to get started. Questions? Call . [facility] would like to thank you for allowing us to assist you with your healthcare needs. ERIS Dash MARY CLAYTON, (or indirect sales representative) have received the above patient education materials/instructions and have verbalized understanding: Patient Signature _ Date/Time Patient Horse Farm Manager Signature (if needed) Date/Time Clinician/Hospital Horse Farm Manager Signature (if needed) Date/Time documented in this encounter Plan of Treatment Not on file documented as of this encounter Visit Diagnoses Not on filedocumented in this encounter
--- OUTSIDE RECORDS SUMMARY | 2025-07-21 04:07 | XMS_ITS | Clinical Summary ---
Author Organization [employer] ([place], [place], [place], [place], [place]) Address [address] [place] [address] Care Team Providers Care Liquefaction Plant Operator Name Role Phone Unavailable Primary Care [...] on file Insurance MEDICARE PART A B [facility] [id number] [place], [place] [address] [place] [address]
--- OUTSIDE RECORDS SUMMARY | 2025-07-21 04:07 | XMS_ITS | Referral Summary ---
Author Organization [employer] ([place], [place], [place], [place], [place]) Address [address] [place] [address] Care Team Providers Care Rug Inspector Helper Name Role Phone Unavailable Primary Care Provider [...] on file Insurance MEDICARE PART A B [facility] [id number] [place], [place] [address]
--- OUTSIDE RECORDS SUMMARY | 2025-07-21 04:07 | XMS_ITS | Patient Health Record ---
[facility] [address] [place] [id number] Care Team Providers Care Library Services Assistant Name Role Phone Yfn [place] Primary Care Provider Theresa Amezcua Unavailable [phone] Allergies No Known Allergies Results Component Value Reference Range Notes H-Sputum Culture with Gram S dario Reviewed date:03/19/2025 09:37:47 AM Interpretation: Performing Lab: Notes/Report: Comment: Induce w/3ml NS neb tx if necessary GS Gram Stain: GS Few Gram Negative Rods GS Few Gram Positive Co cci In Pairs GS <10 White Blood Cells/LPF GS <10 Epithelial Cells / LPF CUSPU Normal Respiratory Lina H-BMP Reviewed date:03/18/2025 08:28:43 AM Interpretation: Performing Lab: Notes/Report: NA 138 136-145 mmol/L K 3.9 3.5-5.1 mmoL/L CL 102 98-107 mmol/L CO2 29 22.0-30.0 mmol/L GAP 10.9 5-15 mEq/L BUN 14 7-17 mg/dl CREATT 0.70 0.52-1.04 mg/dl CRCLE 50 50-200 mL/min GFRAA 97 >60 ML/MIN EGFR 80 >60 ml/min GLU 110 74-100 mg/dl CA 9.2 8.4-10.2 mg/dl H-CBC Reviewed date:03/18/2025 08:28:43 AM Interpretation: Performing Lab: Notes/Report: WBC 6.5 4.8-10.8 K/mm3 RBC 5.08 4.20-5.40 M/mm3 HGB 14.6 12.2-16.2 g/dL HCT 44.3 37.0-47.0 % MCV 87.2 81-99 fl MCH 28.7 27.0-31.2 pg MCHC 33.0 31.8-35.4 g/dL RDW-SD 42.5 RDW 13.3 11.5-17.5 % PLT 248 142-424 K/mm3 MPV 11.3 7.4-10.4 fl NE% 68.9 37.0-80.0 % LY% 16.0 10-50 % MO% 10.0 1.7-9.3 % EO% 4.0 0.1-12.0 % BA% 0.8 0.1-2.0 % NRBC% 0 IG% 0.3 NE# 4.5 1.8-7.8 K/mm3 LY# 1.0 0.7-4.5 K/mm3 MO# 0.7 0.1-1.0 K/mm3 EO# 0.3 0.0-0.4 Kmm3 BA# 0.1 0-0.2 K/mm3 NRBC# 0 IG# 0.02 CBC Fingerstick (in house) Reviewed date:05/01/2025 08:16:12 [...] AM Interpretation: Performing Lab: Notes/Report: Result: Neg Influenza Screen (in house) Reviewed date:05/01/2025 08:15:59 AM Interpretation: Performing Lab: Notes/Report: results Neg H-VITAMIN D Reviewed date:01/30/2025 05:31:02 PM Interpretation:Normal [...] Duration) Notes Start Date End Date Status Irbesartan 300 MG 1 tablet Orally Once [...] 1 cap(s) orally once a day Active Omeprazole 20 MG 1 capsule Orally twi ce a day; Duration: 90 days Active Aspirin 325 MG 1 tab(s) orally once a day Active Potassium Chloride 20 MEQ 1 packet [...] Dose (65yr and older) Unknown 05/12/2021 Administered Fluzone High Dose (65yr and older) IM Intramuscular 07/02/2025 Administered DT, 7 YEARS OR OLDER Unknown 10/21/1996 Administered COVID 19 Moderna Unknown 09/02/2020 Administered COVID 19 Moderna Unknown 09/30/2020 Administered COVID 19 Moderna Unknown 04/14/2021 Administered COVID 19 Moderna Unknown 11/24/2021 Administered Problems Problem Type SNOMED Code ICD Code Onset Dates Problem Status W/U Status Risk Notes Problem Low back pain (530276574) Low back pain (M54.5) Active confirmed Problem Vitamin D deficiency (11122189) Vitamin D deficiency (E55.9) Active confirmed Problem Essential hypertension (13567906) Essential hypertension (I10) Active confirmed Problem Osteopenia (965342758) Osteopenia (M85.80) Active confirmed Problem Disorder of lumbar disc (793073022) Lumbar disc disease (M51.9) Active confirmed Problem Body mass index 30+ - obesity (424934255) BMI 30.0-30.9,adult (Z68.30) Active confirmed Problem Chronic pain (17333528) Other chronic pain (G89.29) Active confirmed Problem Kidney stone (06793581) Kidney stones (N20.0) Active confirmed Problem Iron deficiency anemia (70962164) Iron deficiency anemia, unspecified iron deficiency anemia type (D50.9) Active confirmed Problem Stenosis of right carotid artery (579508992414934) Stenosis of right carotid artery (I65.21) Active confirmed Problem Dyslipidemia (460251993) Dyslipidemia (E78.5) Active confirmed Problem Type II diabetes mellitus without complication (480508514) Type 2 diabetes mellitus without complication, without long-term current use of insulin (E11.9) Active confirmed Problem Impaired fasting glycaemia (610367405) IFG (impaired fasting glucose) (R73.01) Active confirmed Problem Pure hypercholesterolemia (434484994) Pure hypercholesterolemia (E78.00) Active confirmed Problem Thyromegaly (1826225) Thyromegaly (E01.0) Active confirmed Problem Seasonal allergic rhinitis (307416845) Acute seasonal allergic rhinitis (J30.2) Active confirmed Problem Microcytic hypochromic anemia (54929544) Microcytic hypochromic anemia (D50.9) Active confirmed Problem Menopausal state (304643689) Menopausal state (N95.1) Active confirmed Problem Primary hypertension (94006430) Primary hypertension (I10) Active confirmed Problem Psoriasis of nail (264175358) 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) Active confirmed Problem Non-toxic single thyroid nodule (379985677) Left thyroid nodule (E04.1) Active confirmed Vital Signs Heart Rate 67 /min 04/30/2025 Blood pressure diastolic 90 mm Hg 04/30/2025 Height 60.50 in 04/30/2025 Blood pressure systolic 152 mm Hg 04/30/2025 Weight 153 lbs 04/30/2025 BMI 29.39 kg/m2 04/30/2025 Encounters Encounter Location Date Provider Diagnosis [facility] [address] [facility] [address] [facility] [address] [place] [id number] 07/22/2024 [place] Essential hypertensi on I10 ; Pure hypercholesterolemia E78.00 and Vitamin D deficiency E55.9 [facility] [address] [facility] [address] [place] [id number] 02/03/2025 [place] Type 2 diabetes kyra itus without complication, without long-term current use of insulin E11.9 ; Hiatal hernia K44.9 ; Hypokalemia E87.6 ; Essential hypertension I10 ; Pure hypercholesterolemia E78.00 and BMI 30.0-30.9,adult Z68.30 [facility] [address] [place], [place] [id number] 03/03/2025 Theresa Amezcua Essential hypertension I10 [facility] [address] [place], [place] [id number] 03/25/2025 [place] Essential hypertensi on I10 ; Aneurysm of ascending aorta without rupture I71.21 and BMI 29.0-29.9,adult Z68.29 [facility] [address] [place], [place] [id number] 04/17/2025 [place] Essential hypertensi on I10 and Left thyroid nodule E04.1 [facility] [address] [place], [place] [id number] 04/30/2025 [place] Acute URI J06.9 [facility] [address] [place], [place] [id number] 07/02/2025 [place] Encounter for immuni zation Z23 [facility] [address] [place], [place] [id number] 01/29/2025 [place] Essential hypertensi on I10 ; Vitamin D deficiency E55.9 ; Hyperkalemia E87.5 ; Hyperglycemia R73.9 and Alkaline phosphatase elevation R74.8 [facility] [address] [place], [place] [id number] 01/30/2025 [place] [facility] [address] [place], [place] [id number] 02/24/2025 [place] Essential hypertensi on I10 [facility] [address] [place], [place] [id number] 03/11/2025 [place] [facility] [address] [place], [place] [id number] 03/19/2025 [place] [facility] [address] [place], [place] [id number] 04/15/2025 [place] Essential hypertensi on I10 [facility] [address] [place], [place] [id number] 06/04/2025 [place] Essential hypertensi on I10 [facility] [address] [place] [id number] 07/16/2025 [place] Assessments Encounter Date Diagnosis (ICD Code) Assessment Notes Treatment Notes Treatment Clinical Notes Section Notes 07/22/2024 Essential hypertensi on (ICD-10 - I10) 07/22/2024 Pure hypercholesterolemia (ICD-10 - E78.00) 01/29/2025 Vitamin D deficiency (ICD-10 - E55.9) 01/29/2025 Essential hypertensi on (ICD-10 - I10) 02/03/2025 Hiatal hernia (ICD-1 0 - K44.9) 02/24/2025 Essential hypertensi on (ICD-10 - I10) 03/03/2025 Essential hypertensi on (ICD-10 - I10) pt has med at home ; discussed low salt diet; she will continue with home BP monitoring 03/25/2025 Essential hypertensi on (ICD-10 - I10) 03/25/2025 Aneurysm of ascendin g aorta without rupture (ICD-10 - I71.21) Patient has an appointment with Psychiatric CT surgery 04/15/2025 Essential hypertensi on (ICD-10 - I10) 04/17/2025 Essential hypertensi on (ICD-10 - I10) 04/17/2025 Left thyroid nodule (ICD-10 - E04.1) Thyroid nodule is unchanged from scan done last year, it is still 16 mm in diameter 04/30/2025 Acute URI (ICD-10 - J06.9) 06/04/2025 Essential hypertensi on (ICD-10 - I10) 07/02/2025 Encounter for immunization (ICD-10 - Z23) 02/03/2025 Type 2 diabetes mellitus without complication, without long-term current use of insulin (ICD-10 - E11.9) diet & exercise reviewed with patient 03/25/2025 BMI 29.0-29.9,adult (ICD-10 - Z68.29) 02/03/2025 Hypokalemia (ICD-10 - E87.6) 07/22/2024 Vitamin D deficiency (ICD-10 - E55.9) 01/29/2025 Hyperkalemia (ICD-10 - E87.5) 01/29/2025 Hyperglycemia (ICD-1 0 - R73.9) 02/03/2025 Essential hypertensi on (ICD-10 - I10) Blood pressure journal 02/03/2025 Pure hypercholesterolemia (ICD-10 - E78.00) 01/29/2025 Alkaline phosphatase elevation (ICD-10 - R74.8) 02/03/2025 BMI 30.0-30.9,adult (ICD-10 - Z68.30) 03/25/2025 Other Discharge summary with available lab/diagnostic imaging results obtained and reviewed. Discharge medication list reconciled. Appropriate counseling provided. Moderate Complexity Plan Of Treatment No Information Insurance Providers Payer Name Payer Address Payer Phone Subscriber Number Group Number Insured Name Patient Relationship to Insured Coverage Start Date Coverage End Date [employer] [address] [address] [place] [address] [id number] Lisseth Ignacio Self - patient is the insured [facility] OPTIONS [address] [place] [address] [phone] [id number] Lisseth Ignacio Self - patient is the insured Medications [...] - Colonoscopy Ovarian Screening - [facility] - OB yearly ma mmogram hyperlipidemia hypertension [...]
--- OUTSIDE RECORDS SUMMARY | 2025-07-21 04:07 | XMS_ITS | Encounter Summary ---
Author Organization [employer] ([place], [place], [place], [place], [place]) Address [address] [place] [address] Care Team Providers Care Spool Cleaner Hand Name Role Phone Unavailable Primary Care Provider Unavailabl e Encounter Details Date Type Department Care Team (Late st Contact Info) Description 10/25/2018 Transcribed Document [facility] [place] [facility] [place] [address] ProviderKristi MD [facility] [place] [address] Social History Tobacco Use Types [...] Medley MD - 10/25/2018 10:38 AM CDT [facility] Main OR IntraOp Summary Primary Physician: JARRET LONG MD-URO Finalized Date/Time: 10/26/18 11:16:16 Pt. Name: MEKHI IGNACIO /Sex: 1945 Female Med Rec #: [id number] Physician: JARRET LONG MD-URO Financial #: [id number] Pt. Type: O Room/Bed: Admit/Disch: 10/25/18 07:16:00 - 10/25/18 12:38:00 Institution: [facility] IntraOp Case Attendance Entry 1 Entry 2 Entry 3 Case Attendee JARRET LONG MD-URO HURST, JOSHUA, CRNA GHANSAH, NANA DADZIE, MD Role Performed Surgeon/Proceduralist, REGIONAL SALES ASSOCIATE/Nurse Precision Mechanical Instrument Maker Anesthesiologist of First Record Time In 10/25/18 [...] ROBERT, RN Pref Card Builder Role Performed Personal Fitness Trainer, First Scrub, First Personal Fitness Trainer, Second Time In 10/25/18 10:26:00 10/25/18 10:26:00 [...] Hardy [facility] Pref Card Builder 10/25/18 11:03:17 [facility] IntraOp Case Attendance Audit 10/25/18 11:03:17 Supervisor [employer]: MAUDESMYLA Modifier: GRIMESJE 1 <+> Time Out [...] Manipulation Laser(Right), Ureteral Stent Insertion(Right) 10/25/18 10:57:45 Supervisor [employer]: DMITRIYIMESJE Modifier: GRIMESJE 1 <*> Procedure Ureteral Stone Manipulation Laser(Right) 2 <*> Procedure Ureteral Stone Manipulation Laser(Right) 3 <*> Procedure Ureteral Stone Manipulation Laser(Right) 4 <*> Procedure Ureteral Stone Manipulation Laser(Right) 5 <*> Procedure Ureteral Stone Manipulation Laser(Right) 6 <*> Procedure Ureteral Stone Manipulation Laser(Right) 7 <*> Procedure Ureteral Stone Manipulation Laser(Right) 10/25/18 10:41:56 Supervisor [employer]: GRIMESJE Modifier: GRIMESJE 1 <*> Procedure Ureteral Stone [...] 7 <*> Procedure Ureteral Stone Manipulation Laser(Right) [facility] IntraOp Case Times Entry 1 Patient In Room Time 10/25/18 10:26:00 Out Room Time 10/25/18 11:03:00 Anesthesia Start Time 10/25/18 10:26:00 Stop Time 10/25/18 11:03:00 Surgery / Procedure Times Start Time 10/25/18 10:38:00 Stop Time 10/25/18 10:56:00 Last Modified By: Cris Hardy [facility] Pref Card Builder 10/25/18 11:03:14 [facility] IntraOp Case Times Audit 10/25/18 11:03:14 Supervisor [employer]: GRIMESJE Modifier: GRIMESJE <+> 1 Out Room Time <+> 1 Stop Time 10/25/18 10:57:09 Supervisor [employer]: GRIMESJE Modifier: GRIMESJE <+> 1 Stop Time 10/25/18 10:38:42 Supervisor [employer]: DMITRIYIMESJE Modifier: GRIMESJE <+> 1 Start Time [facility] IntraOp Communication Entry 1 Entry 2 Communication To Family/Significant other Family/Significant other Comment START CLOSING Communication By Cris Hardy [facility] Grimes, Jennifer, [facility] Pref Card Builder Pref Card Builder Date and Time 10/25/18 10:38:00 10/25/18 10:57:00 Last Modified By: Cris Hardy [facility] Grimes, Jennifer, [facility] Pref Card Builder Pref Card Builder 10/25/18 10:38:38 10/25/18 10:57:16 [facility] IntraOp Communication Audit 10/25/18 10:57:16 Supervisor [employer]: DMITRIYIMESMYLA Modifier: GRIMESJE <+> 2 Communication By <+> 2 Date and Time 10/25/18 10:38:38 Supervisor [employer]: GRIMESJE Modifier: GRIMESJE <+> 1 Communication By <+> 1 Date and Time [facility] IntraOp Cultures and Spec Summary Entry 1 Cultrures and Specimens Specimen Ordered: Yes Specimens Types Pathology Specimen(s) Labeled Pathology and Sent to Last Modified By: Cris Hardy [facility] Pref Card Builder 10/25/18 10:54:13 [facility] IntraOp Departure from OR Entry 1 Integumentary Assessment Integumentary WDL Assessment WDL Transfer/Handoff Transfer to PACU Phase I Handoff Method Phone call Post-op Transport Stretcher/Gurney Via Patient Transport TOYA MONTOYA CRNA, Accompanied by FESTUS GARAY MD Last Modified By: Cris Hardy [facility] Pref Card Builder 10/25/18 10:36:10 [facility] IntraOp Departure from OR Audit 10/25/18 10:36:10 Supervisor [employer]: GUCCI Modifier: GUCCI <+> 1 Patient Transport Accompanied by [facility] IntraOp Fire Risk Assessment Entry 1 [...] Hardy [facility] Pref Card Builder 10/25/18 10:35:59 [facility] IntraOp General Case Shafting Cleaner 1 Case Information OR Cysto 01 [facility] Case Level 1 Room Verified Yes Wound Class II - Clean-Contaminated Specialty SN Urology Anesthesia Type Regional ASA Class 2 Diagnosis Preop Diagnosis KIDNEY STONES Postop Same As Preop Yes Postop Diagnosis KIDNEY STONES Last Modified By: Cris Hardy [facility] Pref Card Builder 10/25/18 10:38:25 [facility] IntraOp Implant Log Entry 1 Type Implant (Synthetic) Implant Log Implant Type Other Implant STENT URET BRAID + Identification [id number] Description Implant Quantity 1 Implant Site RT URETER Implant [id number] Identification Lot Number Implant [place] Identification Sci:Urology/Gynecology Casualty Underwriter Name: Implant [id number] Identification Catalog Number Implant Has an Yes Expiration Date Implant Expiration 08/21/21 Date Tissue Implant Last Modified By: Cris Hardy [facility] Pref Card Builder 10/25/18 10:54:54 [facility] IntraOp Intraoperative Assessment Entry 1 Handoff [...] Hardy [facility] Pref Card Builder 10/25/18 10:38:30 [facility] IntraOp Intraoperative Equipment Entry 1 Type [...] induction. Last Modified By: Cris Hardy [facility] Pref Card Builder 10/25/18 10:38:55 [facility] IntraOp Patient Positioning Entry 1 Procedure [...] Hardy [facility] Pref Card Builder 10/25/18 10:57:47 [facility] IntraOp Patient Positioning Audit 10/25/18 10:57:47 Supervisor [employer]: GUCCI Modifier: GUCCI 1 <*> Procedure Ureteral Stone Manipulation Laser(Right) [facility] IntraOp Sign In Entry 1 Patient, [...] Hardy [facility] Pref Card Builder 10/25/18 10:39:06 [facility] IntraOp Sign Out Entry 1 RN [...] Hardy [facility] Pref Card Builder 10/25/18 11:03:24 [facility] IntraOp Sign Out Audit 10/25/18 11:03:24 Supervisor [employer]: GUCCI Modifier: GUCCI <+> 1 RN Sign Out Signature Date/Time [facility] IntraOp Skin Prep Entry 1 Procedure Ureteral Stone Manipulation Laser(Right), Ureteral Stent Insertion(Right) Prescribed Yes Pre-Surgical Prep Completed Prep Area Genitalia Intraop Prep Integumentary WDL Assessment WDL Prep Agents Betadine solution Prep by Cris Hardy [facility] Pref Card Buildhaile Hair Removal Methods No hair removal performed Last Modified By: Cris Hardy [facility] Pref Card Builder 10/25/18 10:57:47 [facility] IntraOp Skin Prep Audit 10/25/18 10:57:47 Supervisor [employer]: GUCCI Modifier: GUCCI 1 <*> Procedure Ureteral Stone Manipulation Laser(Right) [facility] IntraOp Surgical Procedures Entry 1 Entry [...] Pref Card Builder 10/25/18 10:57:42 10/25/18 10:57:42 [facility] IntraOp Surgical Procedures Audit 10/25/18 10:57:42 Supervisor [employer]: GUCCI Modifier: GUCCI 1 <*> Procedure Ureteral Stone Manipulation Laser 1 <+> Stop 1 <*> Additional Procedure Description RT URETEROSCOPIC STONE EXTRACTION WITH LASER <+> 2 Procedure <+> 2 Primary Procedure <+> 2 Modifiers <+> 2 Primary Surgeon <+> 2 Specialty <+> 2 Start <+> 2 Stop <+> 2 Wound Class <+> 2 Anesthesia Type <+> 2 Additional Procedure Description 10/25/18 10:46:08 Supervisor [employer]: GUCCI Modifier: GUCCI 1 <*> Procedure Ureteral Stone Manipulation Laser [facility] IntraOp Temp Regulation Devices Entry 1 Temp Regulation Temperature Warm blankets, Room Regulation Device temperature Temperature Upper body Regulation Site Last Modified By: Cris Hardy [facility] Pref Card Builder 10/25/18 10:39:52 [facility] IntraOP Time Out Entry 1 Procedure [...] Hardy [facility] Pref Card Builder 10/25/18 10:57:47 [facility] IntraOP Time Out Audit 10/25/18 10:57:47 Supervisor [employer]: GUCCI Modifier: GUCCI 1 <*> Procedure to be Performed Ureteral Stone Manipulation Laser(Right) Case Comments <None> Finalized By: YANELY CRAFT Document Signatures Signed By: Cris Hardy [facility] Pref Card Builder 10/25/18 11:03 YANELY CRAFT 10/26/18 11:16 Unfinalized History Date/Time Username Reason for Unfinalizing Freetext Reason for Unfinalizing 10/26/18 11:15 WATTSDR Correct Billing documented in this encounter Plan of Treatment Not on file documented as of this encounter Visit Diagnoses Not on filedocumented in this encounter
--- OUTSIDE RECORDS SUMMARY | 2025-07-21 04:07 | XMS_ITS | Encounter Summary ---
Author Organization [employer] ([place], [place], [place], [place], [place]) Address [address] [place] [address] Care Team Providers Care Data Processing Manager Name Role Phone Unavailable Primary Care Provider Unavailabl e Encounter Details Date Type Department Care Team (Late st Contact Info) Description 10/25/2018 Transcribed Document [facility] [place] Medicine Formerly [facility] [place] [address] ProviderKristi MD [facility]ly [facility] [address] Social History Tobacco Use Types [...] 10/25/2018 10:38 AM CDT [facility] Main OR PostOp Summary Primary Physician: JARRET LONG MD-URO Finalized Date/Time: 10/25/18 12:42:34 Pt. Name: MEKHI IGNACIO /Sex: 1945 Female Med Rec #: [id number] Physician: JARRET LONG MD-URO Financial #: [id number] Pt. Type: O Room/Bed: Admit/Disch: 10/25/18 07:16:00 - Institution: [facility] Main OR PostOp Case Times Entry 1 In PACU II 10/25/18 12:00:00 Ready for PACU II 10/25/18 12:38:00 Discharge Discharge from PACU 10/25/18 12:38:00 II Last Modified By: Shirley Espinoza RN 10/25/18 12:42:33 Finalized By: Shirley Espinoza, RN Document Signatures Signed By: Shirley Espinoza RN 10/25/18 12:42 Electronically signed by [facility] Conversion Chief Pharmacist Cerner at 11/22/2022 9:46 AM CDT documented in this encounter Plan of Treatment Not on file documented as of this encounter Visit Diagnoses Not on filedocumented in this encounter
--- OUTSIDE RECORDS SUMMARY | 2025-07-21 04:07 | XMS_ITS | Clinical Summary ---
Author Organization [facility] Address [address] [place] [address] Care Team Providers Care Associate Doctor Name Role Phone Anatoliy Lock MD Unavailable [phone] Phoenix Coulter MD Primary Care Provider [phone] Allergies Active Allergy Reactions Criticality Noted Date [...] MOUTH TWICE DAILY BEFORE MEAL(S) 1 Active Calcium Carbonate-Vit D-Min (Calcium-Vitam in D-Minerals) 600-800 MG-UNIT chewable tablet 1 (one) time each day at the same time. Active hydrALAZINE (Apresoline) 50 MG tablet Take 1 tablet by mouth 3 times a day. 5 Active irbesartan (Avapro) 300 MG tablet Take 1 tablet by mouth daily. 5 Active metoprolol succinate XL (Toprol-XL) 100 MG 24 hr tablet Take 1 tablet by mouth daily. 5 Active Active Problems Problem Noted Date Diagnosed [...] Date Smoking Tobacco: Never Smokeless Tobacco: Never Tobacco Cessation:Counseling Given: Not Answered Alcohol Use Standard Drinks/Week Comments Not Currently 1 (1 standard drink = 0.6 oz pur e alcohol) Occasional glass of wine Comments Unknown Sex and Gender Information Value Date Recorded Sex Assigned at Not on file Legal Sex Female 6:30 PM EDT Gender Identity Not on file Sexual Orientation Not on file Last Filed Vital Signs Vital Sign Reading Time Taken Comments Blood Pressure 144/88 03/24/2025 1:15 PM EDT Pulse 66 03/16/2025 10:35 AM EDT Temperature 36.7 C (98.1 F) 03/16/2025 10:35 AM EDT Respiratory Rate 14 03/16/2025 10:3 5 AM EDT Oxygen Saturation 96% 03/16/2025 10: 35 AM EDT RA Inhaled Oxygen Concentration - - Weight 70.3 kg (154 lb 15.7 oz) 03/24/2025 1:15 PM EDT Height 152.4 cm (5') 03/24/2025 1:15 PM EDT Body Mass Index 30.27 03/24/2025 1:15 PM EDT Plan of Treatment Health Maintenance Due Date Last Done Comments [facility]-Bone Density Scan 1943 [facility]-Depression Screening 1943 [facility]-Medicare Annual Wellness (AWV) 1943 [facility]-/Child/Adol SDOH Screenings 1943 [facility]- SDOH Screenings 1961 [facility]-Adult SDOH Screenings 1961 [facility]-RSV Vaccine: 60+ Years or (1 - 1-dose 75+ series) 2018 [facility]-Zoster Vaccines (2 of 3) 12/15/2018 10/20/2018, 05/11/2018 [facility]-Pneumococcal Vaccine: 50+ Years (2 of 2 - PCV20 or PCV21) 03/22/2019 03/22/2018 [id number] Vaccine ( - season) 2025 11/24/2021, 04/14/2021, 09/30/2020, Additional history exists [facility]-Influenza Vaccine (#1) 04/07/202507/24, 05/12/2021, 06/08/2019, Additional history exists [facility]-DTaP,Tdap,and Td Vaccines (2 - Td or Tdap) 12/16/2027 12/15/2017, 10/21/1996 [facility]-Hepatitis A Vaccines Aged Out 02/06/2020, 09/2019 No longer eligible based on patient's age to complete this topic [facility]-Obesity Intervention Completed 03/24/2025 HPV Vaccines (No Doses Required) Completed [facility]-HIB Vaccines Aged Out No longer e ligible based on patient's age to complete this topic [facility]-IPV Vaccines Aged Out No longer e ligible based on patient's age to complete this topic [facility]-Rotavirus Vaccines Aged Out No lo nger eligible based on patient's age to complete this topic Insurance [place] [id number] [facility] Care Teams Associate Doctor Relationship Specialty Start Date End Date Phoenix Coulter MD [address] [facility] [address] [place] [address] PCP - General 03/24/25 Anatoliy Lock MD [address] [facility] [address] [place] [id number] Surgeon Neurosurgery 12/10/21
--- OUTSIDE RECORDS SUMMARY | 2025-07-21 04:08 | XMS_ITS | Data Portability ---
Author Organization [facility] - THIERRY [facility] [place] [facility] Address [address] [place] [address] Assessment Encounter Date Assessment Date Assessment LastModified [...] recorded. Lab urinalysis, dipstick, auto 2018 019 [facility], [address], [address], [place], [address], 9 13:37:18 urinalysis, dipstick, auto 2018 019 [facility], [address], [address], [place], [address], 9 15:30:07 Referral None recorded. Procedures None recorded. Surgeries cystoscopy, with ureteroscop y, with lithotripsy (SURG) 2018 019 JORGITO Not available 9 13:25:44 Imaging None recorded. Medication Orders None recorded. Patient TargetsNo targets recorded. Patient Instructions Encounter Date Encounter Id Patient Instructions Last Modified By Organization Details Last Modified Time 05/28/2018 [id number] lumbar spinal stenosis: care instructions citlali Not available 05/28/2018 12:41:12 WRAP-UP Thank you for visiting [facility] at [facility] today. At today's visit the following were addressed: - SCHEDULE L2-L3 LESI Thank you for visiting the [facility]. -Because of the high volume [...] typically not make a medication substitution or foreign exchange dealer the telephone. -Acute exacerbations of pain and flare ups are quite common in chronic pain states and need to be dealt with as part of the senior care management plan. Please make an appointment with us if you wish to discuss a matter in any detail. Should you still need to call, please do so at . For additional information and services provided by our clinic you may visit our Pain Management Clinic website at: [email or web address] Thank you for choosing [facility]. It was a pleasure to see you in clinic today. Please contact us with any questions or concerns at . Not available 05/28/2018 10:16:26 07/05/2018 [id number] WRAP-UP Thank you for visiting [facility] at [facility] today. At today's visit the following were addressed: - PRN Thank you for visiting the [facility]. -Because of the high volume [...] typically not make a medication substitution or foreign exchange dealer the telephone. 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 Please make an appointment with us if you wish to discuss a matter in any detail. Should you still need to call, please do so at . For additional information and services provided by our clinic you may visit our Pain Management Clinic website at: [email or web address] Thank you for choosing [facility]. It was a pleasure to see you in clinic today. Please contact us with any questions or concerns at . Not available 07/05/2018 08:45:21 10/24/2018 [id number] kidney stone: ca re instructions adley Not available 10/24/2018 15:30:07 learning about diet for kidney stone prevention fhadley Not available 10/24/2018 15:30:07 10/30/2018 [id number] healthy together fhadley Not availabl e 10/30/2018 13:37:18 kidney stone: ca re instructions leola Not available 10/30/2018 13:37:18 Reason for Referral None Reported. Results Created Date Observation Date Name Description Value Unit Range Abnormal Flag Note LastModifiedBy Organization Detail LastModifiedTime 10/31/19 19 10/30/2018 urina lysis , dipst ick, auto Unknown Analyte Yellow Not Available [facility] [address] [place] [address], [address], 10/30/2018 13:29:59 10/31/19 19 10/30/2018 urina lysis , dipst ick, auto Unknown Analyte Clear Not Available [facility] [address], [place], [address], 10/30/2018 13:29:59 10/31/19 19 10/30/2018 urina lysis , dipst ick, auto Unknown Analyte 1.015 Not Available [facility] [address], [place], [address], 10/30/2018 13:29:59 10/31/19 19 10/30/2018 urina lysis , dipst ick, auto Unknown Analyte 1.003 - 1.035 Not Available [facility] [address], [place], [address], 10/30/2018 13:29:59 10/31/19 19 10/30/2018 urina lysis , dipst ick, auto Unknown Analyte 5.0 Not Available [facility] [address], [place], [address], 10/30/2018 13:29:59 10/31/19 19 10/30/2018 urina lysis , dipst ick, auto Unknown Analyte 5.0 - 8.0 Not Available [facility] [address], [place], [address], 10/30/2018 13:29:59 10/31/19 19 10/30/2018 urina lysis , dipst ick, auto Unknown Analyte Negati ve Not Available [facility] [address], [place], [address], 10/30/2018 13:29:59 10/31/19 19 10/30/2018 urina lysis , dipst ick, auto Unknown Analyte Negati ve Not Available [facility] [address], [place], [address], 10/30/2018 13:29:59 10/31/19 19 10/30/2018 urina lysis , dipst ick, auto Unknown Analyte Negati ve Not Available [facility] [address], [place], [address], 10/30/2018 13:29:59 10/31/19 19 10/30/2018 urina lysis , dipst ick, auto Unknown Analyte Negati ve Not Available [facility] [address], [place], [address], 10/30/2018 13:29:59 10/31/19 19 10/30/2018 urina lysis , dipst ick, auto Unknown Analyte Negtiv e Not Available [facility] [address], [place], [address], 10/30/2018 13:29:59 10/31/19 19 10/30/2018 urina lysis , dipst ick, auto Unknown Analyte Negati ve - Trace Not Available [facility] [address], [place], [address], 10/30/2018 13:29:59 10/31/19 19 10/30/2018 urina lysis , dipst ick, auto Unknown Analyte Normal Not Available [facility] [address], [place], [address], 10/30/2018 13:29:59 10/31/19 19 10/30/2018 urina lysis , dipst ick, auto Unknown Analyte Normal Not Available [facility] [address], [place], [address], 10/30/2018 13:29:59 10/31/19 19 10/30/2018 urina lysis , dipst ick, auto Unknown Analyte Negati ve Not Available [facility] [address], [place], [address], 10/30/2018 13:29:59 10/31/19 19 10/30/2018 urina lysis , dipst ick, auto Unknown Analyte Negati ve Not Available [facility] [address], [place], [address], 10/30/2018 13:29:59 10/31/19 19 10/30/2018 urina lysis , dipst ick, auto Unknown Analyte Normal Not Available [facility] [address], [place], [address], 10/30/2018 13:29:59 10/31/19 19 10/30/2018 urina lysis , dipst ick, auto Unknown Analyte Normal - 1mg/dl Not Available [facility] [address], [place], [address], 10/30/2018 13:29:59 10/31/19 19 10/30/2018 urina lysis , dipst ick, auto Unknown Analyte Negati ve Not Available [facility] [address], [place], [address], 10/30/2018 13:29:59 10/31/19 19 10/30/2018 urina lysis , dipst ick, auto Unknown Analyte Negati ve Not Available [facility] [address], [place], [address], 10/30/2018 13:29:59 10/31/19 19 10/30/2018 urina lysis , dipst ick, auto Unknown Analyte 50 Julio/ul Not Available [facility] [address], [place], [address], 10/30/2018 13:29:59 10/31/19 19 10/30/2018 urina lysis , dipst ick, auto Unknown Analyte Negati ve Not Available [facility] [address], [place], [address], 10/30/2018 13:29:59 10/31/19 19 10/30/2018 urina lysis , dipst ick, auto Unknown Analyte Clean Catch Not Available [facility] [address], [place], [address], 10/30/2018 13:29:59 10/31/19 19 10/30/2018 urina lysis , dipst ick, auto Unknown Analyte Automa jesus Not Available [facility] [address] [place] [address], [address], 10/30/2018 13:29:59 10/25/19 19 10/24/2018 urina lysis , dipst ick, auto Unknown Analyte Straw Not Available [facility] [address] [place] [address], [address], 10/24/2018 10:24:56 10/25/1910/24/2018 urina lysis , dipst ick, auto Unknown Analyte Cloudy Not Available [facility] [address] [place] [address], [address], 10/24/2018 10:24:56 10/25/19 19 10/24/2018 urina lysis , dipst ick, auto Unknown Analyte 1.010 Not Available [facility] [address], [address], 10/24/2018 10:24:56 10/25/19 19 10/24/2018 urina lysis , dipst ick, auto Unknown Analyte 1.003 - 1.035 Not Available [facility] [address], [place], [address], 10/24/2018 10:24:56 10/25/19 19 10/24/2018 urina lysis , dipst ick, auto Unknown Analyte 8.0 Not Available [facility] [address], [place], [address], 10/24/2018 10:24:56 10/25/19 19 10/24/2018 urina lysis , dipst ick, auto Unknown Analyte 5.0 - 8.0 Not Available [facility] [address], [place], [address], 10/24/2018 10:24:56 10/25/19 19 10/24/2018 urina lysis , dipst ick, auto Unknown Analyte Negati ve Not Available [facility] [address], [place], [address], 10/24/2018 10:24:56 10/25/1910/24/2018 urina lysis , dipst ick, auto Unknown Analyte Negati ve Not Available [facility] [address], [place], [address], 10/24/2018 10:24:56 10/25/19 19 10/24/2018 urina lysis , dipst ick, auto Unknown Analyte Negati ve Not Available [facility] [address], [place], [address], 10/24/2018 10:24:56 10/25/19 19 10/24/2018 urina lysis , dipst ick, auto Unknown Analyte Negati ve Not Available [facility] [address], [place], [address], 10/24/2018 10:24:56 10/25/1910/24/2018 urina lysis , dipst ick, auto Unknown Analyte Negtiv e Not Available [facility] [address], [place], [address], 10/24/2018 10:24:56 10/25/19 10/24/2018 urina lysis , dipst ick, auto Unknown Analyte Negati ve - Trace Not Available [facility] [address], [place], [address], 10/24/2018 10:24:56 10/25/19 19 10/24/2018 urina lysis , dipst ick, auto Unknown Analyte Normal Not Available [facility] [address], [place], [address], 10/24/2018 10:24:56 10/25/1910/24/2018 urina lysis , dipst ick, auto Unknown Analyte Normal Not Available [facility] [address], [place], [address], 10/24/2018 10:24:56 10/25/1910/24/2018 urina lysis , dipst ick, auto Unknown Analyte Negati ve Not Available [facility] [address], [place], [address], 10/24/2018 10:24:56 10/25/1910/24/2018 urina lysis , dipst ick, auto Unknown Analyte Negati ve Not Available [facility] [address], [place], [address], 10/24/2018 10:24:56 10/25/1910/24/2018 urina lysis , dipst ick, auto Unknown Analyte Normal Not Available [facility] [address], [place], [address], 10/24/2018 10:24:56 10/25/1910/2410/24/2018 urina lysis , dipst ick, auto Unknown Analyte Normal - 1mg/dl Not Available [facility] [address] [place] [address] [address], [place], [address], 10/24/2018 10:24:56 10/25/19 19 10/24/2018 urina lysis , dipst ick, auto Unknown Analyte Negati ve Not Available [facility] [address] [place] [address] [address], [place], [address], 10/24/2018 10:24:56 10/25/19 19 10/24/2018 urina lysis , dipst ick, auto Unknown Analyte Negati ve Not Available [facility] [address], [place], [address], 10/24/2018 10:24:56 10/25/19 19 10/24/2018 urina lysis , dipst ick, auto Unknown Analyte 250 Julio/ul Not Available [facility] [address], [place], [address], 10/24/2018 10:24:56 10/25/19 19 10/24/2018 urina lysis , dipst ick, auto Unknown Analyte Negati ve Not Available [facility] [address] [place] [address] [address], [place], [address], 10/24/2018 10:24:56 10/25/19 19 10/24/2018 urina lysis , dipst ick, auto Unknown Analyte Clean Catch Not Available [facility] [address], [place], [address], 10/24/2018 10:24:56 10/25/19 19 10/24/2018 urina lysis , dipst ick, auto Unknown Analyte Automa jesus Not Available [facility] [address], [place], [address], 10/24/2018 10:24:56 10/25/19 19 10/24/2018 XR, abdom en, 1 view No observ ation record ed. [facility] [address], [place], [address], 10/24/2018 15:54:16 11/07/19 19 10/11/2018 CT, abdom en + pelvi s, w/ contr ast No observ ation record ed. [facility] [address], [place], [address], 11/06/2018 11:08:18 Result Notes None recorded. Problems No Known Problems Procedures Surgical History Date Name Laterality Status Provider Name and Address Organization Details Recorded Time 10/26/19 19 CYSTOSCOPY, WITH URETEROSCOPY, WITH LITHOTRIPSY (SURG) completed Jenny Varela [facility] 11/02/2018 11:11:28 06/06/20 18 Injection - Interlaminar Epidural Steroid completed STACY GARCIA MD [address] [place] [address], [address], [facility] 06/06/2018 09:37:07 Appendectomy completed Berta Akins [facility] 05/10/2018 14:36:33 Imaging Results None recorded. Procedure Notes None recorded. Medical Equipment None Reported. Allergies Allergen ID Allergen Name Allergen Category Reaction Reaction Severity Criticality Documentation Date Start Date Code Code System Note Provider Name and Address Organization Details Recorded Time 581706 niacin medicatio n Not available Not available Not available 07/01/20162010 7393 RxNorm Comme nt: suppl ement cause d hives ;Crea jesus By: Tolu RecinosCrea jesus Date: 2010 10:30 :08 AM; Not Available [facility] 6 04:45:05 098591 Substance with sulfonami de structure and antibacte rial mechanism of action (substanc e) medicatio n Not available Not available Not available 07/01/20162010 31552 8003 SNOMED Comme nt: Creat ed By: Tolu lee Date: 2010 10:30 :26 AM; Not Available [facility] 6 10:25:53 Medications Name Sig Start Date [...] index (BMI) Body weight Heart rate Systolic And Diastolic Provider Name and Address Organization Details Last Updated DateTime 10/24/2018 152.4 cm 29.3 kg/m2 97770.86 g 60 /min 176/99 mm[Hg] Katheryn Serna [facility] 10/24/2018 10:34:33 Date Recorded Body height Body mass index (BMI) Body weight Heart rate Systolic And Diastolic Provider Name and Address Organization Details Last Updated DateTime 10/30/2018 152.4 cm 28.9 kg/m2 13700.67 g 57 /min 136/81 mm[Hg] Rayna Barkley [facility] 10/30/2018 13:29:36 Date Recorded Body height Body mass index (BMI) Body weight Systolic And Diastolic Provider Name and Address Organization Details Last Updated DateTime 05/28/2018 152.4 cm 30.7 kg/m2 42944 g 150/75 mm[Hg] Charity Lovett [facility] 05/28/2018 09:55:28 Date Recorded Body height Body mass index (BMI) Body weight Systolic And Diastolic Provider Name and Address Organization Details Last Updated DateTime 07/05/2018 152.4 cm 30.7 kg/m2 78946 g 122/83 mm[Hg] Santiago Palafox [facility] 07/05/2018 08:23:57 Social History Question Answer Notes LastModified by Organizat [employer] mobile Details LastModified Time Tobacco Smoking Status Never Smoker [facility] 05/10/2018 14:36:25 How Much Tobacco Do You Chew? None [email or web address] Information not available 10/30/2018 Education 12 Information no t available 05/28/2018 Marital Status Informatio n not available 05/28/2018 What Was The Date Of Your Most Recent Tobacco Screening? 10/30/2018 Information not available 09/24/2019 Sex: Unknown Functional Status Question Answer Note LastModified by Organizat [employer] Details LastModified Time What is your level [...] available 11/2017 14:36:20 Medical History Condition Response High Cholesterol Y Allergies/Hayfever Y Hypertension Y Gynecological HistoryNo gynecological history recorded. Obstetrics History GPAL:G 0 P 0 0 0 0 Past Encounters Encounter ID Performer Location Encounter Start Date Encounter Closed Date Diagnosis/Indication Diagnosis SNOMED-CT Code Diagnosis ICD10 Code Diagnosis IMO Codes Diagnosis Note [id number] [facility]M[place] [address] 11/10/2016 06:01:39 11/10/2016 06:01:39 [id number] ALVINA PARDO MD NEUROSURG [facility] [address] [place] [address] 05/10/2018 14:00:17 05/11/2018 10:34:53 Neurogenic claudication co-occurrent and due to spinal stenosis of lumbar region 0741069355 99494 M48.785 [id number] STACY GARCIA MD [facility] [address] [place] [address] 1 05/28/2018 09:40:40 05/28/2018 10:21:10 Spinal stenosis of lumbar region 22850619 M48.467 [id number] STACY GARCIA MD [facility] PROFESSIO NAL CHARGES [address] [place] [address] 06/06/2018 09:28:25 06/07/2018 15:31:45 Lumbar radiculopathy 208153866 M54.16 [id number] STACY GARCIA MD [facility] CL[facility] [address] [place] [address] 1 07/05/2018 07:59:12 07/05/2018 08:46:40 Lumbar radiculopathy 911568732 M54.16 [id number] JARRET LONG MD [facility] [address] [place] [address] 10/24/2018 10:02:52 10/24/2018 11:46:10 Kidney stone 83309122 N20.0 [id number] JARRET LONG MD [facility] [address] [facility] [place] [address] 10/30/2018 12:27:19 10/30/2018 13:33:45 Ureteric stone 61109353 N20.1 Health Concerns Section Related Observation LastModified by Organization Detai ls LastModified Time None Recorded Concern Status LastModified by Organization Details LastModified Time None Recorded Advance Directives Directive None Recorded Payers Insurance Date Sequence Insurance Name Policy Number Policy Cifuentes Covered Member ID Cifuentes Member ID Guarantor Name 07/01/2020 1 MIRIAM VELA - MEDICARE-[address] [employer] (MEDICARE) Lisseth Rebecca Mateus [id number] Lisseth Fernandez Mateus 07/01/2020 1 [place] Lisseth Ignacio [id number] Lisseth Ignacio 07/01/2020 2 [employer] (MEDICARE SUPPLEMENT) Lisseth Ignacio [id number] Lisseth Ignacio 07/01/2020 3 [place] Lisseth Ignacio [id number] Lisseth Ignacio Notes Date Note Type Note Provider Name and Address Organization Details Recorded Time 05/28/2018 text/html Pain Management InitialReported by PatientPain Management InitialFor quality, patient reportsachinganddull. For timing, patient reportschronic. For alleviating factors, patient reportslying downandrest. For aggravating factors, patient reportsstandingandwal rios. For associated symptoms, patient reportsno numbnessandno tingling. For prior imaging, patient reportsmri. For previous injections, patient reportsnone. For previous pt, patient reportshelped a little. 72-year-old female presenting for evaluation of lumbar [...] recess narrowing from L2-3 through L5-S1. STACY AGRCIA MD [address] [place] [address], [address], [facility] 05/28/2018 12:41:16 07/05/2018 text/html 72-year-old female presenting with regards to hip pain. At her last appointment, patient underwent L2-3 lumbar epidural steroid injection. Patient reports significant improvement in hip and leg pain following the injection. She continues to report good improvement in pain. STACY GARCIA MD [address] [place] [address], [address], [facility] 07/05/2018 10:01:42 10/24/2018 text/html 73-year-old female who is having kidney stone problems. She [...] in the same position JARRET LONG MD [address] [place] [address], [address], [facility] 10/24/2018 15:29:53 10/30/2018 text/html she is back following ureteroscopic stone extraction. She removed her stent over the weekend. She is voiding clear urine without any pain is no back or abdominal discomfort. She will concentrate on hydration for stone prevention JARRET LONG MD [address] [place] [address] [place], [address], [facility] 10/30/2018 13:37:33 OBGyn Episode No OBEpisode recorded.
--- OUTSIDE RECORDS SUMMARY | 2025-07-21 04:08 | XMS_ITS | Data Portability ---
Author Organization [place] - [place], [employer], [facility] Address [address] [place] [address] Care Team Providers Care Manager Plant Name Role Phone GABRIELLAMAY BUSTOS Referring Provider [phone] Assessment No assessment recorded. Plan of Treatment Reminders Order Date Submit Date Provider Last Modified By Organization Details Last Modified Time Details Appointments None recorded. Lab rapid influenza virus A + B and SARS CoV + SARS CoV 2 Ag panel, [place], upper respiratory specimen 2024 025 [place] In-Office Order, Internal Use Only DO Not Attach Compendium DO Not Attach Compendium, Do Not Delete/merge, [id number] 5 09:08:34 Referral None recorded. Procedures None recorded. Surgeries None recorded. Imaging None recorded. Medication Orders fluticasone propionate 50 mcg/actuati on nasal spray,suspe nsion 2024 025 [facility], [address] [place], [address], 5 09:04:19 cefdinir 300 mg capsule 2024 025 [facility], [address] [place], [address], 5 09:04:18 Medrol (Fly) 4 mg tablets in a dose pack 2024 025 [facility], [address] [place], [address], 09:04:19 Patient TargetsNo targets recorded. Patient Instructions Encounter Date Encounter Id Patient Instructions Last Modified By Organization Details Last Modified Time 09/28/2024 [id number] Acute Sinusitis: Care Instructions msoll Not available [...] DO Not Attach Compendium, Do Not Delete/merge, [id number] 09/28/2024 08:39:48 Result Notes None recorded. Problems Name Problem SNOMED Code Status Onset Date Resolution Date Notes Provider Name and Address Organization Details Recorded Time Cough 38142055 [facility] [employer] [address], [place], [address] , [facility] 5 08:52:52 Acute sinusitis 61004818 Active 025 Dyana Pollenamaury, [employer] [address], [place], [address] , [facility] 5 09:03:32 Problem Notes None recorded. Medical Equipment None Reported. Allergies Allergen ID Allergen Name Allergen Category Reaction Reaction Severity Criticality Documentation Date Start Date Code Code System Note Provider Name and Address Organization Details Recorded Time [id number] antazolin e medicatio n Not available Not available Not available 09/28/2024 865 RxNorm HTN per PT Pipe Guerrero [facility] 5 08:30:07 7864298 niacin medicatio n Not available Not available Not available 09/28/2024 7393 RxNorm Welt s Pipe Guerrero [facility] 5 08:30:24 Medications Name Sig Start [...] propionate 50 mcg/actuati on nasal spray,suspe nsion [place] 1 spray every day by intranasal route. 2024 active Not Available Not Available Not Eric Duncan-Mike half a tab active does not recall dose Not Available Not Available Not Available Vitals Date Recorded Body weight Heart rate Oxygen saturation Body mass index (BMI) Body height Body temperature Pain severity - 0-10 verbal numeric rating [Score] - Reported Systolic And Diastolic Systolic And Diastolic Provider Name and Address Organization Details Last Updated DateTime 5 94455.6 5 g 68 /min 98 % 31.4 kg/m2 152.4 cm 99.4 [degF] 0 170/94 mm[Hg] 168/92 mm[Hg] Pipe Guerrero [place] - [facility] 08:39:42 Social History Question Answer Notes LastModified [...] ICD10 Code Diagnosis IMO Codes Diagnosis Note [id number] Dyana Mccray, [facility] [address] [place] [address] 09/28/2024 08:04:57 09/28/2024 18:39:34 Cough 40336630 R05.9 Covid negFlu neg Acute sinusitis 21768471 J01.90 acute, progressin g, initial visitNewly undiagnose [...] Member ID Guarantor Name 12/09/2024 1 [facility] - MEDICARE-[address] (MEDICARE) Lisseth Ignacio [id number] Lisseth Ignacio 12/09/2024 2 [employer] (MEDICARE SUPPLEMENT) Lisseth Ignacio [id number] Lisseth Ignacio Notes Date Note Type Note [...] week and then sinus pain started Dyana Mccray, [employer] OPERATOR [address], [place], [address], [facility] - [facility], [facility] 09/28/2024 09:24:12 OBGyn Episode No OBEpisode recorded.
--- OUTSIDE RECORDS SUMMARY | 2025-07-21 04:08 | XMS_ITS | Clinical Summary ---
Author Organization [facility] Address [address] [place] [id number] Care Team Providers Care Leak Patcher Name Role Phone Uriel Mcbride MD Primary Care Provider Allergies Active Allergy Reactions Criticality Noted Date Comments Amoxicillin Diarrhea 04/15/2025 Antihistamines, Diphenhydramine-Type Other (See Comments) Medium 02/24/2020 PER PATIENT WHELPS, HYPER, CAN'T SLEEP Niacin Itching Low 02/24/2020 Sulfa Antibiotics Other (See Comments) Low 02/24/20 20 ABDOMINAL CRAMPS Medications calcium carb-cholecalci ferol (Calcium+D3) 600-800 MG-UNIT tablet Take 2 tablets by mouth Daily. Active Multiple Vitamin (ONE-DAILY MULTI-VITAMIN PO) Take 1 tablet by mouth Daily. Active vitamin B-12 (CYANOCOBALAMIN ) 1000 MCG tablet Take 1 tablet by mouth Daily. Active Dorzolamide HCl-Timolol Mal PF 2-0.5 % solution Apply 1 drop to eye(s) as directed by provider 2 (Two) Times a Day. INSTILL 1 DROP INTO RIGHT/EYE TWICE DAILY Active atorvastatin (LIPITOR) 20 MG tablet Take 0.5 tablets by mouth Every Night. Active aspirin 325 MG tablet Take 1 [...] route Continuous. Indications: Acute Pain 0 Active Additional Information Patient taking differently:10 mL/hr Peripheral Nerve Continuous,(No indications reported), Reported on 04/15/2025 omeprazole (priLOSEC) 20 MG capsule 1 capsule Every 12 (Twelve) Hours. Active Multiple Vitamins-Minera ls (PRESERVISION AREDS 2 PO) Take by mouth. Act mandie hydrALAZINE (APRESOLINE) 50 MG tablet Take 1 tablet by mouth 3 (Three) Times a Day. 5 Active irbesartan (AVAPRO) 300 MG tablet Take 1 tablet by mouth Daily. Active metoprolol succinate XL (TOPROL-XL) 100 MG 24 hr tablet Take 1 tablet by mouth Daily. 5 Active Active Problems Problem Noted Date Diagnosed Date Aneurysm of ascending aorta without rupture 04/2025 Right carotid artery occlusion 04/15/2025 Aneurysm of left carotid artery 04/15/2025 Acute postoperative pain 02/28/2020 Leukocytosis, mild, likely reactive 02/28/2020 Primary localized osteoarthritis of right knee 0 02/27/2020 Status post total right knee replacement 020 Hyperlipidemia 02/27/2020 Hypertension 02/27/2020 Family History Medical History Relation Name Comments Breast cancer Maternal Aunt Colon cancer Mother Ovarian cancer Mother approximate Relation Name Status Comments Father (Age 44) enlarged h eart Maternal Aunt Mother Social History Tobacco Use Types Packs/Day Years Used Date Smoking Tobacco: Never Smokeless Tobacco: Never Alcohol Use Standard Drinks/Week Comments Not Currently 0 (1 standard drink = 0.6 oz pur e alcohol) AUDIT-C Answer Date Recorded Q1: How often do you have a drink containing alc ohol? 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 Not on file Not on file Last Filed Vital Signs Vital Sign Reading Time Taken Comments Blood Pressure 200/100 04/15/2025 8:49 AM EDT Pulse 50 04/15/2025 8:48 AM EDT Temperature 36.7 C (98 F) 04/15/2025 8:48 AM EDT Respiratory Rate 16 02/28/2020 9:53 AM EDT Oxygen Saturation 97% 04/15/2025 8:4 8 AM EDT Inhaled Oxygen Concentration - - Weight 69.9 kg (154 lb 3.2 oz) 04/15/2025 8:48 AM EDT Height 152.4 cm (5') 04/15/2025 8:48 AM EDT patient reported Body Mass Index 30.12 04/15/2025 8:48 AM EDT Plan of Treatment Upcoming Encounters Date Type Department Care Team (Late st Contact Info) Description 11/24/2025 10:30 AM EDT Office Visit [facility] CARDIOTHORACIC SURGERY [address] [id number] Umm Sylvester APRN [address] [facility] [address] [place] [address] Health Maintenance Due Date Last Done Comments DXA SCAN 1943 LIPID PANEL 1943 DIABETIC EYE EXAM 1953 DIABETIC FOOT EXAM 1953 URINE MICROALBUMIN-CREATININ E RATIO (uACR) 1953 Pneumococcal Vaccine 50+ (2 of 2 - PPSV23, PCV20, or PCV21) 05/17/2018 03/22/2018 RSV Vaccine - Adults (1 - 1- dose 75+ series) 2018 ZOSTER VACCINE (2 of 3) 12/15/2018 10/20/2018, 05/11 ANNUAL WELLNESS VISIT 02/20/2020 HEMOGLOBIN A1C 08/26/2020 02/24/2020 INFLUENZA VACCINE 03/07/2025 05/12/2021, , 06/08/2019, Additional history exists COVID-19 Vaccine (5 - 2024-2 6 season) 2025 11/24/2021, 04/14/2021, 09/30/2020, Additional history exists TDAP/TD VACCINES (2 - Td or Tdap) 12/16/2027 018, 10/21/1996 Medical Devices Implanted Type Area Senior Talent Management Consultant Device Identifier Shelf Expiration Date Model / Serial / Lot Cmt Bone Palacos R Hi/Visc 1x40 - [id number] Implanted:Qty : 2 on 02/27/2020 by Kan Rice MD at [facility] Implant Right: Knee [employer] 10/04/2022 [id number] / / [id number] Sut Contrl Tiss Stratafix Spiral Pgpcl 2/0fs 97w75dr - [id number] Implanted:Qty : 1 on 02/27/2020 by Kan Rice MD at [facility] Implant Right: Knee [employer] DIV OF J AND J [id number] / / Sut Contrl Tiss Stratafix Symm Pds Plus Jonny Ct-1 45cm - [id number] Implanted:Qty : 1 on 02/27/2020 by Kan Rice MD at [facility] Implant Right: Knee [employer] DIV OF J AND J [id number] / / Base Tib/Kn Gen2 Nonpor Ti Sz2 Rt - [id number] Implanted:Qty : 1 on 02/27/2020 by Kan Rice MD at [facility] Implant Right: Knee [employer]W 10/11/2029 [id number] / / [id number] Fem Legion Oxin Ps Nrw Sz4n Rt - [id number] Implanted:Qty : 1 on 02/27/2020 by Kan Rice MD at [facility] Implant Right: Knee [employer] 12/06/2029 [id number] / / [id number] Pat Resrf Gen2 7.5x29mm - [id number] Implanted:Qty : 1 on 02/27/2020 by Kan Rice MD at [facility] Implant Right: Knee [employer]W 10/20/2029 [id number] / / [id number] Insrt Art Legion Ps Hf Xlpe Sz1to2 9mm - [id number] Implanted:Qty : 1 on 02/27/2020 by Kan Rice MD at [facility] Implant Right: Knee [employer]W 09/15/2029 [id number] / / [id number] Totl Kn Renaldo Mazariegos Nephew - [id number] Implanted:Qty : 1 on 02/27/2020 by Kan Rice MD at [facility] Implant Right: Knee [employer]W CAPKNEETOTAL SN2 / / Implant Description:CATARACT LENS -B ILATERAL Procedures Procedure Name Priority Date/Time Associated Diagnosis Comments HEMOGLOBIN A1C Routine 02/24/2020 12:43 PM EDT from Last 3 Months or Most Recently Relevant to Health Maintenance Results * Hemoglobin A1c (02/24/2020 12:43 PM EDT) Hemoglobin A1C 5.20 4.80 - 5.60 % 02/24/2020 1:14 PM EDT [facility] Blood Venipuncture / Unknown 02/24/2020 12:43 PM EDT 02/24/2020 12:55 PM EDT Narrative [facility] - 02/24/2020 1:14 PM EDT Hemoglobin A1C Ranges: Increased Risk for Diabetes 5.7% to 6.4% Diabetes >= 6.5% Diabetic Goal < 7.0% Kan Rice MD LAB BLOOD ORDERABLES F inal Result [facility]
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 WILL - SCAN 02/24/2020 12:20 PM ARELIS ING WILL, BHLEX, 12/15/2005 * CPR (Attempt to Resuscitate) (Latest Code Status on File) Date Activated Date Inactivated Comments 02/27/2020 1:20 PM 02/28/2020 3:02 PM Question Answer Comments Code Status (Patient has no pulse and is not breathing): CPR (Attempt to Resuscitate) Medical Interventions (Patie nt has pulse or is breathing): Full Level Of Support Discussed With: Patient Care Teams Leak Patcher Relationship Specialty Start Date End Date Uriel Mcbride MD [address] [place] [address] [address] [place] [address] PCP - General Family Medicine 02/20/19
[2025-07-21 04:10] LABS: Troponin I < 0.01 ng/ml (0.00-0.034)
[2025-07-21] MEDS: ONDANSETRON 4MG/2ML VIAL 4 MG IV (04:23)
--- NOTE | 2025-07-21 04:37 | CT_ITS ---
PROCEDURE INFORMATION: Exam: CT Head Without Contrast Exam date and time: 07/21/2025 5:01 AM Age: 79 years old Clinical indication: Pain; Other: HTN; Headache; Additional info: HTN, headache, HX aneurysm? TECHNIQUE: Imaging protocol: Computed tomography of the head without contrast. Radiation optimization: All CT scans at this facility use at least one of these dose optimization techniques: automated exposure control; mA and/or kV adjustment per patient size (includes targeted exams where dose is matched to clinical indication); or iterative reconstruction. COMPARISON: No relevant prior studies available. FINDINGS: Brain: No acute lobar infarct. No hemorrhage. Patchy white matter hypodensity likely represents chronic microvascular ischemic change. No mass effect. Cerebral ventricles: No ventriculomegaly. Paranasal sinuses: Visualized sinuses are unremarkable. No fluid levels. Mastoid air cells: Visualized mastoid air cells are well aerated. Orbital cavities: The patient is post bilateral cataract surgery. Bones: Unremarkable. No acute fracture. Soft tissues: Unremarkable. IMPRESSION: No acute intracranial process.
--- NOTE | 2025-07-21 04:37 | CT_ITS ---
PROCEDURE INFORMATION: Exam: CTA Head With Contrast, Arteriography Exam date and time: 07/21/2025 5:10 AM Age: 79 years old Clinical indication: Pain; Other: HTN; Headache; Additional info: HTN, headache, HX aneurysm? TECHNIQUE: Imaging protocol: Computed tomographic angiography of the head with contrast. Exam focused on the arteries. 3D rendering (Not supervised by radiologist): MIP and/or 3D reconstructed images were created by the technologist. Radiation optimization: All CT scans at this facility use at least one of these dose optimization techniques: automated exposure control; mA and/or kV adjustment per patient size (includes targeted exams where dose is matched to clinical indication); or iterative reconstruction. Contrast material: ISOUVE 370; Contrast volume: 80 ml; Contrast route: INTRAVENOUS (IV); COMPARISON: CT HEAD/BRAIN WO CON 07/21/2025 5:01 AM FINDINGS: ANTERIOR CIRCULATION: Right internal carotid artery: The right internal carotid artery is occluded with reconstitution of the clinoid segment via retrograde flow. Right middle cerebral artery: No occlusion or significant stenosis. No aneurysm. Right anterior cerebral artery: No occlusion or significant stenosis. No aneurysm. Left internal carotid artery: Intracranial segment is patent with no significant stenosis. No aneurysm. Left middle cerebral artery: No occlusion or significant stenosis. No aneurysm. Left anterior cerebral artery: No occlusion or significant stenosis. No aneurysm. POSTERIOR CIRCULATION: Right vertebral artery: No occlusion or significant stenosis. No aneurysm. Left vertebral artery: No occlusion or significant stenosis. No aneurysm. Basilar artery: No occlusion or significant stenosis. No aneurysm. Right posterior cerebral artery: No occlusion or significant stenosis. No aneurysm. Left posterior cerebral artery: No occlusion or significant stenosis. No aneurysm. Brain: No definite mass, mass effect, or midline shift. Cerebral ventricles: No ventriculomegaly. Bones/joints: Unremarkable. No acute fracture. Soft tissues: Unremarkable. IMPRESSION: Occluded right internal carotid artery, retrograde supply to the clinoid and ophthalmic segments. Otherwise no acute intracranial large vessel occlusion. THIS REPORT CONTAINS FINDINGS THAT MAY BE CRITICAL TO PATIENT CARE. The findings were verbally communicated via telephone conference with LULU BARRAZA at 5:39 AM EST on 07/21/2025. The findings were acknowledged and understood.
--- NOTE | 2025-07-21 04:37 | CT_ITS ---
PROCEDURE INFORMATION: Exam: CTA Neck With Contrast Exam date and time: 07/21/2025 5:11 AM Age: 79 years old Clinical indication: Pain; Other: HTN; Headache; Additional info: HTN, headache, HX aneurysm? TECHNIQUE: Imaging protocol: Computed tomographic angiography of the neck with contrast. Exam focused on the cervical segments of the vasculature. 3D rendering (Not supervised by radiologist): MIP and/or 3D reconstructed images were created by the technologist. Radiation optimization: All CT scans at this facility use at least one of these dose optimization techniques: automated exposure control; mA and/or kV adjustment per patient size (includes targeted exams where dose is matched to clinical indication); or iterative reconstruction. Contrast material: ISOUVE 370; Contrast volume: 80 ml; Contrast route: INTRAVENOUS (IV); COMPARISON: CT ANGIO HEAD 07/21/2025 5:10 AM FINDINGS: Right common carotid artery: No stenosis. No dissection or occlusion. Right internal carotid artery: The right internal carotid artery is occluded at its origin. Right external carotid artery: No occlusion or stenosis of the origin. Left common carotid artery: No stenosis. No dissection or occlusion. Left internal carotid artery: There is heavy calcific atheromatous plaque is noted in the proximal left internal carotid causing less than 40% stenosis. Left external carotid artery: No occlusion or stenosis of the origin. Right vertebral artery: No stenosis. No dissection or occlusion. Left vertebral artery: No stenosis. No dissection or occlusion. Orbital cavities: The patient is post bilateral cataract surgery. Thyroid: There is nodular enlargement of the thyroid gland. Please correlate clinically and with dedicated ultrasound. Soft tissues: Normal. No significant soft tissue swelling. Bones/joints: Cervical spondylosis noted. Lungs: Mosaic appearance of the lungs likely represents patchy air trapping. IMPRESSION: Occluded right internal carotid artery at its origin. Calcific plaque causing less than 40% stenosis in left internal carotid artery. Suggest follow-up thyroid ultrasound to further assess nodule enlargement. REFERENCES: NASCET CRITERIA. The degree of stenosis in the cervical segment of the internal carotid artery is based on NASCET criteria. Normal is no stenosis. Mild is less than 50% stenosis. Moderate is 50-69% stenosis. Severe is 70% to 99% stenosis. Total occlusion is no detectable patent lumen.
[2025-07-21 04:41] LABS: Hepatitis C Ab Qual. W/ RFX NEGATIVE (Negative)
--- NOTE | 2025-07-21 04:47 | CT_ITS ---
PROCEDURE INFORMATION: Exam: CTA Chest With Contrast Exam date and time: 07/21/2025 5:14 AM Age: 79 years old Clinical indication: Pain; Other: Hypertension; Other: Back; Additional info: HTN, back pain, HX aneurysm TECHNIQUE: Imaging protocol: Computed tomographic angiography of the chest with contrast. Exam focused on the arteries. 3D rendering (Not supervised by radiologist): MIP and/or 3D reconstructed images were created by the technologist. Radiation optimization: All CT scans at this facility use at least one of these dose optimization techniques: automated exposure control; mA and/or kV adjustment per patient size (includes targeted exams where dose is matched to clinical indication); or iterative reconstruction. Contrast material: ISOUVE 370; Contrast volume: 80 ml; Contrast route: INTRAVENOUS (IV); COMPARISON: CT ANGIO CHEST 03/16/2025 9:17 AM FINDINGS: Pulmonary arteries: Normal. No pulmonary emboli. Aorta: Unremarkable. No aortic aneurysm. No aortic dissection. Thyroid: 1.8 cm left thyroid hypodensity. Lungs: Unremarkable. No consolidation. No masses. Pleural spaces: Unremarkable. No pneumothorax. No pleural effusion. Heart: Unremarkable. No cardiomegaly. No pericardial effusion. Coronary arteries: Moderate coronary calcium. Lymph nodes: Calcified hilar and mediastinal lymph nodes consistent with prior granulomatous disease. Bones/joints: Unremarkable. No acute fracture. Soft tissues: Unremarkable. IMPRESSION: 1. No evidence of pulmonary embolism or other acute process. 2. Moderate coronary calcium. 3. Prominent hiatal hernia containing much of the stomach. 4. Evidence of prior granulomatous disease.
--- NOTE | 2025-07-21 04:48 | CT_ITS ---
PROCEDURE INFORMATION: Exam: CTA Chest With Contrast CTA Abdomen and Pelvis With Contrast Exam date and time: 07/21/2025 5:14 AM Age: 79 years old Clinical indication: Pain; Other: HTN; Other: Back; Additional info: HTN, back pain, HX aneurysm TECHNIQUE: Imaging protocol: Computed tomographic angiography of the chest with contrast. Exam focused on the arteries. Computed tomographic angiography of the abdomen and pelvis with contrast. Exam focused on the arteries. 3D rendering (Not supervised by radiologist): MIP and/or 3D reconstructed images were created by the technologist. Radiation optimization: All CT scans at this facility use at least one of these dose optimization techniques: automated exposure control; mA and/or kV adjustment per patient size (includes targeted exams where dose is matched to clinical indication); or iterative reconstruction. Contrast material: ISOUVE 370; Contrast volume: 80 ml; Contrast route: INTRAVENOUS (IV); COMPARISON: CT ANGIO CHEST 03/16/2025 9:17 AM FINDINGS: VASCULATURE: Pulmonary arteries: No evidence of pulmonary embolus. Aorta: No aortic aneurysm. No aortic dissection. Celiac and mesenteric arteries: No occlusion or significant stenosis. Renal arteries: No occlusion or significant stenosis. Right iliac arteries: No occlusion or significant stenosis. Left iliac arteries: No occlusion or significant stenosis. Thyroid: 1.8 cm left thyroid hypodensity. CHEST: Lungs: Unremarkable. No consolidation. No masses. Pleural spaces: Unremarkable. No pneumothorax. No pleural effusion. Heart: Unremarkable. No cardiomegaly. No pericardial effusion. Coronary arteries: Small amount of coronary calcium. Diaphragm: Large hiatal hernia. ABDOMEN AND PELVIS: Liver: No mass. Gallbladder and biliary ducts: Unremarkable. No calcified stones. No ductal dilation. Pancreas: Unremarkable. No mass. No ductal dilation. Spleen: Unremarkable. No splenomegaly. Adrenal glands: Unremarkable. No mass. Kidneys and ureters: Unremarkable. No solid mass. No hydronephrosis. Stomach and bowel: Unremarkable. No obstruction. No mucosal thickening. Appendix: No evidence of appendicitis. Intraperitoneal space: Unremarkable. No free air. No significant fluid collection. Urinary bladder: Unremarkable. No mass. Reproductive: Unremarkable as visualized. Lymph nodes: Unremarkable. No enlarged lymph nodes. Bones/joints: Unremarkable. No acute fracture. Soft tissues: Unremarkable. IMPRESSION: 1. No evidence of pulmonary embolus or other acute process. 2. Small amount of coronary calcium. 3. Large hiatal hernia. 4. 1.8 cm left thyroid hypodensity. No follow-up is recommended.
[2025-07-21] MEDS: IOPAMIDOL-370 (76%);100ML BOTTLE 160 ML IV (05:23)
[2025-07-21] MEDS: 0.9 % SODIUM CHLORIDE 50 ML VIAL 80 ML IV (05:23)
[2025-07-21] MEDS: SODIUM CHLORIDE 0.9% 10ML SYR (RAD ONLY) 10 ML IV (05:24)
[2025-07-21] MEDS: ACETAMINOPHEN 500MG TAB 1000 MG PO (06:05)
[2025-07-21] MEDS: KETOROLAC 15MG/ML VIAL 15 MG IV (06:06)
[2025-07-21] MEDS: PROCHLORPERAZINE 10MG/2ML VIAL 5 MG IV (06:06)
[2025-07-21] MEDS: MAGNESIUM SULFATE IN WATER 2 GM/50 ML PIGGYBACK IV (06:13)
== END 2025-07-21 06:51 | disposition home or self-care (01) ==
PROVIDERS: Emergency Provider Emergency Medicine; PCP Family Medicine
DX: R51.9 Headache, unspecified (principal); I10 Essential (primary) hypertension; M54.50 Low back pain, unspecified; I65.21 Occlusion and stenosis of right carotid artery; E04.2 Nontoxic multinodular goiter
CPT/HCPCS: 70450; 70496; 70498; 71275; 74174; 80053; 81001; 83880; 84484; 85025; 86803; 87389; 93005; 96365; 96375; 99285; J0360; J0780; J1885; J2405; J3475; Q9967